=== PATIENT | female | born 1960 | race Caucasian/White ===

== ENCOUNTER 2017-06-17 18:29 | Emergency (ER) | payer MEDICARE, MEDICAID ==
[~2017-06-17 18:29] MED LIST: ISOVUE-370 76%-LOCM 1 ML ONE
[2017-06-17] MEDS ORDERED: Ondansetron HCl/PF 4 MG/2 ML Vial ONE (18:50)
[2017-06-17 19:02] LABS: Bilirubin Small (Negative); Blood, Urine Negative (Negative); Glucose, Urine (Dipstick) Negative (Negative); Ketone, Urine Trace mg/dL (Negative); Nitrite Negative (Negative); Protein, Urine (Dipstick) 30 mg/dL (Neg-Trace)
[2017-06-17 19:03] LABS: Bacteria/HPF Rare-Few HPF (None Seen)
[2017-06-17 19:28] LABS: RBC/HPF 0-3 HPF (0-3)
[2017-06-17 19:29] LABS: Hyaline Casts/LPF 4-6 HYALINE CAST LPF (0-3 Hyaline)
[2017-06-17 19:41] LABS: #Eosinphils 0.3 thou/uL (0.0-0.7); #Lymphocytes 2.3 thou/uL (1.20-3.40); #Monocytes 0.9 thou/uL (0.11-0.59); #Neutrophils 3.6 thou/uL (1.40-6.50); %Basophils 0.5 % (0.0-1.0); %Lymphocytes 32.8 % (21.0-51.0); Hematocrit 40.5 % (36.0-47.0); Mean Platelet Volume 10.7 fL (7.4-10.4); Red Blood Cell (RBC) Count 4.23 mill/uL (4.20-5.40); White Blood Cell (WBC) Count 7.2 thou/uL (4.8-10.8)
[2017-06-17 20:07] LABS: Lactic Acid - Sepsis 1.4 mmol/L (0.5-2.2)
[2017-06-17] MEDS ORDERED: HYDROcodone/Acetaminophen 5/325 mg Tablet ONE (20:08)
[2017-06-17 20:19] LABS: ALT (SGPT) 15 U/L (8-55); AST (SGOT) 14 U/L (5-34); Alkaline Phosphatase 73 U/L (40-150); Anion Gap 17 mmol/L (10-20); BUN (Urea Nitrogen) 14 mg/dL (9.8-20.1); Bilirubin, Total 0.4 mg/dL (0.2-1.2); Calc. Creatinine Clearance 0 mL/min (70-130); Calcium 9.1 mg/dL (7.8-10.44); Carbon Dioxide 19 mmol/L (22-29); Chloride 108 mmol/L (98-107); Estimated GFR-MDRD 70; Globulin 2.7 g/dL (2.4-3.5); Protein, Total 6.6 g/dL (6.0-8.3); Troponin I Less than 0.010 ng/mL (< 0.028)
--- NOTE | 2017-06-17 20:23 | CT ---
CT ABDOMEN AND PELVIS WITH IV CONTRAST 06/27/17 HISTORY: Lower abdominal pain, right flank pain. FINDINGS: Comparison is made with the exam of 01/12/17. Mild atelectatic changes in the lung bases. A small hiatal hernia is again seen. The liver, spleen, pancreas, and right adrenal gland are normal. The 12 mm right para-adrenal nodule and the 15 mm left adrenal nodule is stable. The patient is post cholecystectomy and hysterectomy. No free air, free fluid, or lymphadenopathy is seen in the abdomen or pelvis. There are vascular binu cifications without evidence of aneurysmal dilatation of the abdominal aorta. There are degenerative changes in the spine. A small cyst in the left kidney and scarring at the inferior pole of the right kidney are again seen . IMPRESSION: 1. Small hiatal hernia. 2. Stable left adrenal and right para-adrenal nodules. 3. No evidence of acute process. POS: [facility]
[2017-06-17] MEDS ORDERED: Methocarbamol 1 GM in Sodium Chloride 0.9% 100 ML IVPB SCH (21:45)
[2017-06-17] MEDS ORDERED: Dicyclomine HCl 20 mg/2 ml Ampule ONE (22:02)
== END 2017-06-17 23:03 | disposition home or self-care (01) ==
LOC: ERS 18:29
DX: M54.5 Low back pain (principal); E78.5 Hyperlipidemia, unspecified; E27.40 Unspecified adrenocortical insufficiency; F32.9 Major depressive disorder, single episode, unspecified; F41.9 Anxiety disorder, unspecified; G62.9 Polyneuropathy, unspecified; I25.2 Old myocardial infarction; I10 Essential (primary) hypertension; I25.10 Atherosclerotic heart disease of native coronary artery without angina pectoris; Z79.899 Other long term (current) drug therapy; Z86.73 Personal history of transient ischemic attack (TIA), and cerebral infarction without residual deficits; Z79.84 Long term (current) use of oral hypoglycemic drugs; Z87.891 Personal history of nicotine dependence
CPT/HCPCS: 36415; 74177; 80053; 81003; 81015; 82553; 83605; 84484; 85025; 87086; 96365; 96372; 96375; J2405; J2800; J7050

== ENCOUNTER 2017-06-24 14:24 | Emergency (ER) | payer MEDICARE, MEDICAID ==
[2017-06-24 14:54] LABS: #Basophils 0.1 thou/uL (0.0-0.2); #Eosinphils 0.3 thou/uL (0.0-0.7); #Lymphocytes 2.3 thou/uL (1.20-3.40); #Monocytes 0.9 thou/uL (0.11-0.59); #Neutrophils 3.2 thou/uL (1.40-6.50); %Lymphocytes 33.6 % (21.0-51.0); %Monocytes 13.4 % (0.0-10.0); Hematocrit 40.5 % (36.0-47.0); Mean Platelet Volume 9.5 fL (7.4-10.4); Red Blood Cell (RBC) Count 4.24 mill/uL (4.20-5.40); White Blood Cell (WBC) Count 6.8 thou/uL (4.8-10.8)
[2017-06-24 15:15] LABS: ALT (SGPT) 18 U/L (8-55); AST (SGOT) 19 U/L (5-34); Alkaline Phosphatase 76 U/L (40-150); Anion Gap 13 mmol/L (10-20); BUN (Urea Nitrogen) 13 mg/dL (9.8-20.1); Bilirubin, Total 0.3 mg/dL (0.2-1.2); Calc. Creatinine Clearance 0 mL/min (70-130); Calcium 9.3 mg/dL (7.8-10.44); Carbon Dioxide 23 mmol/L (22-29); Chloride 107 mmol/L (98-107); Estimated GFR-MDRD 76; Globulin 3.2 g/dL (2.4-3.5); Protein, Total 7.3 g/dL (6.0-8.3)
[2017-06-24 15:21] LABS: Bilirubin Small (Negative); Blood, Urine Negative (Negative); Glucose, Urine (Dipstick) Negative (Negative); Ketone, Urine Trace mg/dL (Negative); Nitrite Negative (Negative); Protein, Urine (Dipstick) Negative (Neg-Trace); Urobilinogen 0.2 mg/dL (0.2-1.0)
[2017-06-24] MEDS ORDERED: Morphine Sulfate 2 MG/ML SYRINGE ONE ×2 (15:38→17:20)
[2017-06-24] MEDS ORDERED: Ondansetron HCl/PF 4 MG/2 ML Vial ONE (15:38)
[2017-06-24] MEDS ORDERED: ISOVUE-370 76%-LOCM 1 ML ONE (16:10)
--- NOTE | 2017-06-24 16:49 | CT ---
CT ABDOMEN WITH CONTRAST CT PELVIS WITH CONTRAST: DATE: TIME: 1613 HOURS HISTORY: 57-year-old female with persistent epigastric pain and nausea, becoming recently worse. COMPARISON: 06/17/[address] angiogram of 07/19/16. TECHNIQUE: IV injection of iodinated contrast media: Administered. Oral contrast media: Not administered. FINDINGS: The small right paraadrenal nodule and the small left adrenal nodule are unchanged since 07/19/16. T he appendix is not visualized. Several diverticula in the descending colon and proximal sigmoid colo n without acute diverticulitis. No small bowel dilation. There is a new Combs catheter in the now em pty urinary bladder, which is the only interval change since 06/17/17. Atherosclerotic calcification without aneurysm of abdominal aorta. Bilateral kidneys, pancreas, liver, and spleen are normal. No ascites or pneumoperitoneum. Liver, pancreas, kidneys, and spleen are normal. Lung bases are clear. Cholecystectomy clips. Absent uterus. IMPRESSION: 1. Interval placement of Combs catheter. 2. No other interval change since 06/17/17. 3. No acute findings. 4. Status post cholecystectomy, hysterectomy, and probably appendectomy. 5. Small adrenal and paraadrenal nodules, stable since 07/19/16. JNTeddy POS: [facility]
== END 2017-06-24 18:17 | disposition home or self-care (01) ==
LOC: ERS 14:24
DX: R33.9 Retention of urine, unspecified (principal); D50.9 Iron deficiency anemia, unspecified; E27.40 Unspecified adrenocortical insufficiency; E78.5 Hyperlipidemia, unspecified; F41.9 Anxiety disorder, unspecified; F32.9 Major depressive disorder, single episode, unspecified; G62.9 Polyneuropathy, unspecified; I25.10 Atherosclerotic heart disease of native coronary artery without angina pectoris; I25.2 Old myocardial infarction; I10 Essential (primary) hypertension; Z86.73 Personal history of transient ischemic attack (TIA), and cerebral infarction without residual deficits; Z87.891 Personal history of nicotine dependence; Z79.84 Long term (current) use of oral hypoglycemic drugs; Z79.899 Other long term (current) drug therapy
CPT/HCPCS: 36415; 51702; 74177; 80053; 81003; 85025; 96361; 96374; 96375; 96376; J2270; J2405

== ENCOUNTER 2017-06-26 18:22 | Emergency (ER) | payer MEDICARE, MEDICAID ==
[~2017-06-26 18:22] MED LIST changes: +Iopamidol 370 76% 50 ML VIAL FS ONE
[2017-06-26 19:00] LABS: #Basophils 0.1 thou/uL (0.0-0.2); #Eosinphils 0.4 thou/uL (0.0-0.7); #Lymphocytes 2.4 thou/uL (1.20-3.40); #Monocytes 0.9 thou/uL (0.11-0.59); #Neutrophils 3.7 thou/uL (1.40-6.50); %Basophils 1.2 % (0.0-1.0); %Eosinophils 4.8 % (0.0-10.0); %Lymphocytes 32.3 % (21.0-51.0); %Monocytes 12.2 % (0.0-10.0); Hematocrit 38.2 % (36.0-47.0); Red Blood Cell (RBC) Count 3.98 mill/uL (4.20-5.40); White Blood Cell (WBC) Count 7.4 thou/uL (4.8-10.8)
[2017-06-26 19:08] LABS: Bilirubin Negative (Negative); Blood, Urine Negative (Negative); Glucose, Urine (Dipstick) Negative (Negative); Ketone, Urine Negative (Negative); Nitrite Negative (Negative); Protein, Urine (Dipstick) Negative (Neg-Trace)
[2017-06-26 19:18] LABS: Lactic Acid - Sepsis 0.9 mmol/L (0.5-2.2)
[2017-06-26 19:23] LABS: ALT (SGPT) 16 U/L (8-55); AST (SGOT) 16 U/L (5-34); Alkaline Phosphatase 88 U/L (40-150); Anion Gap 12 mmol/L (10-20); BUN (Urea Nitrogen) 13 mg/dL (9.8-20.1); Bilirubin, Total 0.3 mg/dL (0.2-1.2); CK (CPK) 37 U/L (29-168); Calc. Creatinine Clearance 0 mL/min (70-130); Carbon Dioxide 24 mmol/L (22-29); Chloride 110 mmol/L (98-107); Estimated GFR-MDRD 75; Globulin 3.1 g/dL (2.4-3.5)
[2017-06-26 19:25] LABS: Troponin I 0.026 ng/mL (< 0.028)
--- NOTE | 2017-06-26 20:18 | RAD ---
PORTABLE CHEST ONE VIEW: 06/26/17 at 6:53 p.m. HISTORY: Chest pain. FINDINGS: Comparison is made with the exam of 05/04/17. There are changes of median sternotomy. Left sided pacemaker device remains in place. The heart size is borderline. The lungs are well expanded without focal areas of consolidation, pneumothorax, jasmina k pulmonary edema, or pleural effusions. IMPRESSION: No acute process. POS: [facility]
[2017-06-26] MEDS ORDERED: Promethazine HCl 25 MG/ML VIAL ONE (20:19)
--- NOTE | 2017-06-26 23:31 | CT ---
CT ABDOMEN AND PELVIS WITH ORAL AND IV CONTRAST: History: Abdominal pain. Urinary retention. FINDINGS: Comparison is made with exam of 06-24-17. There has been removal of the Combs catheter since the las t exam. The urinary bladder is well distended. Mild dependent changes at the lung bases again seen. Small hiatal hernia is again noted. Changes of cholecystectomy are again seen. The liver, spleen, pancreas, and right adrenal gland are normal. The 12 mm right sided renal nodule and 15 mm left adrenal nodule are stable. No free air, free fluid or lymphadenopathy is seen in the abdomen or pelvis. Vascular calcifications are present without evidence of aneurysmal dilatation of the abdominal aorta. There are degenerativ e changes in the spine. A small cyst in the left kidney and scarring in the inferior pole of the right kidney is seen. The a ppendix is not visualized. Mild colonic diverticulosis is stable. IMPRESSION: 1. Small hiatal hernia. 2. Stable small left adrenal and right para-adrenal nodules. 3. No evidence of acute process. 4. Mild colonic diverticulosis. POS: [facility]
[2017-06-26] MEDS ORDERED: Ondansetron HCl/PF 4 MG/2 ML Vial ONE (23:43)
[2017-06-27] MEDS ORDERED: Lidocaine Viscous Sol 2% 15 ml UD Cup ONE (00:30)
[2017-06-27] MEDS ORDERED: Lidocaine 2% Jelly 5 ML TUBE ONE (00:34)
[2017-06-27] MEDS ORDERED: Witch Hazel-Glycerin 1 EACH JAR TOP SCH (01:00)
[2017-06-27] MEDS ORDERED: cefTRIAXone\\ROCEPHIN 1 GM VIAL ONE ×2 (01:34→01:41)
[2017-06-27] MEDS ORDERED: Sodium Chloride 0.9% 100 ML ONE ×2 (01:35→01:41)
[2017-06-27] MEDS ORDERED: Ketorolac Tromethamine 30 MG/ML VIAL ONE (01:56)
== END 2017-06-27 02:30 | disposition home or self-care (01) ==
LOC: ERS 18:22
DX: N76.0 Acute vaginitis (principal); G62.9 Polyneuropathy, unspecified; D50.9 Iron deficiency anemia, unspecified; I25.10 Atherosclerotic heart disease of native coronary artery without angina pectoris; I25.2 Old myocardial infarction; E78.5 Hyperlipidemia, unspecified; I10 Essential (primary) hypertension; F41.9 Anxiety disorder, unspecified; F32.9 Major depressive disorder, single episode, unspecified; Z87.891 Personal history of nicotine dependence; Z86.73 Personal history of transient ischemic attack (TIA), and cerebral infarction without residual deficits; Z79.84 Long term (current) use of oral hypoglycemic drugs; Z79.899 Other long term (current) drug therapy
CPT/HCPCS: 36415; 51702; 71010; 74177; 80053; 81003; 82553; 83605; 83690; 84484; 85025; 87040; 87070; 87077; 87086; 87491; 87591; 93005; 94760; 96361; 96365; 96375; 96376; J0696; J1885; J2270; J2405; J2550; J7050

== ENCOUNTER 2017-07-04 13:59 | Observation (INO) | payer MEDICARE, MEDICAID ==
[~2017-07-04 13:59] MED LIST changes: -Iopamidol 370 76% 50 ML VIAL FS ONE
--- NOTE | 2017-07-04 14:36 | RAD ---
PORTABLE CHEST ONE VIEW: Date: 07-04-17 Time: 1:47 p.m. History: Chest pain. FINDINGS: Comparison made with exam of 06-26-17. Changes of median sternotomy are again seen. Left sided pacemaker device seen in place. The heart si ze is normal. The lungs are expanded without focal areas of consolidation, pneumothorax, or pleural effusions. IMPRESSION: No acute process. POS: [facility]
[2017-07-04 14:43] LABS: #Basophils 0.1 thou/uL (0.0-0.2); #Eosinphils 0.3 thou/uL (0.0-0.7); #Lymphocytes 1.9 thou/uL (1.20-3.40); #Monocytes 0.8 thou/uL (0.11-0.59); #Neutrophils 2.9 thou/uL (1.40-6.50); %Basophils 1.2 % (0.0-1.0); %Eosinophils 4.8 % (0.0-10.0); %Lymphocytes 32.3 % (21.0-51.0); %Monocytes 13.6 % (0.0-10.0); Hematocrit 38.1 % (36.0-47.0); Mean Platelet Volume 9.4 fL (7.4-10.4); Red Blood Cell (RBC) Count 4.06 mill/uL (4.20-5.40)
[2017-07-04] MEDS ORDERED: Ondansetron HCl/PF 4 MG/2 ML Vial ONE (14:48)
[2017-07-04] MEDS ORDERED: Nitroglycerin 2% Ointment 1 INCH/1 GM Packet ONE (14:48)
[2017-07-04 15:11] LABS: ALT (SGPT) 16 U/L (8-55); AST (SGOT) 17 U/L (5-34); Alkaline Phosphatase 71 U/L (40-150); Anion Gap 11 mmol/L (10-20); BUN (Urea Nitrogen) 15 mg/dL (9.8-20.1); Bilirubin, Total 0.3 mg/dL (0.2-1.2); CK (CPK) 34 U/L (29-168); Calc. Creatinine Clearance 0 mL/min (70-130); Calcium 9.2 mg/dL (7.8-10.44); Carbon Dioxide 26 mmol/L (22-29); Chloride 106 mmol/L (98-107); Estimated GFR-MDRD 82; Globulin 2.9 g/dL (2.4-3.5); Protein, Total 6.8 g/dL (6.0-8.3)
[2017-07-04 15:14] LABS: Troponin I Less than 0.010 ng/mL (< 0.028)
[2017-07-04] MEDS ORDERED: Morphine 2 MG/ML SYRINGE ONE (15:39)
[2017-07-04] MEDS ORDERED: Ondansetron ODT 4 MG TAB SL PRN (17:00)
[2017-07-04] MEDS ORDERED: Ondansetron HCl/PF 4 MG/2 ML Vial IVP PRN (17:00)
[2017-07-04] MEDS ORDERED: Sodium Chloride 0.9% 1,000 ML IV SCH (17:00)
[2017-07-04 17:07] VITALS: BMI 42.5
[2017-07-04] MEDS ORDERED: hydrALAZINE 20 MG/ML VIAL SLOW IVP PRN (18:19)
[2017-07-04] MEDS ORDERED: Acetaminophen 325 MG TAB PO PRN (18:19)
[2017-07-04] MEDS ORDERED: Nitroglycerin 0.4 MG TAB (25 Tab Bottle) SL PRN (18:19)
[2017-07-04] MEDS ORDERED: Furosemide 40 MG TAB PO PRN (18:23)
[2017-07-04] MEDS ORDERED: Sodium Chloride 0.9% 500 ML IV SCH (18:30)
[2017-07-04 18:52] LABS: Troponin I Less than 0.010 ng/mL (< 0.028)
--- NOTE | 2017-07-04 20:29 | HP ---
DATE OF OBSERVATION PLACEMENT: 07/04/2017 PRIMARY CARE PHYSICIAN: Danny kaye. REASON FOR ADMISSION: Chest pain. HISTORY OF PRESENT ILLNESS: Ms. Bel Neves is a 57-year-old female with an extensive past medic al history which includes coronary artery disease necessitating CABG, chronic diastolic congestive h eart failure with an EF of 60-65%, hypertension, dyslipidemia, anxiety and sick sinus syndrome, stat us post pacemaker placement, who presents to the emergency room complaining of chest discomfort whic h began earlier today. The patient states that the pain is in the left side of her chest and it has radiated up to her neck as well as her arm. She states that she did not get short of breath or fel t palpitations; however, has felt diaphoresis and has some nausea and vomiting. She states that her pain is exacerbated by movement as well as exertion. She then arrived to the emergency room where she received nitroglycerin, morphine and aspirin. Her pain has been alleviated somewhat, however, s he still complains a 2/10 chest discomfort. Of note, the patient has had a cardiac catheterization in 01/2017, which revealed 2-vessel coronary artery disease involving the diagonal branch of LAD and circumflex. There was no obstructive CAD and LAD and at that point, medical therapy was recommende d. The patient states she has been compliant with her medications. Given her cardiac risk factors and her presenting symptoms, she is now being placed into observation onto the telemetry floor. Cur rently, she is resting comfortably. PAST MEDICAL HISTORY: 1. Coronary artery disease necessitating CABG. 2. Hypertension. 3. Hyperlipidemia. 4. Chronic diastolic congestive heart failure with an EF of 60-65%. 5. Hyperlipidemia. 6. Diabetes mellitus type 2. 7. Sick sinus syndrome, status post pacemaker placement. 8. Anxiety. PAST SURGICAL HISTORY: 1. Pacemaker placement. 2. Appendectomy. 3. Hysterectomy. 4. Three-vessel CABG. 5. Cholecystectomy. CODE STATUS: FULL CODE. SOCIAL HISTORY: The patient is a former smoker. Denies any illicit drug use. Denies any alcohol u se. MEDICATIONS: 1. Ranexa 1000 mg p.o. b.i.d. 2. Aggrenox 1 capsule p.o. b.i.d. 3. Glucophage 500 mg p.o. daily. 4. Klonopin 0.5 mg p.o. daily. 5. Zoloft 150 mg p.o. daily. 6. Seroquel 100 mg p.o. at bedtime. 7. Protonix 40 mg p.o. b.i.d. 8. Metoprolol tartrate 25 mg p.o. b.i.d. 9. Zestril 10 mg p.o. at bedtime. 10. Isosorbide mononitrate 30 mg p.o. daily. 11. Neurontin 300 mg p.o. at bedtime. 12. Lasix 40 mg p.o. daily. 13. Florinef 0.1 mg p.o. daily. 14. Lipitor 80 mg p.o. at bedtime. ALLERGIES: No known drug allergies. FAMILY HISTORY: Significant for multiple family members with coronary artery disease. REVIEW OF SYSTEMS: The following complete review of systems was negative, unless otherwise mentione d in the HPI or below: Constitutional: Weight loss or gain, sense of well-being, ability to conduct usual activities, exer cise tolerance. Skin/Breast: Rash, itching, changes in hair growth or loss, nail changes, breast l umps, tenderness, swelling, nipple discharge. Eyes: Vision, double vision, tearing, blind spots, p ain. ENT/Mouth: Headaches (location, time of onset, duration, precipitating factors), vertigo, lig htheadedness, injury. Vision, double vision, tearing, blind spots, pain, nose bleeding, colds, obstr uction, discharge, dental difficulties, gingival bleeding, dentures, neck stiffness, pain, tendernes s, masses in thyroid or other areas. Cardiovascular: Precordial pain, substernal distress, palpita tions, syncope, dyspnea on exertion, orthopnea, nocturnal paroxysmal dyspnea, edema, cyanosis, hyper tension, heart murmurs, varicosities, phlebitis, claudication. Respiratory: Pain, shortness of janeth ath, wheezing, stridor, cough, hemoptysis, fever or night sweats. Gastrointestinal: Poor appetite, dysphagia, indigestion, abdominal pain, heartburn, eructation, nausea, vomiting, hematemesis, jaund ice, constipation, or diarrhea, abnormal stools (vanesa-colored, tarry, bloody, greasy, foul smelling) , flatulence, hemorrhoids, recent changes in bowel habits. Genitourinary: Urgency, frequency, dysu josselin, nocturia, hematuria, polyuria, oliguria, unusual (or change in) color of urine, stones, hesitan cy, change in size of stream, dribbling, acute retention or incontinence, libido, potency. Musculos keletal: Pain, swelling, redness or heat of muscles or joints, limitation, of motion, muscular weak ness, atrophy, cramps. Neurologic/Psychiatric: Convulsions, paralyses, tremor, incoordination, par asthesias, difficulties with memory of speech, sensory or motor disturbances, or muscular coordinati on (ataxia, tremor), emotional problems, anxiety, depression, previous psychiatric care, unusual per ceptions, hallucinations. Allergy/Immunologic: Skin rash, anemia, bleeding tendency, polydipsia, p olyuria, intolerance to heat or cold. PHYSICAL EXAMINATION: CONSTITUTIONAL/VITAL SIGNS: Blood pressure is 149/77, pulse is 85, temperature is 98.1, respiration s are 20, O2 saturation 94% on room air. GENERAL: She is in no acute distress, nontoxic appearing. EYES: Pupils equal, round, and reactive to light and accommodation. ENT/MOUTH: Moist oral mucosa. RESPIRATORY: Equal chest wall expansion. No wheezes, rhonchi or rales. CARDIOVASCULAR: Positive murmur, pacemaker pocket is present. No gallops or rubs. GASTROINTESTINAL: Soft, nontender, nondistended. Bowel sounds are present in all 4 quadrants. MUSCULOSKELETAL: Good range of motion in all 4 extremities. No clubbing, no cyanosis. LYMPHATIC: No swollen or painful cervical or axillary lymph nodes. NEUROLOGIC: No ptosis, no facial asymmetry, no tongue deviation or jaw protrusion, no focal deficit s. PSYCHIATRIC: She is awake, alert to time, place, person, answers appropriately. SKIN: Normal skin turgor. LABORATORY AND X-RAY FINDINGS: Taken in emergency room and reviewed by me showed WBC of 6.0, hemogl obin 12.9, hematocrit 38.1, platelet count 180,000. D-dimer 0.32. Sodium 139, potassium 4.1, chlor manuelito 106, carbon dioxide 26, anion gap 11, BUN 15, creatinine 0.72, glucose is 110, AST and ALT is 17 and 16. Troponin less than 0.01. BNP is 76.9. Chest x-ray done in the emergency room revealed no acute processes. She does have a pacemaker place d. EKG reveals atrial paced rhythm. ASSESSMENT AND PLAN: Ms. Bel Neves is a 57-year-old female with past medical history of ham ry artery disease, sick sinus syndrome, status post pacemaker placement, chronic diastolic congestiv e heart failure, hypertension, hyperlipidemia, and diabetes mellitus type 2, [facility]. 1. Chest pain. We will place patient in observation onto the telemetry floor. Three sets of cardi ac enzymes and we will continue with aspirin therapy. Given her presenting symptoms, will check a C T of the chest to rule out any kind of underlying dissection. The patient does have chronic coronar y artery disease, and after her last cath, medical management was recommended. We will consult Card iology to see if any further intervention is warranted or just further medical management. 2. Hypertension. Continue patient's home medications. 3. Chronic diastolic congestive heart failure, no evidence of volume overload at this time. 4. Resume the patient's home medications except for metformin. She is to get a CT scan of the ches t. 5. P.r.n. order set. 6. Deep vein thrombosis prophylaxis. 7. FULL CODE. 8. Diabetic diet. I explained all this to the patient at bedside. She is agreeable to the plan of treatment. All que stions have been answered. The patient's further hospital course will be dictated by her clinical course while here.
[2017-07-04] MEDS ORDERED: Lisinopril 10 MG TAB PO SCH (21:00)
[2017-07-04] MEDS ORDERED: Gabapentin 300 MG CAP PO SCH (21:00)
[2017-07-04] MEDS ORDERED: clonazePAM 0.5 MG TAB PO SCH (21:00)
[2017-07-04] MEDS ORDERED: Atorvastatin Calcium 40 MG TAB PO SCH (21:00)
[2017-07-04] MEDS: Aggrenox 200-25mg CAP PO SCH (21:08)
[2017-07-04] MEDS: Metoprolol Tartrate 50 MG TAB PO SCH (21:10)
[2017-07-04 21:49] LABS: Troponin I Less than 0.010 ng/mL (< 0.028)
--- NOTE | 2017-07-04 22:10 | CT ---
CTA AORTA 07/04/17 HISTORY: Chest pain, rule out aortic dissection. Contrast enhanced CTA of the chest and abdomen is performed. Comparison made to previous CTA chest f rom 07/19/[address] of the abdomen from 06/26/17. 2D and 3D reconstructed images performed. FINDINGS/IMPRESSION: CTA abdomen has not significantly changed since the previous CT of the abdomen from eight days earli er. The abdominal aorta, SMA, celiac, and renal arteries are patent. Again adrenal nodule seen. CTA CHEST: CTA chest demonstrates no evidence of significant lung parenchymal lesions. Coronary artery calcific ation seen. Again, no evidence of aortic dissections or aneurysms seen. No significant evidence of filling defec ts seen in the pulmonary arteries to suggest pulmonary emboli. A small hiatal hernia is also present . POS: [facility]
[2017-07-04] MEDS ORDERED: Morphine 2 MG/ML SYRINGE SLOW IVP SCH (22:45)
[2017-07-04] MEDS ORDERED: HYDROcodone/Acetaminophen 5/325 mg Tablet PO PRN ×2 (22:53)
[2017-07-05] MEDS: HYDROcodone/Acetaminophen 10/325 mg Tablet PO PRN ×3 (04:17→13:51)
[2017-07-05 05:58] LABS: #Eosinphils 0.3 thou/uL (0.0-0.7); #Lymphocytes 2.1 thou/uL (1.20-3.40); #Monocytes 0.8 thou/uL (0.11-0.59); #Neutrophils 2.5 thou/uL (1.40-6.50); %Basophils 0.7 % (0.0-1.0); %Eosinophils 4.9 % (0.0-10.0); Hematocrit 34.4 % (36.0-47.0); Mean Platelet Volume 9.7 fL (7.4-10.4); Red Blood Cell (RBC) Count 3.56 mill/uL (4.20-5.40); White Blood Cell (WBC) Count 5.7 thou/uL (4.8-10.8)
[2017-07-05 06:05] LABS: Anion Gap 10 mmol/L (10-20); BUN (Urea Nitrogen) 17 mg/dL (9.8-20.1); Calc. Creatinine Clearance 113 mL/min (70-130); Calcium 8.9 mg/dL (7.8-10.44); Carbon Dioxide 26 mmol/L (22-29); Chloride 107 mmol/L (98-107); Estimated GFR-MDRD 66
[2017-07-05] MEDS ORDERED: Fludrocortisone Acetate 0.1 MG TAB PO SCH (09:00)
[2017-07-05] MEDS: Aggrenox 200-25mg CAP PO SCH (09:19)
[2017-07-05] MEDS: Metoprolol Tartrate 50 MG TAB PO SCH (12:29)
--- NOTE | 2017-07-05 14:56 | PRG ---
DATE OF SERVICE: 07/05/2017 SUBJECTIVE: Ms. Neves was admitted to the hospital with again recurrent chest pain. EKG did not sh ow any ischemia. Her cardiac enzymes were negative. She says that the pain is like a sharp pain go ing across her chest and becomes a pressure. OBJECTIVE: VITAL SIGNS: On examination, 5 feet 1 inch tall, 226 pounds, BMI 42.7. Blood pressure has been son iable 94/52, earlier 82/46, and 125/58 most recently. Pulse is 60. LUNGS: Clear. CARDIAC: Normal S1, normal S2. ABDOMEN: Soft, nontender. EXTREMITIES: There is no edema. ASSESSMENT: 1. Chest pain. The patient has undergone cardiac catheterization as recently as 01/10/2017. She i s adequately vascularized. No other intervention would appear helpful or appropriate. She does hav e distal disease. 2. Morbid obesity. 3. Hypercholesterolemia. PLAN: 1. No other intervention would appear advisable or feasible. 2. Encouraged weight loss. 3. Do not know when the patient has had her pacemaker checked most recently. We can try to have th at interrogated prior to discharge. 4. Most recent LDL cholesterol 74.
[2017-07-05 15:29] VITALS: BP 118/56; TEMP 97.6
--- NOTE | 2017-07-05 15:37 | PDOC.PN ---
- Subjective Encounter Start Date: 07/05/17 Encounter Start Time: 15:36 Patient seen at bedside. No overnight events. Complains of neck pain that is positional. - Objective Resuscitation Status: Resuscitation Status FULL:Full Resuscitation Vital Signs & Weight: Vital Signs (12 hours) Temp Pulse Resp BP Pulse Ox 07/05/17 15:12 97.6 F 61 20 118/56 L 95 07/05/17 11:05 98.4 F 60 20 125/58 L 95 07/05/17 09:17 59 L 106/51 L 07/05/17 07:20 98.4 F 60 16 82/46 L 95 07/05/17 04:00 97.7 F 65 20 94/52 L 92 L Weight Weight 226 lb 1.6 oz I&O: 07/04/17 07/05/17 07/06/17 06:59 06:59 06:59 Intake Total 1271 339 Output Total 700 Balance 571 339 Result Diagrams: 07/05/17 04:43 07/05/17 04:43 Phys Exam - Physical Examination Constitutional: NAD HEENT: moist MMs Neck: no JVD Respiratory: clear to auscultation bilateral Cardiovascular: no significant murmur Gastrointestinal: non-tender Musculoskeletal: pulses present Neurological: normal sensation Psychiatric: normal affect, A&O x 3 Dx/Plan (1) Chest pain Code(s): R07.9 - CHEST PAIN, UNSPECIFIED Status: Acute (2) DM type 2 (diabetes mellitus, type 2) Status: Chronic Qualifiers: (3) Hx of CABG Status: Chronic (4) Morbid obesity Code(s): E66.01 - MORBID (SEVERE) OBESITY DUE TO EXCESS CALORIES Status: Chronic - Plan cont current plan of care * Appreciate cardiology input. No further intervention warranted. Medical management. * Pacer interrogated. Well functioning, no arrythmias * Pain appears to be noncardiac in nature, possibly neuropathic * D/C home
[2017-07-05] MEDS ORDERED: Acetaminophen/Codeine 30-300mg Tablet PO PRN (15:44)
--- NOTE | 2017-07-05 16:40 | DIS ---
DATE OF ADMISSION: 07/04/2017 DATE OF DISCHARGE: 07/05/2017 DISCHARGE DISPOSITION: Home. DISCHARGE FOLLOWUP: Dr. Sheldon as an outpatient. DISCHARGE DIAGNOSES: 1. Chest pain, acute coronary syndrome, ruled out. 2. History of coronary artery disease, stable. 3. Obesity. 4. Hypertension. 5. Dyslipidemia. 6. Neuropathy. DISCHARGE MEDICATIONS: 1. Tylenol No. 3 one tablet q.6 hours p.r.n., only 20 tablets were given. 2. Aggrenox 1 capsule p.o. b.i.d. 3. Lipitor 80 mg p.o. at bedtime. 4. Florinef 0.1 mg p.o. daily. 5. Lasix 40 mg p.o. daily. 6. Neurontin 300 mg p.o. at bedtime. 7. Imdur 30 mg p.o. daily. 8. Zestril 10 mg p.o. at bedtime. 9. Metoprolol tartrate 25 mg p.o. b.i.d. 10. Protonix 40 mg p.o. b.i.d. 11. Quetiapine 100 mg p.o. at bedtime. 12. Ranexa 1000 mg p.o. b.i.d. 13. Zoloft 150 mg p.o. daily. 14. Klonopin 0.5 mg p.o. daily. 15. Metformin 500 mg p.o. daily. INPATIENT CONSULTATIONS: Dr. Beck, Cardiology. INPATIENT PROCEDURES: None. INPATIENT RADIOGRAPHIC EXAMINATIONS: 1. Chest x-ray, which revealed no acute process. 2. CT dissection protocol, which revealed no evidence of aortic dissection, aneurysm. There is no evidence of filling defects to suggest pulmonary emboli. BRIEF HOSPITAL COURSE: Ms. Bel Neves is a 57-year-old female with a past medical history of coron kushal artery disease, hypertension, and hyperlipidemia, who presents to the emergency room complaining of chest discomfort. The patient was then subsequently placed in [facility] Three sets of cardiac enzymes were ordered, all 3 sets were negative. Given her extensive histo ry, a Cardiology consult to see if any further intervention was needed. The patient did have a card iac catheterization in 01/2017, in which she was adequately vascularized. Cardiology did not recomm end any further intervention. They recommended medical management, which she is already on. Clinic ally, the patient appeared to have the neuropathic or musculoskeletal pain as most of her pain was r eproducible. Her troponins have been negative. Her EKG has not shown any acute changes. She did h ave her pacemaker interrogated, which was revealed to be functioning well without any arrhythmias. Currently, she is stable for discharge home. We will discharge home later today in stable condition . DISCHARGE DIET: Heart healthy. ACTIVITY: As tolerated. RESTRICTIONS: None. CODE STATUS: FULL CODE. I have explained all this to the patient at bedside. She is agreeable to the plan of discharge. Al vipin questions have been answered. Time required to prepare for discharge 33 minutes.
--- OUTSIDE RECORDS SUMMARY | 2017-07-06 08:46 | XMS | Clinical Summary ---
:1960 Author Organization [facility] Address [address] [place] [address] Phone Care Team Providers Name Role Phone , Primary Care Provider Unavailable Allergies Not on File Current Medications Not on file Active Problems Not on file Social History Tobacco Use Types Packs/Day Years Used Date Never Assessed Sex Assigned at Date Recorded Not on file Last Filed Vital Signs Not on file Plan of Treatment Not on file Results Not on filefrom Last 3 Months
--- OUTSIDE RECORDS SUMMARY | 2017-07-06 08:46 | XMS | Clinical Summary ---
:1960 Author Organization [facility] Address [address] [place] [address] Phone Care Team Providers Name Role Phone , Primary Care Provider Unavailable Allergies Active Allergy Reactions Severity Noted Date Comments Propranolol 03/05/2015 Tingling all over body; restlessness Current Medications Prescription Sig. Disp. Refills Start Date End Date Status ALPRAZolam (XANAX) 0.5 Take 1 mg by mouth Active MG tablet 2 (two) times daily . albuterol-ipratropium Inhale 2 puffs by Active (COMBIVENT) 18-103 mouth via inhaler mcg/actuation inhaler every 6 (six) hours as needed for Wheezing. simvastatin (ZOCOR) 40 Take 40 mg by Active MG tablet mouth nightly. nitroglycerin Place 0.4 mg under Active (NITROSTAT) 0.4 MG SL the tongue every 5 tablet (five) minutes as needed for Chest pain Put 1 pill under tongue every 5min as needed for chest pain.No more than 3 doses in 15min.Call 911 if pain is unrelieved 5min after 1st dose. clopidogrel (PLAVIX) Take 75 mg by Active 75 mg tablet mouth daily. potassium chloride Take 8 mEq by Active (KLOR-CON) 8 MEQ CR mouth daily. tablet gabapentin (NEURONTIN) 3 (three) times 12/30/2014 Active 300 MG capsule daily . RANEXA 500 mg 12 hr Take 1,000 mg by 12/30/2014 Active tablet mouth 2 (two) times daily . aspirin 81 MG chewable Take 81 mg by Active tablet mouth daily. escitalopram oxalate Take 20 mg by Active (LEXAPRO) 20 MG tablet mouth daily. sertraline (ZOLOFT) daily . 12/30/2014 Active 100 MG tablet furosemide (LASIX) 20 Take 2 tablets (40 20 tablet 0 05/24/2015 Active MG tablet mg total) by mouth daily. benztropine (COGENTIN) Take 1 mg by mouth Active 1 MG tablet 2 (two) times daily. citalopram (CELEXA) 40 Take 40 mg by Active MG tablet mouth daily. metoprolol (LOPRESSOR) Take 50 mg by Active 50 MG tablet mouth 2 (two) times daily. LORazepam (ATIVAN) 2 Take 2 mg by mouth Active MG tablet every 6 (six) hours as needed for Anxiety. febuxostat 40 mg Take 40 mg by Active tablet mouth daily. acetaminophen-codeine Take 1 tablet by Active (TYLENOL #3) 300-30 mg mouth every 4 per tablet (four) hours as needed for Pain. ibuprofen Take 800 mg by Active (ADVIL,MOTRIN) 800 MG mouth every 6 tablet (six) hours as needed for Pain. Active Problems Problem Noted Date Vomiting and diarrhea 08/08/2015 Left-sided weakness 02/05/2015 COPD (chronic obstructive pulmonary disease) ([facility]) 02/05/2015 SOB (shortness of breath) 02/05/2015 Acute CVA (cerebrovascular accident) ([facility]) 02/05/2015 Symptomatic bradycardia 12/16/2014 Chest pain 11/16/2014 Pacemaker Overview: 12/18/2014 Hypertension High cholesterol Coronary artery disease Overview: CABG x 3 2011 Resolved Problems Problem Noted Date Resolved Date COPD exacerbation ([facility]) 12/10/2014 02/05/2015 Immunizations Name Dates Previously Given Next Due Influenza Antibiotic Free PF IM 06/27/2015 Social History Tobacco Use Types Packs/Day Years Used Date Former Smoker Quit: 10/12/2014 Alcohol Use Drinks/Week oz/Week Comments No Sex Assigned at Date Recorded Not on file Last Filed Vital Signs Vital Sign Reading Time Taken Blood Pressure 133/76 08/10/2015 7:52 AM [employer] Pulse 66 08/10/2015 7:52 AM [employer] Temperature 36.3 C (97.4 F) 08/10/2015 7:52 AM [employer] Respiratory Rate 16 08/10/2015 7:52 AM [employer] Oxygen Saturation 92% 08/10/2015 7:52 AM [employer] Inhaled Oxygen Concentration - - Weight 104.3 kg (230 lb) 08/08/2015 10:51 AM [employer] Height 154.9 cm (5' 1") 08/08/2015 10:51 AM [employer] Body Mass Index 43.46 08/08/2015 10:51 AM [employer] Plan of Treatment Not on file Implants Implanted Type Area Checkering Machine Adjuster Device Expiration Model / Identifier Date Serial / Lot Advisa Dr Indira Dudley Pacemakers Left: [employer] 03/24/2016 [id number] / Implanted:Qty: 1 on 12/18/2014 by Rick Ledesma MD Chest [id number] / Results Not on filefrom Last 3 Months
== END 2017-07-05 16:56 | disposition home or self-care (01) ==
LOC: ERS 13:59 → 2SW 16:36
PROVIDERS: ADMIT Hospitalist; ATTEND Hospitalist
DX: R07.9 Chest pain, unspecified (principal); I25.10 Atherosclerotic heart disease of native coronary artery without angina pectoris; E11.40 Type 2 diabetes mellitus with diabetic neuropathy, unspecified; I11.0 Hypertensive heart disease with heart failure; I50.32 Chronic diastolic (congestive) heart failure; I49.5 Sick sinus syndrome; F41.9 Anxiety disorder, unspecified; E66.01 Morbid (severe) obesity due to excess calories; E78.00 Pure hypercholesterolemia, unspecified; Z68.41 Body mass index [BMI] 40.0-44.9, adult; Z79.84 Long term (current) use of oral hypoglycemic drugs; Z79.02 Long term (current) use of antithrombotics/antiplatelets; Z79.82 Long term (current) use of aspirin; Z79.52 Long term (current) use of systemic steroids; Z79.899 Other long term (current) drug therapy; Z95.1 Presence of aortocoronary bypass graft; Z95.0 Presence of cardiac pacemaker; Z90.89 Acquired absence of other organs; Z90.710 Acquired absence of both cervix and uterus; Z87.891 Personal history of nicotine dependence
CPT/HCPCS: 71010; 71275; 80048; 80053; 82550; 82553; 83880; 84484 ×2; 85025 ×2; 85379; 93005; 96361 ×2; 96374; 96375; 96376; 99285; G0378; 36415; J2270; J2405; Q0162

== ENCOUNTER 2017-07-20 14:08 | Observation (INO) | payer MEDICARE, MEDICAID ==
--- OUTSIDE RECORDS SUMMARY | 2017-07-20 15:01 | XMS | Clinical Summary ---
:1960 Author Organization [facility] Address [address] [place] [address] Phone Care Team Providers Name Role Phone [...] weakness 02/05/2015 COPD (chronic obstructive pulmonary disease) ([facility]) 02/05/2015 SOB (shortness of breath) 02/05/2015 Acute CVA (cerebrovascular accident) ([facility]) 02/05/2015 Symptomatic bradycardia 12/16/2014 Chest pain 11/16/2014 Pacemaker Overview: 12/18/2014 Hypertension High cholesterol Coronary artery disease Overview: CABG x 3 2011 Resolved Problems Problem Noted Date Resolved Date COPD exacerbation ([facility]) 12/10/2014 02/05/2015 Immunizations Name Dates Previously Given Next Due Influenza Antibiotic Free PF IM 06/27/2015 Social History Tobacco Use Types Packs/Day Years Used Date Former Smoker Quit: 10/12/2014 Alcohol Use Drinks/Week oz/Week Comments No Sex Assigned at Date Recorded Not on file Last Filed Vital Signs Vital Sign Reading Time Taken Blood Pressure 133/76 08/10/2015 7:52 AM BROOMMAKING SUPERVISOR Pulse 66 08/10/2015 7:52 AM BROOMMAKING SUPERVISOR Temperature 36.3 C (97.4 F) 08/10/2015 7:52 AM BROOMMAKING SUPERVISOR Respiratory Rate 16 08/10/2015 7:52 AM BROOMMAKING SUPERVISOR Oxygen Saturation 92% 08/10/2015 7:52 AM BROOMMAKING SUPERVISOR Inhaled Oxygen Concentration - - Weight 104.3 kg (230 lb) 08/08/2015 10:51 AM BROOMMAKING SUPERVISOR Height 154.9 cm (5' 1") 08/08/2015 10:51 AM BROOMMAKING SUPERVISOR Body Mass Index 43.46 08/08/2015 10:51 AM BROOMMAKING SUPERVISOR Plan of Treatment Not on file Implants Implanted Type Area Clinical Support Manager Device Expiration Model / Identifier Date Serial / Lot Advisa Dr Indira Dudley Pacemakers Left: [employer] 03/24/2016 [id number] / Implanted:Qty: 1 on 12/18/2014 by iRck Ledesma MD Chest [id number] / Results Not on filefrom Last 3 Months
[2017-07-20] MEDS ORDERED: Nitroglycerin 2% Ointment 1 INCH/1 GM Packet ONE (15:23)
--- NOTE | 2017-07-20 15:25 | RAD ---
SINGLE VIEW OF THE CHEST: COMPARISON: 07/04/17. HISTORY: Chest pain that started 2 hours ago. FINDINGS: A single view of the chest shows an enlarged cardiomediastinal silhouette. The pacemaker is unchang ed in position. The patient is status post sternotomy. There may be small bilateral pleural effusi ons. IMPRESSION: Cardiomegaly and small bilateral pleural effusions. POS: [facility]
[2017-07-20] MEDS ORDERED: Ondansetron HCl/PF 4 MG/2 ML Vial ONE (15:28)
[2017-07-20 15:44] LABS: #Basophils 0.1 thou/uL (0.0-0.2); #Eosinphils 0.2 thou/uL (0.0-0.7); #Lymphocytes 2.2 thou/uL (1.20-3.40); #Monocytes 0.8 thou/uL (0.11-0.59); %Basophils 1.4 % (0.0-1.0); %Eosinophils 3.4 % (0.0-10.0); %Lymphocytes 34.4 % (21.0-51.0); %Monocytes 12.3 % (0.0-10.0); Hematocrit 39.4 % (36.0-47.0); Red Blood Cell (RBC) Count 4.06 mill/uL (4.20-5.40); White Blood Cell (WBC) Count 6.2 thou/uL (4.8-10.8)
[2017-07-20 15:53] LABS: PTT 28.2 SEC (22.9-36.1)
[2017-07-20 16:06] LABS: Troponin I Less than 0.010 ng/mL (< 0.028)
[2017-07-20 16:07] LABS: ALT (SGPT) 16 U/L (8-55); AST (SGOT) 15 U/L (5-34); Alkaline Phosphatase 73 U/L (40-150); Anion Gap 14 mmol/L (10-20); BUN (Urea Nitrogen) 10 mg/dL (9.8-20.1); Bilirubin, Total 0.4 mg/dL (0.2-1.2); CK (CPK) 44 U/L (29-168); Calc. Creatinine Clearance 0 mL/min (70-130); Carbon Dioxide 19 mmol/L (22-29); Chloride 107 mmol/L (98-107); Estimated GFR-MDRD 86; Lipase 13 U/L (8-78)
--- NOTE | 2017-07-20 18:39 | HP ---
DATE OF ADMISSION: 07/20/2017 PRIMARY CARE PHYSICIAN: Dr. Sheldon. PRIMARY PREPRESS PROOFER: Dr. Beck. CHIEF COMPLAINT: Chest discomfort. CODE STATUS: FULL CODE. SURROGATE DECISION-MAKER: The patient makes her own decisions with the help of her family. HISTORY OF PRESENT ILLNESS: The patient is a 57-year-old female with coronary artery disease, statu s post CABG with recent cardiac catheterization; hypertension; hyperlipidemia; CVA with residual wea kness, currently on Aggrenox; presented to the emergency room with chest discomfort. She was discha rged from this facility 2 weeks ago. The chest discomfort started this afternoon when she was at home. It was pressure-like, radiating t o her left arm. She also felt nauseous and had some shortness of breath. She denies any aggravatin g or relieving factor. The pain was moderate in intensity. She denies any palpitations, syncope or heartburn. This morning around 5, the patient had a mechanical fall when she was transferring from the wheelchair. In the emergency room, initial vital signs showed temperature 97.7, respirations 18, pulse of 80, bl ood pressure 171/97 with O2 saturation 98% on room air. Her initial EKG showed normal sinus rhythm with incomplete right bundle branch block without significant ST-T wave changes. Her chest x-ray wa s negative for infiltrate. It showed small questionable bilateral pleural effusion. She received n itroglycerin patch with Zofran and aspirin in the emergency room. PAST MEDICAL HISTORY: 1. Coronary artery disease, status post cardiac catheterization in January of this year. She also has a history of coronary artery bypass grafting. 2. Echocardiogram in 07/2016 showed normal left ventricular ejection fraction with grade I diastoli c dysfunction. 3. History of cerebrovascular accident with residual left-sided weakness, on Aggrenox. 4. Former smoker. 5. History of drug abuse including cocaine and amphetamine in the past. 6. Anxiety and depression. 7. Hypertension. 8. Dyslipidemia. 9. Sick sinus syndrome, status post pacemaker. PAST SURGICAL HISTORY: 1. Coronary artery bypass grafting x3. 2. Cholecystectomy. 3. Cardiac catheterization. 4. Hysterectomy. 5. Appendectomy. 6. Pacemaker placement. ALLERGIES: The patient denies any drug allergies. CURRENT HOME MEDICATIONS: The patient does not remember the exact dosages of her medications. She states that her medications are the same as last admission. We will confirm with the pharmacy. FAMILY HISTORY: Positive for heart disease in several family members. SOCIAL HISTORY: She is currently disabled. Former smoker. Denies any current use of drugs. REVIEW OF SYSTEMS: The following complete review of systems was negative, unless otherwise mentione d in the HPI or below: Constitutional: Weight loss or gain, ability to conduct usual activities. Skin: Rash, itching. Eyes: Double vision, pain. ENT/Mouth: Nose bleeding, neck stiffness, pain, tenderness. Cardiovascular: Palpitations, dyspnea on exertion, orthopnea. Respiratory: Shortness of breath, wheezing, cough, hemoptysis, fever or night sweats. Gastrointestinal: Poor appetite, abdominal pain, heartburn, nausea, vomiting, constipation, or diar sudheer. Genitourinary: Urgency, frequency, dysuria, nocturia. Musculoskeletal: Pain, swelling. Neurologic/Psychiatric: Anxiety, depression. Allergy/Immunologic: Skin rash, bleeding tendency. PHYSICAL EXAMINATION: VITAL SIGNS: As discussed above. GENERAL: A 57-year-old female, in no significant distress. Chest discomfort has improved. HEENT: Head atraumatic, normocephalic. Sclerae are anicteric. Moist mucous membrane. No oral les ion. NECK: Supple, no JVD appreciated. No carotid bruit. LUNGS: Clear to auscultation bilaterally with scattered rhonchi. HEART: S1, S2 present. Regular rate and rhythm. Healed midline scar from previous CABG, 2/6 systo lic murmur over the mitral area. ABDOMEN: Soft, nontender, bowel sounds present. EXTREMITIES: No edema or calf tenderness. NEUROLOGIC: Grossly nonfocal, moves all four extremities. Power was 5/5 in all extremities. Finge r-to-nose and ejso-gi-[id number] test was normal PSYCHIATRY: Alert, awake, oriented x3. SKIN: Warm and dry. LYMPH NODES: No palpable lymph nodes in the neck. PERIPHERAL VASCULAR: Radial pulses palpable bilaterally. MUSCULOSKELETAL: No joint swelling or tenderness. LABORATORY FINDINGS: 1. Troponins were normal. 2. CBC showed WBC 6.2 with hemoglobin 13.1. 3. Creatinine was 0.7 with BUN 10. 4. EKG and chest x-ray by my review as discussed above. IMPRESSION AND PLAN: 1. Chest discomfort. The patient was recently evaluated by Cardiology. We will resume her home me dications based on recent discharge including Ranexa. Continue nitropatch for now. We will repeat serial troponins. Her pacemaker was also recently interrogated. 2. Hypertension. We will resume her home medications. We will check orthostatic vitals in a.m. 3. Dyslipidemia. We will continue home medication. 4. Former smoker. 5. Anxiety, depression. The patient denies any suicidal ideation. 6. Sick sinus syndrome, status post pacemaker with recent interrogation. 7. History of cerebrovascular accident with residual left-sided weakness on Aggrenox, which will be continued. 8. Disposition probably in a.m. if her cardiac enzymes are negative. Plan of care was discussed with the patient. She stated understanding.
[2017-07-20 19:15] LABS: Troponin I Less than 0.010 ng/mL (< 0.028)
[2017-07-20] MEDS ORDERED: Ondansetron HCl/PF 4 MG/2 ML Vial IVP PRN (19:40)
[2017-07-20] MEDS ORDERED: hydrALAZINE 20 MG/ML VIAL SLOW IVP PRN (19:40)
[2017-07-20] MEDS ORDERED: Furosemide 40 MG TAB PO PRN (19:40)
[2017-07-20] MEDS ORDERED: Diabetic Tussin 200 MG/10 ML UDCUP PO PRN (19:40)
[2017-07-20] MEDS ORDERED: Senokot 8.6 MG TAB PO PRN (19:40)
[2017-07-20] MEDS ORDERED: Ondansetron ODT 4 MG TAB PO PRN (19:40)
[2017-07-20] MEDS ORDERED: Acetaminophen 325 MG TAB PO PRN (19:40)
[2017-07-20] MEDS ORDERED: Acetaminophen/Codeine 30-300mg Tablet PO PRN (19:40)
[2017-07-20] MEDS ORDERED: Gabapentin 300 MG CAP PO SCH (21:00)
[2017-07-20] MEDS ORDERED: clonazePAM 0.5 MG TAB PO SCH (21:00)
[2017-07-20] MEDS ORDERED: Atorvastatin Calcium 40 MG TAB PO SCH (21:00)
[2017-07-20] MEDS ORDERED: Lisinopril 10 MG TAB PO SCH (21:00)
[2017-07-20] MEDS: Aggrenox 200-25mg CAP PO SCH (21:12)
[2017-07-20] MEDS: Famotidine 20 MG TAB PO SCH (21:13)
[2017-07-20] MEDS: Docusate 100 MG CAP PO SCH (21:13)
[2017-07-20] MEDS: Metoprolol Tartrate 25 MG TAB PO SCH (21:14)
[2017-07-20 21:47] VITALS: BMI 35.8
[2017-07-20 22:18] LABS: Troponin I Less than 0.010 ng/mL (< 0.028)
[2017-07-21] MEDS ORDERED: Sodium Chloride 0.9% 1,000 ML IV SCH (07:45)
[2017-07-21 08:06] VITALS: TEMP 97.6
[2017-07-21] MEDS: Aggrenox 200-25mg CAP PO SCH (08:14)
[2017-07-21] MEDS: Famotidine 20 MG TAB PO SCH (08:14)
[2017-07-21] MEDS: Docusate 100 MG CAP PO SCH (08:15)
[2017-07-21] MEDS: Metoprolol Tartrate 25 MG TAB PO SCH (08:15)
[2017-07-21] MEDS ORDERED: Fludrocortisone Acetate 0.1 MG TAB PO SCH (09:00)
[2017-07-21] MEDS: Nitroglycerin 0.4 MG TAB (25 Tab Bottle) PO PRN ×2 (13:18→13:40)
[2017-07-21 13:34] VITALS: BP 139/67
--- NOTE | 2017-07-21 15:38 | DIS ---
DATE OF ADMISSION: 07/20/2017 DATE OF DISCHARGE: 07/21/2017 to the observation unit. PRIMARY CARE PHYSICIAN: Dr. Pia Sheldon. PRIMARY MACHINE TOOL BUILDER: Dr. Beck. DISCHARGE DIAGNOSES: 1. Left shoulder, noncardiac chest pain. 2. Orthostatic hypotension. 3. Coronary artery disease, status post coronary artery bypass grafting. Last cardiac catheterizat ion was in 01/2017. 4. Mild chronic diastolic congestive heart failure. 5. History of cerebrovascular disease with stroke and residual left-sided weakness. 6. History of polysubstance abuse with known tobacco, cocaine and amphetamine use. 7. Anxiety and depression. 8. Hypertension, essential. 9. Hyperlipidemia. 10. Sick sinus syndrome, status post pacemaker with atrial demand pacing. CONSULTATIONS: None. PROCEDURES: None. HOSPITAL COURSE: Ms. Neves is a 57-year-old female with a history of coronary artery disease, statu s post CABG and recent cardiac catheterization, hypertension and hyperlipidemia who presented to the Emergency Department for chest discomfort. She was actually seen here in our facility about 2 week s ago, was admitted on 07/04 and discharged on 07/05 for the same. During that visit, she did get a CT of the chest. Dissection protocol was unremarkable. Cardiac biomarkers at that time were negat jamey. She was discharged with outpatient followup. This time, she presented to the Emergency Department with complaints of chest pain. She describes i t as sharp stabbing up to the left shoulder. She had passed out when first standing up and walking from the bathroom and hit her chest and shoulder on a table when she fell. She presented to the Emergency Department, workup initially was negative. We were called for admiss ion. HOSPITAL COURSE: The patient was seen and examined, she was placed in observation by Dr. Mars and serial cardiac biomarkers were ordered. She was continued on her home medications, she was initially placed on nitroglycerin paste and while we waited for serial cardiac biomarkers to return, her pacemaker interrogation was not requested; i t has been recently interrogated and was functioning normally. Overnight, she was stable. She had really no further chest pain, she had orthostatic vital signs, i t did show a 13-point drop in the diastolic pressure when standing up and her pressures were in the 80s-90s. She was given a liter of fluid. After quick discussion with Dr. Kiran, cardiac biomarker s were negative and by lunchtime her blood pressure normalized and she no longer was orthostatic. T he case was discussed with her and she was informed that she will be going home, and she initially s eemed okay with that. About 2 hours later, the patient began complaining of sharp left shoulder pain and heaviness to her chest. She had negative cardiac biomarkers and monitoring since admission. EKG showed atrial pacin g, but otherwise her normal EKG was unchanged. She was discharged home in stable condition with out patient followup. PHYSICAL EXAMINATION: The patient was seen and examined several times on the day of discharge. Dis charge plan and disposition were discussed with the patient [id number] at the bedside. DISCHARGE MEDICATIONS: 1. Continue on her home medications. She is on Tylenol #3 per her home dosing, 1 tab every 6 hours . No new prescription was given. She is on Aggrenox 200/25 one p.o. b.i.d. 2. Lipitor 80 mg p.o. at bedtime. 3. Neurontin 300 mg p.o. at bedtime. 4. Metoprolol tartrate 25 mg p.o. b.i.d. 5. Protonix 40 mg p.o. b.i.d. 6. Quetiapine 100 mg p.o. at bedtime. 7. Ranexa 1000 mg p.o. b.i.d. 8. Zoloft 150 mg p.o. daily. 9. Clonazepam 0.5 mg p.o. q.p.m. 10. Fludrocortisone 0.1 mg p.o. daily. 11. Lasix 40 mg p.o. daily. 12. Isosorbide mononitrate 30 mg p.o. daily. 13. Lisinopril 10 mg p.o. at bedtime per home dosing. 14. Nitroglycerin 0.4 mg sublingual every 5 minutes as needed for chest pain. 15. Metformin 500 mg p.o. every noon. FOLLOWUP APPOINTMENTS 1. Dr. Sheldon within a week. 2. Dr. Beck per his clinic schedule. DISCHARGE ACTIVITY: Per cardiopulmonary limits. DISCHARGE DIET: Diabetic/heart healthy diet. DISCHARGE CONDITION: Stable. DISCHARGE DISPOSITION: Being discharged home via private vehicle. DISCHARGE INSTRUCTIONS: To contact her primary care physician or Dr. Beck's office for her chest pain or return to the Emergency Department for further workup.
--- NOTE | 2017-07-30 14:54 | EKG ---
Test Reason : C/O CHEST PAIN Blood Pressure : / mmHG Vent. Rate : 061 BPM Atrial Rate : 061 BPM P-R Int : 122 ms QRS Dur : 084 ms QT Int : 448 ms P-R-T Axes : 024 037 066 degrees QTc Int : 450 ms Electronic atrial pacemaker Nonspecific T wave abnormality Abnormal ECG When compared with ECG of 20-JUL-2017 14:10, (Unconfirmed) Electronic atrial pacemaker has replaced Sinus rhythm Vent. rate has decreased BY 39 BPM Incomplete right bundle branch block is no longer Present Confirmed by MACY PIPER (2) on 07/30/2017 2:53:42 PM Referred By: LYNETTE Confirmed By:MACY PIPER
== END 2017-07-21 15:59 | disposition home or self-care (01) ==
LOC: ERS 14:08 → 2SW 16:40
PROVIDERS: ADMIT Internal Medicine; ATTEND Internal Medicine
DX: R07.89 Other chest pain (principal); I95.1 Orthostatic hypotension; I25.10 Atherosclerotic heart disease of native coronary artery without angina pectoris; I11.0 Hypertensive heart disease with heart failure; I50.32 Chronic diastolic (congestive) heart failure; I69.354 Hemiplegia and hemiparesis following cerebral infarction affecting left non-dominant side; F41.8 Other specified anxiety disorders; E78.5 Hyperlipidemia, unspecified; I49.5 Sick sinus syndrome; Z79.84 Long term (current) use of oral hypoglycemic drugs; Z79.02 Long term (current) use of antithrombotics/antiplatelets; Z79.51 Long term (current) use of inhaled steroids; Z79.899 Other long term (current) drug therapy; Z95.0 Presence of cardiac pacemaker; Z95.1 Presence of aortocoronary bypass graft; Z90.49 Acquired absence of other specified parts of digestive tract; Z90.710 Acquired absence of both cervix and uterus; Z98.890 Other specified postprocedural states; Z86.59 Personal history of other mental and behavioral disorders; Z87.891 Personal history of nicotine dependence
CPT/HCPCS: 71010; 80053; 82550; 82553; 82962; 83690; 84484 ×2; 85025; 85610; 85730; 93005 ×2; 96361; 96374; 97139; 99285; G0378; 36415; 36416; 93010; J2405

== ENCOUNTER 2017-07-25 04:56 | Emergency (ER) | payer MEDICARE, MEDICAID ==
--- OUTSIDE RECORDS SUMMARY | 2017-07-25 05:01 | XMS | Clinical Summary ---
:1960 Author Organization [facility] Address [address] [place] [address] Phone Care Team Providers Name Role Phone [...] weakness 02/05/2015 COPD (chronic obstructive pulmonary disease) ([facility]) 02/05/2015 SOB (shortness of breath) 02/05/2015 Acute CVA (cerebrovascular accident) ([facility]) 02/05/2015 Symptomatic bradycardia 12/16/2014 Chest pain 11/16/2014 Pacemaker Overview: 12/18/2014 Hypertension High cholesterol Coronary artery disease Overview: CABG x 3 2011 Resolved Problems Problem Noted Date Resolved Date COPD exacerbation ([facility]) 12/10/2014 02/05/2015 Immunizations Name Dates Previously Given Next Due Influenza Antibiotic Free PF IM 06/27/2015 Social History Tobacco Use Types Packs/Day Years Used Date Former Smoker Quit: 10/12/2014 Alcohol Use Drinks/Week oz/Week Comments No Sex Assigned at Date Recorded Not on file Last Filed Vital Signs Vital Sign Reading Time Taken Blood Pressure 133/76 08/10/2015 7:52 AM QUARTER DOPER Pulse 66 08/10/2015 7:52 AM QUARTER DOPER Temperature 36.3 C (97.4 F) 08/10/2015 7:52 AM QUARTER DOPER Respiratory Rate 16 08/10/2015 7:52 AM QUARTER DOPER Oxygen Saturation 92% 08/10/2015 7:52 AM QUARTER DOPER Inhaled Oxygen Concentration - - Weight 104.3 kg (230 lb) 08/08/2015 10:51 AM QUARTER DOPER Height 154.9 cm (5' 1") 08/08/2015 10:51 AM QUARTER DOPER Body Mass Index 43.46 08/08/2015 10:51 AM QUARTER DOPER Plan of Treatment Not on file Implants Implanted Type Area Receiving Room Clerk Device Expiration Model / Identifier Date Serial / Lot Advisa Dr Indira Dudley Pacemakers Left: [employer]TRONIC 03/24/2016 [id number] / Implanted:Qty: 1 on 12/18/2014 by Rick Ledesma MD Chest [id number] / Results Not on filefrom Last 3 Months
[2017-07-25 08:30] LABS: Bilirubin Negative (Negative); Blood, Urine Negative (Negative); Glucose, Urine (Dipstick) Negative (Negative); Ketone, Urine Negative (Negative); Nitrite Negative (Negative); Protein, Urine (Dipstick) Negative (Neg-Trace)
[2017-07-25] MEDS ORDERED: Acetaminophen 500 MG TAB ONE ×2 (09:00→09:01)
[2017-07-25 10:56] LABS: Hematocrit 38.4 % (36.0-47.0); Red Blood Cell (RBC) Count 3.96 mill/uL (4.20-5.40); White Blood Cell (WBC) Count 4.9 thou/uL (4.8-10.8)
[2017-07-25] MEDS ORDERED: traMADol HCl 50 MG TAB ONE (10:56)
[2017-07-25 11:03] LABS: Lactic Acid - Sepsis 0.9 mmol/L (0.5-2.2)
[2017-07-25 11:08] LABS: ALT (SGPT) 15 U/L (8-55); AST (SGOT) 18 U/L (5-34); Alkaline Phosphatase 75 U/L (40-150); Anion Gap 15 mmol/L (10-20); BUN (Urea Nitrogen) 12 mg/dL (9.8-20.1); Bilirubin, Total 0.3 mg/dL (0.2-1.2); Calc. Creatinine Clearance 0 mL/min (70-130); Carbon Dioxide 20 mmol/L (22-29); Chloride 107 mmol/L (98-107); Estimated GFR-MDRD 83; Globulin 3.2 g/dL (2.4-3.5); Protein, Total 7.2 g/dL (6.0-8.3)
[2017-07-25 11:11] LABS: Band 3 % (5-11); Neutrophil 49 % (42-75); Reactive Lymphocytes 5 % (0-10)
== END 2017-07-25 11:13 | disposition home or self-care (01) ==
LOC: ERS 04:56
DX: J20.9 Acute bronchitis, unspecified (principal); M79.1 Myalgia; D50.9 Iron deficiency anemia, unspecified; G62.9 Polyneuropathy, unspecified; I25.10 Atherosclerotic heart disease of native coronary artery without angina pectoris; I25.2 Old myocardial infarction; E78.5 Hyperlipidemia, unspecified; I10 Essential (primary) hypertension; F41.9 Anxiety disorder, unspecified; F32.9 Major depressive disorder, single episode, unspecified; Z87.891 Personal history of nicotine dependence; Z86.73 Personal history of transient ischemic attack (TIA), and cerebral infarction without residual deficits; Z79.84 Long term (current) use of oral hypoglycemic drugs; Z79.899 Other long term (current) drug therapy
CPT/HCPCS: 36415; 80053; 81003; 82010; 83605; 85025; 87040; 96360; 96361

== ENCOUNTER 2017-09-03 14:31 | Inpatient (IN) | payer MEDICARE, MEDICAID ==
--- NOTE | 2017-09-03 14:58 | CT ---
CT BRAIN Date: 09/03/17 HISTORY: Left-sided paralysis. TECHNIQUE: Noncontrast enhanced CT images of brain obtained. COMPARISON: 05/24/17. FINDINGS: Noncontrast enhanced CT images of the brain demonstrate a right-sided choroidal fissure cyst which is stable. Old areas of lacunar infarction seen in the left basal ganglion. No evidence of intracranial acute masses, hemorrhages, or strokes seen. IMPRESSION: No evidence of acute intracranial abnormality seen. Findings called to Dr. Croft at 1447 hours on 09/03/17. CODE CR. POS: [facility]
--- NOTE | 2017-09-03 15:30 | RAD ---
AP VIEW CHEST: Date: 09/03/17 HISTORY: Stroke. FINDINGS: Comparison made to previous exam from 07/20/17. AP view of chest demonstrates dual lead intracardiac pacing device. Cardiomegaly is seen. Sternotomy wires seen. Mild to moderate pulmonary vascular congestion is seen. No evidence of effusions seen. IMPRESSION: Cardiomegaly. POS: [facility]
[2017-09-03] MEDS ORDERED: Morphine 4 MG/ML VIAL ONE ×2 (16:00→18:25)
[2017-09-03 16:02] LABS: #Eosinphils 0.2 thou/uL (0.0-0.7); #Lymphocytes 1.8 thou/uL (1.20-3.40); #Monocytes 0.9 thou/uL (0.11-0.59); #Neutrophils 4.2 thou/uL (1.40-6.50); %Basophils 0.4 % (0.0-1.0); %Lymphocytes 24.5 % (21.0-51.0); %Monocytes 12.7 % (0.0-10.0); Hematocrit 35.2 % (36.0-47.0); Red Blood Cell (RBC) Count 3.71 mill/uL (4.20-5.40); White Blood Cell (WBC) Count 7.2 thou/uL (4.8-10.8)
[2017-09-03 16:10] LABS: PTT 22.9 SEC (22.9-36.1); Prothrombin Time 12.9 SEC (12.0-14.7)
[2017-09-03 16:22] LABS: ALT (SGPT) 17 U/L (8-55); AST (SGOT) 14 U/L (5-34); Alkaline Phosphatase 97 U/L (40-150); Anion Gap 13 mmol/L (10-20); BUN (Urea Nitrogen) 12 mg/dL (9.8-20.1); Bilirubin, Total 0.3 mg/dL (0.2-1.2); CK (CPK) 37 U/L (29-168); Calc. Creatinine Clearance 0 mL/min (70-130); Calcium 9.4 mg/dL (7.8-10.44); Carbon Dioxide 23 mmol/L (22-29); Chloride 109 mmol/L (98-107); Estimated GFR-MDRD 77; Globulin 2.9 g/dL (2.4-3.5); Magnesium 1.8 mg/dL (1.6-2.6); Protein, Total 6.8 g/dL (6.0-8.3)
[2017-09-03 16:27] LABS: Troponin I 0.015 ng/mL (< 0.028)
[2017-09-03 17:20] LABS: Bilirubin Negative (Negative); Blood, Urine Negative (Negative); Glucose, Urine (Dipstick) Negative (Negative); Ketone, Urine Negative (Negative); Nitrite Negative (Negative); Protein, Urine (Dipstick) Negative (Neg-Trace); Urobilinogen 0.2 mg/dL (0.2-1.0)
--- NOTE | 2017-09-03 18:30 | CT ---
HEAD CT ANGIOGRAM WITH 3D RENDERING NECK CT ANGIOGRAM WITH 3D RENDERING HEAD CT PERFUSION: FINDINGS: HEAD CT ANGIOGRAM: No evidence for major branch occlusion. No evidence of an aneurysm. No high grade stenosis. There are few scattered atherosclerotic calcific plaques in the intracranial internal carotid arteries. IMPRESSION: Evidence of intracranial arterial vascular disease without evidence for major branch occlusion or hig h grade stenosis or aneurysm. Given concern for the possibility of an acute stroke, follow up MRI might be of benefit in that regar d. NECK CT ANGIOGRAM WITH 3D RENDERING: Minimal scattered calcific plaques within the common and internal carotid arteries. There is tortuosi ty of both the common and internal carotid arteries. There is no evidence for a hemodynamically signi ficant stenosis. Bilateral unremarkable vertebral flow. IMPRESSION: Minimal calcific plaques of the common and internal carotid arteries with tortuosity, evidence for ca rotid vascular disease but no evidence for hemodynamically significant stenosis. HEAD CT PERFUSION EXAM: Ct perfusion examination demonstrates no evidence for infarct or significant ischemia. There was moderate motion artifact during the examination. IMPRESSION: Unremarkable head CT perfusion study. Findings were discussed with a nurse in the ER who indicated that she would give the information to Milena Croft at 4:40 p.m. He was tied up with a patient and could not directly come to the phone. POS: [facility]
[2017-09-03 18:52] LABS: Amphetamine Not Detected (NotDetected); Methadone Not Detected (NotDetected); Methamphetamine Not Detected (NotDetected)
[2017-09-03] MEDS ORDERED: Ondansetron HCl/PF 4 MG/2 ML Vial IVP PRN ×2 (21:51→22:13)
[2017-09-03] MEDS ORDERED: Ondansetron ODT 4 MG TAB SL PRN (21:51)
[2017-09-03] MEDS ORDERED: Sodium Chloride 0.45% 1,000 ML IV SCH (22:00)
[2017-09-03] MEDS ORDERED: hydrALAZINE 20 MG/ML VIAL SLOW IVP PRN (22:13)
[2017-09-03] MEDS ORDERED: HumaLOG 300 UNITS/3 ML VIAL SC PRN (22:13)
[2017-09-03] MEDS ORDERED: Dextrose 50% Abboject 50 ML SYRINGE SLOW IVP PRN (22:13)
[2017-09-03] MEDS ORDERED: Dextrose 5% in Water 1,000 ML IV PRN (22:13)
[2017-09-03] MEDS ORDERED: Gabapentin 300 MG CAP PO SCH (22:30)
[2017-09-03] MEDS ORDERED: Atorvastatin Calcium 40 MG TAB PO SCH (22:30)
[2017-09-03] MEDS ORDERED: Aggrenox 200-25mg CAP PO SCH (22:30)
[2017-09-03] MEDS ORDERED: traMADol HCl 50 MG TAB PO PRN (22:31)
[2017-09-03] MEDS: Sodium Chloride 0.9% 1,000 ML IV SCH (23:17)
[2017-09-04 00:13] VITALS: BMI 42.5
[2017-09-04 05:34] LABS: #Eosinphils 0.3 thou/uL (0.0-0.7); #Monocytes 0.8 thou/uL (0.11-0.59); %Basophils 0.6 % (0.0-1.0); %Eosinophils 4.3 % (0.0-10.0); %Lymphocytes 32.5 % (21.0-51.0); %Monocytes 13.4 % (0.0-10.0); Hematocrit 33.2 % (36.0-47.0); Mean Platelet Volume 10.8 fL (7.4-10.4); Red Blood Cell (RBC) Count 3.48 mill/uL (4.20-5.40)
[2017-09-04 05:59] LABS: Anion Gap 11 mmol/L (10-20); BUN (Urea Nitrogen) 13 mg/dL (9.8-20.1); Calc. Creatinine Clearance 122 mL/min (70-130); Calcium 8.7 mg/dL (7.8-10.44); Carbon Dioxide 24 mmol/L (22-29); Chloride 110 mmol/L (98-107); Cholesterol 120 mg/dl (< 200 Desired); Estimated GFR-MDRD 73; LDL Cholesterol, Calculated 63 mg/dL
--- NOTE | 2017-09-04 07:05 | HP ---
CHIEF COMPLAINT: Aphasia, worsening of the left-sided weakness of the arm and hand and the leg. HISTORY OF PRESENT ILLNESS: This is a 57-year-old pleasant lady with a history of CVA, which include d left-sided weakness in the past, comes in with worsening of the left-sided weakness of the arm and leg and a brief moment of aphasia, which lasted about 30 minutes to 1 hour. The patient is in the ro om by herself and unfortunately she is a very very poor historian. Family who brought her out here i s not there. According to the ER notes and the ER physician, patient was evaluated in the ER, where the ER physician took her to the CT scan and CT angio. She was still aphasic and little confused. R ight now, she is becoming more alert and aphasia is resolving. She is answering questions appropriat lorna. No nausea, no vomiting, complaints of some chest pain and headache. No diarrhea or dysuria. T here was also a history of that she had a gaze, which was lateralized, but I am not sure which side i t was. The patient right now denies any dysuria, diarrhea, fever, or chills. The patient's past med ica history significant for coronary artery disease, status post cardiac catheterization in 01/2017. Patient was recently discharged from our hospital after being evaluated for chest discomfort. Lynsey ent also has a history of CABG. Echocardiogram showed diastolic dysfunction, history of CVA with left -sided weakness on Aggrenox. CT scan showed old lacunar infarct. The patient is a former smoker, hi story of drug abuse including cocaine and amphetamine in the past, anxiety, depression, hypertension, dyslipidemia, sick sinus syndrome, status post pacemaker. PAST SURGICAL HISTORY: Significant for CABG, cholecystectomy, cardiac catheterization, hysterectomy, appendectomy, pacemaker. ALLERGIES: Denies any allergies. MEDICATIONS: Patient's medications include Seroquel 100 mg p.o. daily, Ranexa 1000 mg p.o. b.i.d., m etformin 500 mg p.o. daily, Protonix 40 p.o. daily, Lasix 40 p.o. daily, metoprolol 25 p.o. b.i.d., i sosorbide 30 p.o. daily, Lipitor 10 p.o. daily, sertraline 150 p.o. daily, Aggrenox 1 tablet p.o. b.i .d., lisinopril 10 mg p.o. daily, tramadol p.r.n. for pain, although history of Plavix use. FAMILY HISTORY: Positive for heart disease in several family members. SOCIAL HISTORY: Former smoker, currently disabled. Denies any current drugs or alcohol use. REVIEW OF SYSTEMS: Significant for weakness, aphasia, which is resolving, otherwise no fever, no chi lls, some chest pain, some headache, no eye pain, no hearing loss, no latencies. No cough, no diarrh ea, dysuria or polyuria. No memory or mood changes. No neck pain. PHYSICAL EXAMINATION: VITAL SIGNS: Patient's blood pressure is 174/81, pulse is 74, respirations 22, temperature 98.2. GENERAL: The patient is lying in bed right now, talking, in no apparent respiratory distress. HEENT: Atraumatic, normocephalic. Pupils equally round, reactive to light. Extraocular movements a re intact. Mucous membranes moist. NECK: No JVD. CHEST: Breath sounds heard. There are no rales or rhonchi. HEART: S1, S2 normal. Systolic ejection murmur heard. ABDOMEN: Soft, obese. EXTREMITIES: Right side arm and leg have 5/5 strength, left side has 0/5 strength in both arms and l egs. NEUROLOGIC: Alert, awake, oriented . No cranial deficits noted. Motor deficits noted on the l eft hand and left leg as described above. SKIN: Warm and dry. LABORATORY DATA: Chest x-ray shows cardiomegaly. CT of brain, negative. CTA is pending. CT brain shows no acute infarcts. It shows old lacunar infarcts in the left basal ganglia. WBC count is 7.2, hemoglobin is 12, potassium is 4, creatinine is 0.7. EKG shows paced rhythm. UA is negative. Trop onin is 0.015. ASSESSMENT AND PLAN: 1. Cerebrovascular accident with aphasia, improving. Dr. Stuart has been consulted from the emerge ncy room. He recommended continuation of home medications like Aggrenox. Patient already could sip some water. We will continue p.o. medications from home medications. We will work with Dr. Stuart who is already caring for the patient. 2. Chest pain. We will trend troponins. We will do physical therapy, speech therapy, or occupation al therapy and will consult case management for placement. 3. Dyslipidemia. We will continue statins on home medication. 4. Hypertension. Continue home medications including hydralazine. 5. History of anxiety. We will monitor throughout this hospital stay. Former smoker, sick sinus sy ndrome, status post pacemaker, stable. 6. Coronary artery disease, status post coronary artery bypass graft, stable. 7. Sequential compression devices for deep venous thrombosis prophylaxis. I will work with Dr. Mitra hung in further caring for the patient.
[2017-09-04] MEDS ORDERED: Aspirin 325 MG TAB PO SCH (09:00)
[2017-09-04] MEDS: Aggrenox 200-25mg CAP PO SCH ×2 (09:07→20:30)
[2017-09-04] MEDS: Fludrocortisone Acetate 0.1 MG TAB PO SCH (09:07)
[2017-09-04] MEDS: Nitroglycerin 0.4 MG TAB (25 Tab Bottle) SL PRN ×4 (11:10→11:34)
--- NOTE | 2017-09-04 13:30 | PDOC.PN ---
- Subjective Encounter Start Date: 09/04/17 Encounter Start Time: 13:29 Patient seen and examined. No new complaints. No overnight events - Objective MAR Reviewed: Yes Vital Signs & Weight: Vital Signs (12 hours) Temp Pulse Resp BP Pulse Ox 09/04/17 11:33 97.9 F 66 16 140/63 97 09/04/17 09:11 143/68 H 09/04/17 08:45 98.2 F 62 16 09/04/17 07:28 98.2 F 62 16 171/79 H 94 L 09/04/17 03:19 98 F 60 18 141/70 H 97 Weight Weight 224 lb 8 oz Result Diagrams: 09/04/17 04:19 09/04/17 04:19 Additional Labs: Accuchecks 09/04/17 09/04/17 10:38 04:19 POC Glucose 98 86 Phys Exam - Physical Examination Constitutional: NAD HEENT: PERRLA Neck: no JVD Respiratory: no wheezing Cardiovascular: no significant murmur Gastrointestinal: non-tender Musculoskeletal: pulses present lt side hand and leg strenght 0/5 Psychiatric: A&O x 3 Dx/Plan (1) CVA (cerebral vascular accident) Code(s): I63.9 - CEREBRAL INFARCTION, UNSPECIFIED Status: Acute Comment: ? left hemiparesis, ?functional (2) Chest pain Code(s): R07.9 - CHEST PAIN, UNSPECIFIED Status: Acute (3) Headache Code(s): R51 - HEADACHE Status: Acute (4) CAD (coronary artery disease) Code(s): I25.10 - ATHSCL HEART DISEASE OF [place] CORONARY ARTERY W/O ANG PCTRS Status: Chronic Qualifiers: (5) DM type 2 (diabetes mellitus, type 2) Status: Chronic Qualifiers: (6) Hypertension Code(s): I10 - ESSENTIAL (PRIMARY) HYPERTENSION Status: Chronic Qualifiers: (7) Morbid obesity Code(s): E66.01 - MORBID (SEVERE) OBESITY DUE TO EXCESS CALORIES Status: Chronic - Plan * neuro input awaited * cont current care * pt/ot * placement
[2017-09-04 14:23] LABS: Troponin I Less than 0.010 ng/mL (< 0.028)
[2017-09-04] MEDS: Sodium Chloride 0.9% 1,000 ML IV SCH (16:13)
[2017-09-04] MEDS: HYDROcodone/Acetaminophen 5/325 mg Tablet PO PRN ×2 (16:13→23:49)
[2017-09-04 20:06] LABS: Troponin I Less than 0.010 ng/mL (< 0.028)
[2017-09-04] MEDS: Metoprolol Tartrate 25 MG TAB PO SCH (20:31)
[2017-09-04] MEDS: Gabapentin 300 MG CAP PO SCH (20:31)
[2017-09-04] MEDS: Atorvastatin Calcium 40 MG TAB PO SCH (20:31)
[2017-09-04 23:11] LABS: Bacteria/HPF None Seen HPF (None Seen); Hyaline Casts/LPF 0-3 HYALINE CAST LPF (0-3 Hyaline); RBC/HPF None Seen HPF (0-3); Squamous Epithelial None Seen HPF (0-3); WBC/HPF None Seen HPF (0-3)
--- NOTE | 2017-09-05 07:53 | PDOC.PN ---
- Subjective Encounter Start Date: 09/05/17 Encounter Start Time: 09:00 Subjective: Patient with her chronic angina, not bad currently. Continued left -: side weakness. Dysarthria improved in ER. - Objective MAR Reviewed: Yes Vital Signs & Weight: Vital Signs (12 hours) Temp Pulse Resp BP BP Pulse Ox 09/05/17 04:05 97.9 F 69 18 156/71 H 96 09/04/17 23:49 98.3 F 61 18 156/73 H 99 09/04/17 20:30 98.5 F 63 18 148/67 H 96 Weight Weight 226 lb I&O: 09/04/17 09/05/17 09/06/17 06:59 06:59 06:59 Intake Total 1275 Balance 1275 Result Diagrams: 09/04/17 04:19 09/04/17 04:19 Additional Labs: Accuchecks 09/05/17 09/04/17 09/04/17 05:38 20:30 17:11 POC Glucose 115 H 118 H 100 09/04/17 10:38 POC Glucose 98 Phys Exam - Physical Examination Constitutional: NAD HEENT: moist MMs Respiratory: no wheezing, no rales, no rhonchi, clear to auscultation bilateral Cardiovascular: RRR 2/6 MARGARITA Gastrointestinal: soft, positive bowel sounds Musculoskeletal: no edema, pulses present Left side weakness Psychiatric: normal affect, A&O x 3 Dx/Plan (1) CVA (cerebral vascular accident) Code(s): I63.9 - CEREBRAL INFARCTION, UNSPECIFIED Status: Acute Comment: ? left hemiparesis, ?functional (2) Chest pain Code(s): R07.9 - CHEST PAIN, UNSPECIFIED Status: Chronic Comment: chronic angina, on Ranexa (3) CAD (coronary artery disease) Code(s): I25.10 - ATHSCL HEART DISEASE OF [place] CORONARY ARTERY W/O ANG PCTRS Status: Chronic Qualifiers: (4) Chronic pain Code(s): G89.29 - OTHER CHRONIC PAIN Status: Chronic Qualifiers: Chronic pain type: chronic pain syndrome Qualified Code(s): G89.4 - Chronic pain syndrome (5) DM type 2 (diabetes mellitus, type 2) Status: Chronic Qualifiers: (6) History of CVA with residual deficit Code(s): I69.30 - UNSPECIFIED SEQUELAE OF CEREBRAL INFARCTION Status: Chronic (7) Hx of CABG Status: Chronic (8) Morbid obesity Code(s): E66.01 - MORBID (SEVERE) OBESITY DUE TO EXCESS CALORIES Status: Chronic - Plan cont current plan of care, PT/OT Awaiting Neuro consultation and recommendations -: Rehab eval * . - Discharge Day Encounter end time: 09:30
[2017-09-05] MEDS: HYDROcodone/Acetaminophen 5/325 mg Tablet PO PRN ×3 (08:42→22:09)
[2017-09-05] MEDS: Lisinopril 10 MG TAB PO SCH (08:43)
[2017-09-05] MEDS: Aggrenox 200-25mg CAP PO SCH ×2 (08:43→20:25)
[2017-09-05] MEDS: Metoprolol Tartrate 25 MG TAB PO SCH ×2 (08:43→20:25)
[2017-09-05] MEDS: Fludrocortisone Acetate 0.1 MG TAB PO SCH (08:43)
--- NOTE | 2017-09-05 12:07 | CON ---
DATE OF CONSULTATION: 09/05/2017 CONSULTING PHYSICIAN: Hospitalist Service IMPRESSION: Left-sided weakness suggestive of a small vessel stroke. The patient has been on maximu m medical therapy. PLAN: 1. Transfer to rehab. 2. Continue Aggrenox and Plavix. Ms. Neves is a 57-year-old white female with a reported history of coronary artery disease, prior str ruddy with left-sided weakness, substance abuse, anxiety, depression, hypertension, hyperlipidemia, and pacemaker implantation. She reports that she was sitting in her chair when she suddenly thought max t she could not speak. She also reports developing left-sided weakness. Her speech came back, but s he reports at this point she cannot move her left side whatsoever. She reportedly has been transferr ing from the bed to the bedside toilet as needed. PAST MEDICAL HISTORY: As listed above. ALLERGIES: None reported. SOCIAL HISTORY: Positive for opiates and benzodiazepine use. FAMILY HISTORY: Noncontributory. PAST SURGICAL HISTORY: Pacemaker implantation. REVIEW OF SYSTEMS: No complaint of headache, nausea, vomiting, vertigo, shortness of breath, difficu lty swallowing. PHYSICAL EXAMINATION: VITAL SIGNS: Blood pressure 189/90, pulse 67, respirations 20, temperature 97.7. HEENT: Pupils equal and reactive. Conjunctivae clear. Oropharynx clear. NECK: Supple. EXTREMITIES: No cyanosis, clubbing or edema. NEUROLOGIC: She is alert and cooperative. Her speech is fluent and clear. Cranial nerves were inta ct other than subjective decreased sensation on the left side of the face. Sensory in the extremitie s was similar with subjective decrease on the left. Motor exam showed flaccid left arm and leg, but she was able to push herself up to a sitting position and maintain her balance. Reflexes were 1+ and symmetric. Plantar responses were downgoing bilaterally. LABORATORY STUDIES: Reviewed. CTA with perfusion imaging did not reveal any evidence of an ischemic injury. SUMMARY: This is a middle-aged woman who presents with left-sided weakness. She has previously been seen earlier this year with migraine-like symptoms. At this point her workup appears complete and I think that she is currently on maximum medical therapy. We can transfer to rehab if they are holger melvin to take care of her.
[2017-09-05] MEDS: Gabapentin 300 MG CAP PO SCH (20:25)
[2017-09-05] MEDS: Atorvastatin Calcium 40 MG TAB PO SCH (20:25)
--- NOTE | 2017-09-06 07:26 | PDOC.PN ---
- Subjective Encounter Start Date: 09/06/17 Encounter Start Time: 08:30 Subjective: Patient with no change in left side weakness. Persistent angina -: with neg enzymes. Not really improved since Ranexa 3 months ago -: after Dr. Kiran anglin. Still with daily symptoms. - Objective MAR Reviewed: Yes Vital Signs & Weight: Vital Signs (12 hours) Temp Pulse Resp BP Pulse Ox 09/06/17 03:43 98.2 F 67 18 140/67 94 L 09/05/17 23:46 97.8 F 63 20 155/71 H 95 09/05/17 19:49 97.9 F 69 24 H 96 09/05/17 19:45 97.9 F 69 24 H 164/74 H 96 Weight Weight 221 lb 6.4 oz I&O: 09/05/17 09/06/17 09/07/17 06:59 06:59 06:59 Intake Total 1275 1720 Balance 1275 1720 Result Diagrams: 09/04/17 04:19 09/04/17 04:19 Additional Labs: Accuchecks 09/06/17 09/05/17 09/05/17 05:43 20:25 17:26 POC Glucose 98 149 H 112 H 09/05/17 10:17 POC Glucose 125 H Phys Exam - Physical Examination Constitutional: NAD HEENT: moist MMs Respiratory: no wheezing, no rales, no rhonchi, clear to auscultation bilateral Cardiovascular: RRR 2/6 MARGARITA Gastrointestinal: soft, positive bowel sounds left upper and lower ext weakness Psychiatric: normal affect, A&O x 3 Dx/Plan (1) CVA (cerebral vascular accident) Code(s): I63.9 - CEREBRAL INFARCTION, UNSPECIFIED Status: Acute Comment: ? left hemiparesis, ?functional (2) Chest pain Code(s): R07.9 - CHEST PAIN, UNSPECIFIED Status: Chronic Comment: chronic angina, on Ranexa (3) CAD (coronary artery disease) Code(s): I25.10 - ATHSCL HEART DISEASE OF [place] CORONARY ARTERY W/O ANG PCTRS Status: Chronic Qualifiers: (4) Chronic pain Code(s): G89.29 - OTHER CHRONIC PAIN Status: Chronic Qualifiers: Chronic pain type: chronic pain syndrome Qualified Code(s): G89.4 - Chronic pain syndrome (5) DM type 2 (diabetes mellitus, type 2) Status: Chronic Qualifiers: (6) History of CVA with residual deficit Code(s): I69.30 - UNSPECIFIED SEQUELAE OF CEREBRAL INFARCTION Status: Chronic (7) Hx of CABG Status: Chronic (8) Morbid obesity Code(s): E66.01 - MORBID (SEVERE) OBESITY DUE TO EXCESS CALORIES Status: Chronic - Plan cont current plan of care, PT/OT Plan for rehab today. * . - Discharge Day Encounter end time: 08:45
[2017-09-06] MEDS: HYDROcodone/Acetaminophen 5/325 mg Tablet PO PRN ×2 (08:10→12:53)
[2017-09-06] MEDS: Lisinopril 10 MG TAB PO SCH (08:10)
[2017-09-06] MEDS: Aggrenox 200-25mg CAP PO SCH (08:10)
[2017-09-06] MEDS: Fludrocortisone Acetate 0.1 MG TAB PO SCH (08:10)
[2017-09-06] MEDS: Metoprolol Tartrate 25 MG TAB PO SCH (08:10)
[2017-09-06 11:55] VITALS: BP 131/70; TEMP 97.2
--- NOTE | 2017-09-06 18:54 | DIS ---
PRIMARY CARE PHYSICIAN: Pia Sheldon MD DIAGNOSES ON ADMISSION: 1. Cerebrovascular accident with aphasia. 2. Chest pain. 3. Dyslipidemia. 4. Hypertension. 5. Coronary artery disease. 6. Anxiety. DIAGNOSES AT DISCHARGE: 1. Cerebrovascular accident, improved. 2. Chronic angina. 3. Coronary artery disease. 4. Diabetes mellitus type 2. 5. Chronic pain. PROCEDURES: 1. CT of the brain showing no evidence for acute intracranial abnormality, just some old areas of ol d lacunar infarcts. 2. CT angio of the head with and without contrast showing no evidence for infarction or significant ischemia. 3. Echocardiogram showing ejection fraction of 50%-55% and no specific evidence of diastolic dysfunc tion. CONSULTATION: Neurology, Dr. Stuart. SUMMARY OF HOSPITAL COURSE: This is a 57-year-old white female with a history of previous CVA, which included left-sided weakness in the past who came in with worsening left-sided weakness of the arm a nd leg, and a brief moment of aphasia, lasted about 30 minutes to 1 hour. The aphasia improved in e emergency room. The patient continued to report chest pain. She reports that her anginal chest pa in has been fairly regular ever since her previous hospitalization when Dr. Beck saw her and cath'e d her without any blockages that could be stented and put her on Ranexa. She has not noticed any spe cific improvement with the Ranexa, but has not followed up with him. The patient was admitted to the hospital. CT and CTA were done as above. Dr. Stuart was consulted and confirmed this looked like a recurrent stroke. This patient has already maximized on her medical management. She was evaluated for rehabilitation, but was turned down for rehab. So, she will be going home with home health for physical therapy and assisted. The patient was doing well on the day of discharge and was spe aking and eating well, still with persistence of left-sided weakness, some of which she has had previ ously and still little bit worse than her baseline. DISCHARGE MANAGEMENT: Discharged home with home health. ACTIVITY: As tolerated. DIET: Diabetic, healthy heart, low-sodium diet. MEDICATIONS: The patient is to resume her home medications. 1. Nitroglycerin 0.4 mg sublingual q.5 minutes as needed for pain. 2. Lipitor 80 mg at night. 3. Aggrenox 1 cap twice a day. 4. Metoprolol tartrate 25 mg twice a day. 5. Lisinopril 10 mg daily. 6. Protonix 40 mg daily. 7. Seroquel 100 mg at night. 8. Sertraline 150 mg daily. 9. Florinef 0.1 mg daily. 10. Imdur ER 30 mg daily. 11. Neurontin 300 mg at night. 12. Ranexa 1000 mg twice a day. The patient is to follow up with Dr. Sheldon in [address] Beck in the next 2-3 weeks.
== END 2017-09-06 15:37 | disposition home health service (06) | DRG 65 ==
LOC: ERS 14:31 → 2SE 20:21
PROVIDERS: ADMIT Internal Medicine; ATTEND Internal Medicine
DX: I63.9 Cerebral infarction, unspecified (principal); G81.94 Hemiplegia, unspecified affecting left nondominant side; E66.01 Morbid (severe) obesity due to excess calories; Z68.41 Body mass index [BMI] 40.0-44.9, adult; I25.119 Atherosclerotic heart disease of native coronary artery with unspecified angina pectoris; R47.01 Aphasia; G89.29 Other chronic pain; F41.9 Anxiety disorder, unspecified; E78.5 Hyperlipidemia, unspecified; R51 Headache; Z95.1 Presence of aortocoronary bypass graft; Z95.0 Presence of cardiac pacemaker; Z87.891 Personal history of nicotine dependence; Z82.49 Family history of ischemic heart disease and other diseases of the circulatory system
CPT/HCPCS: 0042T; 36415; 36416; 70450; 70496; 70498; 71010; 80048; 80053; 80061; 80306; 81001; 81003; 82553; 83735; 84484; 85025; 85610; 85730; 93005; 93306; A4353; G8978-GP-CM; G8979-GP-CK; G8987-GO-CK; G8988-GO-CI; G9168-GN-CI; G9169-GN-CI; J2270; J2405

== ENCOUNTER 2017-09-18 16:12 | Observation (INO) | payer MEDICARE, MEDICAID ==
--- NOTE | 2017-09-18 16:41 | RAD ---
FRONTAL RADIOGRAPH CHEST: Date: 09-18-17 Comparison: 09-03-17 History: Chest pain for two hours. FINDINGS: Midline sternotomy wires and mediastinal clips are present. There is a dual-lead transvenous pacing d evice, stable. Mild increased linear interstitial density noted bilaterally, stable as well. No pneum othorax, pleural fluid, focal consolidation or alveolar edema. IMPRESSION: No acute findings. Stable appearance of the chest. POS: JEAN
[2017-09-18 16:50] LABS: #Basophils 0.1 thou/uL (0.0-0.2); #Eosinphils 0.3 thou/uL (0.0-0.7); #Monocytes 0.9 thou/uL (0.11-0.59); #Neutrophils 2.9 thou/uL (1.40-6.50); %Eosinophils 5.3 % (0.0-10.0); %Lymphocytes 32.7 % (21.0-51.0); Mean Corpuscular HGB CONC 33.4 g/dL (32.0-36.0); Mean Corpuscular Hemoglobin 31.8 pg (27.0-31.0); Mean Corpuscular Volume 95.1 fl (81.0-99.0); Mean Platelet Volume 10.5 fL (7.4-10.4); Platelet Count 168 thou/uL (130-400); RBC Distribution Width 11.5 % (11.5-14.5); White Blood Cell (WBC) Count 6.1 thou/uL (4.8-10.8)
[2017-09-18] MEDS ORDERED: Morphine 4 MG/ML VIAL ONE ×2 (16:57→22:14)
[2017-09-18] MEDS ORDERED: Ondansetron HCl/PF 4 MG/2 ML Vial ONE (16:57)
[2017-09-18 17:18] LABS: CKMB 0.9 ng/mL (0-6.6); Troponin I Less than 0.010 ng/mL (< 0.028)
[2017-09-18 17:23] LABS: AST (SGOT) 31 U/L (5-34); Anion Gap 17 mmol/L (10-20); Bilirubin, Total 0.2 mg/dL (0.2-1.2); Calcium 9.6 mg/dL (7.8-10.44); Carbon Dioxide 17 mmol/L (22-29); Chloride 108 mmol/L (98-107); Protein, Total 7.8 g/dL (6.0-8.3); Sodium 137 mmol/L (136-145)
[2017-09-18 17:28] LABS: Globulin 3.8 g/dL (2.4-3.5)
[2017-09-18 17:30] LABS: Glucose 112 mg/dL (70-105)
[2017-09-18 17:33] LABS: Alkaline Phosphatase 88 U/L (40-150)
[2017-09-18 17:34] LABS: Calc. Creatinine Clearance 0 mL/min (70-130); Estimated GFR-MDRD 51
[2017-09-18 17:35] LABS: BUN (Urea Nitrogen) 16 mg/dL (9.8-20.1)
[2017-09-18 17:36] LABS: ALT (SGPT) 18 U/L (8-55); CK (CPK) 46 U/L (29-168)
[2017-09-18] MEDS ORDERED: Nitroglycerin 0.4 MG TAB (25 Tab Bottle) ONE (17:50)
[2017-09-18] MEDS ORDERED: Ketorolac Tromethamine 30 MG/ML VIAL ONE (18:46)
[2017-09-18 20:00] LABS: Troponin I Less than 0.010 ng/mL (< 0.028)
[2017-09-18] MEDS ORDERED: Nitroglycerin 2% Ointment 1 INCH/1 GM Packet ONE (20:51)
[2017-09-18 23:14] LABS: Troponin I Less than 0.010 ng/mL (< 0.028)
[2017-09-19] MEDS ORDERED: HYDROcodone/Acetaminophen 5/325 mg Tablet ONE (01:16)
[2017-09-19] MEDS ORDERED: Aspirin 325 MG TAB PO SCH (02:30)
[2017-09-19 02:43] LABS: Troponin I Less than 0.010 ng/mL (< 0.028)
[2017-09-19] MEDS ORDERED: Enoxaparin Sodium 100 MG/ML SYRINGE SC SCH (02:45)
[2017-09-19] MEDS ORDERED: Enoxaparin Sodium 100 MG/ML SYRINGE ONE (03:50)
--- NOTE | 2017-09-19 06:39 | HP ---
CHIEF COMPLAINT: Chest pain. HISTORY OF PRESENT ILLNESS: She is a 56-year-old woman with history of hypertension, diabetes, unsta ble angina, CAD status post stent. She came in because of having some chest pain started today. Pat ient complaint chest pain on left side, sharp, shooting, radiating to left shoulder, neck, 10/10, inc rease on exertion and activity. Patient denies any PND or orthopnea. History of bypass in 2013 and she took 6 nitroglycerin at home with no relief and also took her aspirin and Plavix, so pain starte d 2 hours ago prior to visiting ER, but it is intermittent pain that comes and goes with nausea and e xertion. PAST MEDICAL HISTORY: History of bypass in the past, CABG in 2013 with a stent 1 year ago, hypertens ion, diabetes. MEDICATIONS: She taken medicine at home, Seroquel 100 mg daily, Ranexa 1000 daily, metformin 500 mg once a day, Protonix 40 mg daily, Lasix 40 mg, metoprolol 20 mg daily, Imdur 30 mg daily, Lipitor 10 mg daily, Zoloft 100 mg daily, Aggrenox capsule 25/200 daily, Plavix 75 daily, doxycycline 100 mg linette ly, lisinopril 10 mg daily. PERSONAL HISTORY: Does not smoke. Denies any drug use. No smoking, no alcohol. ALLERGIES: No known drug allergies. REVIEW OF SYSTEMS: Constitutional: Denies any fever. Denies any chills. Eyes: Denies any eye jane n or vision changes. ENT: Denies any rhinorrhea or voice changes. Cardiovascular: Denies chest pa in, no palpitation, no short of breath. Respiratory: Negative for cough and no short of breath. Ga strointestinal: No nausea, no vomiting, no diarrhea. Musculoskeletal: No back pain. Skin: No analisa h. Neurologic: No headache, no dizziness. PHYSICAL EXAMINATION: GENERAL: She is a young, middle-aged woman lying in the bed, not in distress. VITAL SIGNS: Her pulse is 60, blood pressure 120/80, respirations 20, temperature 98.4. She is aler t, oriented. HEENT: Atraumatic, normocephalic. Pupils are round and reactive. NECK: Supple, no JVD, no thyromegaly. CHEST: Normal vesicular breathing, no added sounds. No chest wall tenderness. CARDIOVASCULAR: S1 audible. ABDOMEN: Soft, bowel sounds audible, no organomegaly. EXTREMITIES: No pedal edema. NEUROLOGIC: She is alert and oriented x3. No focal deficit. LABORATORY DATA: D-dimer 0.03, WBC 6.1, hemoglobin 13.0, hematocrit 9.0, platelets 168. EKG shows a normal sinus rhyt hm, heart rate 61. Sodium 137, potassium 5.0, chloride 108, carbon dioxide 17, creatinine 1.1, BUN 16, glucose 112, calc ium 9.6, total bilirubin 0.2, AST 31, ALT 18, alkaline phosphatase 88, creatine kinase 46. Troponin less than 0.01. BNP 106.2, albumin 4.0, gradient 1.1. ASSESSMENT AND PLAN: 1. Unstable angina with history of coronary artery disease and bypass. Put Lovenox 1 mg/kg, aspirin , nitroglycerin, Plavix, and beta toya and statin, and tax consultant. 2. Type 2 diabetes. Continue sliding scale. Deep venous thrombosis prophylaxis, Lovenox.
[2017-09-19 07:00] LABS: Cardiac Risk 3.3 (Less than 4.5)
[2017-09-19] MEDS ORDERED: Aspirin 325 MG TAB ONE (10:38)
[2017-09-19] MEDS ORDERED: Clopidogrel Bisulfate 75 MG TAB ONE (10:38)
[2017-09-19] MEDS ORDERED: Metoprolol Tartrate 25 MG TAB ONE (10:38)
[2017-09-19] MEDS ORDERED: Nitroglycerin 0.4 MG TAB (25 Tab Bottle) SL PRN (10:42)
--- NOTE | 2017-09-19 11:00 | CON ---
DATE OF CONSULTATION: 09/19/2017 REASON FOR CONSULTATION: Chest pain. PRIMARY PROVIDER: Dr. Christina Simms HISTORY OF PRESENT ILLNESS: Ms. Neves is an unfortunate 57-year-old woman with history of coronary a rtery disease, status post stent placement who has had recurrent hospitalizations for chest pain. Lorenza nevarez underwent coronary angiography in 2016 and was found to have patent grafts. She also had small ves jannette disease. She has had multiple stress studies in the past as well that have not consistent with i schemia. She states her pain has been ongoing over the last 24 hours. No ameliorating, exacerbating, or preci pitating factors present. Her troponins have all been negative. PAST MEDICAL HISTORY: CAD status post bypass surgery, hypertension, diabetes mellitus. CURRENT MEDICATIONS: Ranexa, metoprolol, Seroquel, Lasix, Protonix, metformin, Imdur, Lipitor, Zolof t, Aggrenox, Plavix, lisinopril. ALLERGIES: None. SOCIAL HISTORY: No current tobacco or alcohol use. REVIEW OF SYSTEMS: Ten point review of systems is reviewed as above, otherwise negative. PHYSICAL EXAMINATION: VITAL SIGNS: Blood pressure 140/70, pulse 80, respirations 20. GENERAL: Patient is a pleasant female who is in no acute distress. The patient appears her stated ag e. NEUROLOGIC: The patient is alert and oriented times 3 with no focal neurologic deficits. HEENT: Sclerae without icterus. Mouth has moist mucous membranes with normal pallor. NECK: No JVD. Carotid upstroke brisk. No bruits bilaterally. LUNGS: Clear to auscultation with unlabored respirations. BACK: No scoliosis or kyphosis. CARDIAC: Regular rate and rhythm with normal S1 and S2. No S3 or S4 noted. No significant rubs, mur murs, thrills, or gallops noted throughout the precordium. PMI is not displaced. There is no parast ernal heave. ABDOMEN: Soft, nontender, nondistended. No peritoneal signs present. No hepatosplenomegaly. No abn ormal striae. EXTREMITIES: 2+ femoral and 2+ dorsalis pedis pulses. No cyanosis, clubbing, or edema. SKIN: No gross abnormalities. PERTINENT LABS: Creatinine 1.1, troponin negative. EKG: Normal sinus rhythm with ST-T wave changes suggesting ischemia. Previous EKG not available for review. IMPRESSION: 1. Chest pain. 2. Coronary artery disease. 3. Status post bypass surgery. RECOMMENDATIONS: Ms. Neves has had ongoing chest pain. Her CK and troponins are negative. I would consider noninvasive stress study versus coronary angiography. Will continue rule out by CK and trop onins. We will give 1 dose of Lovenox. Otherwise, I have no further recommendations.
[2017-09-19] MEDS ORDERED: Morphine 4 MG/ML VIAL ONE (11:15)
[2017-09-19] MEDS: Clopidogrel Bisulfate 75 MG TAB PO SCH (11:17)
[2017-09-19] MEDS: Morphine 4 MG/ML VIAL SLOW IVP PRN ×4 (11:17→23:57)
[2017-09-19] MEDS: Aspirin 325 MG TAB PO SCH (11:17)
[2017-09-19 11:36] LABS: Troponin I Less than 0.010 ng/mL (< 0.028)
[2017-09-19] MEDS: Metoprolol Tartrate 25 MG TAB PO SCH ×2 (12:22→19:55)
--- NOTE | 2017-09-19 13:46 | PDOC.EVN ---
Event Note - Event Note Event Note: S: Alex is admitted with chest pain. Alert and oriented. No other Concerns. pt is Waiting on cardiology plan. O. Vitals reviewed and Labs reviwed, Chay[place]. A: ACS P: Plan per cardiology to continue to Monitor Cardiac Enzymes, Planned for non Invasive Stress test/Cardiac cath. pt is high risk with h/o CABG/ Multiple stents in the past. Cotninue pain management with morphine.
[2017-09-19 14:33] VITALS: BMI 41.9
[2017-09-19] MEDS: Enoxaparin Sodium 100 MG/ML SYRINGE SC SCH (19:56)
[2017-09-20] MEDS ORDERED: Gabapentin 300 MG CAP PO SCH ×2 (02:30→21:00)
[2017-09-20 03:10] LABS: Hemoglobin 11.3 g/dL (12.0-16.0); Platelet Count 140 thou/uL (130-400)
[2017-09-20] MEDS: Morphine 4 MG/ML VIAL SLOW IVP PRN ×3 (04:10→11:47)
[2017-09-20] MEDS: Enoxaparin Sodium 100 MG/ML SYRINGE SC SCH (08:32)
[2017-09-20] MEDS: Aspirin 325 MG TAB PO SCH (10:59)
[2017-09-20] MEDS: Metoprolol Tartrate 25 MG TAB PO SCH (10:59)
[2017-09-20] MEDS: Clopidogrel Bisulfate 75 MG TAB PO SCH (10:59)
[2017-09-20 11:54] VITALS: BP 127/59; TEMP 97.9
--- NOTE | 2017-09-20 12:52 | DIS ---
DATE OF ADMISSION: 09/18/2017 DATE OF DISCHARGE: 09/20/2017 ADMITTING DIAGNOSIS: Acute chest pain. DISCHARGE DIAGNOSES: 1. Acute chest pain, noncardiac. 2. Hypertension. 3. Hyperlipidemia. 4. Gastroesophageal reflux disease. INVESTIGATIONS DONE DURING THIS ADMISSION: Nuclear stress test which was unremarkable. HISTORY OF PRESENT ILLNESS/HOSPITAL COURSE: In brief, this is a 57-year-old female with a history of hypertension, diabetes, and unstable angina presented with chest pain with a history of coronary art jennifer disease with stent in the past. She had a pretty sharp shooting pain radiating to the left shoul stewart of 10/10 intensity and the patient took 6 of nitroglycerin at home with no relief and she came to the ER. The patient was noted to have an abnormal EKG which was reviewed by me and also had a nucle ar stress test. The troponins remained normal. The patient had a negative stress test and was disch arged and was advised to be discharged home at this time. The patient was stable on the day of disch arge, she had no other concerns. PHYSICAL EXAMINATION: On day of discharge: VITAL SIGNS: Blood pressures are 125/58, heart rate is 65, respiration rate 16, saturation 97%. GENERAL: The patient is moderately built and moderately nourished, does not appear in acute distress . CARDIOVASCULAR: S1, S2 normal. No murmurs, rubs or gallops. LUNGS: Bilateral air entry was equal. No wheezing, no crackles. ABDOMEN: Soft, nontender, no guarding, no rebound tenderness. Bowel sounds normal. MUSCULOSKELETAL: No calf tenderness. No pedal edema. No joint tenderness, no joint swelling. DISCHARGE MEDICATIONS: 1. Aspirin. 2. Dipyridamole 1 capsule p.o. b.i.d. 3. Atorvastatin 80 mg p.o. at bedtime. 4. Fludrocortisone 0.1 mg daily. 5. Gabapentin 300 mg p.o. at bedtime. 6. Isosorbide mononitrate 30 mg p.o. daily. 7. Lisinopril 10 mg p.o. daily. 8. Metoprolol 25 mg p.o. b.i.d. 9. Nitroglycerin as needed. 10. Pantoprazole 40 mg p.o. daily. 11. Quetiapine 100 mg p.o. at bedtime. 12. Ranexa 1000 mg p.o. b.i.d. 13. Sertraline 150 mg p.o. daily. DISCHARGE INSTRUCTIONS: Continue activity, I strongly advised her to follow with primary care physic chris in 1-2 weeks. Advised to continue with a heart healthy diet. Advised to return to the ER if the patient develops any persistent chest pains. I spent 30 minutes with this patient.
--- NOTE | 2017-09-20 13:42 | NM ---
NUCLEAR MEDICINECARDIAC STRESS WITH EF AND WALL MOTION: HISTORY: A 57-year-old female with chest pain, history of coronary artery disease status post coronary artery bypass graft and stent. FINDINGS: The patient was injected with 32.7 mCi Technetium 99m sestamibi intravenously for stress images only. Multiple SPECT images in the short axis, vertical long axis, and horizontal long axis demonstrate no scan evidence for infarct or ischemia. LHR=0.31, EDV 113 mL, ejection fraction 66%. MYOCARDIAL PERFUSION WALL MOTION: Wall motion is normal. IMPRESSION: Normal stress-only cardiac SPECT with ejection fraction and wall motion. POS: AISHA
[2017-09-20] MEDS ORDERED: Regadenoson 0.4 MG/5 ML SYRINGE ONE (15:53)
--- NOTE | 2017-09-20 21:17 | PRG ---
DATE OF SERVICE: 09/20/2017 SUBJECTIVE: Ms. Neves is doing well. No current complaints. No chest pain or pressure noted. She recently underwent noninvasive stress test negative for ischemia. OBJECTIVE: VITAL SIGNS: Blood pressure 120/70, pulse 80, respirations 20. LUNGS: Clear to auscultation. HEART: Regular rate and rhythm. ABDOMEN: Soft, nontender, nondistended. EXTREMITIES: No edema. IMPRESSION: 1. Chest pain. 2. Coronary artery disease. 3. Status post bypass surgery. RECOMMENDATIONS: Unfortunately Ms. Neves has had multiple hospitalizations for similar symptoms. Wo marnie like to refrain from proceeding with angiography on every admission. I would like to see objecti ve findings. She underwent coronary angiography 1 year ago that was negative for flow-limiting disea se. She did have small distal vessel disease. Her grafts were patent. It would be okay from my sta ndpoint to discharge home with close outpatient followup.
--- NOTE | 2017-10-12 20:44 | STRESS ---
Acquisition Time: 2017-09-20 09:40:16 Total Exercise Time: 00:01:00 Test Indications: CHEST PAIN Medications: Protocol: LEXISCAN Max HR: 082 BPM 50% of Pred: 162 BPM Max BP: 114/080 mmHG Max Work Load: 1.0 METS RESTING ECG: NORMAL SINUS RHYTHM AT 70 BPM WITH EARLY R-WAVE TRANSITION SYMPTOMS: DYSPNEA NORMAL BP RESPONSE ECTOPY: NONE ECG STRESS: NO SIGNIFICANT CHANGES INTERPRETATION: NEGATIVE ECG/AWAIT NUCLEAR IMAGES FOR DEFINITIVE DIAGNOSIS Confirmed by CHRISTAL BURNETT M.D. ([id number]) on 10/12/2017 8:43:12 PM Referred By: MD Matthias ALONSO Confirmed By:CHRISTAL BURNETT M.D.
--- NOTE | 2017-10-21 21:25 | EKG ---
Test Reason : Blood Pressure : / mmHG Vent. Rate : 061 BPM Atrial Rate : 061 BPM P-R Int : 110 ms QRS Dur : 086 ms QT Int : 444 ms P-R-T Axes : 013 026 056 degrees QTc Int : 446 ms Electronic atrial pacemaker Confirmed by JENY BRAGG M.D. ([id number]), editorial clerk JOSE ALBERTO NEVAREZ ([id number] on 10/21/2017 9:25:35 PM Referred By: Confirmed By:JENY BRAGG M.D.
== END 2017-09-20 13:08 | disposition home or self-care (01) ==
LOC: ERS 16:12 → ERHOLD 21:07 → 2SW 09-19 13:45
PROVIDERS: ADMIT Internal Medicine; ATTEND Internal Medicine
DX: R07.89 Other chest pain (principal); I10 Essential (primary) hypertension; E78.5 Hyperlipidemia, unspecified; K21.9 Gastro-esophageal reflux disease without esophagitis; E11.9 Type 2 diabetes mellitus without complications; I25.110 Atherosclerotic heart disease of native coronary artery with unstable angina pectoris; F32.9 Major depressive disorder, single episode, unspecified; F41.9 Anxiety disorder, unspecified; I49.5 Sick sinus syndrome; I69.354 Hemiplegia and hemiparesis following cerebral infarction affecting left non-dominant side; F14.11 Cocaine abuse, in remission; F15.11 Other stimulant abuse, in remission; Z79.02 Long term (current) use of antithrombotics/antiplatelets; Z79.51 Long term (current) use of inhaled steroids; Z79.84 Long term (current) use of oral hypoglycemic drugs; Z79.2 Long term (current) use of antibiotics; Z79.899 Other long term (current) drug therapy; Z95.1 Presence of aortocoronary bypass graft; Z95.0 Presence of cardiac pacemaker; Z90.49 Acquired absence of other specified parts of digestive tract; Z90.710 Acquired absence of both cervix and uterus; Z98.890 Other specified postprocedural states; Z87.891 Personal history of nicotine dependence
CPT/HCPCS: 71045; 78452; 80053; 80061; 82550; 82553; 82565; 82962 ×3; 83880; 84484 ×4; 85014; 85018; 85025; 85049; 85379; 93005; 93017; 94760 ×3; 96372 ×3; 96374; 96375; 96376 ×3; 99285; A9500; G0378 ×2; 36415; 36416; J1650; J1885; J2270; J2405; J2785

== ENCOUNTER 2017-10-03 13:20 | Inpatient (IN) | payer MEDICARE, MEDICAID ==
--- NOTE | 2017-10-03 13:39 | CT ---
HEAD CT WITHOUT CONTRAST: Date: 10-03-17 Comparison: 09-03-17 History: Stroke protocol. CVA two months ago, left sided weakness and right sided weakness. Technique: Serial axial CT imaging at 5 mm intervals from vertex through the skull base without contr ast. FINDINGS: Imaged paranasal sinuses and mastoid air cells are well aerated. There is no displaced calvarial frac ture. There is no intracranial hemorrhage, midline shift, or mass effect. 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 A few punctate areas of hypodensity are noted within the subcortical white matter medial to the left insula, stable. IMPRESSION: Stable head CT. No intracranial hemorrhage. Results called to Dr. Murry 1:31 p.m. on 10-08-17. Code CR POS: AISHA
[2017-10-03] MEDS ORDERED: ISOVUE-370 76%-LOCM 1 ML ONE (14:02)
[2017-10-03 14:03] LABS: #Eosinphils 0.3 thou/uL (0.0-0.7); #Lymphocytes 1.7 thou/uL (1.20-3.40); #Monocytes 0.9 thou/uL (0.11-0.59); #Neutrophils 4.6 thou/uL (1.40-6.50); %Basophils 0.1 % (0.0-1.0); %Eosinophils 3.6 % (0.0-10.0); %Lymphocytes 22.8 % (21.0-51.0); %Monocytes 12.1 % (0.0-10.0); %Neutrophils 61.3 % (42.0-75.0); Mean Corpuscular Hemoglobin 31.7 pg (27.0-31.0); Mean Platelet Volume 9.6 fL (7.4-10.4); Platelet Count 202 thou/uL (130-400); RBC Distribution Width 11.9 % (11.5-14.5); Red Blood Cell (RBC) Count 4.09 mill/uL (4.20-5.40); White Blood Cell (WBC) Count 7.5 thou/uL (4.8-10.8)
[2017-10-03 14:09] LABS: INR-International Normal Ratio 0.9; PTT 27.1 SEC (22.9-36.1); Prothrombin Time 12.2 SEC (12.0-14.7)
[2017-10-03 14:24] LABS: ALT (SGPT) 17 U/L (8-55); AST (SGOT) 14 U/L (5-34); Albumin 4.1 g/dL (3.5-5.0); Alkaline Phosphatase 97 U/L (40-150); Anion Gap 12 mmol/L (10-20); BUN (Urea Nitrogen) 12 mg/dL (9.8-20.1); Bilirubin, Total 0.3 mg/dL (0.2-1.2); CK (CPK) 44 U/L (29-168); Calc. Creatinine Clearance 0 mL/min (70-130); Calcium 9.4 mg/dL (7.8-10.44); Carbon Dioxide 21 mmol/L (22-29); Chloride 111 mmol/L (98-107); Estimated GFR-MDRD 81; Glucose 90 mg/dL (70-105); Potassium 3.7 mmol/L (3.5-5.1); Protein, Total 7.1 g/dL (6.0-8.3); Sodium 140 mmol/L (136-145)
[2017-10-03 14:29] LABS: CKMB 0.7 ng/mL (0-6.6); Troponin I Less than 0.010 ng/mL (< 0.028)
[2017-10-03] MEDS ORDERED: Acetaminophen 650 MG Suppository PR PRN (15:31)
[2017-10-03] MEDS ORDERED: Morphine 4 MG/ML Carpuject SLOW IVP PRN (16:01)
[2017-10-03] MEDS ORDERED: HumaLOG 300 UNITS/3 ML VIAL SC PRN (16:27)
[2017-10-03] MEDS ORDERED: Dextrose 5% in Water 1,000 ML IV PRN (16:27)
[2017-10-03] MEDS ORDERED: Dextrose 50% Abboject 50 ML SYRINGE SLOW IVP PRN (16:27)
--- NOTE | 2017-10-03 16:54 | HP ---
PRIMARY CARE PHYSICIAN: Ezra Rodrigues M.D. CHIEF COMPLAINT: Unresponsiveness. HISTORY OF PRESENT ILLNESS: Ms. Neves is a pleasant 57-year-old lady who was seen at [facility] on 10/03/2017. She was hospitalized at this facility from 09/18/2017 to 8 for chest pain. She had a normal stress test and was discharged home. She also reportedly was adm itted at [facility] towards the end of August 2017 for stroke and received TPA. She was last known to be doing well around 8:00 a.m. today. At around noon, she was found unresponsi ve. She was therefore brought to the emergency room. She also had left-sided weakness as well as ap hagia. She is currently able to speak. She denies any nausea or vomiting. She reports left-sided weakness. She also reports chest tightness in the retrosternal region. She is unable to describe the symptom s further. She denies any headache. She denies any abdominal pain. She denies any diarrhea. REVIEW OF SYSTEMS: The following complete review of systems was negative, unless otherwise mentioned in the HPI or below: Constitutional: Weight loss or gain, ability to conduct usual activities. Skin: Rash, itching. Eyes: Double vision, pain. ENT/Mouth: Nose bleeding, neck stiffness, pain, tenderness. Cardiovascular: Palpitations, dyspnea on exertion, orthopnea. Respiratory: Shortness of breath, wheezing, cough, hemoptysis, fever or night sweats. Gastrointestinal: Poor appetite, abdominal pain, heartburn, nausea, vomiting, constipation, or diarrhea. Genitourinary: Urgency, frequency, dysuria, nocturia. Musculoskeletal: Pain, swelling. Neurologic/Psychiatric: Anxiety, depression. Allergy/Immunologic: Skin rash, bleeding tendency. PAST MEDICAL HISTORY: Significant for cerebrovascular accident with residual left-sided weakness, hy pertension, dyslipidemia, sick sinus syndrome status post pacemaker, anxiety, depression, restless le g syndrome, iron deficiency anemia, coronary artery disease status post PCI with stents, status post coronary artery bypass graft, myocardial infarction, and hypertension. PAST SURGICAL HISTORY: Significant for appendectomy, coronary artery bypass graft x3 vessels, cholec ystectomy, hysterectomy, and pacemaker placement. PSYCHIATRIC: Anxiety, depression, and insomnia. SOCIAL HISTORY: The patient is an ex-smoker. She denies alcohol use or recreational drug use. FAMILY HISTORY: Heart disease in several family members. ALLERGIES: No known drug allergies. CURRENT MEDICATIONS: Ranexa 1000 mg 2 times a day, metformin 500 mg daily, Protonix 40 mg daily, met oprolol 25 mg 2 times a day, isosorbide mononitrate 30 mg daily, sertraline 150 mg daily, Aggrenox 1 capsule daily, lisinopril 10 mg daily, doxycycline 100 mg 2 times a day, Plavix 75 mg daily, Lasix 20 mg daily, potassium chloride 8 mEq daily, Coreg 3.125 mg 2 times a day, amlodipine 1.25 mg daily, as pirin 81 mg daily, atorvastatin 80 mg daily, clonazepam 0.5 mg daily at bedtime, gabapentin 300 mg da agata, Lipitor 2.5 mg daily, and Seroquel 100 mg daily. PHYSICAL EXAMINATION: GENERAL: Ms. Neves is awake, alert, not in acute distress. VITAL SIGNS: Blood pressure is 167/85, pulse is 68. She is breathing at rate of 16, and saturating 99% on room air. EYES: No scleral icterus. No conjunctival pallor. ENT: Moist mucosal membranes. No oropharyngeal erythema or exudates. NECK: Supple, nontender, normal range of movement, trachea is midline. RESPIRATORY: Accessory muscles of breathing are not active. Chest wall movements are symmetric bila terally. LUNGS: Clear to auscultation without wheeze, rhonchi, or crepitations. CARDIOVASCULAR: S1 and S2 are heard, regular. LUNGS: Peripheral pulses palpable. No carotid bruit, no pericardial rub. ABDOMEN: Soft, nontender, bowel sounds heard, no hepatomegaly, no splenomegaly. NEUROLOGIC: Cranial nerves II-XII intact. Power is 4/5 in the left upper and lower extremities, 5/5 in both right extremities. The patient could not perform finger to nose test. I could not assess g ait. No focal sensory deficits. Deep tendon reflexes 2+. Plantar is downgoing bilaterally. LYMPHATIC: No cervical lymphadenopathy. MUSCULOSKELETAL: Power is 5/5 in all 4 extremities. Normal range of movement at all major extremity joints. SKIN: She has a large bruise over her left breast. Small fluctuant areas noted in that area. PSYCHIATRIC: Normal mood and normal affect. The patient is oriented to person, place, and time. LABORATORY DATA: Mr. Neves' labs and investigations were reviewed. I reviewed her electrocardiogram , which shows normal sinus rhythm, no ST changes to suggest an acute coronary syndrome. I also revie wed a noncontrast CT scan of the brain, which does not show any acute intracranial abnormalities. La boratory investigation showed normal white count, normal hemoglobin, normal platelet count, INR 0.9, unremarkable comprehensive metabolic profile except for a decreased carbon dioxide of 21 and normal t roponin I. ASSESSMENT AND PLAN: Ms. Neves is a pleasant 57-year-old lady who was seen at [facility] on 10/03/2017. Her problem list includes: 1. Ischemic cerebrovascular accident. Suspected, based on clinical presentation. She will be admit antonio to the hospital for further management including Neurology consult. She had a noncontrast CT sca n of the brain, which was unremarkable. She cannot have an MRI because of her pacemaker. She had a 2D echocardiogram on 09/04/2017, which showed left ventricular ejection fraction of 50% to 55%, moder ately increased LV size, moderately dilated left atrium, moderate mitral regurgitation, and moderate aortic regurgitation. She also had a head and neck CT angiogram on 09/03/2017, which was unremarkabl e. I will not repeat these investigations at this time. We will await Neurology Service input. 2. Chest pain: She had a recent stress test, which was normal. We will monitor her on telemetry an d repeat cardiac enzymes. The EMS personnel had discrepancy between blood pressures in both arms. W e will obtain CT aortogram to rule out aortic dissection. There is no radiofemoral delay. 3. Dyslipidemia: Continue statin. 4. Diabetes mellitus. Start Accu-Cheks, insulin sliding scale. Many thanks for allowing me to participate in your patient's care. Please feel free to contact me if any questions or concerns. LEVEL OF RISK: High. LEVEL OF COMPLEXITY: High.
[2017-10-03 16:59] VITALS: BMI 44.4
--- NOTE | 2017-10-03 17:00 | CT ---
CT ANGIOGRAM OF THE THORACIC AORTA CT ANGIOGRAM OF THE ABDOMINAL AORTA 10/03/17 HISTORY: Evaluate for aortic dissection. Mental status change. Neighbor found patient on ground. Two previous strokes. COMPARISON: 07/04/17. TECHNIQUE: CT angiogram of the thoracic and abdominal aorta performed in the axial plane. Sagittal and coronal t hree dimensional reformatted images submitted for interpretation. FINDINGS: CHEST CT: Coronary calcification identified. Heart size is normal. No significant pericardial fluid. The trache a and central bronchi are patent. Lungs are clear of any masses or consolidation. Minimal dependent a nd atelectatic changes. Calcified granuloma in the left lower lobe. ABDOMEN CT: There is appropriate arterial phase enhancement of the liver, spleen, and pancreas. There are nodules involving both adrenal glands, unchanged from the prior examination. Neither nodule can be completel y assessed at this time. No mesenteric mass, lymphadenopathy, free air or free fluid. No gastrohepatic, retrocrural or peripor janay lymphadenopathy. Limited evaluation of the alimentary canal lack of oral contrast. No evidence of bowel obstruction. Symmetric enhancement of the kidneys. No obstructive uropathy. CT ANGIOGRAM: The ascending thoracic aorta, aortic arch, descending thoracic aorta, abdominal aorta and aortic bifu rcation have an overall normal caliber. No aneurysm or dissection. The celiac artery origin, superior mesenteric artery origin, bilateral renal artery ostia and inferior mesenteric artery origin are unr emarkable. No significant stenosis. No lytic or blastic lesions in the osseous structures. IMPRESSION: 1. No evidence of aneurysm or dissection. 2. Indeterminate bilateral adrenal gland nodules. Given the size of the lesions, noncontrast abd omen CT can be performed on a nonemergent basis for better characterization. POS: [facility]
[2017-10-03] MEDS: Morphine 5 MG/ML SYRINGE SLOW IVP PRN ×2 (17:37→21:45)
[2017-10-04] MEDS: Morphine 5 MG/ML SYRINGE SLOW IVP PRN ×3 (01:49→21:32)
[2017-10-04 05:53] LABS: #Eosinphils 0.3 thou/uL (0.0-0.7); #Lymphocytes 1.8 thou/uL (1.20-3.40); #Monocytes 0.9 thou/uL (0.11-0.59); #Neutrophils 3.9 thou/uL (1.40-6.50); %Basophils 0.5 % (0.0-1.0); %Eosinophils 4.6 % (0.0-10.0); %Lymphocytes 25.5 % (21.0-51.0); %Neutrophils 56.4 % (42.0-75.0); Hemoglobin 12.5 g/dL (12.0-16.0); Mean Corpuscular HGB CONC 33.8 g/dL (32.0-36.0); Mean Corpuscular Hemoglobin 32.1 pg (27.0-31.0); Mean Corpuscular Volume 94.7 fl (81.0-99.0); Mean Platelet Volume 9.7 fL (7.4-10.4); Platelet Count 173 thou/uL (130-400); RBC Distribution Width 11.8 % (11.5-14.5); Red Blood Cell (RBC) Count 3.91 mill/uL (4.20-5.40); White Blood Cell (WBC) Count 6.9 thou/uL (4.8-10.8)
[2017-10-04 06:08] LABS: Anion Gap 11 mmol/L (10-20); BUN (Urea Nitrogen) 12 mg/dL (9.8-20.1); Calc. Creatinine Clearance 139 mL/min (70-130); Calcium 8.7 mg/dL (7.8-10.44); Carbon Dioxide 23 mmol/L (22-29); Cardiac Risk 3.2 (Less than 4.5); Chloride 109 mmol/L (98-107); Cholesterol 134 mg/dl (< 200 Desired); Estimated GFR-MDRD 81; Glucose 115 mg/dL (70-105); HDL Cholesterol 42 mg/dL (>60 Neg Risk); LDL Cholesterol, Calculated 70 mg/dL; Potassium 3.4 mmol/L (3.5-5.1); Sodium 140 mmol/L (136-145); Triglycerides 109 mg/dL (Less than 150)
[2017-10-04] MEDS: Enoxaparin Sodium 40 MG/0.4 ML SYRINGE SC SCH (09:07)
--- NOTE | 2017-10-04 09:21 | ULT ---
EXAM: LEFT BREAST ULTRASOUND: HISTORY: Pain. Swelling. Symptoms x 2 days. COMPARISON: None. TECHNIQUE: Targeted sonographic imaging of the left breast performed at the 12 o'clock position. Static images are reviewed. FINDINGS: There are 2 separate hypo to anechoic foci in the left breast. There is some reactive change in the peripheral soft tissues. Overall, this region measures 2.5 x 1.5 x 1.9 cm. Differential considerati ons include an infected fluid collection versus a resolving hematoma. Correlate clinically. IMPRESSION: Infected fluid collection versus hematoma. Correlate clinically. Continued surveillance to ensure r esolution. Followup ultrasound in 4-6 weeks. POS: [facility]
[2017-10-04] MEDS: traMADol HCl 50 MG TAB PO PRN (11:36)
--- NOTE | 2017-10-04 11:47 | PDOC.PN ---
- Subjective Encounter Start Date: 10/04/17 Encounter Start Time: 07:20 Pt seen for followup re: CVA. Chest pain still present. Has LUE and LLE weakness. - Objective MAR Reviewed: Yes Vital Signs & Weight: Vital Signs (12 hours) Temp Pulse Resp BP BP Pulse Ox 10/04/17 08:00 98.6 F 62 18 10/04/17 07:00 97.9 F 62 16 127/81 96 10/04/17 04:18 98.6 F 62 18 163/102 H 94 L 10/04/17 00:05 98.3 F 65 20 138/84 96 Weight Weight 235 lb I&O: 10/03/17 10/04/17 10/05/17 06:59 06:59 06:59 Intake Total 475 Output Total 0 Balance 475 Result Diagrams: 10/04/17 05:20 10/04/17 05:20 Additional Labs: Accuchecks 10/04/17 10/03/17 05:43 21:35 POC Glucose 104 102 EKG Reviewed by me: Yes (Tele: NSR, A-paced V-sensed) Phys Exam - Physical Examination Morbid obesity HEENT: PERRLA, moist MMs, sclera anicteric, oral pharynx no lesions Neck: no nodes, no JVD, supple, full ROM Respiratory: no wheezing, no rales, no rhonchi, clear to auscultation bilateral Cardiovascular: RRR, no rub Gastrointestinal: soft, non-tender, positive bowel sounds Neurological: moves all 4 limbs Power 4/5 LLE and LUE, 5/5 on right Psychiatric: normal affect Skin: no rash Dx/Plan (1) CVA (cerebral vascular accident) Code(s): I63.9 - CEREBRAL INFARCTION, UNSPECIFIED Status: Acute Comment: ? left hemiparesis, ?functional (2) Breast hematoma Code(s): N64.89 - OTHER SPECIFIED DISORDERS OF BREAST Status: Acute (3) Chest pain Code(s): R07.9 - CHEST PAIN, UNSPECIFIED Status: Acute (4) CAD (coronary artery disease) Code(s): I25.10 - ATHSCL HEART DISEASE OF [place] CORONARY ARTERY W/O ANG PCTRS Status: Chronic Qualifiers: (5) DM type 2 (diabetes mellitus, type 2) Status: Chronic Qualifiers: (6) Depression Code(s): F32.9 - MAJOR DEPRESSIVE DISORDER, SINGLE EPISODE, UNSPECIFIED Status : Chronic (7) History of CVA with residual deficit Code(s): I69.30 - UNSPECIFIED SEQUELAE OF CEREBRAL INFARCTION Status: Chronic (8) Hx of CABG Status: Chronic (9) Hypertension Code(s): I10 - ESSENTIAL (PRIMARY) HYPERTENSION Status: Chronic Qualifiers: (10) Morbid obesity Code(s): E66.01 - MORBID (SEVERE) OBESITY DUE TO EXCESS CALORIES Status: Chronic (11) Osteoarthritis Code(s): M19.90 - UNSPECIFIED OSTEOARTHRITIS, UNSPECIFIED SITE Status: Chronic - Plan DVT proph w/lovenox * . Repeat troponins. Resume home medications. May need cardiology consult if pt has ongoing chest pain (had a recent normal stress test). Await neurology consult. Gen Surg consult re: breast abscess vs hematoma (more likely hematoms, pt reports bruise has been present since she received tPA. Review of Systems - Review of Systems Constitutional: weakness. negative: fever, chills, sweats, malaise Cardiovascular: chest pain. negative: palpitations, orthopnea, paroxysmal nocturnal dyspnea, edema, light headedness Gastrointestinal: negative: Nausea, Vomiting, Abdominal Pain, Diarrhea, Constipation, Melena, Hematochezia Genitourinary: negative: Dysuria, Frequency, Incontinence, Hematuria, Retention Musculoskeletal: Other (Pain all over body) Skin: negative: Rash, Lesions, Philippe, Bruising Neurological: Weakness - Medications/Allergies Allergies/Adverse Reactions: Allergies Allergy/AdvReac Type Severity Reaction Status Date / Time propranolol Allergy Verified 10/03/17 17:10 Medications: Current Medications Acetaminophen (Tylenol) 650 mg PO Q4H PRN PRN Reason: Headache/Fever or Pain Acetaminophen (Tylenol) 650 mg OK Q4H PRN PRN Reason: Headache/Fever or Pain Dextrose/Water (Dextrose 50%) 25 gm SLOW IVP PRN PRN PRN Reason: Hypoglycemia Enoxaparin Sodium (Lovenox) 40 mg SC 0900 RAMÓN Last Admin: 10/04/17 09:07 Dose: 40 mg Glucagon (Glucagon) 1 mg IM PRN PRN PRN Reason: Hypoglycemia Dextrose/Water (D5w) 1,000 mls @ 0 mls/hr IV .Q0M PRN; As Directed PRN Reason: Hypoglycemia Insulin Human Lispro (Humalog) 0 units SC .MILD SLIDING SCALE PRN PRN Reason: Mild Correctional Scale Morphine Sulfate (Morphine) 2 mg SLOW IVP Q4H PRN PRN Reason: Pain Last Admin: 10/04/17 06:04 Dose: 2 mg Sodium Chloride (Flush - Normal Saline) 10 ml IVF Q12HR RAMÓN Sodium Chloride (Flush - Normal Saline) 10 ml IVF PRN PRN PRN Reason: Saline Flush Tramadol HCl (Ultram) 50 mg PO Q8H PRN PRN Reason: pain Last Admin: 10/04/17 11:36 Dose: 50 mg
[2017-10-04] MEDS ORDERED: Nitroglycerin 0.4 MG TAB (25 Tab Bottle) SL PRN (11:52)
--- NOTE | 2017-10-04 12:43 | PDOC.EVN ---
Event Note - Event Note Event Note: Discussed with General Surgery service. Dr. Jimenez does not recommend aspiration. If she develops fevers or other signs of infection he can see her in his office. Lesion more consistent with hematoma than an abscess (no fevers or white count).
[2017-10-04] MEDS: metFORMIN 500 MG TAB PO SCH (12:46)
[2017-10-04 13:34] LABS: CKMB 0.7 ng/mL (0-6.6); Troponin I Less than 0.010 ng/mL (< 0.028)
[2017-10-04] MEDS: Acetaminophen 325 MG TAB PO PRN (14:36)
[2017-10-04] MEDS: Ondansetron HCl/PF 4 MG/2 ML Vial SLOW IVP PRN (17:05)
[2017-10-04 17:12] LABS: CKMB 0.8 ng/mL (0-6.6); Troponin I Less than 0.010 ng/mL (< 0.028)
[2017-10-04] MEDS ORDERED: Aspirin 81 mg Enteric Coated Tablet PO SCH (19:00)
[2017-10-04 21:00] LABS: CKMB 0.7 ng/mL (0-6.6); Troponin I Less than 0.010 ng/mL (< 0.028)
[2017-10-04] MEDS: Atorvastatin Calcium 40 MG TAB PO SCH (21:29)
[2017-10-04] MEDS: clonazePAM 0.5 MG TAB PO SCH (21:30)
[2017-10-04] MEDS: Carvedilol 3.125 MG TAB PO SCH (21:30)
[2017-10-04] MEDS: Gabapentin 300 MG CAP PO SCH (21:30)
[2017-10-05] MEDS: Morphine 5 MG/ML SYRINGE SLOW IVP PRN (03:15)
[2017-10-05 05:57] LABS: #Eosinphils 0.3 thou/uL (0.0-0.7); #Lymphocytes 1.5 thou/uL (1.20-3.40); #Monocytes 0.6 thou/uL (0.11-0.59); #Neutrophils 2.4 thou/uL (1.40-6.50); %Basophils 0.3 % (0.0-1.0); %Eosinophils 5.5 % (0.0-10.0); %Lymphocytes 31.1 % (21.0-51.0); %Neutrophils 51.1 % (42.0-75.0); Hemoglobin 11.6 g/dL (12.0-16.0); Mean Corpuscular HGB CONC 33.3 g/dL (32.0-36.0); Mean Corpuscular Hemoglobin 31.6 pg (27.0-31.0); Mean Corpuscular Volume 94.8 fl (81.0-99.0); Mean Platelet Volume 9.9 fL (7.4-10.4); Platelet Count 192 thou/uL (130-400); RBC Distribution Width 11.8 % (11.5-14.5); Red Blood Cell (RBC) Count 3.67 mill/uL (4.20-5.40); White Blood Cell (WBC) Count 4.7 thou/uL (4.8-10.8)
[2017-10-05 06:02] LABS: Anion Gap 14 mmol/L (10-20); BUN (Urea Nitrogen) 12 mg/dL (9.8-20.1); Calc. Creatinine Clearance 129 mL/min (70-130); Calcium 8.8 mg/dL (7.8-10.44); Carbon Dioxide 22 mmol/L (22-29); Chloride 108 mmol/L (98-107); Estimated GFR-MDRD 74; Glucose 109 mg/dL (70-105); Potassium 3.3 mmol/L (3.5-5.1); Sodium 141 mmol/L (136-145)
--- NOTE | 2017-10-05 06:16 | CON ---
DATE OF CONSULTATION: 10/04/2017 REFERRING PHYSICIAN: Rodo Medina M.D. REASON FOR CONSULTATION: Left-sided weakness. HISTORY OF PRESENT ILLNESS: Mr. Neves is a pleasant 57-year-old female who has been consul antonio for evaluation of left-sided weakness. History is obtained from the patient and the patient's da ughter who was present at the bedside. The patient reports that she was at home and suddenly started noticing the numbness on her left side of her leg that went on to involve the left upper extremity. She then became confused and passed out. She does not know how long she was unresponsive. Her daug hter reports that she was on the phone with her and during the conversation with her, she suddenly be came nonconversant and confused. She went to go check on her and when she found her, she was on the floor unresponsive. She called the EMS and brought her to the [place] emergency room. She states that she has been having these episodes over the past 2 months and has been admitted to the hospital 3 times for the same reason. She states that her blood pressure was noted to be 247/110 when the EM S had arrived. She reports that her blood pressure has been running extremely high over the past few months as all of these episodes have been associated with very high blood pressures. She states max t after this episode happened, she tends to require inpatient rehabilitation which does tend to impro ve and then, it gets worse again. She currently denies any chest pain, palpitation, vision changes, difficulty with swallowing. PAST MEDICAL HISTORY: Significant for hypertension, coronary artery disease, history of stroke, dysl ipidemia, sick sinus syndrome, status post pacemaker placement, anxiety, depression, restless leg syn drome, iron-deficiency anemia, history of IL. PAST SURGICAL HISTORY: Significant for appendectomy, CABG, cholecystectomy, hysterectomy, pacemaker placement, and coronary stent placement. FAMILY HISTORY: Significant for heart disease in several family members. SOCIAL HISTORY: She is an ex-smoker. She denies alcohol use or illicit drug use. She lives with he r daughter. CURRENT MEDICATIONS: Please review MAR. ALLERGIES: No known drug allergies. REVIEW OF SYSTEMS: As mentioned in the HPI, otherwise negative. PHYSICAL EXAMINATION: VITAL SIGNS: Blood pressure of 121/64, pulse of 62, temperature of 98.6, respirations of 16, O2 sats of 95% on room air. GENERAL: Morbidly obese female resting in bed, in no apparent distress. RESPIRATORY: Clear to auscultation bilaterally. CARDIOVASCULAR: Regular rate and rhythm. NEUROLOGIC: Mental status: The patient is awake, alert, oriented x3. Speech and language: Fluent speech. Cranial nerves: Pupils are 3 mm and reactive. Visual luque are intact. Extraocular muscl es are intact. No nystagmus is noted. Face is symmetric. Motor exam showed normal tone and bulk wi th a 5/5 strength in the right upper and right lower extremity. She may have some functional weaknes s in the left upper extremity as she does not drop her hand on her face when raising it up and holdin g it in front of her face. There is also positive Mercado's sign for the left lower extremity. LABORATORY DATA: Reviewed, which included CBC, CMP, lipid profile, which is significant for potassiu m of 3.4, total cholesterol of 134, LDL of 70, HDL of 42, and triglycerides of 109, otherwise unremar kable. IMAGING STUDIES: CT head without contrast was reviewed, which showed no acute intracranial abnormali ty. I did not appreciate any hypodensity or hypolucency that would suggest prior stroke, especially involving the right cerebral hemisphere which would have caused the patient's persistent left-sided w eakness. IMPRESSION: 1. Left-sided weakness, likely hypertensive urgency. There may be a component of conversion disorde r. 2. Malignant hypertension. 3. Coronary artery disease. Ms. Neves is a pleasant 57-year-old female who presented with the episode of confusion and left-sided weakness. On exam, she has some giveaway weakness with positive Mercado's sign and d ropping on the face when being raised on top of the face. This would suggest functional giveaway wea kness. I have reviewed her CT head without contrast, which was essentially unremarkable and it did n ot show any hypodensity or lucency suggestive of prior ischemic event involving the right cerebral he misphere which would argue her previous events that result in left-sided weakness. Unfortunately, we are not able to obtain MRI brain without contrast due to her pacemaker. In any event, her symptoms may have been pursued by significantly elevated blood pressure. I would recommend obtaining EEG to r ule out seizure as the cause for her symptoms. I would recommend continuing PT, OT. She would benef it from having a workup to find out the cause for her persistently elevated blood pressure. Thank you for your consultation.
[2017-10-05] MEDS ORDERED: Vortioxetine Hydrobromide [Trintellix] 10 MG PO SCH (09:00)
[2017-10-05] MEDS: Clopidogrel Bisulfate 75 MG TAB PO SCH (09:01)
[2017-10-05] MEDS: Potassium Chloride 8 MEQ TAB PO SCH (09:01)
[2017-10-05] MEDS: Aspirin 81 mg Enteric Coated Tablet PO SCH (09:01)
[2017-10-05] MEDS: Furosemide 20 MG TAB PO SCH (09:01)
[2017-10-05] MEDS: Enoxaparin Sodium 40 MG/0.4 ML SYRINGE SC SCH (09:02)
--- NOTE | 2017-10-05 09:38 | PDOC.PN ---
- Subjective Encounter Start Date: 10/05/17 Encounter Start Time: 12:30 Subjective: Called to [facility] [place]. Patient unresponsive. Eyes opened, very soft -: mumbling. Not following any commands. Stroke alert called. BS 110. -: Vitals all stable. - Objective MAR Reviewed: Yes Vital Signs & Weight: Vital Signs (12 hours) Temp Pulse Resp BP BP Pulse Ox 10/05/17 07:50 98.8 F 63 16 10/05/17 04:01 98.8 F 63 16 94 L 10/05/17 02:50 67 109/71 10/05/17 02:41 93 L 10/05/17 00:26 72 96/64 10/04/17 23:49 98.3 F 77 16 88/56 L 93 L Weight Weight 235 lb I&O: 10/04/17 10/05/17 10/06/17 06:59 06:59 06:59 Intake Total 475 240 Output Total 0 Balance 475 240 Result Diagrams: 10/05/17 04:37 10/05/17 04:37 Additional Labs: Accuchecks 10/05/17 10/04/17 10/04/17 05:44 20:50 17:28 POC Glucose 114 H 96 93 Phys Exam - Physical Examination Constitutional: NAD HEENT: PERRLA, moist MMs Respiratory: no wheezing, no rales, no rhonchi, clear to auscultation bilateral Cardiovascular: RRR, no significant murmur Gastrointestinal: soft, positive bowel sounds all limbs flacid, normal reflexes throughout, downgoing toes bilaterally, does resist me turning head to the left, and turns it back when I stop Deviation from normal: eyes open and very softs mumbling, otherwise unresponsive Dx/Plan (1) Left hemiparesis Code(s): G81.94 - HEMIPLEGIA, UNSPECIFIED AFFECTING LEFT NONDOMINANT SIDE Status: Acute Comment: CVA vs. functional, EEG ordered by neurology (2) Hypertension Code(s): I10 - ESSENTIAL (PRIMARY) HYPERTENSION Status: Acute Qualifiers: Comment: Hypertensive urgency resolved, now normal (3) Chest pain Code(s): R07.9 - CHEST PAIN, UNSPECIFIED Status: Acute (4) CAD (coronary artery disease) Code(s): I25.10 - ATHSCL HEART DISEASE OF [place] CORONARY ARTERY W/O ANG PCTRS Status: Chronic Qualifiers: (5) DM type 2 (diabetes mellitus, type 2) Status: Chronic Qualifiers: (6) Hypokalemia Code(s): E87.6 - HYPOKALEMIA Status: Acute Comment: replace orally - Plan cont current plan of care Uncertain eitiology of current spell, suspect psychosomatic with previous -: history, but seizure is anther possibility. EEG scheduled for this -: afternoon. Neuro already following. * . - Discharge Day Encounter end time: 12:39
[2017-10-05] MEDS ORDERED: Potassium Chloride 20 MEQ TAB PO SCH (09:45)
[2017-10-05] MEDS: Carvedilol 3.125 MG TAB PO SCH ×2 (10:26→20:12)
[2017-10-05] MEDS: metFORMIN 500 MG TAB PO SCH (10:26)
[2017-10-05] MEDS: Amlodipine 5 MG TAB PO SCH (10:27)
[2017-10-05] MEDS: Lisinopril 2.5 MG TAB PO SCH (10:27)
[2017-10-05 13:15] LABS: Actual Bicarbonate (HCO3a) 25.5 mEq/L (22-26); CO2 Tension 42.9 mmHg (35.0-45.0); O2 Tension (PaO2) 77.2 mmHg (80.0-100.0); pH, Arterial 7.39 (7.35-7.45)
[2017-10-05 13:16] LABS: Base Excess (BEa) 0.4 mEq/L (0 (+/-) 2.5); Calcium, Ionized 1.2 mmol/L (1.12-1.30); Hematocrit-ABG 36.2 % (36.0-47.0); Hemoglobin (Hb) 12.4 g/dL (12.0-16.0)
[2017-10-05 13:17] LABS: ALV-art Gradient 18.905 (0-20); Analyzer IN Cardio OR; Puncture Site RRA
--- NOTE | 2017-10-05 13:27 | CT ---
EXAM: NONCONTRAST HEAD CT: COMPARISON: 10/03/14. HISTORY: Left-sided weakness initially. The patient now has bilateral side weakness. The patient is unrespon sive. COMPARISON: 10/02/17. TECHNIQUE: A noncontrast head CT is performed from the skull base to the skull vertex. FINDINGS: No parenchymal hemorrhage. No extraaxial hematoma. No midline shift. Basilar cisterns are patent. Brain volume is age appropriate. Cortical vnaessa-white matter differentiation is preserved. Ventricl es and sulci are patent and symmetric. Stable hypodensities in the left subinsular cortex. 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 Calvarium is intact. Adequate aeration of the sinuses and mastoid air cells. IMPRESSION: No acute intracranial process. Results of the study discussed with Dr. Bardales 10/05/17 at 12:48 a.m. CODE CR POS: [facility]
[2017-10-05] MEDS: Gabapentin 300 MG CAP PO SCH (20:12)
[2017-10-05] MEDS: Atorvastatin Calcium 40 MG TAB PO SCH (20:12)
[2017-10-05] MEDS: clonazePAM 0.5 MG TAB PO SCH (20:12)
[2017-10-05] MEDS: Acetaminophen 325 MG TAB PO PRN (21:41)
[2017-10-05] MEDS: traMADol HCl 50 MG TAB PO PRN (21:41)
[2017-10-06] MEDS: Morphine 5 MG/ML SYRINGE SLOW IVP PRN ×3 (03:27→17:11)
[2017-10-06] MEDS: Ondansetron HCl/PF 4 MG/2 ML Vial SLOW IVP PRN ×2 (04:13→10:18)
[2017-10-06 05:11] LABS: Anion Gap 10 mmol/L (10-20); BUN (Urea Nitrogen) 13 mg/dL (9.8-20.1); Calc. Creatinine Clearance 134 mL/min (70-130); Carbon Dioxide 26 mmol/L (22-29); Chloride 109 mmol/L (98-107); Estimated GFR-MDRD 77; Glucose 80 mg/dL (70-105); Potassium 3.7 mmol/L (3.5-5.1); Sodium 141 mmol/L (136-145)
[2017-10-06 05:18] LABS: Eosinophils 6 % (0-10); Hemoglobin 11.7 g/dL (12.0-16.0); Lymphocytes 44 % (21-51); MDiff Complete? YES; Mean Corpuscular HGB CONC 33.6 g/dL (32.0-36.0); Mean Corpuscular Hemoglobin 31.9 pg (27.0-31.0); Mean Corpuscular Volume 94.8 fl (81.0-99.0); Mean Platelet Volume 9.7 fL (7.4-10.4); Monocytes 12 % (0-10); Neutrophil 37 % (42-75); PLT Morphology Comment Appears Adequate; Platelet Count 176 thou/uL (130-400); RBC Distribution Width 11.7 % (11.5-14.5); Red Blood Cell (RBC) Count 3.66 mill/uL (4.20-5.40); White Blood Cell (WBC) Count 4.7 thou/uL (4.8-10.8)
[2017-10-06] MEDS: Potassium Chloride 8 MEQ TAB PO SCH (10:16)
[2017-10-06] MEDS: Carvedilol 3.125 MG TAB PO SCH ×2 (10:16→20:52)
[2017-10-06] MEDS: Aspirin 81 mg Enteric Coated Tablet PO SCH (10:16)
[2017-10-06] MEDS: Clopidogrel Bisulfate 75 MG TAB PO SCH (10:16)
[2017-10-06] MEDS: Furosemide 20 MG TAB PO SCH (10:16)
[2017-10-06] MEDS: Amlodipine 5 MG TAB PO SCH (10:17)
[2017-10-06] MEDS: Enoxaparin Sodium 40 MG/0.4 ML SYRINGE SC SCH (10:17)
[2017-10-06] MEDS: Lisinopril 2.5 MG TAB PO SCH (10:17)
[2017-10-06] MEDS: metFORMIN 500 MG TAB PO SCH (12:29)
--- NOTE | 2017-10-06 14:26 | CON ---
DATE OF CONSULTATION: 10/06/2017 REASON FOR CONSULTATION: Chest pain. HISTORY OF PRESENT ILLNESS: Ms. Bel Neves is an unfortunate 57-year-old woman with a history of co ronary artery disease and longstanding chest pain. She has been admitted to the hospital on multiple occasions with the chest pain. The patient was admitted unfortunately on this occasion with left-si ded stroke with weakness of the left arm and left leg. While she is here, she has complained of some chest pain. The patient was admitted to the hospital on 10/03/2017. At that time she was admitted for unresponsi veness. She also had left-sided weakness and aches and apparently transient aphasia. Patient has be en evaluated for the stroke by Neurologic Service. She also has had some intermittent chest pain whi le she is here. The patient was seen in consultation with Dr. Kirby. It was noted that she did have some high blood p ressure earlier. Her diagnosis was left-sided weakness, likely hypertensive urgency, ?conversion dis order. CT of the head did not show hypodensity or hyperlucency. MEDICATIONS: Here, atorvastatin, isosorbide, pantoprazole, aspirin, lisinopril, carvedilol, furosemi de, amlodipine, clopidogrel. ALLERGIES: PROPRANOLOL. REVIEW OF SYSTEMS: Constitutional: No significant weight gain or loss. Vision: No changes. Heari ng: No changes. Pulmonary: No cough or wheezing. Gastrointestinal: No nausea, vomiting, diarrhea . Skin: No rashes. Neurologic: No unilateral weakness or numbness. Psychiatric: No unusual depr ession or anxiety. PAST MEDICAL HISTORY: 1. History of hypertension. 2. History of hypercholesterolemia. 3. Previous bypass surgery. She did have a catheterization within the last year showing patent sarkis ts with small distal vessels. PHYSICAL EXAMINATION: GENERAL: This is a pleasant patient in no distress. VITAL SIGNS: Blood pressure 110/66, pulse 60. HEENT: Eyes: Sclerae nonicteric. Mouth: Mucous membranes moist. NECK: Supple, no lymphadenopathy. LUNGS: Clear. No wheezing, rales, or rhonchi. CARDIAC: Normal S1, normal S2. There is no murmur, rub, or gallop. ABDOMEN: Soft, nontender. EXTREMITIES: No clubbing or cyanosis. There is no edema. PERTINENT LABORATORY: Troponin level all normal. LDL cholesterol 70. EKG did not show any ischemic changes. ASSESSMENT: 1. Recurrent episodes of chest pain. 2. Recent negative stress test. 3. Catheterization within the last year showing adequate vascularization. 4. Morbid obesity. 5. ?stroke versus conversion disorder as outlined by Dr. Kirby. PLAN: 1. Continue to treat blood pressure. If needed, the carvedilol dose could be increased. 2. Continue statin. 3. On dual antiplatelet drugs. 4. No other recommendations from a cardiac standpoint.
--- NOTE | 2017-10-06 17:02 | PDOC.PN ---
- Subjective Encounter Start Date: 10/06/17 Encounter Start Time: 14:00 Pt seen for followup re; CVA. Reports on and off chest discomfort. - Objective MAR Reviewed: Yes Vital Signs & Weight: Vital Signs (12 hours) Temp Pulse Pulse Resp BP BP Pulse Ox 10/06/17 13:30 68 147/85 H 10/06/17 11:15 98.3 F 60 16 109/66 99 10/06/17 10:17 68 10/06/17 08:00 98.0 F 68 18 Pulse Ox 10/06/17 13:30 95 10/06/17 11:15 10/06/17 10:17 10/06/17 08:00 Result Diagrams: 10/06/17 04:14 10/06/17 04:14 Additional Labs: Accuchecks 10/06/17 10/05/17 10/05/17 11:18 21:04 17:10 POC Glucose 122 H 105 94 EKG Reviewed by me: Yes (Tele: NSR) Phys Exam - Physical Examination Constitutional: NAD HEENT: moist MMs Neck: supple Respiratory: clear to auscultation bilateral Cardiovascular: RRR Gastrointestinal: soft LUE and LLE weakness Psychiatric: normal affect Skin: no rash Dx/Plan (1) CVA (cerebral vascular accident) Code(s): I63.9 - CEREBRAL INFARCTION, UNSPECIFIED Status: Acute (2) Breast hematoma Code(s): N64.89 - OTHER SPECIFIED DISORDERS OF BREAST Status: Acute (3) Chest pain Code(s): R07.9 - CHEST PAIN, UNSPECIFIED Status: Acute (4) CAD (coronary artery disease) Code(s): I25.10 - ATHSCL HEART DISEASE OF [place] CORONARY ARTERY W/O ANG PCTRS Status: Chronic Qualifiers: (5) DM type 2 (diabetes mellitus, type 2) Status: Chronic Qualifiers: (6) Depression Code(s): F32.9 - MAJOR DEPRESSIVE DISORDER, SINGLE EPISODE, UNSPECIFIED Status : Chronic (7) History of CVA with residual deficit Code(s): I69.30 - UNSPECIFIED SEQUELAE OF CEREBRAL INFARCTION Status: Chronic (8) Hx of CABG Status: Chronic (9) Hypertension Code(s): I10 - ESSENTIAL (PRIMARY) HYPERTENSION Status: Chronic Qualifiers: (10) Morbid obesity Code(s): E66. - MORBID (SEVERE) OBESITY DUE TO EXCESS CALORIES Status: Chronic (11) Osteoarthritis Code(s): M19.90 - UNSPECIFIED OSTEOARTHRITIS, UNSPECIFIED SITE Status: Chronic - Plan plan discussed w/ family, PT/OT, out of bed/ambulate * . Consult cardiology re: chest pain. Neurology input appreciated. Review of Systems - Review of Systems Constitutional: weakness Cardiovascular: chest pain. negative: palpitations, orthopnea, paroxysmal nocturnal dyspnea, edema, light headedness Neurological: Weakness - Medications/Allergies Allergies/Adverse Reactions: Allergies Allergy/AdvReac Type Severity Reaction Status Date / Time propranolol Allergy Verified 10/03/17 17:10 Medications: Current Medications Acetaminophen (Tylenol) 650 mg PO Q4H PRN PRN Reason: Headache/Fever or Pain Last Admin: 10/05/17 21:41 Dose: 650 mg Acetaminophen (Tylenol) 650 mg [place] Q4H PRN PRN Reason: Headache/Fever or Pain Amlodipine Besylate (Norvasc) 2.5 mg PO DAILY [facility] Last Admin: 10/06/17 10:17 Dose: Not Given Aspirin (Ecotrin) 81 mg PO DAILY [facility] Last Admin: 10/06/17 10:16 Dose: 81 mg Atorvastatin Calcium (Lipitor) 80 mg PO HS [facility] Last Admin: 10/05/17 20:12 Dose: 80 mg Carvedilol (Coreg) 3.125 mg PO BID [facility] Last Admin: 10/06/17 10:16 Dose: 3.125 mg Clonazepam (Klonopin) 0.5 mg PO HS [facility] Last Admin: 10/05/17 20:12 Dose: 0.5 mg Clopidogrel Bisulfate (Plavix) 75 mg PO DAILY [facility] Last Admin: 10/06/17 10:16 Dose: 75 mg Dextrose/Water (Dextrose 50%) 25 gm SLOW IVP PRN PRN PRN Reason: Hypoglycemia Enoxaparin Sodium (Lovenox) 40 mg SC 0900 [facility] Last Admin: 10/06/17 10:17 Dose: 40 mg Furosemide (Lasix) 20 mg PO DAILY [facility] Last Admin: 10/06/17 10:16 Dose: 20 mg Gabapentin (Neurontin) 300 mg PO HS [facility] Last Admin: 10/05/17 20:12 Dose: 300 mg Glucagon (Glucagon) 1 mg IM PRN PRN PRN Reason: Hypoglycemia Dextrose/Water (D5w) 1,000 mls @ 0 mls/hr IV .Q0M PRN; As Directed PRN Reason: Hypoglycemia Insulin Human Lispro (Humalog) 0 units SC .MILD SLIDING SCALE PRN PRN Reason: Mild Correctional Scale Isosorbide Mononitrate (Imdur Er) 30 mg PO 1200 [facility] Last Admin: 10/06/17 12:29 Dose: 30 mg Lisinopril (Zestril) 2.5 mg PO DAILY [facility] Last Admin: 10/06/17 10:17 Dose: Not Given Metformin HCl (Glucophage) 500 mg PO 1200 [facility] Last Admin: 10/06/17 12:29 Dose: 500 mg Morphine Sulfate (Morphine) 2 mg SLOW IVP Q4H PRN PRN Reason: Pain Last Admin: 10/06/17 17:11 Dose: 2 mg Nitroglycerin (Nitrostat) 0.4 mg SL Q5MIN PRN PRN Reason: Chest Pain Ondansetron HCl (Zofran) 4 mg SLOW IVP Q6H PRN PRN Reason: Nausea/Vomiting Last Admin: 10/06/17 10:18 Dose: 4 mg Pantoprazole Sodium (Protonix) 40 mg PO DAILY [facility] Last Admin: 10/06/17 10:16 Dose: 40 mg Vortioxetine Hydrobromide [ Trintellix] 10 Mg 0 each PO DAILY [facility] Potassium Chloride (Slow-K 8 Meq) 8 meq PO DAILY [facility] Last Admin: 10/06/17 10:16 Dose: 8 meq Quetiapine Fumarate (Seroquel) 100 mg PO HS [facility] Last Admin: 10/05/17 20:12 Dose: 100 mg Ranolazine (Ranexa) 1,000 mg PO BID [facility] Last Admin: 10/06/17 10:16 Dose: 1,000 mg Sodium Chloride (Flush - Normal Saline) 10 ml IVF Q12HR [facility] Last Admin: 10/06/17 10:17 Dose: 10 ml Sodium Chloride (Flush - Normal Saline) 10 ml IVF PRN PRN PRN Reason: Saline Flush Last Admin: 10/06/17 04:13 Dose: 10 ml Tramadol HCl (Ultram) 50 mg PO Q8H PRN PRN Reason: pain Last Admin: 10/05/17 21:41 Dose: 50 mg
[2017-10-06] MEDS: Gabapentin 300 MG CAP PO SCH (20:52)
[2017-10-06] MEDS: clonazePAM 0.5 MG TAB PO SCH (20:52)
[2017-10-06] MEDS: Atorvastatin Calcium 40 MG TAB PO SCH (20:53)
[2017-10-06] MEDS: traMADol HCl 50 MG TAB PO PRN (20:53)
[2017-10-07] MEDS: Acetaminophen 325 MG TAB PO PRN ×3 (01:59→21:36)
[2017-10-07] MEDS: traMADol HCl 50 MG TAB PO PRN ×3 (05:14→22:44)
[2017-10-07] MEDS: Enoxaparin Sodium 40 MG/0.4 ML SYRINGE SC SCH (08:47)
[2017-10-07] MEDS: Aspirin 81 mg Enteric Coated Tablet PO SCH (08:47)
[2017-10-07] MEDS: Potassium Chloride 8 MEQ TAB PO SCH (08:47)
[2017-10-07] MEDS: Carvedilol 3.125 MG TAB PO SCH ×2 (08:47→21:35)
[2017-10-07] MEDS: Clopidogrel Bisulfate 75 MG TAB PO SCH (08:48)
[2017-10-07] MEDS: Amlodipine 5 MG TAB PO SCH (08:48)
[2017-10-07] MEDS: Furosemide 20 MG TAB PO SCH (08:48)
[2017-10-07] MEDS: Lisinopril 2.5 MG TAB PO SCH (08:48)
--- NOTE | 2017-10-07 12:18 | PDOC.PN ---
- Subjective Encounter Start Date: 10/07/17 Encounter Start Time: 07:20 Pt seen for followup re: chest pain. She reports that it has eased off. No nausea or vomiting. - Objective MAR Reviewed: Yes Vital Signs & Weight: Vital Signs (12 hours) Temp Pulse Resp BP Pulse Ox 10/07/17 11:53 98.5 F 63 18 109/73 96 10/07/17 08:48 66 10/07/17 08:00 97.8 F 66 18 10/07/17 07:36 97.8 F 66 18 133/83 98 10/07/17 04:00 97.8 F 72 20 105/92 H 90 L I&O: 10/06/17 10/07/17 10/08/17 06:59 06:59 06:59 Intake Total 1295 Output Total 480 Balance 815 Result Diagrams: 10/06/17 04:14 10/06/17 04:14 Additional Labs: Accuchecks 10/07/17 10/07/17 10/06/17 09:51 05:43 20:32 POC Glucose 143 H 105 102 10/06/17 10/06/17 17:16 13:31 POC Glucose 134 H 111 H EKG Reviewed by me: Yes (Tele: NSR) Phys Exam - Physical Examination Morbid obesity HEENT: moist MMs Neck: supple Respiratory: clear to auscultation bilateral Cardiovascular: RRR Gastrointestinal: soft Neurological: moves all 4 limbs LUE and LLE power 4/5, 5/5 on R side Psychiatric: normal affect Dx/Plan (1) Chest pain Code(s): R07.9 - CHEST PAIN, UNSPECIFIED Status: Acute (2) CVA (cerebral vascular accident) Code(s): I63.9 - CEREBRAL INFARCTION, UNSPECIFIED Status: Acute (3) Breast hematoma Code(s): N64.89 - OTHER SPECIFIED DISORDERS OF BREAST Status: Acute (4) CAD (coronary artery disease) Code(s): I25.10 - ATHSCL HEART DISEASE OF [place] CORONARY ARTERY W/O ANG PCTRS Status: Chronic Qualifiers: (5) DM type 2 (diabetes mellitus, type 2) Status: Chronic Qualifiers: (6) Depression Code(s): F32.9 - MAJOR DEPRESSIVE DISORDER, SINGLE EPISODE, UNSPECIFIED Status : Chronic (7) History of CVA with residual deficit Code(s): I69.30 - UNSPECIFIED SEQUELAE OF CEREBRAL INFARCTION Status: Chronic (8) Hx of CABG Status: Chronic (9) Hypertension Code(s): I10 - ESSENTIAL (PRIMARY) HYPERTENSION Status: Chronic Qualifiers: (10) Morbid obesity Code(s): E66.01 - MORBID (SEVERE) OBESITY DUE TO EXCESS CALORIES Status: Chronic (11) Osteoarthritis Code(s): M19.90 - UNSPECIFIED OSTEOARTHRITIS, UNSPECIFIED SITE Status: Chronic - Plan PT/OT, out of bed/ambulate * . Appreciate cardiology input. Pt gradually improving. Ambulate patient. Review of Systems - Review of Systems Respiratory: negative: Cough, Dry, Shortness of Breath, Hemoptysis, SOB with Excertion, Pleuritic Pain, Sputum, Wheezing Cardiovascular: negative: chest pain, palpitations, orthopnea, paroxysmal nocturnal dyspnea, edema, light headedness Gastrointestinal: negative: Nausea, Vomiting, Abdominal Pain, Diarrhea, Constipation, Melena, Hematochezia - Medications/Allergies Allergies/Adverse Reactions: Allergies Allergy/AdvReac Type Severity Reaction Status Date / Time propranolol Allergy Verified 10/03/17 17:10 Medications: Current Medications Acetaminophen (Tylenol) 650 mg PO Q4H PRN PRN Reason: Headache/Fever or Pain Last Admin: 10/07/17 08:51 Dose: 650 mg Acetaminophen (Tylenol) 650 mg [place] Q4H PRN PRN Reason: Headache/Fever or Pain Amlodipine Besylate (Norvasc) 2.5 mg PO DAILY [facility] Last Admin: 10/07/17 08:48 Dose: Not Given Aspirin (Ecotrin) 81 mg PO DAILY [facility] Last Admin: 10/07/17 08:47 Dose: 81 mg Atorvastatin Calcium (Lipitor) 80 mg [address] [facility] Last Admin: 10/06/17 20:53 Dose: 80 mg Carvedilol (Coreg) 3.125 mg PO BID [facility] Last Admin: 10/07/17 08:47 Dose: 3.125 mg Clonazepam (Klonopin) 0.5 mg PO [facility] Last Admin: 10/06/17 20:52 Dose: 0.5 mg Clopidogrel Bisulfate (Plavix) 75 mg PO DAILY [facility] Last Admin: 10/07/17 08:48 Dose: 75 mg Dextrose/Water (Dextrose 50%) 25 gm SLOW IVP PRN PRN PRN Reason: Hypoglycemia Enoxaparin Sodium (Lovenox) 40 mg SC 0900 [facility] Last Admin: 10/07/17 08:47 Dose: 40 mg Furosemide (Lasix) 20 mg PO DAILY [facility] Last Admin: 10/07/17 08:48 Dose: 20 mg Gabapentin (Neurontin) 300 mg PO HS [facility] Last Admin: 10/06/17 20:52 Dose: 300 mg Glucagon (Glucagon) 1 mg IM PRN PRN PRN Reason: Hypoglycemia Dextrose/Water (D5w) 1,000 mls @ 0 mls/hr IV .Q0M PRN; As Directed PRN Reason: Hypoglycemia Insulin Human Lispro (Humalog) 0 units SC .MILD SLIDING SCALE PRN PRN Reason: Mild Correctional Scale Isosorbide Mononitrate (Imdur Er) 30 mg PO 1200 [facility] Last Admin: 10/06/17 12:29 Dose: 30 mg Lisinopril (Zestril) 2.5 mg PO DAILY [facility] Last Admin: 10/07/17 08:48 Dose: Not Given Metformin HCl (Glucophage) 500 mg PO 1200 [facility] Last Admin: 10/06/17 12:29 Dose: 500 mg Morphine Sulfate (Morphine) 2 mg SLOW IVP Q4H PRN PRN Reason: Pain Last Admin: 10/06/17 17:11 Dose: 2 mg Nitroglycerin (Nitrostat) 0.4 mg SL Q5MIN PRN PRN Reason: Chest Pain Ondansetron HCl (Zofran) 4 mg SLOW IVP Q6H PRN PRN Reason: Nausea/Vomiting Last Admin: 10/06/17 10:18 Dose: 4 mg Pantoprazole Sodium (Protonix) 40 mg PO DAILY [facility] Last Admin: 10/07/17 08:47 Dose: 40 mg Vortioxetine Hydrobromide [ Trintellix] 10 Mg 0 each PO DAILY [facility] Potassium Chloride (Slow-K 8 Meq) 8 meq PO DAILY [facility] Last Admin: 10/07/17 08:47 Dose: 8 meq Quetiapine Fumarate (Seroquel) 100 mg PO HS [facility] Last Admin: 10/06/17 20:53 Dose: 100 mg Ranolazine (Ranexa) 1,000 mg PO BID [facility] Last Admin: 10/07/17 08:47 Dose: 1,000 mg Sodium Chloride (Flush - Normal Saline) 10 ml IVF Q12HR [facility] Last Admin: 10/07/17 08:48 Dose: 10 ml Sodium Chloride (Flush - Normal Saline) 10 ml IVF PRN PRN PRN Reason: Saline Flush Last Admin: 10/06/17 04:13 Dose: 10 ml Tramadol HCl (Ultram) 50 mg PO Q8H PRN PRN Reason: pain Last Admin: 10/07/17 05:14 Dose: 50 mg
[2017-10-07] MEDS: metFORMIN 500 MG TAB PO SCH (12:40)
[2017-10-07] MEDS: Atorvastatin Calcium 40 MG TAB PO SCH (21:35)
[2017-10-07] MEDS: Gabapentin 300 MG CAP PO SCH (21:36)
[2017-10-07] MEDS: clonazePAM 0.5 MG TAB PO SCH (21:36)
[2017-10-08] MEDS: Acetaminophen 325 MG TAB PO PRN (04:15)
[2017-10-08] MEDS: traMADol HCl 50 MG TAB PO PRN (06:13)
[2017-10-08] MEDS: Potassium Chloride 8 MEQ TAB PO SCH (09:05)
[2017-10-08] MEDS: Furosemide 20 MG TAB PO SCH (09:06)
[2017-10-08] MEDS: Carvedilol 3.125 MG TAB PO SCH ×2 (09:06→20:41)
[2017-10-08] MEDS: Amlodipine 5 MG TAB PO SCH (09:06)
[2017-10-08] MEDS: Aspirin 81 mg Enteric Coated Tablet PO SCH (09:06)
[2017-10-08] MEDS: Clopidogrel Bisulfate 75 MG TAB PO SCH (09:06)
[2017-10-08] MEDS: Lisinopril 2.5 MG TAB PO SCH (09:07)
[2017-10-08] MEDS: Enoxaparin Sodium 40 MG/0.4 ML SYRINGE SC SCH (09:07)
[2017-10-08] MEDS: metFORMIN 500 MG TAB PO SCH (11:57)
--- NOTE | 2017-10-08 12:21 | PDOC.PN ---
- Subjective Encounter Start Date: 10/08/17 Encounter Start Time: 07:00 Pt seen for followup re:cva. No chest pain at this time. No nausea or vomiting. - Objective MAR Reviewed: Yes Vital Signs & Weight: Vital Signs (12 hours) Temp Pulse Resp BP BP Pulse Ox 10/08/17 09:07 63 114/77 10/08/17 09:06 63 114/77 10/08/17 08:00 97.8 F 63 18 114/77 95 10/08/17 07:50 97.8 F 63 18 95 10/08/17 04:00 97.6 F 67 18 117/79 94 L 10/08/17 03:57 94 L I&O: 10/07/17 10/08/17 10/09/17 06:59 06:59 06:59 Intake Total 1295 540 Output Total 480 Balance 815 540 Result Diagrams: 10/06/17 04:14 10/06/17 04:14 Additional Labs: Accuchecks 10/08/17 10/08/17 10/07/17 10:55 04:41 21:34 POC Glucose 118 H 107 101 10/07/17 16:58 POC Glucose 94 EKG Reviewed by me: Yes (Tele: AV paced) Phys Exam - Physical Examination Constitutional: NAD HEENT: moist MMs Neck: supple Respiratory: clear to auscultation bilateral Cardiovascular: RRR Gastrointestinal: soft Neurological: moves all 4 limbs Lymphatic: no nodes Psychiatric: normal affect Dx/Plan (1) CVA (cerebral vascular accident) Code(s): I63.9 - CEREBRAL INFARCTION, UNSPECIFIED Status: Acute (2) Breast hematoma Code(s): N64.89 - OTHER SPECIFIED DISORDERS OF BREAST Status: Acute (3) Chest pain Code(s): R07.9 - CHEST PAIN, UNSPECIFIED Status: Acute (4) CAD (coronary artery disease) Code(s): I25.10 - ATHSCL HEART DISEASE OF [place] CORONARY ARTERY W/O ANG PCTRS Status: Chronic Qualifiers: (5) DM type 2 (diabetes mellitus, type 2) Status: Chronic Qualifiers: (6) Depression Code(s): F32.9 - MAJOR DEPRESSIVE DISORDER, SINGLE EPISODE, UNSPECIFIED Status : Chronic (7) History of CVA with residual deficit Code(s): I69.30 - UNSPECIFIED SEQUELAE OF CEREBRAL INFARCTION Status: Chronic (8) Hx of CABG Status: Chronic (9) Hypertension Code(s): I10 - ESSENTIAL (PRIMARY) HYPERTENSION Status: Chronic Qualifiers: (10) Morbid obesity Code(s): E66.01 - MORBID (SEVERE) OBESITY DUE TO EXCESS CALORIES Status: Chronic (11) Osteoarthritis Code(s): M19.90 - UNSPECIFIED OSTEOARTHRITIS, UNSPECIFIED SITE Status: Chronic - Plan * . continue aspirin, Plavix, statin. Check AM labs. Likely home 24-48 hrs. Review of Systems - Review of Systems Respiratory: negative: Cough, Dry, Shortness of Breath, Hemoptysis, SOB with Excertion, Pleuritic Pain, Sputum, Wheezing Cardiovascular: negative: chest pain, palpitations, orthopnea, paroxysmal nocturnal dyspnea, edema, light headedness - Medications/Allergies Allergies/Adverse Reactions: Allergies Allergy/AdvReac Type Severity Reaction Status Date / Time propranolol Allergy Verified 10/03/17 17:10 Medications: Current Medications Acetaminophen (Tylenol) 650 mg PO Q4H PRN PRN Reason: Headache/Fever or Pain Last Admin: 10/08/17 04:15 Dose: 650 mg Acetaminophen (Tylenol) 650 mg [place] Q4H PRN PRN Reason: Headache/Fever or Pain Amlodipine Besylate (Norvasc) 2.5 mg PO DAILY [facility] Last Admin: 10/08/17 09:06 Dose: 2.5 mg Aspirin (Ecotrin) 81 mg PO DAILY [facility] Last Admin: 10/08/17 09:06 Dose: 81 mg Atorvastatin Calcium (Lipitor) 80 mg PO [facility] Last Admin: 10/07/17 21:35 Dose: 80 mg Carvedilol (Coreg) 3.125 mg PO BID [facility] Last Admin: 10/08/17 09:06 Dose: 3.125 mg Clonazepam (Klonopin) 0.5 mg PO [facility] Last Admin: 10/07/17 21:36 Dose: 0.5 mg Clopidogrel Bisulfate (Plavix) 75 mg PO DAILY [facility] Last Admin: 10/08/17 09:06 Dose: 75 mg Dextrose/Water (Dextrose 50%) 25 gm SLOW IVP PRN PRN PRN Reason: Hypoglycemia Enoxaparin Sodium (Lovenox) 40 mg SC 0900 [facility] Last Admin: 10/08/17 09:07 Dose: 40 mg Furosemide (Lasix) 20 mg PO DAILY [facility] Last Admin: 10/08/17 09:06 Dose: 20 mg Gabapentin (Neurontin) 300 mg PO HS [facility] Last Admin: 10/07/17 21:36 Dose: 300 mg Glucagon (Glucagon) 1 mg IM PRN PRN PRN Reason: Hypoglycemia Dextrose/Water (D5w) 1,000 mls @ 0 mls/hr IV .Q0M PRN; As Directed PRN Reason: Hypoglycemia Insulin Human Lispro (Humalog) 0 units SC .MILD SLIDING SCALE PRN PRN Reason: Mild Correctional Scale Isosorbide Mononitrate (Imdur Er) 30 mg PO 1200 [facility] Last Admin: 10/08/17 11:55 Dose: 30 mg Lisinopril (Zestril) 2.5 mg PO DAILY [facility] Last Admin: 10/08/17 09:07 Dose: 2.5 mg Metformin HCl (Glucophage) 500 mg PO 1200 [facility] Last Admin: 10/08/17 11:57 Dose: 500 mg Morphine Sulfate (Morphine) 2 mg SLOW IVP Q4H PRN PRN Reason: Pain Last Admin: 10/06/17 17:11 Dose: 2 mg Nitroglycerin (Nitrostat) 0.4 mg SL Q5MIN PRN PRN Reason: Chest Pain Ondansetron HCl (Zofran) 4 mg SLOW IVP Q6H PRN PRN Reason: Nausea/Vomiting Last Admin: 10/06/17 10:18 Dose: 4 mg Pantoprazole Sodium (Protonix) 40 mg PO DAILY [facility] Last Admin: 10/08/17 09:06 Dose: 40 mg Vortioxetine Hydrobromide [ Trintellix] 10 Mg 0 each PO DAILY [facility] Potassium Chloride (Slow-K 8 Meq) 8 meq PO DAILY [facility] Last Admin: 10/08/17 09:05 Dose: 8 meq Quetiapine Fumarate (Seroquel) 100 mg PO HS [facility] Last Admin: 10/07/17 21:36 Dose: 100 mg Ranolazine (Ranexa) 1,000 mg PO BID [facility] Last Admin: 10/08/17 09:05 Dose: 1,000 mg Sodium Chloride (Flush - Normal Saline) 10 ml IVF Q12HR [facility] Last Admin: 10/08/17 09:07 Dose: 10 ml Sodium Chloride (Flush - Normal Saline) 10 ml IVF PRN PRN PRN Reason: Saline Flush Last Admin: 10/06/17 04:13 Dose: 10 ml Tramadol HCl (Ultram) 50 mg PO Q8H PRN PRN Reason: pain Last Admin: 10/08/17 06:13 Dose: 50 mg
[2017-10-08] MEDS: Atorvastatin Calcium 40 MG TAB PO SCH (20:40)
[2017-10-08] MEDS: clonazePAM 0.5 MG TAB PO SCH (20:41)
[2017-10-08] MEDS: Gabapentin 300 MG CAP PO SCH (20:41)
[2017-10-09 06:09] LABS: Anion Gap 10 mmol/L (10-20); BUN (Urea Nitrogen) 19 mg/dL (9.8-20.1); Calc. Creatinine Clearance 112 mL/min (70-130); Calcium 9.3 mg/dL (7.8-10.44); Carbon Dioxide 28 mmol/L (22-29); Chloride 105 mmol/L (98-107); Estimated GFR-MDRD 63; Glucose 115 mg/dL (70-105); Potassium 3.6 mmol/L (3.5-5.1); Sodium 139 mmol/L (136-145)
[2017-10-09 06:27] LABS: Band 3 % (5-11); Eosinophils 4 % (0-10); Hemoglobin 11.9 g/dL (12.0-16.0); Lymphocytes 32 % (21-51); MDiff Complete? YES; Mean Corpuscular HGB CONC 33.8 g/dL (32.0-36.0); Mean Corpuscular Hemoglobin 31.9 pg (27.0-31.0); Mean Corpuscular Volume 94.2 fl (81.0-99.0); Mean Platelet Volume 9.9 fL (7.4-10.4); Monocytes 12 % (0-10); Neutrophil 49 % (42-75); PLT Morphology Comment Appears Adequate; Platelet Count 158 thou/uL (130-400); RBC Distribution Width 11.5 % (11.5-14.5); RBC Morphology Normal; Red Blood Cell (RBC) Count 3.74 mill/uL (4.20-5.40); White Blood Cell (WBC) Count 4.7 thou/uL (4.8-10.8)
[2017-10-09] MEDS: Lisinopril 2.5 MG TAB PO SCH (09:21)
[2017-10-09] MEDS: Furosemide 20 MG TAB PO SCH (09:21)
[2017-10-09] MEDS: Clopidogrel Bisulfate 75 MG TAB PO SCH (09:22)
[2017-10-09] MEDS: Potassium Chloride 8 MEQ TAB PO SCH (09:22)
[2017-10-09] MEDS: Amlodipine 5 MG TAB PO SCH (09:22)
[2017-10-09] MEDS: Aspirin 81 mg Enteric Coated Tablet PO SCH (09:22)
[2017-10-09] MEDS: Enoxaparin Sodium 40 MG/0.4 ML SYRINGE SC SCH (09:23)
[2017-10-09] MEDS: Carvedilol 3.125 MG TAB PO SCH ×2 (09:23→21:21)
[2017-10-09] MEDS: metFORMIN 500 MG TAB PO SCH (11:38)
--- NOTE | 2017-10-09 17:00 | PDOC.PN ---
- Subjective Encounter Start Date: 10/09/17 Encounter Start Time: 14:00 Pt seen for followup re: CVA. No new complaints. - Objective MAR Reviewed: Yes Vital Signs & Weight: Vital Signs (12 hours) Temp Pulse Resp BP BP Pulse Ox 10/09/17 15:25 97.6 F 66 20 133/92 H 96 10/09/17 11:39 98.1 F 63 16 115/78 96 10/09/17 09:22 66 112/71 10/09/17 09:21 66 112/71 10/09/17 08:10 97.6 F 66 16 96 10/09/17 07:28 97.6 F 66 16 112/71 96 I&O: 10/08/17 10/09/17 10/10/17 06:59 06:59 06:59 Intake Total 540 2060 Balance 540 2060 Result Diagrams: 10/09/17 05:18 10/09/17 05:18 Additional Labs: Accuchecks 10/09/17 10/09/17 10/09/17 16:28 10:42 05:27 POC Glucose 97 143 H 200 H 10/08/17 10/08/17 20:31 16:53 POC Glucose 118 H 95 Phys Exam - Physical Examination Obese HEENT: moist MMs Neck: supple Respiratory: clear to auscultation bilateral Cardiovascular: RRR Gastrointestinal: soft Neurological: moves all 4 limbs Psychiatric: normal affect Dx/Plan (1) CVA (cerebral vascular accident) Code(s): I63.9 - CEREBRAL INFARCTION, UNSPECIFIED Status: Acute (2) Breast hematoma Code(s): N64.89 - OTHER SPECIFIED DISORDERS OF BREAST Status: Acute (3) Chest pain Code(s): R07.9 - CHEST PAIN, UNSPECIFIED Status: Acute (4) CAD (coronary artery disease) Code(s): I25.10 - ATHSCL HEART DISEASE OF [place] CORONARY ARTERY W/O ANG PCTRS Status: Chronic Qualifiers: (5) DM type 2 (diabetes mellitus, type 2) Status: Chronic Qualifiers: (6) Depression Code(s): F32.9 - MAJOR DEPRESSIVE DISORDER, SINGLE EPISODE, UNSPECIFIED Status : Chronic (7) History of CVA with residual deficit Code(s): I69.30 - UNSPECIFIED SEQUELAE OF CEREBRAL INFARCTION Status: Chronic (8) Hx of CABG Status: Chronic (9) Hypertension Code(s): I10 - ESSENTIAL (PRIMARY) HYPERTENSION Status: Chronic Qualifiers: (10) Morbid obesity Code(s): E66.01 - MORBID (SEVERE) OBESITY DUE TO EXCESS CALORIES Status: Chronic (11) Osteoarthritis Code(s): M19.90 - UNSPECIFIED OSTEOARTHRITIS, UNSPECIFIED SITE Status: Chronic - Plan * . continue aspirin, Plavix and statin. EEG report is pending. Had a lengthy discussion with patient. She is insistent she does not want to go to Rehab or SNU or have home health. Risks vs benefits discussed. She reports that her daughter is arranging for supports at home. Likely home 24-48 hrs. Review of Systems - Review of Systems Genitourinary: negative: Dysuria, Frequency, Incontinence, Hematuria, Retention Neurological: Weakness - Medications/Allergies Allergies/Adverse Reactions: Allergies Allergy/AdvReac Type Severity Reaction Status Date / Time propranolol Allergy Verified 10/03/17 17:10 Medications: Current Medications Acetaminophen (Tylenol) 650 mg PO Q4H PRN PRN Reason: Headache/Fever or Pain Last Admin: 10/08/17 04:15 Dose: 650 mg Acetaminophen (Tylenol) 650 mg IN Q4H PRN PRN Reason: Headache/Fever or Pain Amlodipine Besylate (Norvasc) 2.5 mg PO DAILY [facility] Last Admin: 10/09/17 09:22 Dose: 2.5 mg Aspirin (Ecotrin) 81 mg PO DAILY [facility] Last Admin: 10/09/17 09:22 Dose: 81 mg Atorvastatin Calcium (Lipitor) 80 mg PO HS [facility] Last Admin: 10/08/17 20:40 Dose: 80 mg Carvedilol (Coreg) 3.125 mg PO BID [facility] Last Admin: 10/09/17 09:23 Dose: 3.125 mg Clonazepam (Klonopin) 0.5 mg PO HS [facility] Last Admin: 10/08/17 20:41 Dose: 0.5 mg Clopidogrel Bisulfate (Plavix) 75 mg PO DAILY [facility] Last Admin: 10/09/17 09:22 Dose: 75 mg Dextrose/Water (Dextrose 50%) 25 gm SLOW IVP PRN PRN PRN Reason: Hypoglycemia Enoxaparin Sodium (Lovenox) 40 mg SC 0900 [facility] Last Admin: 10/09/17 09:23 Dose: 40 mg Furosemide (Lasix) 20 mg PO DAILY [facility] Last Admin: 10/09/17 09:21 Dose: 20 mg Gabapentin (Neurontin) 300 mg PO HS [facility] Last Admin: 10/08/17 20:41 Dose: 300 mg Glucagon (Glucagon) 1 mg IM PRN PRN PRN Reason: Hypoglycemia Dextrose/Water (D5w) 1,000 mls @ 0 mls/hr IV .Q0M PRN; As Directed PRN Reason: Hypoglycemia Insulin Human Lispro (Humalog) 0 units SC .MILD SLIDING SCALE PRN PRN Reason: Mild Correctional Scale Isosorbide Mononitrate (Imdur Er) 30 mg PO 1200 [facility] Last Admin: 10/09/17 11:38 Dose: 30 mg Lisinopril (Zestril) 2.5 mg PO DAILY [facility] Last Admin: 10/09/17 09:21 Dose: 2.5 mg Metformin HCl (Glucophage) 500 mg PO 1200 [facility] Last Admin: 10/09/17 11:38 Dose: 500 mg Morphine Sulfate (Morphine) 2 mg SLOW IVP Q4H PRN PRN Reason: Pain Last Admin: 10/06/17 17:11 Dose: 2 mg Nitroglycerin (Nitrostat) 0.4 mg SL Q5MIN PRN PRN Reason: Chest Pain Ondansetron HCl (Zofran) 4 mg SLOW IVP Q6H PRN PRN Reason: Nausea/Vomiting Last Admin: 10/06/17 10:18 Dose: 4 mg Pantoprazole Sodium (Protonix) 40 mg PO DAILY [facility] Last Admin: 10/09/17 09:22 Dose: 40 mg Vortioxetine Hydrobromide [ Trintellix] 10 Mg 0 each PO DAILY [facility] Potassium Chloride (Slow-K 8 Meq) 8 meq PO DAILY [facility] Last Admin: 10/09/17 09:22 Dose: 8 meq Quetiapine Fumarate (Seroquel) 100 mg PO HS [facility] Last Admin: 10/08/17 20:41 Dose: 100 mg Ranolazine (Ranexa) 1,000 mg PO BID [facility] Last Admin: 10/09/17 09:22 Dose: 1,000 mg Sodium Chloride (Flush - Normal Saline) 10 ml IVF Q12HR [facility] Last Admin: 10/09/17 09:23 Dose: 10 ml Sodium Chloride (Flush - Normal Saline) 10 ml IVF PRN PRN PRN Reason: Saline Flush Last Admin: 10/06/17 04:13 Dose: 10 ml Tramadol HCl (Ultram) 50 mg PO Q8H PRN PRN Reason: pain Last Admin: 10/08/17 06:13 Dose: 50 mg
[2017-10-09] MEDS: Acetaminophen 325 MG TAB PO PRN (17:01)
[2017-10-09] MEDS: traMADol HCl 50 MG TAB PO PRN (21:20)
[2017-10-09] MEDS: clonazePAM 0.5 MG TAB PO SCH (21:21)
[2017-10-09] MEDS: Gabapentin 300 MG CAP PO SCH (21:21)
[2017-10-09] MEDS: Atorvastatin Calcium 40 MG TAB PO SCH (21:22)
[2017-10-10 05:50] LABS: #Basophils 0.1 thou/uL (0.0-0.2); #Eosinphils 0.2 thou/uL (0.0-0.7); #Lymphocytes 1.7 thou/uL (1.20-3.40); #Monocytes 0.7 thou/uL (0.11-0.59); #Neutrophils 2.3 thou/uL (1.40-6.50); %Basophils 1.1 % (0.0-1.0); %Eosinophils 3.5 % (0.0-10.0); %Lymphocytes 34.3 % (21.0-51.0); %Monocytes 13.7 % (0.0-10.0); %Neutrophils 47.5 % (42.0-75.0); Mean Corpuscular HGB CONC 33.3 g/dL (32.0-36.0); Mean Corpuscular Hemoglobin 31.4 pg (27.0-31.0); Mean Corpuscular Volume 94.4 fl (81.0-99.0); Mean Platelet Volume 10.3 fL (7.4-10.4); Platelet Count 157 thou/uL (130-400); RBC Distribution Width 11.6 % (11.5-14.5); White Blood Cell (WBC) Count 4.9 thou/uL (4.8-10.8)
[2017-10-10 06:00] LABS: Anion Gap 12 mmol/L (10-20); BUN (Urea Nitrogen) 19 mg/dL (9.8-20.1); Calc. Creatinine Clearance 109 mL/min (70-130); Calcium 9.1 mg/dL (7.8-10.44); Carbon Dioxide 25 mmol/L (22-29); Chloride 105 mmol/L (98-107); Estimated GFR-MDRD 60; Glucose 109 mg/dL (70-105); Potassium 3.7 mmol/L (3.5-5.1); Sodium 138 mmol/L (136-145)
[2017-10-10] MEDS: Clopidogrel Bisulfate 75 MG TAB PO SCH (08:41)
[2017-10-10] MEDS: Lisinopril 2.5 MG TAB PO SCH (08:41)
[2017-10-10] MEDS: Potassium Chloride 8 MEQ TAB PO SCH (08:47)
[2017-10-10] MEDS: Aspirin 81 mg Enteric Coated Tablet PO SCH (08:48)
[2017-10-10] MEDS: Amlodipine 5 MG TAB PO SCH (08:49)
[2017-10-10] MEDS: Carvedilol 3.125 MG TAB PO SCH (08:51)
[2017-10-10] MEDS: Furosemide 20 MG TAB PO SCH (08:51)
[2017-10-10] MEDS: Enoxaparin Sodium 40 MG/0.4 ML SYRINGE SC SCH (08:51)
[2017-10-10 11:13] VITALS: BP 123/86; TEMP 97.6
--- NOTE | 2017-10-10 12:18 | DIS ---
DATE OF ADMISISON: 10/03/2017 DATE OF DISCHARGE: 10/10/2017 PRIMARY CARE PHYSICIAN: Dr. Pia Sheldon. DISCHARGE DIAGNOSES: 1. Cerebrovascular accident. 2. Chest pain. 3. Hypertension. 4. Left breast hematoma. CONDITION OF PATIENT AT THE TIME OF DISCHARGE: Stable. I assess Ms. Neves on the day of discharge. She denies any chest pain or shortness of breath. Vital signs are stable. S1 and S2 are heard, reg ular. Lungs are clear to auscultation bilaterally. She is able to move all 4 extremities. Neuro ex am is nonfocal. CONSULTATIONS DURING THIS HOSPITALIZATION: Neurology, Dr. Luzmaria Kirby and Cardiology, Dr. Daniel welhc. HOSPITAL COURSE: Ms. Neves is a pleasant 57-year-old lady who was admitted to [facility] on 10/03/2017 for suspected cerebrovascular accident. She had left-sided weakness. She also had chest pain. She was seen by Neurology and Cardiology services. CT scan of the brain done at the time of admissio n did not show any acute intracranial abnormality. CT dissection protocol did not show any evidence of aneurysm or dissection. She had indeterminate bilateral adrenal gland nodules. Radiologist recom mends a noncontrast CT scan of the abdomen on a nonemergent basis for better characterization. She h as been advised to follow up for this test through her primary care physician. During the hospitalization, she had episodes of left upper extremity weakness necessitating code gree n actions. She recovered from these episodes. She was also found to have a left breast hematoma. There was no evidence of infection. Cardiology Service also saw her and advised controlling her blood pressure. Her blood pressure was s table on the day of discharge. She was recommended inpatient rehab or intermediate unit. She refused both. She is being dischar [facility] with home health. DISCHARGE MEDICATIONS: Norvasc 2.5 mg daily, aspirin 81 mg daily, Lipitor 80 mg at bedtime, carvedil ol 3.125 mg 2 times a day, clonazepam 0.5 mg at bedtime, Plavix 75 mg daily, Lasix 20 mg daily, gabap entin 300 mg at bedtime, isosorbide mononitrate 30 mg daily, lisinopril 2.5 mg daily, metformin 500 m g daily, nitroglycerin p.r.n., Protonix 40 mg daily, potassium chloride 8 mEq daily, quetiapine 100 m g at bedtime, Ranexa 1000 mg 2 times a day and vortioxetine 10 mg daily. On the day of discharge, she has a white count of 4900, hemoglobin 12, platelet count 157,000, normal electrolytes and normal creatinine. DISCHARGE DESTINATION: Home. TOTAL AMOUNT OF TIME SPENT COORDINATING THIS DISCHARGE: 38 minutes. Many thanks for allowing me to participate in your patient's care. Please feel free to contact me wi th any questions or concerns.
--- NOTE | 2017-10-15 16:18 | EKG ---
Test Reason : CODE GREEN Blood Pressure : / mmHG Vent. Rate : 062 BPM Atrial Rate : 062 BPM P-R Int : 164 ms QRS Dur : 100 ms QT Int : 442 ms P-R-T Axes : 052 051 068 degrees QTc Int : 448 ms Normal sinus rhythm Normal ECG When compared with ECG of 03-OCT-2017 13:40, (Unconfirmed) Incomplete right bundle branch block is no longer Present T wave inversion no longer evident in Anterior leads Confirmed by Edilia MA ([id number]) on 10/15/2017 4:17:57 PM Referred By: KRISHAN Confirmed By:Edilia MA
--- NOTE | 2017-10-15 16:25 | EKG ---
Test Reason : CODE GREEN Blood Pressure : / mmHG Vent. Rate : 064 BPM Atrial Rate : 064 BPM P-R Int : 178 ms QRS Dur : 100 ms QT Int : 440 ms P-R-T Axes : 053 052 067 degrees QTc Int : 453 ms Electronic atrial pacemaker When compared with ECG of 05-OCT-2017 13:01, (Unconfirmed) Electronic atrial pacemaker has replaced Sinus rhythm Confirmed by Edilia MA ([id number]) on 10/15/2017 4:24:59 PM Referred By: KRISHAN Confirmed By:Edilia MA
== END 2017-10-10 12:20 | disposition home health service (06) | DRG 65 ==
LOC: ERS 13:20 → 2SE 14:59 → OBSVTOIN 10-05 12:39
PROVIDERS: ADMIT Internal Medicine; ATTEND Internal Medicine
DX: I63.9 Cerebral infarction, unspecified (principal); I69.954 Hemiplegia and hemiparesis following unspecified cerebrovascular disease affecting left non-dominant side; E66.01 Morbid (severe) obesity due to excess calories; G81.94 Hemiplegia, unspecified affecting left nondominant side; F44.5 Conversion disorder with seizures or convulsions; D50.9 Iron deficiency anemia, unspecified; E11.9 Type 2 diabetes mellitus without complications; Z68.41 Body mass index [BMI] 40.0-44.9, adult; E78.5 Hyperlipidemia, unspecified; F32.9 Major depressive disorder, single episode, unspecified; I10 Essential (primary) hypertension; Z95.0 Presence of cardiac pacemaker; F41.9 Anxiety disorder, unspecified; G25.81 Restless legs syndrome; I25.10 Atherosclerotic heart disease of native coronary artery without angina pectoris; Z95.5 Presence of coronary angioplasty implant and graft; I25.2 Old myocardial infarction; Z95.1 Presence of aortocoronary bypass graft; G47.00 Insomnia, unspecified; Z79.01 Long term (current) use of anticoagulants; Z79.84 Long term (current) use of oral hypoglycemic drugs; Z79.82 Long term (current) use of aspirin; I08.0 Rheumatic disorders of both mitral and aortic valves; R07.9 Chest pain, unspecified; N64.89 Other specified disorders of breast; I16.0 Hypertensive urgency; Z88.4 Allergy status to anesthetic agent; M19.90 Unspecified osteoarthritis, unspecified site; E87.6 Hypokalemia; Z87.891 Personal history of nicotine dependence; R47.01 Aphasia; R29.810 Facial weakness; I45.10 Unspecified right bundle-branch block
CPT/HCPCS: 36415; 36416; 70450; 71275; 80048; 80053; 80061; 82553; 82805; 84484; 85025; 85610; 85730; 93005; 93010; 95816; 95819; J2270; A4216; G8978-GP-CL; G8979-GP-CJ; G8987-GO-CL; G8988-GO-CJ; G8996-GN-CH; G8997-GN-CH; J1650; J2405

== ENCOUNTER 2017-10-16 18:28 | Emergency (ER) | payer MEDICARE, MEDICAID ==
[2017-10-16] MEDS ORDERED: predniSONE 20 MG TAB ONE (19:15)
[2017-10-16] MEDS ORDERED: Albuterol Sulfate 2.5 mg/0.5 ml Neb ONE (19:18)
--- NOTE | 2017-10-16 20:23 | RAD ---
TWO VIEW CHEST: History: Cough. Comparison: 09-18-17 FINDINGS: Lungs appear clear with no infiltrate identified. Heart size is upper normal with post op sternotomy changes and pacemaker leads again noted. Vascular markings are upper normal and stable. IMPRESSION: No acute chest finding. POS: [facility]
== END 2017-10-16 19:51 | disposition home or self-care (01) ==
LOC: SCSER 18:28
DX: J20.9 Acute bronchitis, unspecified (principal); D50.9 Iron deficiency anemia, unspecified; E27.40 Unspecified adrenocortical insufficiency; E78.5 Hyperlipidemia, unspecified; F32.9 Major depressive disorder, single episode, unspecified; F41.9 Anxiety disorder, unspecified; G47.30 Sleep apnea, unspecified; G25.81 Restless legs syndrome; G62.9 Polyneuropathy, unspecified; G47.00 Insomnia, unspecified; I25.10 Atherosclerotic heart disease of native coronary artery without angina pectoris; I25.2 Old myocardial infarction; I10 Essential (primary) hypertension; Z87.891 Personal history of nicotine dependence; Z86.73 Personal history of transient ischemic attack (TIA), and cerebral infarction without residual deficits
CPT/HCPCS: 71046; 93005; J7506; J7611

== ENCOUNTER 2017-10-17 16:34 | Emergency (ER) | payer MEDICARE, MEDICAID ==
[2017-10-17 17:18] LABS: #Basophils 0.1 thou/uL (0.0-0.2); #Eosinphils 0.1 thou/uL (0.0-0.7); #Lymphocytes 1.1 thou/uL (1.20-3.40); #Monocytes 0.6 thou/uL (0.11-0.59); %Basophils 1.2 % (0.0-1.0); %Eosinophils 0.8 % (0.0-10.0); %Lymphocytes 9.6 % (21.0-51.0); %Monocytes 5.8 % (0.0-10.0); %Neutrophils 82.6 % (42.0-75.0); Mean Corpuscular HGB CONC 33.9 g/dL (32.0-36.0); Mean Corpuscular Hemoglobin 31.8 pg (27.0-31.0); Mean Corpuscular Volume 93.8 fl (81.0-99.0); Mean Platelet Volume 10.3 fL (7.4-10.4); Platelet Count 178 thou/uL (130-400); RBC Distribution Width 11.7 % (11.5-14.5); Red Blood Cell (RBC) Count 3.77 mill/uL (4.20-5.40); White Blood Cell (WBC) Count 10.9 thou/uL (4.8-10.8)
[2017-10-17 17:39] LABS: ALT (SGPT) 28 U/L (8-55); AST (SGOT) 22 U/L (5-34); Alkaline Phosphatase 100 U/L (40-150); Anion Gap 12 mmol/L (10-20); BUN (Urea Nitrogen) 17 mg/dL (9.8-20.1); Bilirubin, Total 0.3 mg/dL (0.2-1.2); CK (CPK) 68 U/L (29-168); Calc. Creatinine Clearance 0 mL/min (70-130); Calcium 9.2 mg/dL (7.8-10.44); Carbon Dioxide 23 mmol/L (22-29); Chloride 110 mmol/L (98-107); Estimated GFR-MDRD 63; Globulin 3.2 g/dL (2.4-3.5); Glucose 116 mg/dL (70-105); Potassium 3.8 mmol/L (3.5-5.1); Protein, Total 7.2 g/dL (6.0-8.3); Sodium 141 mmol/L (136-145)
[2017-10-17 17:43] LABS: CKMB 1.2 ng/mL (0-6.6); Troponin I Less than 0.010 ng/mL (< 0.028)
[2017-10-17] MEDS ORDERED: Ondansetron ODT 4 MG TAB ONE (18:11)
--- NOTE | 2017-10-17 18:22 | RAD ---
PORTABLE CHEST: 10/17/17 HISTORY: Chest pain. COMPARISON: 09/18/17. FINDINGS/IMPRESSION: Lungs show no evidence of acute infiltrate. Heart size is upper normal with postop sternotomy change and pacemaker lead which appear unchanged. No acute lung process or interval change noted. POS: [facility]
[2017-10-17] MEDS ORDERED: HYDROcodone/Acetaminophen 5/325 mg Tablet ONE (21:42)
[2017-10-17 21:49] LABS: Troponin I 0.028 ng/mL (< 0.028)
--- NOTE | 2017-11-18 15:56 | EKG ---
Test Reason : CP Blood Pressure : / mmHG Vent. Rate : 078 BPM Atrial Rate : 078 BPM P-R Int : 156 ms QRS Dur : 094 ms QT Int : 400 ms P-R-T Axes : 035 035 041 degrees QTc Int : 456 ms Normal sinus rhythm Normal ECG Confirmed by HANK DAVIS, FATOU ([id number]), multimedia editor JOSE ALBERTO NEVAREZ ([id number]) on 11/18/2017 3:55:43 PM Referred By: Confirmed By:FATOU MCKINNEY MD
== END 2017-10-17 22:13 | disposition home or self-care (01) ==
LOC: ERS 16:34
DX: R07.89 Other chest pain (principal); R56.9 Unspecified convulsions; I25.10 Atherosclerotic heart disease of native coronary artery without angina pectoris; I10 Essential (primary) hypertension; E78.5 Hyperlipidemia, unspecified; I25.2 Old myocardial infarction; D50.9 Iron deficiency anemia, unspecified; F41.9 Anxiety disorder, unspecified; F32.9 Major depressive disorder, single episode, unspecified; G47.00 Insomnia, unspecified; Z87.891 Personal history of nicotine dependence; Z86.73 Personal history of transient ischemic attack (TIA), and cerebral infarction without residual deficits
CPT/HCPCS: 36415; 71045; 80053; 82553; 84484; 85025; 93005; 94760; 96374; J2270; Q0162

== ENCOUNTER 2017-11-14 16:22 | Inpatient (IN) | payer MEDICARE, MEDICAID ==
[2017-11-14 16:54] LABS: #Eosinphils 0.1 thou/uL (0.0-0.7); #Lymphocytes 0.9 thou/uL (1.20-3.40); #Monocytes 1.2 thou/uL (0.11-0.59); #Neutrophils 10.6 thou/uL (1.40-6.50); %Eosinophils 0.6 % (0.0-10.0); %Lymphocytes 6.7 % (21.0-51.0); %Monocytes 9.6 % (0.0-10.0); %Neutrophils 83.1 % (42.0-75.0); Hemoglobin 11.3 g/dL (12.0-16.0); Mean Corpuscular HGB CONC 32.8 g/dL (32.0-36.0); Mean Corpuscular Hemoglobin 30.6 pg (27.0-31.0); Mean Corpuscular Volume 93.5 fl (81.0-99.0); Mean Platelet Volume 8.6 fL (7.4-10.4); Platelet Count 284 thou/uL (130-400); RBC Distribution Width 13.2 % (11.5-14.5); Red Blood Cell (RBC) Count 3.71 mill/uL (4.20-5.40); White Blood Cell (WBC) Count 12.8 thou/uL (4.8-10.8)
[2017-11-14] MEDS ORDERED: Nitroglycerin 2% Ointment 1 INCH/1 GM Packet ONE (17:04)
[2017-11-14] MEDS ORDERED: Ondansetron HCl/PF 4 MG/2 ML Vial ONE (17:04)
--- NOTE | 2017-11-14 17:13 | RAD ---
AP VIEW OF THE CHEST: 11/14/17 INDICATION: Chest pain. COMPARISON: Prior exam dated 10/17/17. FINDINGS: There is mild left basilar atelectasis. Post CABG change and dual lead pacemaker is stable to the jaquan or exam. No air space consolidation, pleural effusion, or pneumothorax is evident. Osseous structures are unchanged. IMPRESSION: Mild left basilar atelectasis. No additional acute abnormality. POS: [facility]
[2017-11-14 17:17] LABS: CKMB 1.3 ng/mL (0-6.6); Troponin I Less than 0.010 ng/mL (< 0.028)
[2017-11-14 17:17] LABS: ALT (SGPT) 12 U/L (8-55); AST (SGOT) 14 U/L (5-34); Albumin 3.7 g/dL (3.5-5.0); Alkaline Phosphatase 109 U/L (40-150); Anion Gap 12 mmol/L (10-20); BUN (Urea Nitrogen) 20 mg/dL (9.8-20.1); Bilirubin, Total 0.3 mg/dL (0.2-1.2); Calc. Creatinine Clearance 0 mL/min (70-130); Calcium 8.5 mg/dL (7.8-10.44); Carbon Dioxide 21 mmol/L (22-29); Chloride 108 mmol/L (98-107); Estimated GFR-MDRD 72; Globulin 2.8 g/dL (2.4-3.5); Glucose 115 mg/dL (70-105); Potassium 4.2 mmol/L (3.5-5.1); Protein, Total 6.5 g/dL (6.0-8.3); Sodium 137 mmol/L (136-145)
[2017-11-14] MEDS ORDERED: Morphine 2 MG/ML SYRINGE ONE ×2 (18:26→20:24)
[2017-11-14 20:51] LABS: Troponin I Less than 0.010 ng/mL (< 0.028)
[2017-11-14] MEDS ORDERED: Ondansetron ODT 4 MG TAB SL PRN (21:18)
[2017-11-14] MEDS ORDERED: Ondansetron HCl/PF 4 MG/2 ML Vial IVP PRN (21:18)
[2017-11-14] MEDS: Nitroglycerin 0.4 MG TAB (25 Tab Bottle) SL PRN ×3 (23:11→23:22)
[2017-11-14 23:22] LABS: Troponin I Less than 0.010 ng/mL (< 0.028)
[2017-11-14] MEDS ORDERED: Nitroglycerin 0.4 MG TAB (25 Tab Bottle) SL PRN (23:22)
[2017-11-14 23:48] VITALS: BMI 24.5
--- NOTE | 2017-11-15 00:19 | HP ---
CHIEF COMPLAINT: Chest pain. HISTORY OF PRESENT ILLNESS: A 57-year-old female with a known history of coronary artery disease, is chemic CVA, and general cardiovascular disease who presented with a chief complaint of chest pain. I t appears that the patient has a known history of recurrent chest pain and states that she has had a similar sensation prior to her history of other cardiac disease. At the time of my evaluation, the p sabine states that she still has substernal retrosternal chest pressure and discomfort that started e arlier today when she was working with physical therapy and has been persistent since then without im provement. At the time of my evaluation, the patient has received multiple doses of nitroglycerin with some inte rval benefit that quickly wears off in terms of her chest discomfort as described above. REVIEW OF SYSTEMS: As per HPI. Constitutional: No recent weight changes within the last 6 months. No fevers or chills over the last 2 weeks. HEENT: No new headaches or dizziness. The patient does endorse some nausea when she is having the chest discomfort. Cardiovascular: Chest pain as described above. No left-sided arm numbness or tingling associated wi th this discomfort. She describes it more of a sensation that sometimes radiates up the back of her shoulder blades. Respiratory: Endorses some shortness of breath when she has episodes of pain. Oth erwise, denies any shortness of breath. No new cough. No nasal congestion, no new postnasal drip. Gastrointestinal: Nausea with her pain only, otherwise has a retained appetite. Denies any abdomina l pain. Denies any issues with constipation or diarrhea. Genitourinary: Denies any dysuria or oconnor ges in urinary frequency, quality or quantity. Musculoskeletal: Denies any recent myalgias or arthr algias. PAST MEDICAL HISTORY: As per HPI, includes the followin. Morbid obesity. 2. History of coronary artery disease status post CABG x3 vessels. 3. History of cerebrovascular accident with left-sided weakness and symptoms as residual deficits. 4. Sick sinus syndrome, status post pacemaker. 5. Hypertension. 6. Hyperlipidemia. 7. Anxiety. 8. Depression. 9. Restless leg syndrome. 10. Status post cholecystectomy. PAST SURGICAL HISTORY: 1. Status post hysterectomy. 2. Status post PPM as described above. HOME MEDICATIONS: Please see the EMR for full details. The patient denies any recent changes to her home regimen. Denies any new over the counter herbal regimens or supplements added to her home medi cations. Endorses that she took her last dose earlier this morning. ALLERGIES: PROPRANOLOL. FAMILY HISTORY: Includes cardiovascular disease in several family members. SOCIAL HISTORY: Denies any alcohol, tobacco or illicit drug use. PHYSICAL EXAMINATION: VITAL SIGNS: Triage vital signs included blood pressure 160/88, pulse of 78, respirations 22, sattin g 97% on room air, temperature of 97.9. Pain level 9/10. GENERAL: The patient is awake, alert, appropriate, lying in the hospital bed, appears uncomfortable, but no overt distress. HEENT: Moist mucous membranes. Equal ocular motions are intact. Normocephalic, atraumatic. CARDIOVASCULAR: S1, S2. Soft heart tones likely secondary to habitus. Pulses 2+ bilateral upper ex tremities, no pitting pedal edema. Chest discomfort is not reproducible with parasternal pressure. RESPIRATORY: Limited anterior examination. No wheezes, rales or rhonchi. Clear to auscultation lashawn aterally. ABDOMEN: Positive bowel sounds, obese, soft, nontender to palpation. MUSCULOSKELETAL: Moving all 4 extremities. LABORATORY DATA AND IMAGING: EKG reviewed by myself, no ST-T wave changes consistent with ACS. She has a paced rhythm. WBC 12.8, hemoglobin 11.3, hematocrit 34.6, platelets 284. Sodium 137, potassium 4.7, chloride 108, bicarbonate 21, BUN 20, creatinine 0.82, glucose 115, calcium 8.5, total bilirubin 0.3, AST 14, ALT 1 2, alkaline phosphatase 109, troponin less than 0.01 x2. Albumin 3.7. ASSESSMENT AND PLAN: A 57-year-old female who presents with chest pain. 1. Chest pain with a known history of cardiovascular disease including coronary artery disease, stat us post percutaneous coronary intervention and CABG x3. Serial troponins for the lady including danielle toring on telemetry. We would recommend repeat echocardiogram in the morning. Resume the patient on her home regimen which does include Plavix, isosorbide mononitrate. 2. History of coronary artery disease. Continue the patient on home aspirin, atorvastatin, carvedil ol and Lasix. 3. Type 2 diabetes. Continue the patient on her metformin. 4. Hypertension. Continue the patient on her home regimen as noted above and closely monitor vital signs. The patient was recently evaluated for dissection with a CTA of the chest which was essential ly negative approximately 2 months ago on a prior hospitalization. The patient's presentation vincent perry is not consistent clinically with a dissection at this point in time, but we will continue to mor sely monitor and reimage if needed. 5. Psychiatric history including anxiety, depression and insomnia. Continue the patient on her home regimen. We will close monitoring of her mental status as well. 6. History of cerebrovascular accident. She does not appear to have any new neurological deficits a t this point in time, we will continue to monitor. 7. Diet: Cardiac, diabetic. 8. Activity: As tolerated. 9. Deep venous thrombosis prophylaxis. Enoxaparin. 10. Admit the patient to observation status to medical/surgical with telemetry. 11. Patient is a FULL CODE. Discussed with the patient at bedside. Thank you for asking me to care for the patient. Questions or concerns, please contact me at [facility].
[2017-11-15 05:46] LABS: Anion Gap 13 mmol/L (10-20); BUN (Urea Nitrogen) 22 mg/dL (9.8-20.1); Calc. Creatinine Clearance 87 mL/min (70-130); Calcium 8.3 mg/dL (7.8-10.44); Carbon Dioxide 21 mmol/L (22-29); Cardiac Risk 2.4 (Less than 4.5); Chloride 108 mmol/L (98-107); Cholesterol 138 mg/dl (< 200 Desired); Estimated GFR-MDRD 71; Glucose 116 mg/dL (70-105); HDL Cholesterol 57 mg/dL (>60 Neg Risk); LDL Cholesterol, Calculated 67 mg/dL; Potassium 3.6 mmol/L (3.5-5.1); Sodium 138 mmol/L (136-145); Triglycerides 68 mg/dL (Less than 150)
[2017-11-15 05:49] LABS: Eosinophils 3 % (0-10); Hemoglobin 10.4 g/dL (12.0-16.0); Lymphocytes 24 % (21-51); MDiff Complete? YES; Mean Corpuscular HGB CONC 31.5 g/dL (32.0-36.0); Mean Corpuscular Hemoglobin 30.1 pg (27.0-31.0); Mean Corpuscular Volume 95.7 fl (81.0-99.0); Mean Platelet Volume 8.9 fL (7.4-10.4); Monocytes 17 % (0-10); Neutrophil 56 % (42-75); Platelet Count 237 thou/uL (130-400); RBC Distribution Width 13.3 % (11.5-14.5); Red Blood Cell (RBC) Count 3.47 mill/uL (4.20-5.40); White Blood Cell (WBC) Count 7.5 thou/uL (4.8-10.8)
[2017-11-15 07:33] VITALS: TEMP 97.1
[2017-11-15] MEDS ORDERED: Lisinopril 2.5 MG TAB PO SCH (09:00)
[2017-11-15] MEDS ORDERED: Furosemide 20 MG TAB PO SCH (09:00)
[2017-11-15] MEDS ORDERED: Vortioxetine Hydrobromide [Trintellix] 10 MG PO SCH (09:00)
[2017-11-15] MEDS ORDERED: Enoxaparin Sodium 30 MG/0.3 ML SYRINGE SC SCH (09:00)
[2017-11-15] MEDS ORDERED: Amlodipine 5 MG TAB PO SCH (09:00)
[2017-11-15] MEDS ORDERED: Clopidogrel Bisulfate 75 MG TAB PO SCH (09:00)
[2017-11-15] MEDS ORDERED: Carvedilol 3.125 MG TAB PO SCH (09:00)
[2017-11-15] MEDS ORDERED: Aspirin 81 mg Enteric Coated Tablet PO SCH (09:00)
[2017-11-15] MEDS ORDERED: Lidocaine 5% Patch TD SCH (09:00)
[2017-11-15] MEDS ORDERED: Potassium Chloride 8 MEQ TAB PO SCH (09:00)
--- NOTE | 2017-11-15 10:25 | PDOC.PN ---
- Subjective Encounter Start Date: 11/15/17 Encounter Start Time: 08:00 -: old records requested/rev Patient seen and examined. No new complaints. No overnight events - Objective Resuscitation Status: Resuscitation Status FULL:Full Resuscitation MAR Reviewed: Yes Vital Signs & Weight: Vital Signs (12 hours) Temp Pulse Resp BP BP Pulse Ox 11/15/17 08:33 64 122/59 L 11/15/17 07:33 97.1 F L 64 20 97 11/15/17 07:32 97.1 F L 64 20 122/59 L 97 11/15/17 04:00 97.9 F 64 18 114/58 L 96 11/14/17 23:10 97.9 F 67 24 H 98 Weight Weight 165 lb I&O: 11/14/17 11/15/17 11/16/17 06:59 06:59 06:59 Intake Total 480 Balance 480 Result Diagrams: 11/15/17 05:04 11/15/17 05:04 EKG Reviewed by me: Yes Phys Exam - Physical Examination Constitutional: NAD HEENT: PERRLA, moist MMs, sclera anicteric Neck: no JVD, supple Respiratory: no wheezing, no rales, no rhonchi Cardiovascular: RRR, no significant murmur, no rub Gastrointestinal: soft, non-tender, no distention, positive bowel sounds Musculoskeletal: no edema, pulses present Neurological: non-focal, normal sensation, moves all 4 limbs Lymphatic: no nodes Psychiatric: normal affect, A&O x 3 Skin: no rash, normal turgor Dx/Plan (1) Chest pain at rest Code(s): R07.9 - CHEST PAIN, UNSPECIFIED Status: Acute (2) Adrenal insufficiency Code(s): E27.40 - UNSPECIFIED ADRENOCORTICAL INSUFFICIENCY Status: Chronic (3) Anxiety Code(s): F41.9 - ANXIETY DISORDER, UNSPECIFIED Status: Chronic (4) CAD (coronary artery disease) Code(s): I25.10 - ATHSCL HEART DISEASE OF [place] CORONARY ARTERY W/O ANG PCTRS Status: Chronic Qualifiers: (5) Chronic anemia Code(s): D64.9 - ANEMIA, UNSPECIFIED Status: Chronic (6) Chronic pain Code(s): G89.29 - OTHER CHRONIC PAIN Status: Chronic Qualifiers: (7) DM type 2 (diabetes mellitus, type 2) Status: Chronic Qualifiers: (8) Depression Code(s): F32.9 - MAJOR DEPRESSIVE DISORDER, SINGLE EPISODE, UNSPECIFIED Status : Chronic (9) History of CVA with residual deficit Code(s): I69.30 - UNSPECIFIED SEQUELAE OF CEREBRAL INFARCTION Status: Chronic (10) Hx of CABG Status: Chronic (11) Hypertension Code(s): I10 - ESSENTIAL (PRIMARY) HYPERTENSION Status: Chronic Qualifiers: (12) Osteoarthritis Code(s): M19.90 - UNSPECIFIED OSTEOARTHRITIS, UNSPECIFIED SITE Status: Chronic - Plan cont current plan of care * chest pain is not cardiac, more towards muskuloskeletal * pt is not interested in work up and she already had full work up in recent past * Dc echo * medication reviewed as below * symptomatic treatment * see discharge doris. Review of Systems - Review of Systems ENT: negative: Ear Pain, Ear Discharge, Nose Pain, Nose Discharge, Nose Congestion, Mouth Pain, Mouth Swelling, Throat Pain, Throat Swelling, Other Respiratory: negative: Cough, Dry, Shortness of Breath, Hemoptysis, SOB with Excertion, Pleuritic Pain, Sputum, Wheezing Cardiovascular: negative: chest pain, palpitations, orthopnea, paroxysmal nocturnal dyspnea, edema, light headedness, other Gastrointestinal: negative: Nausea, Vomiting, Abdominal Pain, Diarrhea, Constipation, Melena, Hematochezia, Other Genitourinary: negative: Dysuria, Frequency, Incontinence, Hematuria, Retention , Other Musculoskeletal: negative: Neck Pain, Shoulder Pain, Arm Pain, Back Pain, Hand Pain, Leg Pain, Foot Pain, Other Skin: negative: Rash, Lesions, Philippe, Bruising, Other - Medications/Allergies Allergies/Adverse Reactions: Allergies Allergy/AdvReac Type Severity Reaction Status Date / Time propranolol Allergy Verified 11/15/17 01:55 Medications: Current Medications Amlodipine Besylate (Norvasc) 2.5 mg PO DAILY [facility] Last Admin: 11/15/17 08:33 Dose: 2.5 mg Aspirin (Ecotrin) 81 mg PO DAILY [facility] Last Admin: 11/15/17 08:33 Dose: 81 mg Atorvastatin Calcium (Lipitor) 80 mg PO [facility] Carvedilol (Coreg) 3.125 mg PO BID [facility] Last Admin: 11/15/17 08:32 Dose: 3.125 mg Clonazepam (Klonopin) 0.5 mg PO [facility] Clopidogrel Bisulfate (Plavix) 75 mg PO DAILY [facility] Last Admin: 11/15/17 08:32 Dose: 75 mg Enoxaparin Sodium (Lovenox) 30 mg SC 0900 [facility] Last Admin: 11/15/17 08:34 Dose: 30 mg Furosemide (Lasix) 20 mg PO DAILY [facility] Last Admin: 11/15/17 08:32 Dose: 20 mg Gabapentin (Neurontin) 300 mg PO HS [facility] Isosorbide Mononitrate (Imdur Er) 30 mg PO 1200 [facility] Lidocaine (Lidoderm 5% Patch) 1 patch TD DAILY [facility] Last Admin: 11/15/17 08:30 Dose: 1 patch Lisinopril (Zestril) 2.5 mg PO DAILY [facility] Last Admin: 11/15/17 08:33 Dose: 2.5 mg Metformin HCl (Glucophage) 500 mg PO 1200 [facility] Miscellaneous Medication (Lidocaine Patch Removal) 1 each TOP 2100 [facility] Nitroglycerin (Nitrostat) 0.4 mg SL Q5MIN PRN PRN Reason: Chest Pain Pantoprazole Sodium (Protonix) 40 mg PO DAILY [facility] Last Admin: 11/15/17 08:32 Dose: 40 mg Vortioxetine Hydrobromide [ Trintellix] 10 Mg 0 each PO DAILY [facility] Potassium Chloride (Slow-K 8 Meq) 8 meq PO DAILY [facility] Last Admin: 11/15/17 08:32 Dose: 8 meq Quetiapine Fumarate (Seroquel) 100 mg PO HS [facility] Ranolazine (Ranexa) 1,000 mg PO BID [facility] Last Admin: 11/15/17 08:31 Dose: 1,000 mg
[2017-11-15 11:39] VITALS: BP 110/57
--- NOTE | 2017-11-15 11:46 | DIS ---
PRIMARY CARE PHYSICIAN: Dr. Sheldon DATE OF ADMISSION 11/14/2017 DATE OF DISCHARGE: 11/15/2017 DISCHARGE DISPOSITION: Home. PRIMARY DISCHARGE DIAGNOSES: Chest pain, ruled out acute coronary syndrome and musculoskeletal pain. SECONDARY DISCHARGE DIAGNOSES: Osteoarthritis, hypertension, coronary artery disease with a history of CABG, history of CVA, morbid obesity, diabetes type 2, depression, anxiety, chronic pain disorder, coronary artery disease, chronic anemia. PRIMARY PROCEDURE/OPERATION: None. RADIOLOGICAL INVESTIGATION: Chest x-ray normal. SIGNIFICANT LABS: WBC 7.5, hemoglobin 10.4, platelet 237. D-dimer 0.41. Sodium 138, potassium 3.6, BUN 22, creatinine 0.83, calcium 8.3. Cardiac enzymes negative x3. LFT normal, LDL 67. Lipase 79. DISCHARGE MEDICATIONS: The patient will continue all her previous medications. Aspirin 81 mg p.o. d aily, Lipitor 80 mg p.o. at bedtime, Symbicort 2 puff inhalation b.i.d., Coreg 3.125 mg p.o. b.i.d., clonazepam 0.25 mg p.o. at bedtime, Plavix 75 mg p.o. daily, Lasix 20 mg p.o. daily, Ventolin nebuliz ation q.4h., amlodipine 2.5 mg p.o. daily, gabapentin 300 mg p.o. t.i.d., Imdur 30 mg p.o. daily, lis inopril 5 mg p.o. daily, metformin 500 mg p.o. daily, Nitroglycerin p.r.n., Protonix 40 mg p.o. daily , prednisone 20 mg p.o. b.i.d., Seroquel 100 mg p.o. at bedtime, Ranexa 1000 mg p.o. b.i.d., Brilinta 90 mg p.o. b.i.d., Vortioxetine 10 mg daily. CONTRAINDICATIONS: None. CODE STATUS: Full code. INPATIENT CONSULTANTS: None. ALLERGIES: PROPRANOLOL. DISCHARGE PLAN: Post hospital, the patient will follow up with primary care physician as instructed. HOSPITAL COURSE: A 57-year-old female with the above-mentioned medical problem who was admitted by Milena Guerrero. Please see her H&P for further details. She was admitted for chest pain and this patient h as several admissions in our hospital for chest pain. This time her description was musculoskeletal and we ruled out cardiac etiology with negative 3 enzymes. This patient already had a stress test do ne in September 2017 as well as Cardiology evaluation on 10/06/2017. This patient is not interested in going for any further investigation and she also does not need any more investigation as well. Her echocardiography was also done last year in August. This patient does not need any more testing an d that is why we are considering discharging her home. She will continue all her previous medication s. The patient is seen and examined at bedside today. Please see my progress note from today for furthe r details.
[2017-11-15] MEDS ORDERED: metFORMIN 500 MG TAB PO SCH (12:00)
[2017-11-15] MEDS ORDERED: Atorvastatin Calcium 40 MG TAB PO SCH (21:00)
[2017-11-15] MEDS ORDERED: clonazePAM 0.5 MG TAB PO SCH (21:00)
[2017-11-15] MEDS ORDERED: Gabapentin 300 MG CAP PO SCH (21:00)
[2017-11-15] MEDS ORDERED: Lidocaine Patch Removal 1 EACH TOP SCH (21:00)
--- NOTE | 2017-11-16 17:38 | EKG ---
Test Reason : Blood Pressure : / mmHG Vent. Rate : 072 BPM Atrial Rate : 072 BPM P-R Int : 158 ms QRS Dur : 088 ms QT Int : 378 ms P-R-T Axes : 037 022 054 degrees QTc Int : 413 ms Normal sinus rhythm Normal ECG When compared with ECG of 17-OCT-2017 16:47, (Unconfirmed) No significant change was found Confirmed by DR. Sharda LORA ([id number]) on 11/16/2017 5:38:30 PM Referred By: ISADORA Confirmed By:DR. Sharda LORA
== END 2017-11-15 13:40 | disposition home or self-care (01) | DRG 313 ==
LOC: ERS 16:22 → 2NO 19:25
PROVIDERS: ADMIT Internal Medicine Infectious Disease; ATTEND Internal Medicine Infectious Disease
DX: R07.89 Other chest pain (principal); I25.10 Atherosclerotic heart disease of native coronary artery without angina pectoris; I69.854 Hemiplegia and hemiparesis following other cerebrovascular disease affecting left non-dominant side; E78.5 Hyperlipidemia, unspecified; F32.9 Major depressive disorder, single episode, unspecified; E11.9 Type 2 diabetes mellitus without complications; D53.9 Nutritional anemia, unspecified; I25.2 Old myocardial infarction; Z95.1 Presence of aortocoronary bypass graft; Z95.0 Presence of cardiac pacemaker; I10 Essential (primary) hypertension; F41.9 Anxiety disorder, unspecified; G25.81 Restless legs syndrome; Z79.84 Long term (current) use of oral hypoglycemic drugs; Z79.82 Long term (current) use of aspirin
CPT/HCPCS: 36415; 71045; 80048; 80053; 80061; 82553; 83690; 84484; 85025; 85379; 93005; 93010; 94760; 96374; 96375; 96376; J1650; J2270; J2405

== ENCOUNTER 2017-11-16 14:30 | Emergency (ER) | payer MEDICARE, MEDICAID ==
--- NOTE | 2017-11-16 16:21 | RAD ---
RIGHT HIP 2 VIEWS: Date: 11/16/17 HISTORY: Fall. Right hip injury. FINDINGS: Joint space is preserved. Mild osteophytosis. Femoral head contour maintained. No acute fracture or d islocation. IMPRESSION: Mild osteoarthritic changes right hip. POS: [facility]
[2017-11-16 16:58] LABS: INR-International Normal Ratio 0.9
[2017-11-16] MEDS ORDERED: Morphine 2 MG/ML SYRINGE ONE (17:13)
[2017-11-16 17:15] LABS: ALT (SGPT) 12 U/L (8-55); AST (SGOT) 11 U/L (5-34); Albumin 3.7 g/dL (3.5-5.0); Alkaline Phosphatase 94 U/L (40-150); Anion Gap 13 mmol/L (10-20); BUN (Urea Nitrogen) 20 mg/dL (9.8-20.1); Bilirubin, Total 0.3 mg/dL (0.2-1.2); Calc. Creatinine Clearance 0 mL/min (70-130); Carbon Dioxide 25 mmol/L (22-29); Chloride 106 mmol/L (98-107); Estimated GFR-MDRD 64; Globulin 2.8 g/dL (2.4-3.5); Glucose 128 mg/dL (70-105); Potassium 4.2 mmol/L (3.5-5.1); Protein, Total 6.5 g/dL (6.0-8.3); Sodium 140 mmol/L (136-145)
[2017-11-16 17:15] LABS: #Lymphocytes 1.5 thou/uL (1.20-3.40); #Monocytes 1.1 thou/uL (0.11-0.59); #Neutrophils 10.4 thou/uL (1.40-6.50); %Basophils 0.1 % (0.0-1.0); %Eosinophils 0.3 % (0.0-10.0); %Lymphocytes 11.3 % (21.0-51.0); %Monocytes 8.3 % (0.0-10.0); Hemoglobin 11.1 g/dL (12.0-16.0); Mean Corpuscular HGB CONC 32.4 g/dL (32.0-36.0); Mean Corpuscular Hemoglobin 30.1 pg (27.0-31.0); Mean Platelet Volume 8.7 fL (7.4-10.4); Platelet Count 245 thou/uL (130-400)
[2017-11-16 17:21] LABS: CKMB 0.8 ng/mL (0-6.6); Troponin I Less than 0.010 ng/mL (< 0.028)
--- NOTE | 2017-11-16 17:52 | RAD ---
CHEST ONE VIEW: 11/16/17 HISTORY: Chest pain. COMPARISON: Chest one view 11/14/17. FINDINGS: Lungs are clear. cardiac silhouette and mediastinal contours are within normal limits. No acute osseo us abnormality. Dual lead pacer is similar. IMPRESSION: No acute intrathoracic abnormality. POS: [facility]
--- NOTE | 2017-11-16 18:15 | CT ---
CT ABDOMEN WITH CONTRAST CT PELVIS WITH CONTRAST CT LIMITED LUMBOSACRAL SPINE WITH CONTRAST 11/16/16 HISTORY: Fall. Pain. COMPARISON: Hip radiographs same day. Also CT abdomen and pelvis 06/26/17. FINDINGS: Lumbar spine is without acute fracture. Mild facet arthropathy. The spinous processes are intact. Tra nsverse processes are also intact. The sacrum is intact. The osseous pelvis is intact. No hip fracture. Lung bases are clear. No displaced caudal rib fracture. Prior cholecystectomy. No solid organ injury in the abdomen or pelvis. There is, a facial degloving i njury over the anterior right thigh with a fluid collection which is new from the comparison CT exami nation measuring 8.2 x 3 x 13 cm (trans x AP x CC). There is also soft tissue contusion versus inject ion over the right lower hemiabdomen. Mild diverticular disease sigmoid colon without active inflammation. Aortic contour is nonaneurysmal. Moderate vascular calcifications. Iliopsoas musculature is normal. Adrenal gland nodules are similar. Pancreas is unremarkable. Mild prominence of the extrahepatic biliary system likely reservoir effect, similar. IMPRESSION: 1. New fascial degloving injury over the right anterior thigh measuring 8.2 x 3 x 13 cm (trans x AP x CC). 2. Right anterior lower hemiabdomen soft tissue contusion versus recent injection. 3. Similar appearance to the small adrenal nodules. 4. No acute fracture of the pelvis. 5. No solid organ injury within the abdomen or pelvis. POS: [facility]
--- NOTE | 2017-11-18 19:03 | EKG ---
Test Reason : Blood Pressure : / mmHG Vent. Rate : 073 BPM Atrial Rate : 073 BPM P-R Int : 148 ms QRS Dur : 098 ms QT Int : 408 ms P-R-T Axes : 039 022 054 degrees QTc Int : 449 ms Normal sinus rhythm Possible Left atrial enlargement Incomplete right bundle branch block Borderline ECG Confirmed by BISHOP DAVIS, EVGENY ([id number]), features editor JOSE ALBERTO NEVAREZ ([id number]) on 11/18/2017 7:02:33 PM Referred By: Confirmed By:EVGENY ALAS MD
== END 2017-11-16 19:41 | disposition home or self-care (01) ==
LOC: ERS 14:30
DX: S70.01XA Contusion of right hip, initial encounter (principal); E27.40 Unspecified adrenocortical insufficiency; I69.354 Hemiplegia and hemiparesis following cerebral infarction affecting left non-dominant side; G47.30 Sleep apnea, unspecified; I25.2 Old myocardial infarction; I25.10 Atherosclerotic heart disease of native coronary artery without angina pectoris; E78.5 Hyperlipidemia, unspecified; I10 Essential (primary) hypertension; G62.9 Polyneuropathy, unspecified; F41.9 Anxiety disorder, unspecified; F32.9 Major depressive disorder, single episode, unspecified; G47.00 Insomnia, unspecified; Z87.891 Personal history of nicotine dependence; W07.XXXA Fall from chair, initial encounter
CPT/HCPCS: 36415; 71045; 74177; 80053; 82553; 83735; 84484; 85025; 85610; 93005; 96361; 96374; J2270

== ENCOUNTER 2017-11-18 13:52 | Observation (INO) | payer MEDICARE, MEDICAID ==
[2017-11-18 14:26] LABS: #Eosinphils 0.1 thou/uL (0.0-0.7); #Monocytes 0.5 thou/uL (0.11-0.59); #Neutrophils 9.6 thou/uL (1.40-6.50); %Basophils 0.1 % (0.0-1.0); %Eosinophils 0.5 % (0.0-10.0); %Lymphocytes 9.2 % (21.0-51.0); %Monocytes 4.4 % (0.0-10.0); %Neutrophils 85.9 % (42.0-75.0); Hemoglobin 11.6 g/dL (12.0-16.0); Mean Corpuscular HGB CONC 31.8 g/dL (32.0-36.0); Mean Corpuscular Hemoglobin 29.5 pg (27.0-31.0); Mean Corpuscular Volume 92.7 fl (81.0-99.0); Mean Platelet Volume 8.6 fL (7.4-10.4); Platelet Count 265 thou/uL (130-400); RBC Distribution Width 13.1 % (11.5-14.5); Red Blood Cell (RBC) Count 3.93 mill/uL (4.20-5.40); White Blood Cell (WBC) Count 11.1 thou/uL (4.8-10.8)
[2017-11-18 14:53] LABS: CKMB 0.9 ng/mL (0-6.6); Troponin I Less than 0.010 ng/mL (< 0.028)
[2017-11-18 14:54] LABS: ALT (SGPT) 12 U/L (8-55); AST (SGOT) 11 U/L (5-34); Alkaline Phosphatase 80 U/L (40-150); Anion Gap 15 mmol/L (10-20); BUN (Urea Nitrogen) 20 mg/dL (9.8-20.1); Bilirubin, Total 0.3 mg/dL (0.2-1.2); CK (CPK) 20 U/L (29-168); Calc. Creatinine Clearance 0 mL/min (70-130); Calcium 9.3 mg/dL (7.8-10.44); Carbon Dioxide 22 mmol/L (22-29); Chloride 103 mmol/L (98-107); Estimated GFR-MDRD 68; Globulin 2.9 g/dL (2.4-3.5); Glucose 127 mg/dL (70-105); Potassium 4.3 mmol/L (3.5-5.1); Protein, Total 6.9 g/dL (6.0-8.3); Sodium 136 mmol/L (136-145)
--- NOTE | 2017-11-18 15:39 | RAD ---
PORTABLE CHEST: Date: 11/18/17 PROVIDED CLINICAL HISTORY: Chest pain. FINDINGS: Comparison with 11/16/17. Cardiac silhouette appears enlarged. Left subclavian cardiac pacing device is noted with lead tips in similar positions. Median sternotomy changes are seen. Evaluation of the lung bases is limited by pa tient body habitus. No focal consolidation, pleural fluid, or pneumothorax apparent. IMPRESSION: Cardiomegaly without evidence for an acute cardiopulmonary process. POS: [facility]
[2017-11-18] MEDS ORDERED: Fentanyl 100 MCG/2 ML VIAL ONE (15:40)
--- NOTE | 2017-11-18 16:43 | HP ---
PRIMARY CARE PHYSICIAN: Dr. Sheldon. REASON FOR ADMISSION: Chest pain. HISTORY OF PRESENT ILLNESS: A 57-year-old female who has underlying history of coronary artery disease with a history of CABG, morbid obesity, diabetes type 2 , chronic pain disorder, who was most recently admitted in our hospital on 11/14 and she was discharged on 11/15/2017. She presented at that time, chest pain, which was deemed to be musculoskeletal. She had 3 negative cardiac enzyme and we ruled out acute coronary syndrome. This patient had a stress test in 09/2017, which was normal. She has echocardiography done in 08/2017, which is also unremarkable. This patient also has Cardiology consultation in and Cardiology does not think that this patient's pain warrants any further investigation including cardiac catheterization. At this time, patient came to the ER with this complaint of chest pain. She claims that her chest pain this time is different than whatever she had pain in the past. She describes left-sided pain, which is inside of pain, sharp and dull pain. There is no specific aggravating or relieving factor. She was given nitroglycerin sublingual that did not improve her pain. She was also given aspirin by paramedics that did not also improve her pain. She does have associated shortness of breath and she feels nausea, but no vomiting. She also reports that her pain goes to left arm and jaw. She denies any palpitations, dizziness, or syncope. She denies any orthopnea, PND or leg swelling. She denies any pleuritic chest pain. She denies any cough or hemoptysis. She denies any lower extremity edema or calf tenderness. Today in the emergency room, this patient's electrocardiogram was unchanged from previous. Her routine blood tests including CBC, BMP as well as cardiac enzyme and BNP were normal. ER physician decided to keep this patient in the hospital for observation to rule out acute coronary syndrome. PAST MEDICAL HISTORY: Coronary artery disease with a history of cardiac catheterization in 01/2017, which did not show any new problem and patent graft ; diastolic heart failure with diastolic dysfunction; history of CVA with residual left-sided weakness; former history of smoking as well as a drug abuse including cocaine and amphetamine in past; chronic pain disorder; history of sick sinus syndrome, required pacemaker; hypertension; dyslipidemia; morbid obesity; diabetes, type 2. PAST PSYCHIATRIC HISTORY: Anxiety and depression. PAST SURGICAL HISTORY: CABG x3, cholecystectomy, cardiac catheterization, hysterectomy, appendicectomy, pacemaker placement. REVIEW OF SYSTEMS: The following complete review of systems was negative, unless otherwise mentioned in the HPI or below: Constitutional: Weight loss or gain, ability to conduct usual activities. Skin: Rash, itching. Eyes: Double vision, pain. ENT/Mouth: Nose bleeding, neck stiffness, pain, tenderness. Cardiovascular: Palpitations, dyspnea on exertion, orthopnea. Respiratory: Shortness of breath, wheezing, cough, hemoptysis, fever or night sweats. Gastrointestinal: Poor appetite, abdominal pain, heartburn, nausea, vomiting, constipation, or diarrhea. Genitourinary: Urgency, frequency, dysuria, nocturia. Musculoskeletal: Pain, swelling. Neurologic/Psychiatric: Anxiety, depression. Allergy/Immunologic: Skin rash, bleeding tendency. Please see my HPI for pertinent positive and negative. All other review of systems reviewed and negative except as mentioned in the HPI. ALLERGIES: Propranolol FAMILY HISTORY: Positive for coronary artery disease among several family members. SOCIAL HISTORY: The patient is on disability. She is a former smoker. No history of current smoking, alcohol or other illicit drug abuse. She has a remote history of drug abuse in the past. CURRENT HOME MEDICATIONS: The patient did not bring any medication with her at this point, but based on our [employer], the patient is on following medications: Ventolin inhaler q.4 hourly p.r.n., amlodipine 2.5 mg p.o. daily, aspirin 81 mg p.o. daily, Lipitor 80 mg p.o. at bedtime, Symbicort 2 puff inhalation b.i.d. , Coreg 3.125 mg p.o. b.i.d., clonazepam 0.5 mg p.o. at bedtime, Plavix 75 mg p.o. daily, Lasix 20 mg p.o. daily, gabapentin 300 mg p.o. t.i.d., Imdur 30 mg p.o. daily, lisinopril 5 mg p.o. daily, metformin 500 mg p.o. daily, nitroglycerin p.r.n. basis, Protonix 40 mg p.o. daily, potassium chloride 8 mEq p.o. daily, Seroquel 100 mg p.o. at bedtime, Brilinta 90 mg p.o. b.i.d., vortioxetine 10 mg p.o. daily. EMERGENCY ROOM COURSE: The patient is given aspirin 162 mg, fentanyl 50 mcg. PHYSICAL EXAMINATION: VITAL SIGNS: Currently in the emergency room, blood pressure 116/72, pulse 82, respiratory rate 17, temperature 98.7, saturation 100% on room air. GENERAL: The patient is currently alert, awake, mild distress due to pain. HEAD: Normocephalic, atraumatic. EYES: Pupils are round, reactive to light. Extraocular muscle intact. ENT: Oropharynx within normal limits. Moist mucous membranes, no oral lesion, no pharyngeal erythema, no exudate. NECK: Supple, no JVD, no thyromegaly, no carotid bruit, no jugular venous distention. LUNGS: Clear to auscultation without any rhonchi or rales. CARDIAC: S1, S2 regular. Soft systolic murmur noted. No gallop, no rub. ABDOMEN: Morbid obesity limiting examination. Bowel sounds present, nontender , nondistended. No organomegaly, no mass, no suprapubic tenderness. CHEST WALL: No reproducible pain. BACK: Unremarkable, no CVA tenderness. EXTREMITIES: Upper extremity: Passive movement of all joints are normal. Lower extremities: No edema. Good peripheral pulsation. SKIN: No skin rash. HEMATOLOGICAL: No lymphadenopathy. NEUROLOGIC: Nonfocal examination. The patient moves all 4 limbs. Plantar bilateral flexor. PSYCHIATRIC: Normal affect. SIGNIFICANT LABORATORY DATA: EKG showing unchanged from previous right bundle branch block pattern. Chest x-ray based on my review, no acute cardiopulmonary process. CBC: WBC 11.1, hemoglobin 11.6, platelet 265. BMP: Sodium 136, potassium 4.3, chloride 103, carbon dioxide 22, anion gap 15, BUN 20, creatinine 0.86, glucose 127, calcium 9.3. LFTs: AST 11, ALT 12, alkaline phosphatase 80, albumin 4.0. CK 20, CK-MB 0.9, troponin I less than 0.010. BNP 36.4. ASSESSMENT AND PLAN: IMPRESSION: 1. Acute and recurrent chest pain. Current description of chest pain also appears to be noncardiac. Cardiac enzymes are negative. She does not have any reproducible pain. She does have underlying coronary artery disease, but she had echocardiography in 08/2017. Stress in 09/2017 and all are unremarkable other than echocardiography showed diastolic dysfunction and moderate mitral regurgitation. We will do 3 sets of cardiac enzyme again this time and rule out acute coronary syndrome. She will need pain control with Toradol 15 mg IV q.6 hourly and fentanyl 50 mcg q.4 hourly p.r.n. We will also use [place] on a p.r.n. basis. If cardiac enzymes are remain negative, then we will consider discharging her home tomorrow morning. 2. Coronary artery disease with history of coronary artery bypass graft and cardiac catheterization. Continue aspirin 81 mg p.o. daily, Lipitor 80 mg p.o. at bedtime. Coreg only if blood pressure permits. Currently, blood pressure runs low and that is why we will hold Coreg therapy. We will continue lisinopril 5 mg p.o. daily only if blood pressure permits. Nitroglycerin on p.r.n. basis. Ranexa 1000 mg p.o. b.i.d. 3. Dyslipidemia. No need of checking lipid profile again this time because it was checked last time. Continue Lipitor 80 mg p.o. at bedtime. 4. History of hypertension. If blood pressure permits, then we will resume amlodipine 2.5 mg p.o. daily, lisinopril 5 mg daily, Imdur 30 mg p.o. daily, and Coreg 3.125 mg p.o. b.i.d., but at this point, the patient's blood pressure runs low and that is why we will hold on all this medication including nitropatch as well. 5. Diabetes type 2. Continue metformin 500 mg p.o. daily and insulin as per sliding scale per protocol. Diabetic diet will be given. 6. Anxiety and depression. Continue clonazepam 0.5 mg p.o. at bedtime. Vortioxetine 10 mg p.o. daily, Seroquel 100 mg p.o. at bedtime. 7. Gastroesophageal reflux disease. Continue Protonix 40 mg p.o. daily. 8. Chronic pain disorder. Continue gabapentin 300 mg p.o. t.i.d. 9. Asthma/chronic obstructive pulmonary disease. Continue albuterol. Continue DuoNeb therapy q.6 hourly p.r.n. basis along with Dulera 2 puffs inhalation b.i.d. 10. Morbid obesity. Dietary education given. Healthy lifestyle measures discussed with the patient. Weight loss education given. 11. History of sick sinus syndrome with pacemaker. 12. Osteoarthritis. Pain medication as above. 13. History of cerebrovascular accident with residual left-sided weakness. 14. Deep venous thrombosis prophylaxis not needed because we are expecting discharge in 24 hours. 15. Gastrointestinal prophylaxis. Protonix 40 mg p.o. daily. 16. Code status: The patient is FULL CODE. The patient does not have any surrogate decision maker. Disposition plan based on clinical course, likely within 24 hours. If patient has any kind of positive workup, then we will consider Cardiology evaluation during this admission. Otherwise, we will discharge her again and I advised this patient to follow up with Cardiology as an outpatient basis. Plan of care discussed with the patient in detail. BRI
[2017-11-18] MEDS ORDERED: Ondansetron HCl/PF 4 MG/2 ML Vial IVP PRN (17:58)
[2017-11-18] MEDS ORDERED: Fentanyl 100 MCG/2 ML VIAL SLOW IVP PRN (17:58)
[2017-11-18] MEDS ORDERED: Sodium Chloride 0.65% Nasal 44 ML BOT EA NARE PRN (17:58)
[2017-11-18] MEDS ORDERED: Mag-Al 1200 mg/1200 mg/30 ML UDCUP PO PRN (17:58)
[2017-11-18] MEDS ORDERED: Dextrose 50% Abboject 50 ML SYRINGE SLOW IVP PRN (17:58)
[2017-11-18] MEDS ORDERED: Eucerin (Mineral Oil/Petrolatum,White) 30 gm Jar TOP PRN (17:58)
[2017-11-18] MEDS ORDERED: HYDROcodone/Acetaminophen 10/325 mg Tablet PO PRN (17:58)
[2017-11-18] MEDS ORDERED: HumaLOG 300 UNITS/3 ML VIAL SC PRN ×2 (17:58)
[2017-11-18] MEDS ORDERED: Chloraseptic Spray 180 ml Bottle PO PRN (17:58)
[2017-11-18] MEDS ORDERED: Dextrose 5% in Water 1,000 ML IV PRN (17:58)
[2017-11-18] MEDS ORDERED: Lorazepam 1 MG TAB PO PRN (17:58)
[2017-11-18] MEDS ORDERED: hydrALAZINE 20 MG/ML VIAL SLOW IVP PRN (17:58)
[2017-11-18] MEDS ORDERED: Zolpidem Tartrate 5 MG TAB PO PRN (17:58)
[2017-11-18] MEDS ORDERED: Loratadine 10 MG TAB PO PRN (17:58)
[2017-11-18] MEDS ORDERED: Acetaminophen 325 MG TAB PO PRN (17:58)
[2017-11-18] MEDS ORDERED: Diabetic Tussin 200 MG/10 ML UDCUP PO PRN (17:58)
[2017-11-18] MEDS ORDERED: Milk Of Magnesia 30 ML UDCUP PO PRN (17:58)
[2017-11-18] MEDS ORDERED: Artificial Tears 18 DROP/0.9 ML EA EYE PRN (17:58)
[2017-11-18] MEDS ORDERED: Nitroglycerin 0.4 MG TAB (25 Tab Bottle) SL PRN (17:58)
[2017-11-18] MEDS ORDERED: Loperamide HCl 2 MG CAP PO PRN (17:58)
[2017-11-18] MEDS ORDERED: Senokot 8.6 MG TAB PO PRN (17:58)
[2017-11-18] MEDS ORDERED: HYDROcodone/Acetaminophen 5/325 mg Tablet PO PRN (17:58)
[2017-11-18 17:59] VITALS: BMI 45.0
[2017-11-18 18:03] LABS: Troponin I Less than 0.010 ng/mL (< 0.028)
[2017-11-18] MEDS: Ketorolac Tromethamine 30 MG/ML VIAL IVP PRN (18:42)
[2017-11-18] MEDS: Gabapentin 300 MG CAP PO SCH (19:52)
[2017-11-18] MEDS: Mometasone/Formoterol 120 PUFF INHALER INH SCH (20:02)
[2017-11-18 20:41] LABS: Troponin I Less than 0.010 ng/mL (< 0.028)
[2017-11-18] MEDS ORDERED: clonazePAM 0.5 MG TAB PO SCH (21:00)
[2017-11-18] MEDS ORDERED: Atorvastatin Calcium 40 MG TAB PO SCH (21:00)
[2017-11-19] MEDS: Mometasone/Formoterol 120 PUFF INHALER INH SCH (07:27)
[2017-11-19] MEDS: Ketorolac Tromethamine 30 MG/ML VIAL IVP PRN (07:42)
[2017-11-19] MEDS ORDERED: VORTIOXETINE HYDROBROMIDE 10 MG PO SCH (09:00)
[2017-11-19] MEDS ORDERED: Aspirin 81 mg Enteric Coated Tablet PO SCH (09:00)
[2017-11-19] MEDS ORDERED: Clopidogrel Bisulfate 75 MG TAB PO SCH (09:00)
[2017-11-19] MEDS ORDERED: TICAGRELOR 90 MG TABLET PO SCH (09:00)
[2017-11-19] MEDS: Gabapentin 300 MG CAP PO SCH (09:17)
--- NOTE | 2017-11-19 09:18 | DIS ---
DATE OF ADMISSION: 11/18/2017 DATE OF DISCHARGE: 11/19/2017 PRIMARY CARE PHYSICIAN: Dr. Sheldon. DISCHARGE DISPOSITION: Home. PRIMARY DISCHARGE DIAGNOSIS: Recurrent chest pain, noncardiac, nonanginal, ruled out acute coronary syndrome. SECONDARY DISCHARGE DIAGNOSES: Anxiety; depression; chronic pain disorder; coronary artery disease; chronic normocytic anemia; diabetes, type 2; history of cerebrovascular accident with left-sided resi dual deficit; history of coronary artery bypass grafting; hypertension; osteoarthritis; morbid obesit y with BMI 45. PRIMARY PROCEDURES/OPERATIONS: None. RADIOLOGICAL INVESTIGATION: Chest x-ray normal. SIGNIFICANT LABORATORY DATA: CBC: WBC 11.1, hemoglobin 11.6, platelets 265. BMP: Cardiac enzymes negative x3. BNP 36.4. Sodium 136, potassium 4.3, BUN 20, creatinine 0.86. Liver enzymes normal. CK 20 and albumin 4.0. DISCHARGE MEDICATIONS: Patient will continue for all her previous medications without any significan t change. Only new medication prescription given is Tylenol #3 one or two tablets q.6 hourly p.r.n. for pain. Aspirin 81 mg p.o. daily, Lipitor 80 mg p.o. at bedtime, Symbicort 2 puff inhalation b.i.d ., Coreg 3.125 mg p.o. b.i.d., clonazepam 0.5 mg p.o. at bedtime, Lasix 20 mg p.o. daily, Neurontin 3 00 mg p.o. t.i.d., DuoNeb q.6 hourly p.r.n., Imdur 30 mg p.o. daily, lisinopril 5 mg p.o. daily, Maal ox 20 mL p.o. daily, Glucophage 500 mg p.o. daily, nitroglycerin 0.4 mg sublingual p.r.n., Protonix 4 0 mg p.o. daily, potassium chloride 8 mEq p.o. daily, prednisone 20 mg p.o. b.i.d., Seroquel 100 mg p .o. at bedtime, Ranexa 1000 mg p.o. b.i.d., Brilinta 90 mg p.o. b.i.d., vortioxetine 10 mg p.o. daily . CONTRAINDICATIONS: None. CODE STATUS: FULL CODE. INPATIENT CONSULTANTS: None. ALLERGIES: PROPRANOLOL. DISCHARGE PLAN: Post hospital, the patient is advised to follow up with primary care physician and c ardiologist as an outpatient basis. HOSPITAL COURSE: The patient is a 57-year-old female, who was admitted by me yesterday. Please see my HPI for further detail. This patient has multiple admissions in our hospital for chest pain. Thi s time, she also came with chest pain and reported that her chest pain this time is different than wh atever she was used to come for chest pain. This time, she is also reporting left-sided, constant, s tabbing pain without any improvement with nitroglycerin or aspirin. Her cardiogram was unchanged and she had subsequently 3 negative cardiac enzymes. She remained hemodynamically stable [facility] Her telemetry remained unremarkable, even though she was continued to complain of chest pain. We noted that whenever patient was by herself in the room, she was not complaining anything but whene antonio anybody was entering in her home she was complaining of chest pain. She already had a negative s tress test in 09/2017. Echocardiography was done in 08/2017 and Cardiology consultation was done on 10/06/2017. At this point, the patient does not need anymore investigation or further evaluation. S he will continue above-mentioned medications. PHYSICAL EXAMINATION: The patient is seen and examined at bedside today. VITAL SIGNS: Currently, temperature 97.5, pulse 65, respiratory rate 18, saturation 97% on room air, blood pressure 136/71, weight 238 pounds. GENERAL: The patient is currently alert, awake, no acute distress. HEAD: Normocephalic, atraumatic. EYES: Pupils round, reactive to light. Extraocular muscle intact. ENT: Oropharynx within normal limits. Moist mucous membranes. No oral lesion, no pharyngeal erythe ma, no exudate. NECK: Supple, no JVD, no thyromegaly, no carotid bruit. LUNGS: Clear to auscultation without any rhonchi or rales. CARDIAC: S1, S2 regular without any murmur. ABDOMEN: Soft and benign without any tenderness. EXTREMITIES: No edema. NEUROLOGIC: The patient does have residual left-sided weakness from previous stroke, but other than that no new focal neurological deficit noted. The patient is medically stable for discharge. I prescribed 30 pills of her Tylenol #3 for her pain.
[2017-11-19 11:37] VITALS: BP 129/68; TEMP 98.2
[2017-11-19] MEDS ORDERED: metFORMIN 500 MG TAB PO SCH (12:00)
--- NOTE | 2017-11-25 13:12 | EKG ---
Test Reason : CHEST PAIN Blood Pressure : / mmHG Vent. Rate : 082 BPM Atrial Rate : 082 BPM P-R Int : 134 ms QRS Dur : 094 ms QT Int : 390 ms P-R-T Axes : 041 034 065 degrees QTc Int : 455 ms Normal sinus rhythm Incomplete right bundle branch block Borderline ECG Confirmed by ZOHREH MULLER ([id number]), magazine editor JOSE ALBERTO NEVAREZ ([id number]) on 11/25/2017 1:11:53 PM Referred By: RENZO Confirmed By:ZOHREH MULLER
== END 2017-11-19 13:01 ==
LOC: ERS 13:52 → 2SW 15:30
PROVIDERS: ADMIT Internal Medicine; ATTEND Internal Medicine
DX: R07.89 Other chest pain (principal); F41.9 Anxiety disorder, unspecified; F32.9 Major depressive disorder, single episode, unspecified; G89.4 Chronic pain syndrome; I25.10 Atherosclerotic heart disease of native coronary artery without angina pectoris; D64.9 Anemia, unspecified; E11.9 Type 2 diabetes mellitus without complications; I69.354 Hemiplegia and hemiparesis following cerebral infarction affecting left non-dominant side; I11.0 Hypertensive heart disease with heart failure; F14.11 Cocaine abuse, in remission; F15.11 Other stimulant abuse, in remission; I49.5 Sick sinus syndrome; I50.30 Unspecified diastolic (congestive) heart failure; J45.909 Unspecified asthma, uncomplicated; J44.9 Chronic obstructive pulmonary disease, unspecified; M19.90 Unspecified osteoarthritis, unspecified site; E66.01 Morbid (severe) obesity due to excess calories; Z68.42 Body mass index [BMI] 45.0-49.9, adult; Z79.84 Long term (current) use of oral hypoglycemic drugs; Z79.52 Long term (current) use of systemic steroids; Z79.899 Other long term (current) drug therapy; Z88.8 Allergy status to other drugs, medicaments and biological substances; Z95.1 Presence of aortocoronary bypass graft; Z95.0 Presence of cardiac pacemaker; Z90.49 Acquired absence of other specified parts of digestive tract; Z90.710 Acquired absence of both cervix and uterus; Z98.890 Other specified postprocedural states; Z87.891 Personal history of nicotine dependence
CPT/HCPCS: 71045; 80053; 82550; 82553; 82962 ×2; 83880; 84484 ×2; 85025; 93005; 94640 ×2; 94760; 96374; 96375 ×2; 96376 ×2; 99285; G0378; 36415; 36416; J1885; J2405; J3010

== ENCOUNTER 2018-05-31 16:08 | Observation (INO) | payer MEDICARE, MEDICAID ==
[2018-05-31 17:06] LABS: #Basophils 0.1 thou/uL (0.0-0.2); #Eosinphils 0.2 thou/uL (0.0-0.7); #Lymphocytes 2.2 thou/uL (1.20-3.40); #Monocytes 0.9 thou/uL (0.11-0.59); #Neutrophils 3.2 thou/uL (1.40-6.50); %Basophils 0.8 % (0.0-1.0); %Eosinophils 3.5 % (0.0-10.0); %Lymphocytes 33.4 % (21.0-51.0); %Monocytes 13.1 % (0.0-10.0); %Neutrophils 49.2 % (42.0-75.0); Hemoglobin 12.9 g/dL (12.0-16.0); Mean Corpuscular HGB CONC 32.3 g/dL (32.0-36.0); Mean Corpuscular Hemoglobin 28.2 pg (27.0-31.0); Mean Corpuscular Volume 87.4 fL (78.0-98.0); Mean Platelet Volume 10.6 fL (7.4-10.4); Platelet Count 211 thou/uL (130-400); RBC Distribution Width 14.2 % (11.5-14.5); Red Blood Cell (RBC) Count 4.58 mill/uL (4.20-5.40); White Blood Cell (WBC) Count 6.5 thou/uL (4.8-10.8)
[2018-05-31 17:16] LABS: ALT (SGPT) 16 U/L (8-55); AST (SGOT) 16 U/L (5-34); Alkaline Phosphatase 98 U/L (40-150); Anion Gap 14 mmol/L (10-20); BUN (Urea Nitrogen) 11 mg/dL (9.8-20.1); Bilirubin, Total 0.4 mg/dL (0.2-1.2); CK (CPK) 38 U/L (29-168); Calc. Creatinine Clearance 0 mL/min (70-130); Carbon Dioxide 20 mmol/L (22-29); Chloride 108 mmol/L (98-107); Estimated GFR-MDRD 78; Globulin 3.1 g/dL (2.4-3.5); Glucose 96 mg/dL (70-105); Lipase 23 U/L (8-78); Potassium 4.4 mmol/L (3.5-5.1); Protein, Total 7.1 g/dL (6.0-8.3); Sodium 138 mmol/L (136-145)
[2018-05-31 17:20] LABS: CKMB 0.8 ng/mL (0-6.6); Troponin I Less than 0.010 ng/mL (< 0.028)
[2018-05-31] MEDS ORDERED: Ondansetron HCl/PF 4 MG/2 ML Vial ONE (17:27)
[2018-05-31] MEDS ORDERED: Morphine 4 MG/ML VIAL ONE ×2 (17:27→20:00)
--- NOTE | 2018-05-31 18:27 | RAD ---
AP VIEW CHEST 05/31/18 HISTORY: Chest pain. AP view chest obtained on 05/31/18. Comparison made to previous exam from 01/02/18. AP view chest demonstrates sternotomy wires seen. There is a dual lead intracardiac pacing device. Th e lungs are well aerated. No evidence of acute intrathoracic abnormality seen. No evidence of effusio ns, pneumonia or pneumothorax seen. IMPRESSION: Unremarkable AP view chest. POS: [facility]
[2018-05-31] MEDS ORDERED: Nitroglycerin 2% Ointment 1 INCH/1 GM Packet ONE (20:02)
--- NOTE | 2018-05-31 20:46 | CT ---
CONTRAST ENHANCED CTA CHEST: 05/31/18 HISTORY: Chest pain. Contrast enhanced CTA of the chest is performed. 2D and 3D reconstructed images performed on an [employer] 3D workstation. CTA chest demonstrates no evidence of obvious lung parenchymal masses or lesions. There is no evidenc e of pleural or pericardial effusions. Extensive coronary artery calcifications seen. No evidence of filling defect seen in the pulmonary arteries to suggest pulmonary emboli. IMPRESSION: Unremarkable CTA chest. POS: [facility]
[2018-05-31 21:14] LABS: Troponin I 0.014 ng/mL (< 0.028)
[2018-05-31] MEDS ORDERED: Ondansetron HCl/PF 4 MG/2 ML Vial IVP PRN (22:24)
[2018-05-31] MEDS ORDERED: Ondansetron ODT 4 MG TAB SL PRN (22:24)
[2018-05-31 22:29] VITALS: BMI 40.3
[2018-06-01] LABS: Troponin I 0.019 ng/mL (< 0.028)
[2018-06-01] MEDS: Sodium Chloride 0.9% 1,000 ML IV SCH ×2 (01:19→11:20)
[2018-06-01] MEDS ORDERED: Nitroglycerin 0.4 MG TAB (25 Tab Bottle) ONE (01:22)
[2018-06-01] MEDS ORDERED: Dextrose 5% in Water 1,000 ML IV PRN (01:40)
[2018-06-01] MEDS ORDERED: HumaLOG 300 UNITS/3 ML VIAL SC PRN (01:40)
[2018-06-01] MEDS ORDERED: Dextrose 50% Abboject 50 ML SYRINGE SLOW IVP PRN (01:40)
[2018-06-01] MEDS ORDERED: Nitroglycerin 0.4 MG TAB (25 Tab Bottle) SL PRN (01:41)
[2018-06-01] MEDS: Mometasone/Formoterol 120 PUFF INHALER INH SCH ×2 (07:48→19:06)
[2018-06-01] MEDS ORDERED: Non-Formulary Item 1 EACH (Budesonide-Formoterol [Symbicort 160-4.5] 2 PUFF) INH SCH (09:00)
[2018-06-01] MEDS: busPIRone HCl 5 MG TAB PO SCH ×2 (09:30→20:06)
[2018-06-01] MEDS: Metoprolol Tartrate 25 MG TAB PO SCH ×2 (09:31→20:07)
[2018-06-01] MEDS: Bupropion 100 MG SR TAB PO SCH (09:32)
[2018-06-01] MEDS: hydrOXYzine Pamoate 25 mg Capsule PO SCH ×4 (09:32→20:07)
[2018-06-01] MEDS: NIFEdipine XL 30 MG TAB PO SCH (09:32)
[2018-06-01] MEDS: TICAGRELOR 90 MG TABLET PO SCH ×2 (09:33→20:08)
[2018-06-01] MEDS: Furosemide 20 MG TAB PO SCH ×2 (09:33→20:07)
[2018-06-01] MEDS: Gabapentin 300 MG CAP PO SCH ×2 (09:34→20:07)
[2018-06-01] MEDS: Aspirin 81 mg Enteric Coated Tablet PO SCH (09:34)
[2018-06-01] MEDS: Enoxaparin Sodium 40 MG/0.4 ML SYRINGE SC SCH (09:34)
--- NOTE | 2018-06-01 19:05 | PRG ---
DATE OF SERVICE: 06/01/2018 SUBJECTIVE: The patient continues to have on and off chest discomfort. She denies any diaphoresis. No syncope reported. PHYSICAL EXAMINATION: VITAL SIGNS: Temperature 98, pulse rate of 62, respiration 16, blood pressure 96/54 with O2 saturati on 94% on room air. GENERAL: A 58-year-old female in no apparent distress. LUNGS: Clear to auscultation bilaterally. HEART: S1, S2 present. Regular rate and rhythm. No rubs or gallops appreciated. No reproducible c hest wall tenderness. EXTREMITIES: No edema or calf tenderness. NEUROLOGIC: Grossly nonfocal. IMAGING DATA AND LABORATORY DATA: CT angiogram of the chest was unremarkable. Troponins negative. BUN 11, creatinine 0.76, potassium 4.4, hemoglobin 12.9, hematocrit 40. Telemetry monitoring by my review showed sinus rhythm. IMPRESSION: 1. Chest pain. The patient has a history of coronary artery disease, status post coronary artery by pass graft. 2. Anxiety and depression. 3. Hypertension. 4. Sick sinus syndrome, status post pacemaker. 5. Dyslipidemia. 6. Diabetes mellitus type 2. 7. History of cerebrovascular accident. 8. Chronic kidney disease stage 2. PLAN: The patient will be monitored on the telemetry unit. We will continue aspirin, Brilinta, Imdu r, metoprolol, and statins. Cardiology has been consulted. We will continue other home medications. Further recommendations per Cardiology. DISPOSITION: Home once cleared by Cardiology.
--- NOTE | 2018-06-01 19:52 | HP ---
CHIEF COMPLAINT: Chest pain. HISTORY OF PRESENT ILLNESS: This is a 58-year-old female with past medical history of coronary arter y disease, hypertension, obesity, CABG, presented to with a chief complaint of chest pain for a c ouple of hours. The patient stated that the pain is substernal, occurs with exertion and also at res t, radiates to the back around the shoulder blades. The patient states that she took some nitro subl ingual and aspirin, which helped and also patient stated that morphine that was given to her in the E D has helped. At this point, the patient is complaining that her pain is around 7-8/10. The patient states that her pain is pressure-like and it is felt like something on the chest. The patient stated that she had similar feeling when she had an KS in the past. The patient also had CABG in past. The patient denies any recent travel, any recent illnesses, fever, cough, congestion, nausea , vomiting, diarrhea. The patient was recently at [facility] and was admitted for chest pain an d discharged to home and no workup was done for the patient at that time. REVIEW OF SYSTEMS: Positive for chest pain radiating to the back. Otherwise, as documented in HPI. All other systems reviewed and are negative. PAST MEDICAL HISTORY: Adrenal cortical hypofunction, cervical disk herniation, cerebrovascular accid ent in 1996 and 2014 with some left-sided residual weakness, transient ischemic attack x3 in 2016, sl eep apnea, restless legs syndrome, neuropathy, iron deficiency anemia, CABG, status post stent x3, KS in 2011, status post pacemaker placement, hyperlipidemia, hypertension. PAST SURGICAL HISTORY: Appendectomy, CABG in 2011, cholecystectomy, hysterectomy, pacemaker placemen t in 2009. PSYCHIATRIC HISTORY: Insomnia, depression, anxiety. SOCIAL HISTORY: The patient is a former tobacco smoker. The patient smoked and quit in 2011. The p atjasen lives at home with daughter. The patient denies alcohol use or illicit drug use. ALLERGIES: . FAMILY HISTORY: Reviewed and noncontributory. CURRENT MEDICATIONS: The patient takes metformin, atorvastatin, gabapentin, isosorbide mononitrate, nitroglycerin, aspirin, Ranexa, lisinopril, Fosamax, Vistaril, nifedipine, potassium chloride, buspir one, amitriptyline, metoprolol tartrate. PHYSICAL EXAMINATION: VITAL SIGNS: Blood pressure 117/88, pulse 63, respiratory rate of 19, temperature 97.6, oxygen satur ation of 98% on room air. GENERAL: The patient appears her stated age, not in acute distress, able to speak in full sentences. HEENT: Normocephalic, atraumatic. Pupils are equally round and reactive to light. Extraocular move ments are intact. No scleral icterus. NECK: Trachea is midline. No JVD. CARDIOVASCULAR: Positive S1, S2, regular rate and rhythm. LUNGS: Clear to auscultation bilaterally. No wheezing, no rales, no rhonchi. EXTREMITIES: Upper extremity, the patient has 5/5 upper extremity strength, good pulses. A 5/5 lowe r extremity strength, good pulses. NEUROLOGIC: Cranial nerves II-XII grossly intact. No focal neurologic deficit noted except for some weakness that was noted on the left. SKIN: Warm, dry, and intact. PSYCHIATRIC: Normal affect, alert and oriented x3. IMAGING: EKG showed normal sinus rhythm. ED COURSE: In the ED, the patient was given morphine 4, nitro transdermal, Zofran and another 4 mg o f morphine. LABORATORY DATA: White count 6.5, hemoglobin 12, platelet count 211. Sodium 138, potassium 4.4, chl oride 108, carbon dioxide is 20, BUN of 11, creatinine of 0.76. Troponin 0.010 x2. Lipase is 23. ASSESSMENT AND PLAN: This is a 58-year-old female with multiple comorbidities, extensive cardiac his tory, has been admitted for chest pain radiating to the back, likely due to unstable angina. At this point, we will continue the patient on all her home medications. We will keep the patient in the spital. We will get Cardiology. The patient has an extensive history of hyperlipidemia, hypertension, cerebrovascular accident, coron kushal artery bypass grafting, coronary artery disease, status post stent. We will continue the patient on home medications. Deep venous thrombosis and gastrointestinal prophylaxis. This case was dictated by Dr. Rubén Lisa on patient Bel Neves.
[2018-06-01] MEDS: Amitriptyline HCl 10 MG TAB PO SCH (20:06)
[2018-06-01] MEDS: Atorvastatin Calcium 40 MG TAB PO SCH (20:06)
--- NOTE | 2018-06-01 20:42 | CON ---
DATE OF CONSULTATION: 06/01/2018 REASON FOR CONSULTATION: Recurrent chest pain. HISTORY OF PRESENT ILLNESS: Ms. Bel Neves is an unfortunate 58-year-old woman with history of peripheral vascular disease, coronary disease, previous stroke, admitted with recurrent chest pain. Ms. Neves initially presented with angina and was taken care of by the [facility] physicians Dr. Christian Krause and Dr. Hyman. She underwent cardiac catheterization. She was found to have small vessels, but underwent bypass surgery, this is thought that due to the small diameter of the vessel. Percutaneous therapy would not be appropriate or effective. She has had a lot of chest pain over the years. She has been catheterized at least two different occasions. Dr. Edward did a heart catheterization. She also had cardiac catheterization in 2011 showing she is well vascularized in [address] Edward and in 2016 by myself. In the meantime, she has also suffered a stroke. Dr. Edward did the cardiac catheterization in 03/2016, I did one in 01/2017. She is readmitted with recurrent chest pain. MEDICATIONS: 1. Fosamax. 2. Lasix. 3. Nifedipine. 4. Nitroglycerin. 5. Potassium. 6. Metformin. 7. Aspirin. 8. Buspar. 9. Brilinta. 10. Ranexa. 11. Gabapentin. 12. Isosorbide. 13. Atorvastatin. 14. Metoprolol. 15. Pantoprazole. ALLERGIES: PROPRANOLOL. SOCIAL HISTORY: No alcohol. PHYSICAL EXAMINATION: VITAL SIGNS: Blood pressure 96/54, pulse 62. NECK: Neck veins are normal. Carotid normal upstrokes. LUNGS: Clear. CARDIAC: Normal S1, normal S2. ABDOMEN: Soft, nontender. EXTREMITIES: There is no edema. Skin, warm, dry, not diaphoretic. She is very overweight with a BMI of 40.3, 5 feet 1 inches tall, 213 pounds, very obese. ASSESSMENT: 1. Previous bypass surgery. 2. Recurrent chest pain. 3. Previous stroke. 4. Hypercholesterolemia, on therapy. PLAN: 1. Repeat EKG to be done. 2. Nitrates. 3. Unfortunately, medications seem relatively maximized, Nothing further feasible at this point, the most recent catheterization showed the following: Left main nonobstructive plaque. LAD, nonobstructive plaque. 4. Diagonal 80% to 90% lesion, patent graft. Circumflex mild diffuse atherosclerosis proximally, the first marginal branch small diffusely diseased vessel. There is a lesion distal to that, patent graft to the distal circumflex , right coronary 30%. 5. EKG during chest pain showed no changes. Current medical therapy will be continued. Past history extensively reviewed. Pt had EKG done during chest pain with no acute EKG changes, no ST deviations. One dose of nitroglycerin resulted in reduced blood pressure but mild improvement in chest pain. Situation rediscussed with pt, She understands medical therapy only option at this point.Difficult situation. MTDD
[2018-06-02] MEDS: Mometasone/Formoterol 120 PUFF INHALER INH SCH ×2 (07:47→19:44)
[2018-06-02] MEDS: hydrOXYzine Pamoate 25 mg Capsule PO SCH ×4 (08:44→20:21)
[2018-06-02] MEDS: Aspirin 81 mg Enteric Coated Tablet PO SCH (08:44)
[2018-06-02] MEDS: busPIRone HCl 5 MG TAB PO SCH ×2 (08:44→20:18)
[2018-06-02] MEDS: Furosemide 20 MG TAB PO SCH ×2 (08:45→20:22)
[2018-06-02] MEDS: Bupropion 100 MG SR TAB PO SCH (08:45)
[2018-06-02] MEDS: NIFEdipine XL 30 MG TAB PO SCH (08:45)
[2018-06-02] MEDS: TICAGRELOR 90 MG TABLET PO SCH ×2 (08:45→20:18)
[2018-06-02] MEDS: Gabapentin 300 MG CAP PO SCH ×2 (08:45→20:20)
[2018-06-02] MEDS: Metoprolol Tartrate 25 MG TAB PO SCH ×2 (08:45→20:19)
[2018-06-02] MEDS: Enoxaparin Sodium 40 MG/0.4 ML SYRINGE SC SCH (08:46)
--- NOTE | 2018-06-02 11:20 | EKG ---
Test Reason : Blood Pressure : / mmHG Vent. Rate : 060 BPM Atrial Rate : 060 BPM P-R Int : 156 ms QRS Dur : 080 ms QT Int : 430 ms P-R-T Axes : 060 024 060 degrees QTc Int : 430 ms Normal sinus rhythm ST abnormality, possible digitalis effect Abnormal ECG Confirmed by MAHSA Maxwell, JENY ([id number]), technical writer and editor SANDHYA LOZANO ([id number]) on 06/02/2018 11:20:19 AM Referred By: Confirmed By:JENY BRAGG M.D.
--- NOTE | 2018-06-02 11:20 | EKG ---
Test Reason : Blood Pressure : / mmHG Vent. Rate : 067 BPM Atrial Rate : 067 BPM P-R Int : 106 ms QRS Dur : 088 ms QT Int : 420 ms P-R-T Axes : 006 033 055 degrees QTc Int : 443 ms Sinus rhythm with short [place] Otherwise normal ECG Confirmed by JENY BRAGG M.D. ([id number]), newspaper copy editor SANDHYA LOZANO ([id number]) on 06/02/2018 11:20:15 AM Referred By: Confirmed By:JENY BRGAG M.D.
--- NOTE | 2018-06-02 11:41 | PDOC.CTH ---
<Lucy Dyer - Last Filed: 06/02/18 11:43> Cardiology Progress Note - Subjective Patient with c/o CP with exertion. Better than yesterday. Ok at rest. Gets CP walking to bathroom. - Objective Vital Signs Temp Pulse Resp BP BP Pulse Ox 06/02/18 11:00 82 20 123/87 93 L 06/02/18 08:45 60 06/02/18 07:47 60 12 06/02/18 07:46 97.9 F 60 16 116/60 96 06/02/18 04:04 98.3 F 64 20 109/60 94 L Weight 213 lb 8 oz 06/01/18 06/02/18 06/03/18 06:59 06:59 06:59 Intake Total 765 790 1 Balance 765 790 1 - Physical Examination General/Neuro: alert & oriented x3 Neck: no JVD present Lungs: CTA Heart: RRR, other: (3/6 murmur at LUSB. ) Abdomen: NT/ND Extremities: other: (no edema) - Telemetry Telemetry Rhythm: SR - Labs Result Diagrams: 05/31/18 16:22 05/31/18 16:22 Troponin/CKMB CK-MB (CK-2) 0.8 ng/mL (0-6.6) 05/31/18 16:22 Troponin I 0.019 ng/mL (< 0.028) 05/31/18 23:30 - Assessment/Plan 1. CP 2. CAD s/p CABG 3. History of PCI 4. HTN 5. Moderate AI 6. Aortic sclerosis without stenosis (ECHO 08/2017) Will try to increase Imdur to 60mg daily. Stop Procardia. ? home tomorrow. <Brian Edward - Last Filed: 06/02/18 14:21> Cardiology Progress Note - Objective Vital Signs Temp Pulse Resp BP BP Pulse Ox 06/02/18 11:00 82 20 123/87 93 L 06/02/18 08:45 60 06/02/18 07:47 60 12 06/02/18 07:46 97.9 F 60 16 116/60 96 06/02/18 04:04 98.3 F 64 20 109/60 94 L Weight 213 lb 8 oz 06/01/18 06/02/18 06/03/18 06:59 06:59 06:59 Intake Total 765 790 1 Balance 765 790 1 - Labs Result Diagrams: 05/31/18 16:22 05/31/18 16:22 Troponin/CKMB CK-MB (CK-2) 0.8 ng/mL (0-6.6) 05/31/18 16:22 Troponin I 0.019 ng/mL (< 0.028) 05/31/18 23:30 - Assessment/Plan Pt seen and examined. Agree with above. Difficult situation. Pt with CAD not amenable to intervention. Increase imdur to 6mg QAM. Continue increase or changing to nitro patch
--- NOTE | 2018-06-02 12:27 | PDOC.PN ---
- Subjective Encounter Start Date: 06/02/18 Encounter Start Time: 12:24 Ms. Neves was seen today in follow-up of chest pain. She says she continues to have some chest pain or and on. She says she feels a little dizzy when she stands up. She also also says she forgot to let the Cardiology team know, that she sometimes feels like she is going to pass out when the pain hits her in the chest. - Objective Resuscitation Status: Resuscitation Status FULL:Full Resuscitation MAR Reviewed: Yes Vital Signs & Weight: Vital Signs (12 hours) Temp Pulse Resp BP BP Pulse Ox 06/02/18 11:00 82 20 123/87 93 L 06/02/18 08:45 60 06/02/18 07:47 60 12 06/02/18 07:46 97.9 F 60 16 116/60 96 06/02/18 04:04 98.3 F 64 20 109/60 94 L Weight Weight 213 lb 8 oz I&O: 06/01/18 06/02/18 06/03/18 06:59 06:59 06:59 Intake Total 765 790 1 Balance 765 790 1 Result Diagrams: 05/31/18 16:22 05/31/18 16:22 Phys Exam - Physical Examination HEENT: PERRLA Respiratory: no wheezing, no rales, no rhonchi, clear to auscultation bilateral Cardiovascular: RRR, no rub 2/6 systolic murmur, no gallop Gastrointestinal: soft, non-tender, no distention, positive bowel sounds Musculoskeletal: no edema Dx/Plan (1) Chest pain Code(s): R07.9 - CHEST PAIN, UNSPECIFIED Status: Acute (2) Morbid obesity with BMI of 40.0-44.9, adult Code(s): E66.01 - MORBID (SEVERE) OBESITY DUE TO EXCESS CALORIES; Z68.41 - BODY MASS INDEX (BMI) 40.0-44.9, ADULT Status: Acute (3) CAD (coronary artery disease) Code(s): I25.10 - ATHSCL HEART DISEASE OF [place] CORONARY ARTERY W/O ANG PCTRS Status: Chronic Qualifiers: (4) DM type 2 (diabetes mellitus, type 2) Status: Chronic Qualifiers: (5) Hypertension Code(s): I10 - ESSENTIAL (PRIMARY) HYPERTENSION Status: Chronic Qualifiers: - Plan * Chest pain- likely due to Angina- Cardiology input noted-Imdur will be increased. She is already on a high dose of Ranexa ( aswell as Metoprolol, aspirin Brillinta, and Lipitor) * HTN- blood pressure is stable * DM- blood glucose is stable ( Metformin is on hold) continue SSI * Disposition as per Cardiology.
[2018-06-02] MEDS: Amitriptyline HCl 10 MG TAB PO SCH (20:19)
[2018-06-02] MEDS: Atorvastatin Calcium 40 MG TAB PO SCH (20:20)
[2018-06-03 08:12] VITALS: TEMP 98.6
[2018-06-03] MEDS: Gabapentin 300 MG CAP PO SCH (09:17)
[2018-06-03] MEDS: Enoxaparin Sodium 40 MG/0.4 ML SYRINGE SC SCH (09:17)
[2018-06-03] MEDS: busPIRone HCl 5 MG TAB PO SCH (09:18)
[2018-06-03] MEDS: hydrOXYzine Pamoate 25 mg Capsule PO SCH ×2 (09:18→14:17)
[2018-06-03] MEDS: Aspirin 81 mg Enteric Coated Tablet PO SCH (09:18)
[2018-06-03] MEDS: Furosemide 20 MG TAB PO SCH ×2 (09:18→14:17)
[2018-06-03] MEDS: TICAGRELOR 90 MG TABLET PO SCH (09:18)
[2018-06-03] MEDS: Bupropion 100 MG SR TAB PO SCH (09:18)
[2018-06-03] MEDS: Metoprolol Tartrate 25 MG TAB PO SCH (09:19)
[2018-06-03] MEDS ORDERED: Morphine 4 MG/ML VIAL SLOW IVP PRN (11:07)
[2018-06-03] MEDS: Mometasone/Formoterol 120 PUFF INHALER INH SCH (11:11)
--- NOTE | 2018-06-03 11:13 | PDOC.CTH ---
<Lucy Dyer - Last Filed: 06/03/18 11:11> Cardiology Progress Note - Subjective Patient with c/o crushing and stabbing CP. Sitting up in bed and uncomfortable. Says 8-10. - Objective Vital Signs Temp Pulse Resp BP Pulse Ox 06/03/18 07:40 98.6 F 60 20 113/59 L 92 L 06/03/18 03:51 97.9 F 68 18 126/74 92 L 06/02/18 23:22 98.4 F 67 22 H 118/56 L 91 L Weight 216 lb 06/02/18 06/03/18 06/04/18 06:59 06:59 06:59 Intake Total 790 1115 Output Total 500 Balance 790 615 - Physical Examination General/Neuro: alert & oriented x3 Neck: no JVD present Lungs: CTA Heart: RRR Abdomen: NT/ND - Telemetry Telemetry Rhythm: AP-VS - Labs Result Diagrams: 05/31/18 16:22 05/31/18 16:22 Troponin/CKMB CK-MB (CK-2) 0.8 ng/mL (0-6.6) 05/31/18 16:22 Troponin I 0.019 ng/mL (< 0.028) 05/31/18 23:30 - Assessment/Plan 1. CP 2. CAD s/p CABG 3. History of PCI 4. HTN 5. Moderate AI 6. Aortic sclerosis without stenosis (ECHO 08/2017) Stat EKG. Nurse just gave Morphine. Will add nitropaste. <Brian Edward - Last Filed: 06/03/18 14:00> Cardiology Progress Note - Objective Vital Signs Temp Pulse Resp BP Pulse Ox 06/03/18 11:11 60 12 06/03/18 11:05 67 22 H 110/65 93 L 06/03/18 07:40 98.6 F 60 20 113/59 L 92 L 06/03/18 03:51 97.9 F 68 18 126/74 92 L Weight 216 lb 06/02/18 06/03/18 06/04/18 06:59 06:59 06:59 Intake Total 790 1115 1 Output Total 500 Balance 790 615 1 - Labs Result Diagrams: 05/31/18 16:22 05/31/18 16:22 Troponin/CKMB CK-MB (CK-2) 0.8 ng/mL (0-6.6) 05/31/18 16:22 Troponin I 0.019 ng/mL (< 0.028) 05/31/18 23:30 - Assessment/Plan Pt seen and examined. Unsure if symptos ae truly cardiac. Pt with rest pain and no EKG changes and () enzymes. Treat medically.
[2018-06-03 12:04] VITALS: BP 110/65
[2018-06-03] MEDS ORDERED: Nitroglycerin 2% Ointment 1 INCH/1 GM Packet TOP SCH (14:00)
--- NOTE | 2018-06-03 14:20 | PDOC.PN ---
- Subjective Encounter Start Date: 06/03/18 Encounter Start Time: 14:18 Ms. Neves was seen today in follow-up. She says she continues to have chest pain. It is at rest. 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 - Objective Resuscitation Status: Resuscitation Status FULL:Full Resuscitation MAR Reviewed: Yes Vital Signs & Weight: Vital Signs (12 hours) Temp Pulse Resp BP Pulse Ox 06/03/18 11:11 60 12 06/03/18 11:05 67 22 H 110/65 93 L 06/03/18 07:40 98.6 F 60 20 113/59 L 92 L 06/03/18 03:51 97.9 F 68 18 126/74 92 L Weight Weight 216 lb I&O: 06/02/18 06/03/18 06/04/18 06:59 06:59 06:59 Intake Total 790 1115 1 Output Total 500 Balance 790 615 1 Result Diagrams: 05/31/18 16:22 05/31/18 16:22 Additional Labs: Accuchecks 06/03/18 06/03/18 11:18 03:59 POC Glucose 119 H 101 Phys Exam - Physical Examination HEENT: PERRLA Respiratory: no wheezing, no rales, no rhonchi, clear to auscultation bilateral Cardiovascular: RRR, no significant murmur, no rub Gastrointestinal: soft, non-tender, no distention, positive bowel sounds Musculoskeletal: no edema Dx/Plan (1) Chest pain Code(s): R07.9 - CHEST PAIN, UNSPECIFIED Status: Acute (2) Morbid obesity with BMI of 40.0-44.9, adult Code(s): E66.01 - MORBID (SEVERE) OBESITY DUE TO EXCESS CALORIES; Z68.41 - BODY MASS INDEX (BMI) 40.0-44.9, ADULT Status: Acute (3) CAD (coronary artery disease) Code(s): I25.10 - ATHSCL HEART DISEASE OF [place] CORONARY ARTERY W/O ANG PCTRS Status: Chronic Qualifiers: (4) DM type 2 (diabetes mellitus, type 2) Status: Chronic Qualifiers: (5) Hypertension Code(s): I10 - ESSENTIAL (PRIMARY) HYPERTENSION Status: Chronic Qualifiers: - Plan * Chest pain- persistent- unclear etiology * CAD- stable, all cardiac enzymes are negative * HTN- blood pressure is normal * DM- blood glucose is stable.
--- NOTE | 2018-06-03 17:53 | EKG ---
Test Reason : Blood Pressure : / mmHG Vent. Rate : 062 BPM Atrial Rate : 062 BPM P-R Int : 162 ms QRS Dur : 100 ms QT Int : 426 ms P-R-T Axes : 058 039 060 degrees QTc Int : 432 ms Electronic atrial pacemaker When compared with ECG of 31-MAY-2018 17:27, (Unconfirmed) Electronic atrial pacemaker has replaced Sinus rhythm Confirmed by MACY PIPER (2) on 06/03/2018 5:53:16 PM Referred By: GUIDO Confirmed By:MACY PIPER
--- NOTE | 2018-06-03 18:57 | DIS ---
PRIMARY CARE PHYSICIAN: Pia Sheldon MD. DATE OF ADMISSION: 06/01/2018 DATE OF DISCHARGE: 06/03/2018 DISCHARGE DISPOSITION: Home. PRIMARY DISCHARGE DIAGNOSES: 1. Chest pain. 2. Coronary artery disease. 3. Diabetes mellitus, type 2. 4. Hypertension. 5. Osteoporosis with treatment with Fosamax. DISCHARGE MEDICATIONS: Please note that the dose of Imdur was increased from 30 to 60 mg daily. She is to continue Ranexa 1000 mg twice daily, Nitrostat 0.4 sublingual p.r.n., Lipitor 80 mg at bedtime , Brilinta 90 mg twice a day, Slow-K 8 mEq at bedtime, Protonix 40 mg daily, nifedipine 30 mg daily, metoprolol 12.5 mg twice a day, metformin 500 mg daily, Vistaril 25 mg q.i.d. as needed, Neurontin 30 0 mg twice a day, Lasix 10 mg twice a day, BuSpar 7.5 mg twice daily, Wellbutrin 800 mg daily, Symbic ort 160/4.5 two puffs twice a day, aspirin 81 mg daily, Elavil 10 mg at bedtime, and Fosamax 70 mg ev jennifer 7 days. PROCEDURES DONE DURING ADMISSION: The patient had a CT angiogram of the chest, which was negative fo r PE. No evidence of any infiltrates. CODE STATUS: FULL CODE. ALLERGIES: To PROPRANOLOL. HOSPITAL COURSE: Ms. Neves is a pleasant 58-year-old female that presented to the emergency room wit h complaints of severe chest pain, the full details of which are outlined in the history and physical . She was admitted and ruled out. She was seen by Cardiology and it was recommended that she increa se her dose of Imdur. This was done, and it did not seem to improve her symptoms. She continues to have symptoms at rest, sometimes as bad as 8/10. It is noted that she has had a stress test this yea r in September as well as a CT dissection protocol test, which was negative, and she normally sees Dr. Cholo Baires. She also had a cardiac catheterization about a year ago, in which she did have 2-vessel coronary artery disease involving the diagonal branch of the LAD and the circumflex. She had some p atent grafts to the OM and circumflex as well as the diagonal. There was no obstructive coronary art jennifer disease in the LAD, and it was recommended that she be treated medically. Also, in review of her records and preparation for discharge, I see that she is on Fosamax, which can cause some severe ref lux symptoms and possibly this could be a possible etiology of her pain. This is something that she can discuss with her primary care physician and have also recommended that she see her inlayer silver a s soon as possible as she may have some additional recommendations, but at this time, she is hemodyna mically stable with 3 sets of troponin, which have been negative and no significant EKG changes.
--- NOTE | 2018-06-04 20:49 | EKG ---
Test Reason : Blood Pressure : / mmHG Vent. Rate : 063 BPM Atrial Rate : 063 BPM P-R Int : 172 ms QRS Dur : 106 ms QT Int : 436 ms P-R-T Axes : 045 033 053 degrees QTc Int : 446 ms Electronic atrial pacemaker Incomplete right bundle branch block Borderline ECG When compared with ECG of 01-JUN-2018 14:50, No significant change was found Confirmed by MACY PIPER ([id number]) on 06/04/2018 8:49:37 PM Referred By: KULWANT Confirmed By:MACY PIPER
== END 2018-06-03 15:01 | disposition home or self-care (01) ==
LOC: ERS 16:08 → 2SW 22:22
PROVIDERS: ADMIT Internal Medicine; ATTEND Internal Medicine
DX: R07.89 Other chest pain (principal); I69.354 Hemiplegia and hemiparesis following cerebral infarction affecting left non-dominant side; E27.40 Unspecified adrenocortical insufficiency; G25.81 Restless legs syndrome; G47.30 Sleep apnea, unspecified; I25.2 Old myocardial infarction; E78.5 Hyperlipidemia, unspecified; I25.10 Atherosclerotic heart disease of native coronary artery without angina pectoris; F41.8 Other specified anxiety disorders; I49.5 Sick sinus syndrome; E11.40 Type 2 diabetes mellitus with diabetic neuropathy, unspecified; I12.9 Hypertensive chronic kidney disease with stage 1 through stage 4 chronic kidney disease, or unspecified chronic kidney disease; E11.22 Type 2 diabetes mellitus with diabetic chronic kidney disease; N18.2 Chronic kidney disease, stage 2 (mild); D63.1 Anemia in chronic kidney disease; M81.0 Age-related osteoporosis without current pathological fracture; E66.01 Morbid (severe) obesity due to excess calories; Z68.41 Body mass index [BMI] 40.0-44.9, adult; Z87.891 Personal history of nicotine dependence; Z79.02 Long term (current) use of antithrombotics/antiplatelets; Z79.82 Long term (current) use of aspirin; Z79.84 Long term (current) use of oral hypoglycemic drugs; Z79.899 Other long term (current) drug therapy; Z88.8 Allergy status to other drugs, medicaments and biological substances; Z95.0 Presence of cardiac pacemaker; Z95.1 Presence of aortocoronary bypass graft; Z95.5 Presence of coronary angioplasty implant and graft
CPT/HCPCS: 71045; 71275; 80053; 82550; 82553; 82962; 83690; 84484 ×2; 85025; 93005 ×3; 94640 ×3; 94760; 96372 ×3; 96374; 96375; 96376 ×4; 99285; G0378 ×3; 36415; 36416; 93010; A4216; J1650; J2270; J2405; Q0177

== ENCOUNTER 2018-06-14 20:17 | Observation (INO) | payer MEDICARE, MEDICAID ==
[2018-06-14 20:58] LABS: #Basophils 0.1 thou/uL (0.0-0.2); #Eosinphils 0.3 thou/uL (0.0-0.7); #Monocytes 0.9 thou/uL (0.11-0.59); #Neutrophils 3.3 thou/uL (1.40-6.50); %Basophils 1.2 % (0.0-1.0); %Eosinophils 4.4 % (0.0-10.0); %Lymphocytes 39.1 % (21.0-51.0); %Monocytes 11.6 % (0.0-10.0); %Neutrophils 43.7 % (42.0-75.0); Hemoglobin 12.8 g/dL (12.0-16.0); Mean Corpuscular HGB CONC 32.9 g/dL (32.0-36.0); Mean Corpuscular Hemoglobin 28.7 pg (27.0-31.0); Mean Corpuscular Volume 87.2 fL (78.0-98.0); Mean Platelet Volume 9.8 fL (7.4-10.4); Platelet Count 250 thou/uL (130-400); RBC Distribution Width 14.6 % (11.5-14.5); Red Blood Cell (RBC) Count 4.45 mill/uL (4.20-5.40); White Blood Cell (WBC) Count 7.7 thou/uL (4.8-10.8)
[2018-06-14] MEDS ORDERED: Morphine 4 MG/ML VIAL ONE ×2 (21:15→23:04)
--- NOTE | 2018-06-14 21:19 | RAD ---
FRONTAL VIEW CHEST: 06/14/18 INDICATION: Chest pain. COMPARISON: 05/31/18. FINDINGS: There is prominence of the cardiac silhouette with evidence of prior sternotomy. Left side cardiac pa cing device remains. Mild prominence of the pulmonary vasculature. No significant effusion or discret e pneumothorax. IMPRESSION: Evidence of CHF. POS: [facility]
[2018-06-14 21:27] LABS: ALT (SGPT) 16 U/L (8-55); AST (SGOT) 14 U/L (5-34); Alkaline Phosphatase 99 U/L (40-150); Anion Gap 12 mmol/L (10-20); BUN (Urea Nitrogen) 14 mg/dL (9.8-20.1); Bilirubin, Total 0.3 mg/dL (0.2-1.2); Calc. Creatinine Clearance 0 mL/min (70-130); Calcium 9.2 mg/dL (7.8-10.44); Carbon Dioxide 21 mmol/L (22-29); Chloride 106 mmol/L (98-107); Estimated GFR-MDRD 67; Globulin 3.1 g/dL (2.4-3.5); Glucose 101 mg/dL (70-105); Lipase 62 U/L (8-78); Potassium 4.3 mmol/L (3.5-5.1); Protein, Total 7.1 g/dL (6.0-8.3); Sodium 135 mmol/L (136-145)
[2018-06-14 21:28] LABS: Troponin I Less than 0.010 ng/mL (< 0.028)
--- NOTE | 2018-06-14 22:56 | CT ---
CTA CHEST WITH CONTRAST WITH 3D VOLUME RENDERING CTA ABDOMEN AND PELVIS WITH CONTRAST WITH 3D VOLUME RENDERING CTA AORTOGRAM, DISSECTION PROTOCOL 06/14/18 CLINICAL HISTORY: Chest pain radiating to the back, new onset. COMPARISON: Prior CT 10/03/17, CT 11/16/17, and CT 05/31/18. FINDINGS: There is diffuse atherosclerotic vascular disease including calcified and noncalcified plaque. There is no aneurysmal dilatation of the thoracoabdominal aorta or evidence of aortic dissection. Incidental note of focal benign appearing fat density along the pleural margins of the left superior hemithorax. There is a small soft tissue nodule adjacent the right adrenal gland abutting the proxima l aspect of the lateral limb. This could relate to a small lymph node or alternatively an exophytic n odule of the right adrenal gland, measuring approximately 9 mm. Mild nodularity in the left adrenal g land is stable. There is a small, stable hypodensity involving the lateral aspect of the superior david e left kidney, to small to definitively characterize. Scattered osseous degenerative change. There is evidence of prior sternotomy. IMPRESSION: No acute aortic dissection. POS: [facility]
[2018-06-14] MEDS ORDERED: Nitroglycerin 2% Ointment 1 INCH/1 GM Packet ONE (23:33)
[2018-06-15 00:28] LABS: Troponin I Less than 0.010 ng/mL (< 0.028)
[2018-06-15] MEDS ORDERED: HYDROcodone/Acetaminophen 5/325 mg Tablet PO PRN ×2 (00:47)
[2018-06-15] MEDS ORDERED: Acetaminophen 325 MG TAB PO PRN (00:47)
[2018-06-15 01:46] VITALS: BMI 41.3
[2018-06-15 03:46] LABS: Cardiac Risk 2.9 (Less than 4.5)
[2018-06-15 03:51] LABS: Troponin I Less than 0.010 ng/mL (< 0.028)
[2018-06-15] MEDS ORDERED: Nitroglycerin 2% Ointment 1 INCH/1 GM Packet TOP PRN (04:52)
[2018-06-15] MEDS ORDERED: Aspirin 325 MG TAB PO SCH (09:00)
[2018-06-15] MEDS: Nitroglycerin 0.4 MG TAB (25 Tab Bottle) SL PRN ×4 (09:33→18:47)
[2018-06-15] MEDS ORDERED: Bisacodyl 5 MG TAB PO PRN (10:27)
[2018-06-15] MEDS: Acetaminophen 325 MG TAB PO PRN (16:18)
[2018-06-15] MEDS ORDERED: traZODone HCl 50 MG TAB PO PRN (16:35)
[2018-06-15] MEDS ORDERED: Alendronate Sodium 70 mg Tablet PO SCH (16:45)
--- NOTE | 2018-06-15 17:17 | HP ---
PRIMARY CARE PROVIDER: Dr. Bryan Brand at [facility]. CHIEF COMPLAINT: Chest pain. HISTORY OF PRESENT ILLNESS: Ms. Neves is a pleasant 58-year-old lady who was seen at [facility] on 06/15/2018. She had a cardiac catheterization in 01/2017, which showed 2-vessel coronary artery disease involving the diagonal branch of LAD and circumflex, patent SVG to OM/circumflex distribution, patent SVG to d iagonal, no obstructive CAD and LAD. Mirror Installer at that time recommended medical therapy, includin g aggressive lipid lowering therapy and dietary changes. There was no hemodynamically significant st enosis in the RCA. She also had nuclear stress test in 09/2017, which was normal, stress only cardia c SPECT with ejection fraction and wall motion. She was hospitalized at this facility from 06/01/2018-06/03/2018 for chest pain. She was seen by Car diology Service at that time. Her dose of Imdur was increased from 30 to 60 mg daily. She was advis ed to continue Ranexa 1000 mg twice daily. She reports that over the last 2 days she has had chest pain. She describes it as retrosternal, anya p, 10/10 at its worst, radiating down the left arm, worse with movement, accompanied by nausea, light headedness, and diaphoresis. She also reports associated shortness of breath. The chest pain improv ed with nitrates. It is on and off, but she cannot recall any aggravating or relieving factors. REVIEW OF SYSTEMS: All other systems reviewed and found to be negative. PAST MEDICAL HISTORY: Adrenocortical hypofunction, cervical disk herniation, cerebrovascular acciden t in 1996 and 2014 with some left-sided residual weakness, transient ischemic attack x3 in 2016, sle ep apnea, restless leg syndrome, neuropathy, iron deficiency anemia, coronary artery bypass graft, st atus post stent x3, myocardial infarction in 2011, status post pacemaker placement, dyslipidemia, hyp ertension. PAST SURGICAL HISTORY: Appendectomy, coronary artery bypass graft in 2011, cholecystectomy, hysterec maliha, pacemaker placement in 2009. PSYCHIATRIC HISTORY: Insomnia, depression and anxiety. SOCIAL HISTORY: The patient denies tobacco use, alcohol use or recreational drug use. ALLERGIES: PROPRANOLOL. HOME MEDICATIONS: As dictated by Dr. Martinez on discharge summary dated 06/03/2018. FAMILY HISTORY: She denies any family history of premature coronary artery disease. PHYSICAL EXAMINATION: GENERAL: On examination, Ms. Neves is awake and alert, in mild distress. VITAL SIGNS: Blood pressure is 107/58, pulse 68, respiratory rate 16 and oxygen saturation 94% on ro om air. She is afebrile. She is morbidly obese with BMI of 41.3. EYES: No scleral icterus. No conjunctival pallor. ENT: Moist mucosal membranes, no oropharyngeal erythema or exudates. NECK: Supple, nontender, trachea is midline. RESPIRATORY: Accessory muscles of breathing are not active. Chest wall movements are symmetric bila terally. LUNGS: Clear to auscultation without wheeze, rhonchi or crepitations. CARDIOVASCULAR: S1 and S2 are heard, regular. Peripheral pulses are palpable. No carotid bruit, no pericardial rub. ABDOMEN: Soft, distended, nontender, bowel sounds are heard. NEUROLOGIC: Cranial nerves II-XII intact. Deep tendon reflexes are 2+. LYMPHATIC: No cervical lymphadenopathy. MUSCULOSKELETAL: Mild weakness in left upper and lower extremities. SKIN: No rashes or subcutaneous nodules. PSYCHIATRIC: Patient appears mildly anxious, oriented to person, place, and time. IMAGING DATA AND LABORATORY DATA: Ms. Neves labs and investigations were reviewed. I reviewed her e lectrocardiogram, which shows normal sinus rhythm, no ST changes to suggest an acute coronary syndrom e. I also reviewed her chest x-ray, which does not show any pulmonary infiltrates. She does have so me evidence of CHF. CT dissection protocol did not show any acute aortic dissection. There was inci dental note of focal benign appearing fat density along the pleural margins of the left superior christin thorax. She also has a small soft tissue nodule adjacent to the right adrenal gland abutting the pro ximal aspect of the lateral limb, which could relate to a small lymph node or alternatively an exophy tic nodule of right adrenal gland, measuring approximately 9 mm. Mild nodularity in the left adrenal gland is stable when compared to prior exams. She also has a small stable hypodensity involving the lateral aspect of the superior pole of left kidney, too small to definitively characterize. She has normal white count, normal hemoglobin, normal platelet count, D-dimer less than 0.27, decreased sodi um of 135, normal potassium, slightly decreased carbon dioxide level of 21, otherwise normal comprehe nsive metabolic profile, troponin I that is negative x2 and normal BNP of 85.5. Fasting lipid profil e shows triglycerides 120, cholesterol 134, LDL cholesterol 63, and HDL cholesterol 47. Lipase is no rmal at 62. ASSESSMENT AND PLAN: Ms. Neves is a pleasant 58-year-old lady who was seen at [facility] on 06/15/2018. Her problem list includes: 1. Chest pain: Etiology is unclear. She will be admitted to the hospital for telemetry monitoring. Pulmonary embolism has been ruled out with negative D-dimer. We will consult Cardiology Service fo r opinion and help with management. 2. Coronary artery disease. Continue home medications including aspirin and Brilinta. 3. Dyslipidemia: Continue statin. 4. Hypertension: Resume home medications, monitor vital signs and titrate antihypertensives as need ed. 5. History of cerebrovascular accident. 6. Continue aspirin. Many thanks for allowing me to participate in your patient's care. Please feel free to contact me wi th any questions or concerns. LEVEL OF RISK: High. LEVEL OF COMPLEXITY: High.
[2018-06-15] MEDS: hydrOXYzine Pamoate 25 mg Capsule PO SCH ×2 (17:54→22:18)
[2018-06-15] MEDS: Mometasone/Formoterol 120 PUFF INHALER INH SCH (19:45)
[2018-06-15] MEDS ORDERED: Atorvastatin Calcium 40 MG TAB PO SCH (21:00)
[2018-06-15] MEDS ORDERED: Amitriptyline HCl 10 MG TAB PO SCH (21:00)
[2018-06-15] MEDS ORDERED: Potassium Chloride 8 MEQ TAB PO SCH (21:00)
[2018-06-15] MEDS: busPIRone HCl 5 MG TAB PO SCH (22:15)
[2018-06-15] MEDS: Furosemide 20 MG TAB PO SCH (22:17)
[2018-06-15] MEDS: Gabapentin 300 MG CAP PO SCH (22:18)
[2018-06-15] MEDS: Metoprolol Tartrate 25 MG TAB PO SCH (22:19)
[2018-06-15] MEDS: TICAGRELOR 90 MG TABLET PO SCH (22:19)
[2018-06-16] MEDS: Acetaminophen 325 MG TAB PO PRN (05:21)
[2018-06-16 05:40] LABS: #Eosinphils 0.3 thou/uL (0.0-0.7); #Lymphocytes 1.6 thou/uL (1.20-3.40); #Monocytes 0.8 thou/uL (0.11-0.59); #Neutrophils 3.1 thou/uL (1.40-6.50); %Basophils 0.4 % (0.0-1.0); %Eosinophils 4.4 % (0.0-10.0); %Lymphocytes 27.2 % (21.0-51.0); %Monocytes 14.2 % (0.0-10.0); %Neutrophils 53.8 % (42.0-75.0); Hemoglobin 11.2 g/dL (12.0-16.0); Mean Corpuscular HGB CONC 32.2 g/dL (32.0-36.0); Mean Corpuscular Volume 87.1 fL (78.0-98.0); Mean Platelet Volume 10.2 fL (7.4-10.4); Platelet Count 204 thou/uL (130-400); RBC Distribution Width 14.6 % (11.5-14.5); White Blood Cell (WBC) Count 5.8 thou/uL (4.8-10.8)
[2018-06-16 05:41] LABS: Anion Gap 12 mmol/L (10-20); BUN (Urea Nitrogen) 16 mg/dL (9.8-20.1); Calc. Creatinine Clearance 130 mL/min (70-130); Calcium 9.1 mg/dL (7.8-10.44); Carbon Dioxide 23 mmol/L (22-29); Chloride 108 mmol/L (98-107); Estimated GFR-MDRD 82; Glucose 109 mg/dL (70-105); Potassium 4.1 mmol/L (3.5-5.1); Sodium 139 mmol/L (136-145)
[2018-06-16] MEDS: busPIRone HCl 5 MG TAB PO SCH (08:36)
[2018-06-16] MEDS: Furosemide 20 MG TAB PO SCH (08:37)
[2018-06-16] MEDS: Gabapentin 300 MG CAP PO SCH (08:37)
[2018-06-16] MEDS: TICAGRELOR 90 MG TABLET PO SCH (08:39)
[2018-06-16] MEDS ORDERED: metFORMIN 500 MG TAB PO SCH (09:00)
[2018-06-16] MEDS ORDERED: Aspirin 81 mg Enteric Coated Tablet PO SCH (09:00)
[2018-06-16] MEDS ORDERED: NIFEdipine XL 30 MG TAB PO SCH (09:00)
[2018-06-16] MEDS ORDERED: Nitroglycerin 0.1mg/Hour PATCH TD SCH (09:00)
[2018-06-16] MEDS ORDERED: Bupropion 100 MG SR TAB PO SCH (09:00)
[2018-06-16] MEDS ORDERED: Enoxaparin Sodium 40 MG/0.4 ML SYRINGE SC SCH (09:00)
[2018-06-16] MEDS: Metoprolol Tartrate 25 MG TAB PO SCH (10:23)
[2018-06-16] MEDS: hydrOXYzine Pamoate 25 mg Capsule PO SCH ×3 (10:23→16:10)
[2018-06-16 12:24] VITALS: TEMP 98.1
[2018-06-16] MEDS: Mometasone/Formoterol 120 PUFF INHALER INH SCH (12:37)
[2018-06-16] MEDS: Nitroglycerin 0.4 MG TAB (25 Tab Bottle) SL PRN ×3 (13:12→13:23)
--- NOTE | 2018-06-16 14:43 | PDOC.PN ---
- Subjective Encounter Start Date: 06/16/18 Encounter Start Time: 08:40 Pt seen for followup re: chest pain. Reports on and off chest pain. No nausea or vomiting. - Objective MAR Reviewed: Yes Vital Signs & Weight: Vital Signs (12 hours) Temp Pulse Resp BP BP BP Pulse Ox 06/16/18 13:23 68 20 113/66 99 06/16/18 13:19 69 22 H 134/71 99 06/16/18 12:22 98.1 F 62 20 102/61 95 06/16/18 10:21 64 104/60 06/16/18 07:27 98 F 62 18 102/57 L 93 L 06/16/18 03:04 98.2 F 63 13 113/62 96 Weight Admit Weight 218 lb 9 oz Weight 221 lb 3.2 oz I&O: 06/15/18 06/16/18 06/17/18 06:59 06:59 06:59 Intake Total 120 890 Output Total 500 400 Balance -380 490 Result Diagrams: 06/16/18 05:01 06/16/18 05:01 EKG Reviewed by me: Yes (Tele: NSR) Phys Exam - Physical Examination Morbid obesity HEENT: moist MMs, sclera anicteric, oral pharynx no lesions, 2+ tonsils Neck: no nodes, no JVD, supple, full ROM Respiratory: no wheezing, no rales, no rhonchi, clear to auscultation bilateral Cardiovascular: RRR, no rub S1, S2 Gastrointestinal: soft, non-tender, positive bowel sounds distention Neurological: moves all 4 limbs Psychiatric: normal affect, A&O x 3 Dx/Plan (1) Chest pain Code(s): R07.9 - CHEST PAIN, UNSPECIFIED Status: Acute Comment: etiology unclear. Nil acute on CT dissection protocol. cardiology consult pending. (2) DM type 2 (diabetes mellitus, type 2) Status: Chronic Qualifiers: Comment: continue accuchecks, insulin sliding scale (3) Hypertension Code(s): I10 - ESSENTIAL (PRIMARY) HYPERTENSION Status: Chronic Qualifiers: Comment: controlled (4) Osteoarthritis Code(s): M19.90 - UNSPECIFIED OSTEOARTHRITIS, UNSPECIFIED SITE Status: Chronic Comment: stable - Plan * . Review of Systems - Review of Systems Constitutional: negative: fever, chills, sweats, weakness, malaise Respiratory: SOB with Excertion. negative: Cough, Shortness of Breath, Pleuritic Pain, Wheezing Cardiovascular: chest pain. negative: palpitations, orthopnea, paroxysmal nocturnal dyspnea, edema, light headedness Gastrointestinal: negative: Nausea, Vomiting, Abdominal Pain, Diarrhea, Constipation, Melena, Hematochezia Genitourinary: negative: Dysuria, Frequency, Incontinence, Hematuria, Retention Skin: negative: Rash, Lesions, Philippe, Bruising - Medications/Allergies Allergies/Adverse Reactions: Allergies Allergy/AdvReac Type Severity Reaction Status Date / Time propranolol Allergy Hives Verified 01/02/18 18:42 Medications: Current Medications Acetaminophen (Tylenol) 650 mg PO Q4H PRN PRN Reason: Headache/Fever/Mild Pain (1-3) Last Admin: 06/16/18 05:21 Dose: 650 mg Amitriptyline HCl (Elavil) 10 mg PO HS PENDING SALE TO [facility] Last Admin: 06/15/18 22:14 Dose: 10 mg Aspirin (Ecotrin) 81 mg PO DAILY PENDING SALE TO [facility] Last Admin: 06/16/18 08:35 Dose: 81 mg Atorvastatin Calcium (Lipitor) 80 mg PO HS PENDING SALE TO [facility] Last Admin: 06/15/18 22:15 Dose: 80 mg Bisacodyl (Dulcolax) 10 mg PO DAILYPRN PRN PRN Reason: Constipation Bupropion HCl (Wellbutrin Sr) 300 mg PO DAILY PENDING SALE TO [facility] Last Admin: 06/16/18 08:35 Dose: 300 mg Buspirone HCl (Buspar) 7.5 mg PO BID PENDING SALE TO [facility] Last Admin: 06/16/18 08:36 Dose: 7.5 mg Enoxaparin Sodium (Lovenox) 40 mg SC 0900 PENDING SALE TO [facility] Last Admin: 06/16/18 08:37 Dose: 40 mg Furosemide (Lasix) 20 mg PO BID PENDING SALE TO [facility] Last Admin: 06/16/18 08:37 Dose: 20 mg Gabapentin (Neurontin) 300 mg PO BID PENDING SALE TO [facility] Last Admin: 06/16/18 08:37 Dose: 300 mg Hydroxyzine Pamoate (Vistaril) 25 mg PO QID PENDING SALE TO [facility] Last Admin: 06/16/18 12:25 Dose: 25 mg Isosorbide Mononitrate (Imdur) 30 mg PO DAILY PENDING SALE TO [facility] Last Admin: 06/16/18 08:37 Dose: 30 mg Metformin HCl (Glucophage) 500 mg PO DAILY PENDING SALE TO [facility] Last Admin: 06/16/18 08:38 Dose: 500 mg Metoprolol Tartrate (Lopressor) 25 mg PO BID PENDING SALE TO [facility] Last Admin: 06/16/18 10:23 Dose: 25 mg Mometasone Furoate/Formoterol Fumar (Dulera 200 Mcg/5 Mcg Inhaler) 2 puff INH BID-RT PENDING SALE TO [facility] Last Admin: 06/16/18 12:37 Dose: Not Given Nifedipine (Procardia Xl) 30 mg PO DAILY PENDING SALE TO [facility] Last Admin: 06/16/18 10:23 Dose: 30 mg Nitroglycerin (Nitro-Bid 2% Ointment) 0.5 inch TOP Q8H PRN PRN Reason: Chest Pain Last Admin: 06/15/18 05:07 Dose: 0.5 inch Nitroglycerin (Nitrostat) 0.4 mg SL Q5MIN PRN PRN Reason: Chest Pain Last Admin: 06/16/18 13:23 Dose: 0.4 mg Nitroglycerin (Nitro-Dur 0.1mg/Hr Patch) 1 patch TD DAILY PENDING SALE TO [facility] Last Admin: 06/16/18 08:39 Dose: 1 patch Pantoprazole Sodium (Protonix) 40 mg PO DAILY PENDING SALE TO [facility] Last Admin: 06/16/18 08:39 Dose: 40 mg Potassium Chloride (Slow-K 8 Meq) 8 meq PO HS PENDING SALE TO [facility] Last Admin: 06/15/18 22:19 Dose: 8 meq Ranolazine (Ranexa) 1,000 mg PO BID PENDING SALE TO [facility] Last Admin: 06/16/18 08:39 Dose: 1,000 mg Ticagrelor (Brilinta) 90 mg PO BID PENDING SALE TO [facility] Last Admin: 06/16/18 08:39 Dose: 90 mg Trazodone HCl (Desyrel) 50 mg PO HS PRN PRN Reason: Insomnia
--- NOTE | 2018-06-16 15:48 | CON ---
DATE OF CONSULT: 06/15/18 HISTORY OF PRESENT ILLNESS: The patient is a 58-year-old woman who presents with recurrent chest discomfort. The patient has a long history of coronary artery disease. She has previously undergone coronary bypass graft surgery. The patient has been admitted on multiple occasions with chest discomfort. She underwent catheterization in 2011 and 2016, which revealed no lesions amenable to coronary intervention. The patient does state she had a stent placed by Dr. Baires several months ago. The patient reports that she has had recurrent chest pain. This occurs with and without exertion. She states the chest pain has been more frequent in the last few months. She states the discomfort has been continuous for the past throughout the day. PAST MEDICAL HISTORY: 1. Coronary artery disease. 2. Hypertension. 3. Diabetes mellitus. 4. History of transient ischemic attack. 5. Anxiety disorder. MEDICATIONS: See nursing list. PAST SURGICAL HISTORY: Coronary bypass graft surgery, cholecystectomy, and hysterectomy. SOCIAL HISTORY: Former smoker. ALLERGY: Propranolol. REVIEW OF SYSTEMS: PHYSICAL EXAMINATION: GENERAL: This is an obese woman in acute distress with a blood pressure of 107/ 58. NECK: No jugular venous distention. LUNGS: Clear to auscultation. HEART: Regular rate and rhythm. Normal S1, S2. ABDOMEN: Distended. EXTREMITIES: Showed no edema. VASCULAR: Radial pulses are 2+. SKIN: Warm and dry. LABORATORY: Sodium 135, potassium 4.3, chloride 106, bicarbonate 21, BUN 14, creatinine is 0.87, troponin less than 0.01. BNP is 85. White blood cell count is 7.7, hemoglobin 12.8, hematocrit 38.8, platelets are 250. D-dimer is 0.27. Her EKG revealed normal sinus rhythm with an electronic atrial pacemaker. IMPRESSION: 1. Recurrent chest pain. 2. History of coronary bypass surgery. 3. Diabetes mellitus. 4. History of percutaneous transluminal coronary angioplasty and stent placed. 5. History of transient ischemic attack. 6. Dyslipidemia. 7. Obesity. 8. Anxiety. This patient presents with recurrent chest pain. She has had 10/10 severe chest pain with no EKG changes. Her cardiac enzymes reveal no evidence of myocardial infarction. It is unclear whether this is due to small vessel disease. From a cardiac standpoint. we will follow this patient with you through her hospitalization. BRI
[2018-06-16 16:10] VITALS: BP 100/58
--- NOTE | 2018-06-16 18:09 | EKG ---
Test Reason : CP Blood Pressure : / mmHG Vent. Rate : 065 BPM Atrial Rate : 065 BPM P-R Int : 000 ms QRS Dur : 078 ms QT Int : 398 ms P-R-T Axes : 000 017 054 degrees QTc Int : 413 ms Electronic atrial pacemaker Nonspecific ST abnormality Abnormal ECG Confirmed by NORMAN BLANCO D.O. ([id number]), website/blog editor JOSE ALBERTO NEVAREZ ([id number] on 06/16/2018 6:09:15 PM Referred By: Confirmed By:NORMAN BLANCO D.O.
--- NOTE | 2018-06-16 23:24 | DIS ---
DATE OF ADMISSION: 06/15/2018 DATE OF DISCHARGE: 06/16/2018 DISCHARGE DIAGNOSES: 1. Chest pain. 2. Likely musculoskeletal chest pain. CONDITION OF PATIENT ON THE DAY OF DISCHARGE: Stable. I assessed Ms. Neves as on the day of dischar . I assessed her earlier today as well as prior to discharge. Please refer to my daily progress n evans for further details regarding the earlier encounter. Currently, she denies any chest pain. She reports feeling well. Vital signs are stable. S1 and S2 are heard, regular. Lungs are clear to aus cultation bilaterally. CONSULTATION DURING THIS HOSPITALIZATION: Cardiology, Dr. Han. DISCHARGE MEDICATIONS: No change was made to her preadmission home medications as dictated by Dr. Higinio allen on discharge summary dated 06/03/2018. HOSPITAL COURSE: Ms. Neves is a pleasant 58-year-old lady who was admitted to [facility] on 06/15/2018 for chest pain. Please refer to my history and physical note dated for further details. She was seen by Cardiology Service. She had negative troponins as well as a negative D-dimer. She had on and off chest pain, most likely musculoskeletal. It is unclear whether her symptoms were due to small vessel disease or other etiologies such as muscu loskeletal pain. At the time of discharge, she is chest pain free. She will be discharged home once cleared by Cardiology Service. Many thanks for allowing me to participate in your patient's care. Please feel free to contact me wi th any questions or concerns. DISCHARGE DESTINATION: Home.
== END 2018-06-16 17:27 | disposition home or self-care (01) ==
LOC: ERS 20:17 → 2NO 06-15 00:17
PROVIDERS: ADMIT Internal Medicine; ATTEND Internal Medicine
DX: R07.9 Chest pain, unspecified (principal); I25.10 Atherosclerotic heart disease of native coronary artery without angina pectoris; E78.5 Hyperlipidemia, unspecified; I10 Essential (primary) hypertension; E11.9 Type 2 diabetes mellitus without complications; E66.9 Obesity, unspecified; Z86.73 Personal history of transient ischemic attack (TIA), and cerebral infarction without residual deficits; Z88.8 Allergy status to other drugs, medicaments and biological substances; Z95.5 Presence of coronary angioplasty implant and graft; Z95.1 Presence of aortocoronary bypass graft; M19.90 Unspecified osteoarthritis, unspecified site; Z79.82 Long term (current) use of aspirin; Z79.899 Other long term (current) drug therapy; Z79.84 Long term (current) use of oral hypoglycemic drugs
CPT/HCPCS: 71045; 71275; 80048; 80053; 80061; 82553; 83690; 83880; 84484 ×3; 85025 ×2; 85379; 93005; 94640; 94760; 96372; 96374; 96376; 99285; G0378 ×2; 36415; J1650; J2270; J3370; Q0177

== ENCOUNTER 2018-09-23 18:05 | Inpatient (IN) | payer MEDICARE, MEDICAID ==
[2018-09-23 18:40] LABS: #Basophils 0.1 thou/uL (0.0-0.2); #Eosinphils 0.2 thou/uL (0.0-0.7); #Lymphocytes 2.8 thou/uL (1.20-3.40); #Monocytes 0.9 thou/uL (0.11-0.59); #Neutrophils 3.7 thou/uL (1.40-6.50); %Basophils 0.7 % (0.0-1.0); %Eosinophils 3.1 % (0.0-10.0); %Lymphocytes 36.3 % (21.0-51.0); %Monocytes 11.9 % (0.0-10.0); Hemoglobin 13.4 g/dL (12.0-16.0); Mean Corpuscular HGB CONC 33.7 g/dL (32.0-36.0); Mean Corpuscular Hemoglobin 30.6 pg (27.0-31.0); Mean Corpuscular Volume 90.7 fL (78.0-98.0); Mean Platelet Volume 10.6 fL (7.4-10.4); Platelet Count 207 thou/uL (130-400); RBC Distribution Width 13.3 % (11.5-14.5); Red Blood Cell (RBC) Count 4.37 mill/uL (4.20-5.40); White Blood Cell (WBC) Count 7.6 thou/uL (4.8-10.8)
[2018-09-23 18:46] LABS: PTT 27.1 SEC (22.9-36.1); Prothrombin Time 12.3 SEC (12.0-14.7)
[2018-09-23 18:47] LABS: INR-International Normal Ratio 0.9
[2018-09-23 18:54] LABS: Acetaminophen Less than 6.0 mcg/mL (10.0-30.0); Alcohol Less than 10 mg/dL (Less than 10); Salicylate Less than 8.0 mg/dL (15.0-30.0)
[2018-09-23 18:55] LABS: ALT (SGPT) 17 U/L (8-55); AST (SGOT) 16 U/L (5-34); Albumin 4.5 g/dL (3.5-5.0); Alkaline Phosphatase 124 U/L (40-150); Anion Gap 18 mmol/L (10-20); BUN (Urea Nitrogen) 9 mg/dL (9.8-20.1); Bilirubin, Total 0.3 mg/dL (0.2-1.2); CK (CPK) 47 U/L (29-168); Calc. Creatinine Clearance 0 mL/min (70-130); Calcium 9.5 mg/dL (7.8-10.44); Carbon Dioxide 18 mmol/L (22-29); Chloride 109 mmol/L (98-107); Estimated GFR-MDRD 73; Globulin 3.2 g/dL (2.4-3.5); Glucose 88 mg/dL (70-105); Lipase 140 U/L (8-78); Magnesium 2.3 mg/dL (1.6-2.6); Potassium 4.4 mmol/L (3.5-5.1); Protein, Total 7.7 g/dL (6.0-8.3); Sodium 141 mmol/L (136-145)
[2018-09-23] MEDS ORDERED: Morphine 4 MG/ML VIAL ONE (19:40)
--- NOTE | 2018-09-23 19:40 | CT ---
BRAIN CT WITHOUT IV CONTRAST: History: Stroke alert. Left sided upper and lower extremity weakness. Loss of sensation in left face. Comparison: 10-05-17 FINDINGS: No focal mass or midline shift. No intra or extraaxial hemorrhage. Right sided stable choroidal fissu re cyst. IMPRESSION: No mass or bleed or other acute process. Stable from 10-05-17. FINDINGS were discussed with Dr. Croft at 6:29 p.m. code CR. POS: AISHA
--- NOTE | 2018-09-23 20:09 | CT ---
CT ANGIOGRAM OF THE HEAD CT ANGIOGRAM OF THE NECK Date: 09-23-18 Comparison: None. History: Left sided upper and lower extremity weakness with loss of sensation to the face. Technique: Serial axial CT imaging obtained at 5 mm intervals from the vertex to the lung apices with IV contrast using a CT angiogram protocol. Coronal and sagittal 3D reformatted imaging obtained. FINDINGS: Incompletely imaged transvenous pacing device noted. Midline sternotomy wires are present. Focal area of extrapleural fat noted in left lung apex. Imaged lung apices demonstrate no acute findi ngs. The retroantral and parapharyngeal fat is clear bilaterally. The parotid and submandibular glands appear within normal limits. The tonsillar pillars, epiglottis, preepiglottic fat, hyoid bone, thyroid cartilage, cricoid cartilag e, and thyroid gland appear unremarkable. The origin of the innominate artery, left common carotid artery, and left subclavian artery are gross ly unremarkable. There is mild plaque at the origin of the great vessels. Left common carotid artery is tortuous proximally. There is prominent tortuosity of the right common carotid artery proximally limiting assessment. This tortuosity limits detailed assessment for hemodynamically significant stenosis of the right common c arotid artery proximally. The right common carotid artery demonstrates a retropharyngeal course. Motion artifact limits assessm ent of the distal right CCA and proximal right ICA. There is atherosclerotic calcification at the izabella gin of the right internal carotid artery with a mild degree of stenosis at the origin of the right in ternal carotid artery suspected, limited in assessment secondary to motion. The right internal caroti d artery demonstrates a retropharyngeal course. The right internal carotid artery is markedly tortuou s. The left common carotid and left internal carotid artery are markedly tortuous as well. No hemodynami dale significant stenosis on the basis of NASCET criteria is evident within the left internal or com mon carotid artery. Bilateral vertebral arteries are patent. The basilar artery is patent. Branches of the basilar artery appear unremarkable. No high grade steno sis, vascular occlusion or sacular aneurysm is evident involving the posterior circulation. The internal carotid arteries terminate normally with patency of the A1 and M1 segment noted bilatera lly. Region of the anterior communicating artery and distal THEA branches appear intact. The MCA bifurcation appears grossly unremarkable bilaterally. Distal MCA branches appear grossly unremarkable. Incidental note is made of a benign choroidal fissure cyst on the right. A review of the osseous structures demonstrates multilevel degenerative change within the cervical sp ine which includes multilevel bilateral facet and uncal vertebral osteophyte formation. No worrisome lytic or blastic bone lesion. IMPRESSION: 1. Intracranial arteries structures demonstrate no evidence for occlusion or severe stenosis. 2. On the basis of NASCET criteria, there is no hemodynamically significant stenosis involving the co mmon or internal carotid artery on either side. Results call to Dr. Croft at 6:53 p.m. 09-23-18. Code CR. POS: SHONDA
--- NOTE | 2018-09-23 20:16 | RAD ---
PORTABLE UPRIGHT FRONTAL CHEST RADIOGRAPH: Date: 09-23-18 Comparison: 06-14-18 History: Stroke patient. Upper extremity weakness. FINDINGS: Stable transvenous pacing device, midline sternotomy wires, and mediastinal clips. Stable mild inters titial prominence with no pneumothorax, pleural fluid, focal consolidation or alveolar edema. IMPRESSION: No acute findings - stable appearance to the chest. POS: SHONDA
[2018-09-23 22:34] LABS: Troponin I Less than 0.010 ng/mL (< 0.028)
[2018-09-24] MEDS ORDERED: Ketorolac Tromethamine 30 MG/ML VIAL ONE (00:28)
[2018-09-24] MEDS: Ketorolac Tromethamine 30 MG/ML VIAL IVP PRN ×4 (00:30→21:04)
[2018-09-24 02:01] VITALS: BMI 41.1
[2018-09-24 03:04] LABS: Troponin I Less than 0.010 ng/mL (< 0.028)
[2018-09-24] MEDS ORDERED: Acetaminophen 325 MG TAB PO PRN (04:41)
[2018-09-24] MEDS ORDERED: Senokot S 8.6-50 MG TAB PO PRN (04:41)
[2018-09-24] MEDS ORDERED: Calcium Carbonate 500 MG ChewTAB PO PRN (04:41)
[2018-09-24] MEDS ORDERED: Bisacodyl 5 MG TAB PO PRN (04:41)
[2018-09-24] MEDS ORDERED: Bisacodyl 10 MG SUPP PR PRN (04:41)
[2018-09-24] MEDS: Sodium Chloride 0.9% 1,000 ML IV SCH ×2 (05:36→17:50)
[2018-09-24] MEDS: Mometasone/Formoterol 120 PUFF INHALER INH SCH ×2 (07:19→19:01)
[2018-09-24] MEDS ORDERED: busPIRone HCl 5 MG TAB PO SCH (09:00)
[2018-09-24] MEDS: Enoxaparin Sodium 40 MG/0.4 ML SYRINGE SC SCH (09:20)
[2018-09-24] MEDS: Famotidine/PF 20 mg/2ml Vial SLOW IVP SCH ×2 (09:20→21:08)
[2018-09-24] MEDS: TICAGRELOR 90 MG TABLET PO SCH ×2 (09:21→21:05)
[2018-09-24] MEDS: NIFEdipine XL 30 MG TAB PO SCH (09:21)
[2018-09-24] MEDS: Famotidine 20 MG TAB PO SCH ×2 (09:22→21:07)
[2018-09-24] MEDS: Furosemide 20 MG TAB PO SCH ×2 (09:22→21:05)
[2018-09-24] MEDS: Bupropion 100 MG SR TAB PO SCH (09:22)
[2018-09-24] MEDS: hydrOXYzine Pamoate 25 mg Capsule PO SCH ×3 (09:23→14:38)
[2018-09-24] MEDS: Gabapentin 300 MG CAP PO SCH ×2 (09:24→21:05)
[2018-09-24] MEDS: Metoprolol Tartrate 25 MG TAB PO SCH ×2 (09:24→21:06)
[2018-09-24] MEDS ORDERED: hydrOXYzine Pamoate 25 mg Capsule PO PRN (13:08)
--- NOTE | 2018-09-24 13:11 | PDOC.PN ---
- Subjective Encounter Start Date: 09/24/18 Encounter Start Time: 09:15 Subjective: still has weakness and cant lift her left UE, she moves minimally left LE -: no chest pain or sob or palp -: moves right extr freely, no trouble swallowing - Objective Resuscitation Status - Order Detail: 09/24/18 04:41 Resuscitation Status Routine Resuscitation Status: FULL: Full Resuscitation MAR Reviewed: Yes Vital Signs & Weight: Vital Signs (12 hours) Temp Pulse Resp BP Pulse Ox 09/24/18 11:55 97.6 F 56 L 18 106/59 L 94 L 09/24/18 09:21 61 09/24/18 08:00 95 09/24/18 07:27 97.8 F 61 20 128/57 L 95 09/24/18 07:19 60 14 98 09/24/18 02:03 97.7 F 60 18 125/59 L 96 Weight Weight 217 lb 11.2 oz I&O: 09/23/18 09/24/18 09/25/18 06:59 06:59 06:59 Intake Total 480 Balance 480 Result Diagrams: 09/23/18 18:30 09/23/18 18:30 Additional Labs: Accuchecks 09/24/18 09/24/18 10:37 04:39 POC Glucose 100 79 Phys Exam - Physical Examination HEENT: PERRLA, moist MMs Neck: no JVD, supple Respiratory: no wheezing, no rales Cardiovascular: RRR, no significant murmur Gastrointestinal: soft, non-tender, positive bowel sounds Musculoskeletal: no edema, pulses present left hemiparesis with strength of 2/5 in upper and 3/5 in lower Psychiatric: normal affect, A&O x 3 Dx/Plan (1) Acute CVA (cerebrovascular accident) Code(s): I63.9 - CEREBRAL INFARCTION, UNSPECIFIED Status: Acute Comment: left hemiparesis (2) Dyslipidemia Code(s): E78.5 - HYPERLIPIDEMIA, UNSPECIFIED Status: Chronic (3) Morbid obesity with BMI of 40.0-44.9, adult Code(s): E66.01 - MORBID (SEVERE) OBESITY DUE TO EXCESS CALORIES; Z68.41 - BODY MASS INDEX (BMI) 40.0-44.9, ADULT Status: Chronic (4) Anxiety Code(s): F41.9 - ANXIETY DISORDER, UNSPECIFIED Status: Chronic (5) CAD (coronary artery disease) Code(s): I25.10 - ATHSCL HEART DISEASE OF [place] CORONARY ARTERY W/O ANG PCTRS Status: Chronic Qualifiers: Coronary Disease-Associated Artery/Lesion type: bypass graft [place] vs. transplanted heart: [place] heart Associated angina: with stable angina Qualified Code(s): I25.708 - Atherosclerosis of coronary artery bypass graft(s) , unspecified, with other forms of angina pectoris Comment: cabg in 2011, has total of 4 stents, last one in 12/2017 (6) Chronic pain Code(s): G89.29 - OTHER CHRONIC PAIN Status: Chronic Qualifiers: Chronic pain type: chronic pain syndrome (7) DM type 2 (diabetes mellitus, type 2) Status: Chronic Qualifiers: Diabetes mellitus penitentiary insulin use: without termite control technician use Diabetes mellitus complication status: with neurologic complications Diabetes mellitus complication detail: with polyneuropathy Qualified Code(s): E11.42 - Type 2 diabetes mellitus with diabetic polyneuropathy (8) Depression Code(s): F32.9 - MAJOR DEPRESSIVE DISORDER, SINGLE EPISODE, UNSPECIFIED Status : Chronic Qualifiers: Depression Type: major depressive disorder Major depression episode severity: moderate (9) Hypertension Code(s): I10 - ESSENTIAL (PRIMARY) HYPERTENSION Status: Chronic Qualifiers: Comment: controlled (10) Osteoarthritis Code(s): M19.90 - UNSPECIFIED OSTEOARTHRITIS, UNSPECIFIED SITE Status: Chronic Qualifiers: Osteoarthritis location: unspecified site Osteoarthritis type: primary Qualified Code(s): M19.91 - Primary osteoarthritis, unspecified site Comment: stable - Plan is on asp, brillinta, lipitor high dose -: for MRI, echo and neurology consultation -: continue lopressor, procardia xl, lasix low dose, ranexa -: does not take buspirone, is on bupropion, amitryptiline and gabapentin -: will confirm her meds from [facility] on [facility]. * . Review of Systems - Medications/Allergies Allergies/Adverse Reactions: Allergies Allergy/AdvReac Type Severity Reaction Status Date / Time propranolol Allergy Hives Verified 09/24/18 02:13 Medications: Current Medications Acetaminophen (Tylenol) 650 mg PO Q4H PRN PRN Reason: Headache/Fever/Mild Pain (1-3) Amitriptyline HCl (Elavil) 10 mg PO HS RAMÓN Aspirin (Aspirin Chewable) 81 mg PO DAILY [facility] Last Admin: 09/24/18 09:22 Dose: 81 mg Atorvastatin Calcium (Lipitor) 80 mg PO HS [facility] Bisacodyl (Dulcolax) 10 mg PO DAILYPRN PRN PRN Reason: Constipation Bisacodyl (Dulcolax) 10 mg [place] DAILYPRN PRN PRN Reason: Constipation Bupropion HCl (Wellbutrin Sr) 300 mg PO DAILY [facility] Last Admin: 09/24/18 09:22 Dose: 300 mg Calcium Carbonate (Tums) 1,000 mg PO Q4H PRN PRN Reason: Heartburn or Indigestion Enoxaparin Sodium (Lovenox) 40 mg SC 0900 [facility] Last Admin: 09/24/18 09:20 Dose: 40 mg Famotidine (Pepcid) 20 mg SLOW IVP Q12HR [facility] Last Admin: 09/24/18 09:20 Dose: 20 mg Famotidine (Pepcid) 20 mg PO BID [facility] Last Admin: 09/24/18 09:22 Dose: 20 mg Furosemide (Lasix) 10 mg PO BID [facility] Last Admin: 09/24/18 09:22 Dose: 10 mg Gabapentin (Neurontin) 300 mg PO BID [facility] Last Admin: 09/24/18 09:24 Dose: 300 mg Hydroxyzine Pamoate (Vistaril) 25 mg PO QID PRN PRN Reason: itching Sodium Chloride (Normal Saline 0.9%) 1,000 mls @ 80 mls/hr IV .[id number] [facility] Last Admin: 09/24/18 05:36 Dose: 1,000 mls Isosorbide Mononitrate (Imdur Er) 30 mg PO DAILY [facility] Last Admin: 09/24/18 09:21 Dose: 30 mg Ketorolac Tromethamine (Toradol) 15 mg IVP Q6H PRN PRN Reason: Headache Stop: 09/25/18 00:09 Last Admin: 09/24/18 09:20 Dose: 15 mg Metoprolol Tartrate (Lopressor) 25 mg PO BID [facility] Last Admin: 09/24/18 09:24 Dose: 25 mg Mometasone Furoate/Formoterol Fumar (Dulera 200 Mcg/5 Mcg Inhaler) 2 puff INH BID-RT [facility] Last Admin: 09/24/18 07:19 Dose: 2 puff Nifedipine (Procardia Xl) 30 mg PO DAILY [facility] Last Admin: 09/24/18 09:21 Dose: 30 mg Nitroglycerin (Nitrostat) 0.4 mg SL Q5MIN PRN PRN Reason: Chest Pain Potassium Chloride (Slow-K 8 Meq) 8 meq PO HS RAMÓN Ranolazine (Ranexa) 1,000 mg PO BID [facility] Last Admin: 09/24/18 09:21 Dose: 1,000 mg Senna/Docusate Sodium (Senokot S) 2 tab PO BID PRN PRN Reason: Constipation Sodium Chloride (Flush - Normal Saline) 10 ml IVF Q12HR PRN PRN Reason: Saline Flush Sodium Chloride (Flush - Normal Saline) 10 ml IVF PRN PRN PRN Reason: Saline Flush Ticagrelor (Brilinta) 90 mg PO BID [facility] Last Admin: 09/24/18 09:21 Dose: 90 mg Trazodone HCl (Desyrel) 50 mg PO HS PRN PRN Reason: Insomnia
[2018-09-24] MEDS ORDERED: Amitriptyline HCl 10 MG TAB PO SCH (21:00)
[2018-09-24] MEDS: Atorvastatin Calcium 40 MG TAB PO SCH (21:06)
[2018-09-24] MEDS: Potassium Chloride 8 MEQ TAB PO SCH (21:07)
[2018-09-24] MEDS: traZODone HCl 50 MG TAB PO PRN (23:19)
--- NOTE | 2018-09-25 00:02 | CON ---
DATE OF CONSULTATION: 09/24/2018 TYPE OF CONSULTATION: Neurologic Followup. CONSULTING PHYSICIAN: Hospitalist Service. IMPRESSION: 1. Questionable new ischemic event with some inconsistent findings on exam to know whether there is malingering. 2. Hypertension. 3. Maximum medical therapy is already ongoing. PLAN: 1. The patient will be discharged for outpatient therapy. 2. Continue current medications. HISTORY OF PRESENT ILLNESS: Ms. Neves was readmitted with complaints of left upper more so than lower extremity weakness. Her CT and CT angiogram were both negative. She reports being compliant with the medication. Her laboratory studies were also negative. Her symptoms have not improved. She was able to walk with a christin walker with physical therapy's assistance. She has otherwise not had any problems swallowing or speaking. On exam, there does not appear to be significant facial droop or slurred speech. Her tone in the left upper extremity is completely flaccid, but there is some trace movements that occur in the fingers. She could take the left leg up against gravity. She had some inconsistent effort to resistance. No abnormal movements were seen. She had a paced rhythm. Her current medical therapy appears to be adequate. If she has suffered a small infarct that is not otherwise visible on PET scan, I think that she can go for outpatient therapy at this point. Job ID: [id number]
[2018-09-25] MEDS: Ketorolac Tromethamine 30 MG/ML VIAL IVP PRN ×2 (05:46→11:35)
[2018-09-25 06:08] LABS: #Basophils 0.1 thou/uL (0.0-0.2); #Eosinphils 0.3 thou/uL (0.0-0.7); #Lymphocytes 2.1 thou/uL (1.20-3.40); #Monocytes 0.7 thou/uL (0.11-0.59); #Neutrophils 2.9 thou/uL (1.40-6.50); %Basophils 1.1 % (0.0-1.0); %Eosinophils 4.5 % (0.0-10.0); %Lymphocytes 34.4 % (21.0-51.0); %Monocytes 11.4 % (0.0-10.0); %Neutrophils 48.6 % (42.0-75.0); Hemoglobin 11.1 g/dL (12.0-16.0); Mean Corpuscular HGB CONC 33.5 g/dL (32.0-36.0); Mean Corpuscular Hemoglobin 29.7 pg (27.0-31.0); Mean Corpuscular Volume 88.7 fL (78.0-98.0); Mean Platelet Volume 10.6 fL (7.4-10.4); Platelet Count 169 thou/uL (130-400); RBC Distribution Width 13.1 % (11.5-14.5); Red Blood Cell (RBC) Count 3.74 mill/uL (4.20-5.40)
[2018-09-25 06:31] LABS: Anion Gap 14 mmol/L (10-20); BUN (Urea Nitrogen) 13 mg/dL (9.8-20.1); Calc. Creatinine Clearance 112 mL/min (70-130); Calcium 8.7 mg/dL (7.8-10.44); Carbon Dioxide 20 mmol/L (22-29); Cardiac Risk 3.1 (Less than 4.5); Chloride 111 mmol/L (98-107); Cholesterol 115 mg/dl (< 200 Desired); Estimated GFR-MDRD 69; Glucose 97 mg/dL (70-105); HDL Cholesterol 37 mg/dL (>60 Neg Risk); LDL Cholesterol, Calculated 58 mg/dL; Potassium 3.8 mmol/L (3.5-5.1); Sodium 141 mmol/L (136-145); Triglycerides 101 mg/dL (Less than 150)
[2018-09-25] MEDS: Mometasone/Formoterol 120 PUFF INHALER INH SCH ×2 (07:50→20:18)
[2018-09-25] MEDS: TICAGRELOR 90 MG TABLET PO SCH ×2 (10:02→20:53)
[2018-09-25] MEDS: Gabapentin 300 MG CAP PO SCH ×2 (10:02→20:52)
[2018-09-25] MEDS: Furosemide 20 MG TAB PO SCH (10:02)
[2018-09-25] MEDS: NIFEdipine XL 30 MG TAB PO SCH (10:03)
[2018-09-25] MEDS: Famotidine 20 MG TAB PO SCH (10:03)
[2018-09-25] MEDS: Bupropion 100 MG SR TAB PO SCH (10:04)
[2018-09-25] MEDS: Enoxaparin Sodium 40 MG/0.4 ML SYRINGE SC SCH (10:04)
[2018-09-25] MEDS: Famotidine/PF 20 mg/2ml Vial SLOW IVP SCH (10:05)
[2018-09-25] MEDS: Metoprolol Tartrate 25 MG TAB PO SCH ×2 (10:05→20:52)
[2018-09-25] MEDS ORDERED: Sodium Chloride 0.9% 1,000 ML IV SCH (10:30)
--- NOTE | 2018-09-25 10:49 | PDOC.PN ---
- Subjective Encounter Start Date: 09/25/18 Encounter Start Time: 09:15 Subjective: c/o headache -: still has difficulty moving her left upper extre -: no sob or chest pain - Objective Resuscitation Status - Order Detail: 09/24/18 04:41 Resuscitation Status Routine Resuscitation Status: FULL: Full Resuscitation MAR Reviewed: Yes Vital Signs & Weight: Vital Signs (12 hours) Temp Pulse Resp BP BP Pulse Ox 09/25/18 10:03 60 104/53 L 09/25/18 07:54 97.4 F L 60 16 102/50 L 95 09/25/18 07:50 60 14 96 09/25/18 04:10 101/50 L 09/25/18 04:03 98.3 F 62 15 90/53 L 93 L 09/25/18 00:00 97.4 F L 60 20 114/56 L 94 L Weight Weight 217 lb 11.2 oz I&O: 09/24/18 09/25/18 09/26/18 06:59 06:59 06:59 Intake Total 2646 Output Total 525 Balance 2121 Result Diagrams: 09/25/18 05:19 09/25/18 05:19 Additional Labs: Accuchecks 09/25/18 09/24/18 09/24/18 05:46 20:52 16:48 POC Glucose 102 115 H 94 09/24/18 10:37 POC Glucose 100 Phys Exam - Physical Examination HEENT: PERRLA, moist MMs Neck: no JVD, supple Respiratory: no wheezing, no rales Cardiovascular: RRR, no significant murmur Gastrointestinal: soft, non-tender, positive bowel sounds Musculoskeletal: no edema, pulses present Neurological: moves all 4 limbs left hemiparesis, upper more than lower Psychiatric: A&O x 3 Dx/Plan (1) Acute CVA (cerebrovascular accident) Code(s): I63.9 - CEREBRAL INFARCTION, UNSPECIFIED Status: Acute Comment: left hemiparesis (2) Dyslipidemia Code(s): E78.5 - HYPERLIPIDEMIA, UNSPECIFIED Status: Chronic (3) Morbid obesity with BMI of 40.0-44.9, adult Code(s): E66.01 - MORBID (SEVERE) OBESITY DUE TO EXCESS CALORIES; Z68.41 - BODY MASS INDEX (BMI) 40.0-44.9, ADULT Status: Chronic (4) Anxiety Code(s): F41.9 - ANXIETY DISORDER, UNSPECIFIED Status: Chronic (5) CAD (coronary artery disease) Code(s): I25.10 - ATHSCL HEART DISEASE OF [place] CORONARY ARTERY W/O ANG PCTRS Status: Chronic Qualifiers: Coronary Disease-Associated Artery/Lesion type: bypass graft [place] vs. transplanted heart: [place] heart Associated angina: with stable angina Qualified Code(s): I25.708 - Atherosclerosis of coronary artery bypass graft(s) , unspecified, with other forms of angina pectoris Comment: cabg in 2011, has total of 4 stents, last one in 12/2017 (6) Chronic pain Code(s): G89.29 - OTHER CHRONIC PAIN Status: Chronic Qualifiers: Chronic pain type: chronic pain syndrome (7) DM type 2 (diabetes mellitus, type 2) Status: Chronic Qualifiers: Diabetes mellitus termination clerk insulin use: without mcc use Diabetes mellitus complication status: with neurologic complications Diabetes mellitus complication detail: with polyneuropathy Qualified Code(s): E11.42 - Type 2 diabetes mellitus with diabetic polyneuropathy (8) Depression Code(s): F32.9 - MAJOR DEPRESSIVE DISORDER, SINGLE EPISODE, UNSPECIFIED Status : Chronic Qualifiers: Depression Type: major depressive disorder Major depression episode severity: moderate (9) Hypertension Code(s): I10 - ESSENTIAL (PRIMARY) HYPERTENSION Status: Chronic Qualifiers: Comment: controlled (10) Osteoarthritis Code(s): M19.90 - UNSPECIFIED OSTEOARTHRITIS, UNSPECIFIED SITE Status: Chronic Qualifiers: Osteoarthritis location: unspecified site Osteoarthritis type: primary Qualified Code(s): M19.91 - Primary osteoarthritis, unspecified site Comment: stable - Plan is on toradol for pain, will add motrin as she is requesting more meds -: PT/OT to amb in hallway as tolerated, is eating without trouble -: continue asp, lipitor, brilinta, toprol and ranexa -: she lives at [facility] and has caregivers 4 hrs/day -: she prefers to go back in am with additional HH and PT * . Review of Systems - Medications/Allergies Allergies/Adverse Reactions: Allergies Allergy/AdvReac Type Severity Reaction Status Date / Time propranolol Allergy Hives Verified 09/24/18 02:13 Medications: Current Medications Acetaminophen (Tylenol) 650 mg PO Q4H PRN PRN Reason: Headache/Fever/Mild Pain (1-3) Amitriptyline HCl (Elavil) 10 mg PO HS [facility] Last Admin: 09/24/18 21:05 Dose: 10 mg Aspirin (Aspirin Chewable) 81 mg PO DAILY [facility] Last Admin: 09/25/18 10:04 Dose: 81 mg Atorvastatin Calcium (Lipitor) 80 mg PO HS [facility] Last Admin: 09/24/18 21:06 Dose: 80 mg Bisacodyl (Dulcolax) 10 mg PO DAILYPRN PRN PRN Reason: Constipation Bisacodyl (Dulcolax) 10 mg [place] DAILYPRN PRN PRN Reason: Constipation Bupropion HCl (Wellbutrin Sr) 300 mg PO DAILY [facility] Last Admin: 09/25/18 10:04 Dose: 300 mg Calcium Carbonate (Tums) 1,000 mg PO Q4H PRN PRN Reason: Heartburn or Indigestion Enoxaparin Sodium (Lovenox) 40 mg SC 0900 [facility] Last Admin: 09/25/18 10:04 Dose: 40 mg Famotidine (Pepcid) 20 mg SLOW IVP Q12HR [facility] Last Admin: 09/25/18 10:05 Dose: Not Given Famotidine (Pepcid) 20 mg PO BID [facility] Last Admin: 09/25/18 10:03 Dose: 20 mg Furosemide (Lasix) 10 mg PO BID [facility] Last Admin: 09/25/18 10:02 Dose: 10 mg Gabapentin (Neurontin) 300 mg PO BID [facility] Last Admin: 09/25/18 10:02 Dose: 300 mg Hydroxyzine Pamoate (Vistaril) 25 mg PO QID PRN PRN Reason: itching Last Admin: 09/24/18 13:58 Dose: 25 mg Sodium Chloride (Normal Saline 0.9%) 1,000 mls @ 100 mls/hr IV .Q10H [facility] Stop: 09/25/18 20:29 Ibuprofen (Motrin) 400 mg PO TID [facility] Isosorbide Mononitrate (Imdur Er) 30 mg PO DAILY [facility] Last Admin: 09/25/18 10:04 Dose: 30 mg Ketorolac Tromethamine (Toradol) 15 mg IVP Q6H PRN PRN Reason: Headache Stop: 09/29/18 17:43 Last Admin: 09/25/18 05:46 Dose: 15 mg Metoprolol Tartrate (Lopressor) 25 mg PO BID [facility] Last Admin: 09/25/18 10:05 Dose: 25 mg Mometasone Furoate/Formoterol Fumar (Dulera 200 Mcg/5 Mcg Inhaler) 2 puff INH BID-RT [facility] Last Admin: 09/25/18 07:50 Dose: 2 puff Nifedipine (Procardia Xl) 30 mg PO DAILY [facility] Last Admin: 09/25/18 10:03 Dose: 30 mg Nitroglycerin (Nitrostat) 0.4 mg SL Q5MIN PRN PRN Reason: Chest Pain Potassium Chloride (Slow-K 8 Meq) 8 meq PO HS [facility] Last Admin: 09/24/18 21:07 Dose: 8 meq Ranolazine (Ranexa) 1,000 mg PO BID [facility] Last Admin: 09/25/18 10:05 Dose: 1,000 mg Senna/Docusate Sodium (Senokot S) 2 tab PO BID PRN PRN Reason: Constipation Sodium Chloride (Flush - Normal Saline) 10 ml IVF Q12HR PRN PRN Reason: Saline Flush Last Admin: 09/24/18 21:04 Dose: 10 ml Sodium Chloride (Flush - Normal Saline) 10 ml IVF PRN PRN PRN Reason: Saline Flush Last Admin: 09/25/18 05:47 Dose: 10 ml Ticagrelor (Brilinta) 90 mg PO BID [facility] Last Admin: 09/25/18 10:02 Dose: 90 mg Trazodone HCl (Desyrel) 50 mg PO HS PRN PRN Reason: Insomnia Last Admin: 09/24/18 23:19 Dose: 50 mg
[2018-09-25] MEDS: Ibuprofen 200 MG TAB PO SCH ×2 (14:33→20:52)
[2018-09-25] MEDS: Nitroglycerin 0.4 MG TAB (25 Tab Bottle) SL PRN ×3 (14:40→15:44)
[2018-09-25] MEDS: Potassium Chloride 8 MEQ TAB PO SCH (20:52)
[2018-09-25] MEDS: Atorvastatin Calcium 40 MG TAB PO SCH (20:52)
[2018-09-25] MEDS: traZODone HCl 50 MG TAB PO PRN (20:56)
[2018-09-25] MEDS ORDERED: traMADol HCl 50 MG TAB PO SCH (22:45)
[2018-09-26] MEDS: Mometasone/Formoterol 120 PUFF INHALER INH SCH (06:28)
[2018-09-26] MEDS: Enoxaparin Sodium 40 MG/0.4 ML SYRINGE SC SCH (08:53)
[2018-09-26] MEDS: Gabapentin 300 MG CAP PO SCH (08:53)
[2018-09-26] MEDS: Ibuprofen 200 MG TAB PO SCH (08:53)
[2018-09-26] MEDS: Metoprolol Tartrate 25 MG TAB PO SCH (08:54)
[2018-09-26] MEDS: Famotidine 20 MG TAB PO SCH (08:54)
[2018-09-26] MEDS: Bupropion 100 MG SR TAB PO SCH (08:59)
[2018-09-26] MEDS: TICAGRELOR 90 MG TABLET PO SCH (08:59)
--- NOTE | 2018-09-26 11:37 | PDOC.PN ---
- Subjective Encounter Start Date: 09/26/18 Encounter Start Time: 08:00 Subjective: feels better, no headache -: no new complaints, wants to go home - Objective Resuscitation Status - Order Detail: 09/24/18 04:41 Resuscitation Status Routine Resuscitation Status: FULL: Full Resuscitation MAR Reviewed: Yes Vital Signs & Weight: Vital Signs (12 hours) Temp Pulse Resp BP Pulse Ox 09/26/18 08:00 93 L 09/26/18 07:40 97.7 F 60 16 100/49 L 93 L 09/26/18 06:28 59 L 16 93 L 09/26/18 04:02 98.2 F 59 L 20 115/48 L 95 09/26/18 00:05 98.2 F 59 L 18 89/51 L 92 L Weight Weight 217 lb 14.4 oz I&O: 09/25/18 09/26/18 09/27/18 06:59 06:59 06:59 Intake Total 2646 1231 Output Total 525 1050 Balance 2121 181 Result Diagrams: 09/25/18 05:19 09/25/18 05:19 Additional Labs: Accuchecks 09/26/18 09/25/18 09/25/18 05:46 20:33 16:48 POC Glucose 101 114 H 113 H Phys Exam - Physical Examination HEENT: PERRLA, moist MMs Neck: no JVD, supple Respiratory: no wheezing, no rales Cardiovascular: RRR, no significant murmur Gastrointestinal: soft, non-tender, positive bowel sounds Musculoskeletal: no edema, pulses present doesn't move her left extr much Psychiatric: normal affect, A&O x 3 Dx/Plan (1) Acute CVA (cerebrovascular accident) Code(s): I63.9 - CEREBRAL INFARCTION, UNSPECIFIED Status: Acute Comment: left hemiparesis (2) Dyslipidemia Code(s): E78.5 - HYPERLIPIDEMIA, UNSPECIFIED Status: Chronic (3) Morbid obesity with BMI of 40.0-44.9, adult Code(s): E66.01 - MORBID (SEVERE) OBESITY DUE TO EXCESS CALORIES; Z68.41 - BODY MASS INDEX (BMI) 40.0-44.9, ADULT Status: Chronic (4) Anxiety Code(s): F41.9 - ANXIETY DISORDER, UNSPECIFIED Status: Chronic (5) CAD (coronary artery disease) Code(s): I25.10 - ATHSCL HEART DISEASE OF [place] CORONARY ARTERY W/O ANG PCTRS Status: Chronic Qualifiers: Coronary Disease-Associated Artery/Lesion type: bypass graft [place] vs. transplanted heart: [place] heart Associated angina: with stable angina Qualified Code(s): I25.708 - Atherosclerosis of coronary artery bypass graft(s) , unspecified, with other forms of angina pectoris Comment: cabg in 2011, has total of 4 stents, last one in 12/2017 (6) Chronic pain Code(s): G89.29 - OTHER CHRONIC PAIN Status: Chronic Qualifiers: Chronic pain type: chronic pain syndrome (7) DM type 2 (diabetes mellitus, type 2) Status: Chronic Qualifiers: Diabetes mellitus jail insulin use: without jail use Diabetes mellitus complication status: with neurologic complications Diabetes mellitus complication detail: with polyneuropathy Qualified Code(s): E11.42 - Type 2 diabetes mellitus with diabetic polyneuropathy (8) Depression Code(s): F32.9 - MAJOR DEPRESSIVE DISORDER, SINGLE EPISODE, UNSPECIFIED Status : Chronic Qualifiers: Depression Type: major depressive disorder Major depression episode severity: moderate (9) Hypertension Code(s): I10 - ESSENTIAL (PRIMARY) HYPERTENSION Status: Chronic Qualifiers: Comment: controlled (10) Osteoarthritis Code(s): M19.90 - UNSPECIFIED OSTEOARTHRITIS, UNSPECIFIED SITE Status: Chronic Qualifiers: Osteoarthritis location: unspecified site Osteoarthritis type: primary Qualified Code(s): M19.91 - Primary osteoarthritis, unspecified site Comment: stable - Plan hemo/neurostable -: dc pt to [facility] living with HH * . Review of Systems - Medications/Allergies Allergies/Adverse Reactions: Allergies Allergy/AdvReac Type Severity Reaction Status Date / Time propranolol Allergy Hives Verified 09/24/18 02:13 Medications: Current Medications Acetaminophen (Tylenol) 650 mg PO Q4H PRN PRN Reason: Headache/Fever/Mild Pain (1-3) Last Admin: 09/25/18 20:56 Dose: 650 mg Aspirin (Aspirin Chewable) 81 mg PO DAILY [facility] Last Admin: 09/26/18 08:53 Dose: 81 mg Atorvastatin Calcium (Lipitor) 80 mg PO HS [facility] Last Admin: 09/25/18 20:52 Dose: 80 mg Bisacodyl (Dulcolax) 10 mg PO DAILYPRN PRN PRN Reason: Constipation Bisacodyl (Dulcolax) [address] DAILYPRN PRN PRN Reason: Constipation Bupropion HCl (Wellbutrin Sr) 300 mg PO DAILY [facility] Last Admin: 09/26/18 08:59 Dose: 300 mg Calcium Carbonate (Tums) 1,000 mg PO Q4H PRN PRN Reason: Heartburn or Indigestion Enoxaparin Sodium (Lovenox) 40 mg SC 0900 [facility] Last Admin: 09/26/18 08:53 Dose: 40 mg Famotidine (Pepcid) 20 mg PO BID [facility] Last Admin: 09/26/18 08:54 Dose: 20 mg Gabapentin (Neurontin) 300 mg PO BID [facility] Last Admin: 09/26/18 08:53 Dose: 300 mg Ibuprofen (Motrin) 400 mg PO TID [facility] Last Admin: 09/26/18 08:53 Dose: 400 mg Isosorbide Mononitrate (Imdur Er) 30 mg PO DAILY [facility] Last Admin: 09/26/18 08:53 Dose: 30 mg Metoprolol Tartrate (Lopressor) 25 mg PO BID [facility] Last Admin: 09/26/18 08:54 Dose: 25 mg Mometasone Furoate/Formoterol Fumar (Dulera 200 Mcg/5 Mcg Inhaler) 2 puff INH BID-RT [facility] Last Admin: 09/26/18 06:28 Dose: 2 puff Nitroglycerin (Nitrostat) 0.4 mg SL Q5MIN PRN PRN Reason: Chest Pain Last Admin: 09/25/18 15:44 Dose: 0.4 mg Potassium Chloride (Slow-K 8 Meq) 8 meq PO HS [facility] Last Admin: 09/25/18 20:52 Dose: 8 meq Ranolazine (Ranexa) 1,000 mg PO BID [facility] Last Admin: 09/26/18 08:54 Dose: 1,000 mg Senna/Docusate Sodium (Senokot S) 2 tab PO BID PRN PRN Reason: Constipation Sodium Chloride (Flush - Normal Saline) 10 ml IVF Q12HR PRN PRN Reason: Saline Flush Last Admin: 09/24/18 21:04 Dose: 10 ml Sodium Chloride (Flush - Normal Saline) 10 ml IVF PRN PRN PRN Reason: Saline Flush Last Admin: 09/25/18 05:47 Dose: 10 ml Ticagrelor (Brilinta) 90 mg PO BID RAMÓN Last Admin: 09/26/18 08:59 Dose: 90 mg Trazodone HCl (Desyrel) 50 mg PO HS PRN PRN Reason: Insomnia Last Admin: 09/25/18 20:56 Dose: 50 mg
[2018-09-26 12:07] VITALS: BP 126/60; TEMP 97.1
--- NOTE | 2018-09-26 15:59 | DIS ---
DATE OF ADMISSION: 09/23/2018 DATE OF DISCHARGE: 09/26/2018 DISCHARGE DISPOSITION: [facility]. PRIMARY DISCHARGE DIAGNOSIS: Acute cerebrovascular accident with left hemiparesis, resolving. SECONDARY DISCHARGE DIAGNOSES: Hypertension, coronary artery disease, chronic pain syndrome, diabetes mellitus type 2 with peripheral neuropathy, depression, hypertension, osteoarthritis, dyslipidemia, morbid obesity, anxiety disorder. PROCEDURES DONE DURING HOSPITALIZATION: The patient had CT angio of the neck and brain done on the day of admission, which showed no evidence of occlusion or severe stenosis. No hemodynamically significant stenosis based on NASCET criteria were seen in the common or internal carotid artery on either side. CT brain done showed no mass or bleed or acute process seen. Echo with 2D Doppler showed EF of 50% to 55%, [id number] aortic stenosis. H and H 11 and 33, platelet count 169. Troponin x3 negative. BUN 13, creatinine 0.8. LDL was 58, total cholesterol 115, triglycerides 101, HDL 37, TSH 1.29. DISCHARGE MEDICATION: 1. Aspirin 81 mg p.o. daily. 2. Alendronate 70 mg p.o. once weekly. 3. Symbicort inhaler two puffs twice daily. 4. Bupropion sustained release 300 mg p.o. daily. 5. Lasix 10 mg twice daily. 6. Gabapentin 300 mg p.o. twice daily. 7. Imdur 30 mg p.o. daily. 8. Metformin 500 mg p.o. daily. 9. Metoprolol 25 mg twice daily. 10. Nitroglycerin patch daily transdermal. 11. Protonix 40 mg daily. 12. Potassium chloride 8 mEq p.o. at bedtime. 13. Brilinta 90 mg p.o. twice daily. 14. Trazodone 50 mg p.o. at bedtime p.r.n. for insomnia. 15. Lipitor 80 mg p.o. at bedtime. 16. Ranexa 1000 mg p.o. twice daily. ALLERGIES: PROPRANOLOL. DISCHARGE PLAN: The patient to follow up with primary care physician in one week. INPATIENT CONSULTATION: Dr. Stuart from Neurology. BRIEF COURSE DURING HOSPITALIZATION: The patient initially came to ER with complaints of left-sided weakness. She also complained of numbness on the left half of her face and left upper extremity numbness. In view of this history and prior history of CVA, the patient was admitted to stroke unit. She has had complete stroke workup done. The patient has underlying pacemaker, which is not MRI compatible. In view of this, she had CT angio of the brain and CT without contrast of the brain done, both did not reveal any acute infarct. The patient has had two prior strokes and she has not had any residual paralysis. All of her strokes were on her left side. She continued to have difficulties with moving her left upper more than left lower extremity. She was evaluated by Dr. Stuart for Neurology. The patient has ambulated 50 feet with a rolling walker. She would like to go back to her assisted living facility with home health and physical therapy. This has been arranged. The patient also has caregivers who come and check on her 4 hours daily Monday to Monday. In view of this, she is being discharged back to her assisted living facility. She is otherwise neurologically and hemodynamically stable with no further deterioration during her stay here. Please see a [id number] documentation for the day of discharge on [facility]. Job ID: [id number]
--- NOTE | 2018-09-28 20:42 | EKG ---
Test Reason : Blood Pressure : / mmHG Vent. Rate : 059 BPM Atrial Rate : 059 BPM P-R Int : 176 ms QRS Dur : 088 ms QT Int : 440 ms P-R-T Axes : 036 020 057 degrees QTc Int : 435 ms Sinus bradycardia Otherwise normal ECG Confirmed by Edilia MA ([id number]) on 09/28/2018 8:42:12 PM Referred By: ELLIE Confirmed By:Edilia MA
--- NOTE | 2018-09-29 13:05 | EKG ---
Test Reason : [id number] Blood Pressure : / mmHG Vent. Rate : 060 BPM Atrial Rate : 060 BPM P-R Int : 168 ms QRS Dur : 086 ms QT Int : 446 ms P-R-T Axes : 044 029 061 degrees QTc Int : 446 ms Normal sinus rhythm Normal ECG Confirmed by DANNY RUCKER ([id number]), desk editor SANDHYA LOZANO ([id number]) on 09/29/2018 1:04:58 PM Referred By: Confirmed By:DANNY RUCKER
== END 2018-09-26 12:16 | disposition home health service (06) | DRG 65 ==
LOC: ERS 18:05 → ERHOLD 20:24 → 2SW 09-24 01:55
PROVIDERS: ADMIT Family Medicine; ATTEND Family Medicine
DX: I63.9 Cerebral infarction, unspecified (principal); Z68.41 Body mass index [BMI] 40.0-44.9, adult; G81.94 Hemiplegia, unspecified affecting left nondominant side; G25.81 Restless legs syndrome; I25.10 Atherosclerotic heart disease of native coronary artery without angina pectoris; I25.2 Old myocardial infarction; E78.5 Hyperlipidemia, unspecified; I10 Essential (primary) hypertension; F41.9 Anxiety disorder, unspecified; F32.9 Major depressive disorder, single episode, unspecified; G47.00 Insomnia, unspecified; R20.0 Anesthesia of skin; G89.4 Chronic pain syndrome; E66.01 Morbid (severe) obesity due to excess calories; E11.42 Type 2 diabetes mellitus with diabetic polyneuropathy; M19.90 Unspecified osteoarthritis, unspecified site; Z95.1 Presence of aortocoronary bypass graft; Z95.0 Presence of cardiac pacemaker; Z87.891 Personal history of nicotine dependence; Z90.49 Acquired absence of other specified parts of digestive tract; Z88.8 Allergy status to other drugs, medicaments and biological substances
CPT/HCPCS: 36415; 36416; 70450; 70496; 70498; 71045; 80048; 80053; 80061; 80307; 82550; 83690; 83735; 84443; 84484; 85025; 85610; 85730; 93005; 93010; 93306; 94760; 96374; J1650; J1885; J2270; J2997; Q0177; S0028

== ENCOUNTER 2018-12-14 13:35 | Observation (INO) | payer MEDICARE, MEDICAID ==
[2018-12-14] MEDS ORDERED: Aspirin Chewable 81 MG TAB ONE (14:10)
[2018-12-14] MEDS ORDERED: Nitroglycerin 2% Ointment 1 INCH/1 GM Packet ONE (14:10)
[2018-12-14 14:13] LABS: #Basophils 0.1 thou/uL (0.0-0.2); #Eosinphils 0.3 thou/uL (0.0-0.7); #Lymphocytes 2.3 thou/uL (1.20-3.40); #Monocytes 0.7 thou/uL (0.11-0.59); #Neutrophils 3.4 thou/uL (1.40-6.50); %Basophils 1.5 % (0.0-1.0); %Eosinophils 4.2 % (0.0-10.0); %Lymphocytes 33.8 % (21.0-51.0); %Monocytes 9.7 % (0.0-10.0); %Neutrophils 50.7 % (42.0-75.0); Hemoglobin 12.5 g/dL (12.0-16.0); Mean Corpuscular HGB CONC 32.2 g/dL (32.0-36.0); Mean Corpuscular Hemoglobin 28.3 pg (27.0-31.0); Mean Corpuscular Volume 87.9 fL (78.0-98.0); Mean Platelet Volume 10.8 fL (7.4-10.4); Platelet Count 194 thou/uL (130-400); Red Blood Cell (RBC) Count 4.43 mill/uL (4.20-5.40); White Blood Cell (WBC) Count 6.7 thou/uL (4.8-10.8)
[2018-12-14 14:28] LABS: ALT (SGPT) 20 U/L (8-55); AST (SGOT) 14 U/L (5-34); Albumin 3.9 g/dL (3.5-5.0); Alkaline Phosphatase 105 U/L (40-150); Anion Gap 14 mmol/L (10-20); BUN (Urea Nitrogen) 17 mg/dL (9.8-20.1); Bilirubin, Total 0.4 mg/dL (0.2-1.2); Calc. Creatinine Clearance 0 mL/min (70-130); Calcium 9.4 mg/dL (7.8-10.44); Carbon Dioxide 20 mmol/L (22-29); Chloride 110 mmol/L (98-107); Estimated GFR-MDRD 72; Globulin 2.9 g/dL (2.4-3.5); Glucose 108 mg/dL (70-105); Lipase 59 U/L (8-78); Potassium 4.1 mmol/L (3.5-5.1); Protein, Total 6.8 g/dL (6.0-8.3); Sodium 140 mmol/L (136-145)
--- NOTE | 2018-12-14 14:47 | RAD ---
FXR Chest 1 View Portable History:Chest pain Comparison: 09/23/2018 study Findings: Heart size appears slightly enlarged. A pacemaker is present. Postop sternotomy changes are noted. No infiltrative process or signs of failure. Impression: Stable exam
[2018-12-14] MEDS ORDERED: Lorazepam 2 MG/ML VIAL ONE (15:08)
--- NOTE | 2018-12-14 16:14 | CT ---
FExam: CT angiogram of the chest HISTORY: Chest pain COMPARISON: 05/31/2018; aorta dissection protocol 06/14/2018 TECHNIQUE: CT angiogram of the chest is performed in the axial plane. Three-dimensional reformatted i mages are submitted for interpretation FINDINGS: Mediastinum: No mass, lymphadenopathy or hematoma. HEART: Normal size. No significant pericardial fluid. Aorta: No aneurysm or dissection Upper solid abdominal viscera: Stable nodularity involving the left and right adrenal gland. Otherwis e, visualized solid organs are unremarkable. Gallbladder is surgically absent Trachea and central bronchi: Patent Pleural spaces: No effusion Lung parenchyma: Dependent atelectatic changes. No suspicious masses or consolidation Pneumothorax: None Osseous structures: No lytic or blastic lesions Pulmonary arteries:Limited evaluation of the pulmonary arterial system due to timing of contrast bolu s. No obvious pulmonary arterial embolism to the level of the proximal lobar arteries. Evaluation the mid to distal lobar arteries as well as the segmental and subsegmental arteries is limited. No filli ng defect to suggest a central pulmonary artery embolus. IMPRESSION: 1. Stable nodule in the left and right adrenal gland. 2. Dependent atelectatic changes in the lung bases. 3. Limited evaluation of the pulmonary arterial system due to timing of bolus. No evidence of a centr al pulmonary artery embolism.
[2018-12-14] MEDS ORDERED: Acetaminophen 325 MG TAB ONE (17:08)
[2018-12-14 17:23] LABS: Troponin I Less than 0.010 ng/mL (< 0.028)
[2018-12-14 19:09] VITALS: BMI 42.8
[2018-12-14 20:27] LABS: Troponin I Less than 0.010 ng/mL (< 0.028)
[2018-12-14] MEDS ORDERED: PROVENTIL INHALER 6.7 G (200 INHALATIONS) INH PRN (21:30)
[2018-12-14] MEDS ORDERED: Alendronate Sodium 70 mg Tablet PO SCH (21:30)
[2018-12-14] MEDS ORDERED: Nitroglycerin 0.4 MG TAB (25 Tab Bottle) SL PRN (21:30)
[2018-12-14] MEDS ORDERED: traMADol HCl 50 MG TAB PO PRN (21:42)
[2018-12-15] MEDS ORDERED: Morphine 4 MG/ML VIAL SLOW IVP SCH (00:30)
--- NOTE | 2018-12-15 02:11 | HP ---
CHIEF COMPLAINT: Chest pain. HISTORY OF PRESENT ILLNESS: Ms. Neves is a 58-year-old woman presenting today with complaint of left-sided chest pain that came on earlier today. She does not recall at what time, but states the pain was about a 6/10, described as a pressure. The patient states she experiences recurrent pain, which she described a 9/10 in severity, shortly after arriving to the ER. She states the pain was concentrated on the left side radiating to the left jaw and her left shoulder. She reports having some relief with nitroglycerin. She complains of mild nausea. Denies any trauma to her chest. Has not had any vomiting. Has not had any recent cough or hemoptysis. She has been afebrile and denies any chills or sweats. No diaphoresis. Denies any abdominal pain or cramping. Denies any associated breathlessness. She was seen at [facility] ER, where she underwent an EKG, which showed normal sinus rhythm without any ST or T-wave abnormalities. She had laboratory studies including cardiac enzymes, which were negative and a D-dimer, which was raised at 0.50. The patient had a chest x-ray done, which showed no acute changes. A CT angiogram of the chest was also done, which showed a stable nodule in the left and right adrenal gland and dependent atelectatic changes at the lung bases. There was limited evaluation of the pulmonary arterial system due to timing of the bolus. No evidence of a central pulmonary artery embolism. The patient denies noting any calf pain or lower leg swelling. She has been transferred for further workup, given the persistent pain and significant past medical history. She has known coronary artery disease, diabetes, hypertension, and is a previous smoker. She states she has had an WA in the past. She last underwent an echo in 09/2018, when she underwent workup for a CVA. The echo showed 50% to 55% estimated EF with somewhat thickened aortic valve leaflets, [id number] aortic stenosis, mild aortic regurgitation, as well as [id number] tricuspid regurgitation. The patient does have a permanent pacemaker. Her last stress test was done in 09/2017 and at that time, it was normal with an estimated EF of 66%. The patient has undergone catheterization in the past on 01/12/2017 and at that time had 80% ostial stenosis and 10% stenosis of the mid LAD. Both extending 2 mm in length. There is also 90% stenosis to the mid circumflex, 30% stenosis of the proximal RCA, and 30% stenosis to the mid subsection of the proximal RCA. The patient underwent conservative treatment only. She has a history of a previous bypass. Her grafts were deemed to be patent. Per previous note by Cardiology, the patient has had multiple hospitalizations for similar symptoms, and it was felt that she should not undergo angiography so frequently with every admission. PAST MEDICAL HISTORY: 1. Hypertension. 2. Coronary artery disease. 3. Chronic pain syndrome. 4. Type 2 diabetes mellitus with peripheral neuropathy. 5. Osteoarthritis. 6. Dyslipidemia. 7. Morbid obesity. 8. Anxiety disorder. 9. Depression. 10. Insomnia. PAST SURGICAL HISTORY: 1. Appendectomy. 2. Status post CABG x3 vessels. 3. Cholecystectomy. 4. Hysterectomy. 5. Pacemaker placement in 2014. SOCIAL HISTORY: The patient is a former smoker and states she quit several years ago. Denies any current tobacco use, alcohol use, or illicit drug use. ALLERGIES: PROPRANOLOL. CURRENT MEDICATIONS: 1. Ticagrelor. 2. Ranexa. 3. Potassium chloride. 4. Metformin. 5. Pantoprazole. 6. Nitroglycerin. 7. Metoprolol. 8. Isosorbide mononitrate. 9. Lasix. 10. Doxepin. 11. Symbicort. 12. Atorvastatin. 13. Aspirin. 14. Alendronate sodium. 15. Albuterol sulfate. 16. Gabapentin. 17. Bupropion. PHYSICAL EXAMINATION: GENERAL: The patient appears to be in discomfort and requesting analgesia. She is rocking back and forth and states she continues to feel the pain on the left side of her chest. Upon further assessment once obtaining history, the patient spontaneously settled and did not seem to be in as much discomfort. VITAL SIGNS: Temperature 97.6, pulse 60, respirations 19, O2 saturation 98% on room air, and blood pressure 142/88. HEENT: Normocephalic and atraumatic. Pupils are equal, round, and reactive to light. Sclerae are without icterus. Oropharynx is clear. NECK: Supple without lymphadenopathy. LUNGS: Clear to auscultation bilaterally without wheezes, rales, or rhonchi. CARDIAC: Regular rate and rhythm without audible murmurs, rubs, or gallops. ABDOMEN: Soft, nontender, and nondistended. Normoactive bowel sounds present. EXTREMITIES: No edema or calf tenderness. NEUROLOGIC: Alert and oriented x3. SKIN: Without rash or jaundice. LABORATORY DATA: Full blood count unremarkable. As mentioned above, D-dimer elevated at 0.50. Otherwise, CMP unremarkable. Troponin negative x3. Lipase 59. LFTs unremarkable. IMAGING DATA: As mentioned above in HPI. IMPRESSION AND PLAN: Ms. Neves is a frequent attender with chest pain, who is experiencing similar symptoms as prior admissions. She has a known history of coronary artery disease and other comorbidities. Therefore, admitted for chest pain rule out. 1. Rule out ACS. Troponins are negative x3. EKG unremarkable. She just got permanent pacemaker, which should be interrogated. The patient without any associated symptoms. At present, she seemed to be in distress, however, easily distracted and no longer fidgeting once in deep conversation. The patient states she has had minimal relief with nitroglycerin. We will give a dose of morphine. We will repeat troponin and continue to monitor. 2. Elevated D-dimer. The patient did undergo a CT angiogram that did not show any definite evidence of PE. This was a somewhat suboptimal study due to timing of the contrast. Day team to decide if CT angiogram needs to be repeated. At present, she denies any breathlessness, is not tachycardic, and saturations are normal on room air. No clinical evidence of DVT. 3. Hypertension. Resume home medications. Monitor blood pressure. 4. Diabetes mellitus. Resume home medications and initiate sliding scale. Hold metformin. Initiate sliding scale and monitor glucose. 5. Hyperlipidemia. Resume statin. 6. Coronary artery disease. Resume home medications. 7. Gastrointestinal prophylaxis. Resume pantoprazole. 8. The patient has advanced directives in place. Her medical aliho-uy-smwmnrct is her daughter, Shameka Flores. The patient's case was discussed with attending who agrees with the plan of care as described above. Job ID: [id number]
[2018-12-15] MEDS ORDERED: Mometasone/Formoterol 120 PUFF INHALER INH SCH (06:30)
[2018-12-15] MEDS ORDERED: Gabapentin 300 MG CAP PO SCH (09:00)
[2018-12-15] MEDS ORDERED: Bupropion 100 MG SR TAB PO SCH (09:00)
[2018-12-15] MEDS ORDERED: Aspirin 81 mg Enteric Coated Tablet PO SCH (09:00)
[2018-12-15] MEDS ORDERED: TICAGRELOR 90 MG TABLET PO SCH (09:00)
[2018-12-15] MEDS ORDERED: Metoprolol Tartrate 25 MG TAB PO SCH (09:00)
[2018-12-15] MEDS ORDERED: Doxepin HCl 10 MG CAP PO SCH (09:00)
[2018-12-15] MEDS ORDERED: Furosemide 20 MG TAB PO SCH (09:00)
[2018-12-15 11:36] VITALS: TEMP 97.4
[2018-12-15 12:09] VITALS: BP 95/55
[2018-12-15] MEDS ORDERED: Atorvastatin Calcium 40 MG TAB PO SCH (21:00)
== END 2018-12-15 13:30 | disposition home or self-care (01) ==
LOC: SCSER 13:35 → 2SW 18:27
PROVIDERS: ADMIT Internal Medicine; ATTEND Internal Medicine
DX: R07.9 Chest pain, unspecified (principal); I10 Essential (primary) hypertension; I25.10 Atherosclerotic heart disease of native coronary artery without angina pectoris; G89.4 Chronic pain syndrome; E11.42 Type 2 diabetes mellitus with diabetic polyneuropathy; M19.90 Unspecified osteoarthritis, unspecified site; E78.5 Hyperlipidemia, unspecified; F41.9 Anxiety disorder, unspecified; F32.9 Major depressive disorder, single episode, unspecified; G47.00 Insomnia, unspecified; E66.01 Morbid (severe) obesity due to excess calories; Z68.41 Body mass index [BMI] 40.0-44.9, adult; I25.2 Old myocardial infarction; I35.0 Nonrheumatic aortic (valve) stenosis; I35.1 Nonrheumatic aortic (valve) insufficiency; I36.1 Nonrheumatic tricuspid (valve) insufficiency; Z87.891 Personal history of nicotine dependence; Z95.0 Presence of cardiac pacemaker; Z95.1 Presence of aortocoronary bypass graft; Z90.49 Acquired absence of other specified parts of digestive tract; Z90.710 Acquired absence of both cervix and uterus; Z88.8 Allergy status to other drugs, medicaments and biological substances; Z79.84 Long term (current) use of oral hypoglycemic drugs; Z79.82 Long term (current) use of aspirin; Z79.02 Long term (current) use of antithrombotics/antiplatelets; Z79.899 Other long term (current) drug therapy
CPT/HCPCS: 71045; 71275; 80053; 82962; 83690; 83880; 84484 ×2; 85025; 85379; 93005; 94640; 94664; 96374; 96375; 99285; G0378 ×2; 36415; 36416; J2060; J2270

== ENCOUNTER 2018-12-27 21:50 | Observation (INO) | payer MEDICARE, MEDICAID ==
[2018-12-27 22:11] LABS: #Eosinphils 0.3 thou/uL (0.0-0.7); #Lymphocytes 3.9 thou/uL (1.20-3.40); #Monocytes 1.1 thou/uL (0.11-0.59); #Neutrophils 4.5 thou/uL (1.40-6.50); %Basophils 0.3 % (0.0-1.0); %Eosinophils 2.7 % (0.0-10.0); %Lymphocytes 40.1 % (21.0-51.0); %Monocytes 11.3 % (0.0-10.0); %Neutrophils 45.7 % (42.0-75.0); Hemoglobin 12.4 g/dL (12.0-16.0); Mean Corpuscular HGB CONC 33.2 g/dL (32.0-36.0); Mean Corpuscular Hemoglobin 29.8 pg (27.0-31.0); Mean Corpuscular Volume 89.5 fL (78.0-98.0); Mean Platelet Volume 9.6 fL (7.4-10.4); Platelet Count 220 thou/uL (130-400); Red Blood Cell (RBC) Count 4.18 mill/uL (4.20-5.40); White Blood Cell (WBC) Count 9.8 thou/uL (4.8-10.8)
[2018-12-27] MEDS ORDERED: Morphine 4 MG/ML VIAL ONE (22:13)
[2018-12-27 22:30] LABS: ALT (SGPT) 20 U/L (8-55); AST (SGOT) 13 U/L (5-34); Alkaline Phosphatase 113 U/L (40-150); Anion Gap 12 mmol/L (10-20); BUN (Urea Nitrogen) 17 mg/dL (9.8-20.1); Bilirubin, Total 0.3 mg/dL (0.2-1.2); CK (CPK) 45 U/L (29-168); Calc. Creatinine Clearance 0 mL/min (70-130); Calcium 9.1 mg/dL (7.8-10.44); Carbon Dioxide 22 mmol/L (22-29); Chloride 111 mmol/L (98-107); Estimated GFR-MDRD 67; Globulin 2.5 g/dL (2.4-3.5); Glucose 108 mg/dL (70-105); Potassium 3.8 mmol/L (3.5-5.1); Protein, Total 6.5 g/dL (6.0-8.3); Sodium 141 mmol/L (136-145)
--- NOTE | 2018-12-27 22:56 | RAD ---
CHEST ONE VIEW: History: Chest pain Comparison: 12-14-18 FINDINGS: Left ICD. Post underlying sternotomy. Heart size is within normal limits. Mild stable increased emely ngs bilaterally but no confluent pneumonia, overt edema, or pleural effusion. IMPRESSION: Minimal stable chronic changes. No acute intrathoracic disease. POS: [facility]
[2018-12-27] MEDS ORDERED: methylPREDNISolone Sod Succ/PF 125 MG/2 ML VIAL ONE (23:14)
[2018-12-28 00:34] VITALS: BP 115/75; TEMP 98
[2018-12-28] MEDS ORDERED: Ondansetron ODT 4 MG TAB SL PRN (00:38)
[2018-12-28] MEDS ORDERED: Ondansetron PF 4 MG/2 ML Vial IVP PRN (00:38)
[2018-12-28 01:18] VITALS: BMI 44.4
[2018-12-28] MEDS ORDERED: Nitroglycerin 0.4 MG TAB (25 Tab Bottle) SL PRN (02:08)
[2018-12-28] MEDS ORDERED: PROVENTIL INHALER 6.7 G (200 INHALATIONS) INH PRN (02:08)
[2018-12-28] MEDS ORDERED: Acetaminophen 325 MG TAB PO PRN (02:11)
[2018-12-28 02:53] LABS: Troponin I Less than 0.010 ng/mL (< 0.028)
[2018-12-28] MEDS ORDERED: Alendronate Sodium 70 mg Tablet PO SCH (06:00)
[2018-12-28] MEDS ORDERED: metFORMIN 500 MG TAB PO SCH (08:00)
[2018-12-28] MEDS ORDERED: hydrOXYzine Pamoate 25 mg Capsule PO SCH (09:00)
[2018-12-28] MEDS ORDERED: NIFEdipine XL 30 MG TAB PO SCH (09:00)
[2018-12-28] MEDS ORDERED: Metoprolol Tartrate 25 MG TAB PO SCH (09:00)
[2018-12-28] MEDS ORDERED: Bupropion 100 MG SR TAB PO SCH (09:00)
[2018-12-28] MEDS ORDERED: busPIRone HCl 5 MG TAB PO SCH (09:00)
[2018-12-28] MEDS ORDERED: Amitriptyline HCl 10 MG TAB PO SCH (09:00)
[2018-12-28] MEDS ORDERED: Aspirin 81 mg Enteric Coated Tablet PO SCH (09:00)
[2018-12-28] MEDS ORDERED: Gabapentin 300 MG CAP PO SCH (09:00)
[2018-12-28] MEDS ORDERED: TICAGRELOR 90 MG TABLET PO SCH (09:00)
[2018-12-28] MEDS ORDERED: Lisinopril 5 MG TAB PO SCH (09:00)
[2018-12-28] MEDS ORDERED: Furosemide 20 MG TAB PO SCH (09:00)
[2018-12-28] MEDS ORDERED: Doxepin HCl 10 MG CAP PO SCH (21:00)
[2018-12-28] MEDS ORDERED: Potassium Chloride 8 MEQ TAB PO SCH (21:00)
[2018-12-28] MEDS ORDERED: Atorvastatin Calcium 40 MG TAB PO SCH (21:00)
== END 2018-12-28 02:47 | disposition home or self-care (01) ==
LOC: ERS 21:50 → 2SW 12-28 00:31
PROVIDERS: ADMIT Internal Medicine; ATTEND Internal Medicine
DX: R07.9 Chest pain, unspecified (principal); I25.10 Atherosclerotic heart disease of native coronary artery without angina pectoris; I25.2 Old myocardial infarction; E78.5 Hyperlipidemia, unspecified; E78.00 Pure hypercholesterolemia, unspecified; J44.1 Chronic obstructive pulmonary disease with (acute) exacerbation; G47.30 Sleep apnea, unspecified; G25.81 Restless legs syndrome; E11.40 Type 2 diabetes mellitus with diabetic neuropathy, unspecified; Z79.02 Long term (current) use of antithrombotics/antiplatelets; Z79.82 Long term (current) use of aspirin; Z79.83 Long term (current) use of bisphosphonates; Z79.84 Long term (current) use of oral hypoglycemic drugs; Z79.899 Other long term (current) drug therapy; Z88.8 Allergy status to other drugs, medicaments and biological substances; Z86.73 Personal history of transient ischemic attack (TIA), and cerebral infarction without residual deficits; Z95.1 Presence of aortocoronary bypass graft; Z95.5 Presence of coronary angioplasty implant and graft; Z95.0 Presence of cardiac pacemaker; Z87.891 Personal history of nicotine dependence
CPT/HCPCS: 36415; 36416; 71045; 80053; 82550; 84484; 85025; 93005; 94640; 96374; 96375; J2270; J2930; J7620

== ENCOUNTER 2019-03-22 21:41 | Inpatient (IN) | payer MEDICARE, MEDICAID ==
--- NOTE | 2019-03-22 22:02 | CT ---
CT Brain WO Con: 03/22/2019 12:00 AM CLINICAL HISTORY: Stroke, weakness. COMPARISON: Numerous prior head CTs dating back to 2006 FINDINGS: Hemorrhage: None. Ventricular system: Normal in size and morphology for the patient's age. Cerebral parenchyma: Stable dilated perivascular space at the inferior right lentiform nucleus. Stabl e small hypodensity of the left lentiform nucleus also present. Midline shift: None. Mass: No mass effect. Calvarium: Normal. Visualized Paranasal sinuses: Clear. IMPRESSION: No acute intracranial hemorrhage or mass effect Telephone call of findings placed at 2150 hours.
[2019-03-22 22:04] LABS: #Eosinphils 0.2 thou/uL (0.0-0.7); #Lymphocytes 3.2 thou/uL (1.20-3.40); #Monocytes 0.8 thou/uL (0.11-0.59); #Neutrophils 3.7 thou/uL (1.40-6.50); %Basophils 0.1 % (0.0-1.0); %Eosinophils 2.5 % (0.0-10.0); %Lymphocytes 40.9 % (21.0-51.0); %Monocytes 10.1 % (0.0-10.0); %Neutrophils 46.4 % (42.0-75.0); Hemoglobin 13.6 g/dL (12.0-16.0); Mean Corpuscular HGB CONC 32.9 g/dL (32.0-36.0); Mean Corpuscular Hemoglobin 29.5 pg (27.0-31.0); Mean Corpuscular Volume 89.8 fL (78.0-98.0); Mean Platelet Volume 9.8 fL (7.4-10.4); Platelet Count 173 thou/uL (130-400); RBC Distribution Width 12.2 % (11.5-14.5); Red Blood Cell (RBC) Count 4.59 mill/uL (4.20-5.40); White Blood Cell (WBC) Count 7.9 thou/uL (4.8-10.8)
--- NOTE | 2019-03-22 22:16 | CT ---
CTA of the head with and without IV contrast and 3-D reformatted imaging. CTA of the neck with IV contrast and 3-D reformatted imaging 3 D Volume Rendering: DATE: 03/22/2019 12:00 AM HISTORY: New onset left-sided weakness, slurred speech COMPARISON: 09/23/2018 FINDINGS: Right: CCA:No significant stenosis. ICA:No significant stenosis. MCA:No significant stenosis. THEA:No significant stenosis. EPIC AMBULATORY ANALYSTS:No significant stenosis. LEFT: CCA:No significant stenosis. ICA:No significant stenosis. MCA:No significant stenosis. THEA:No significant stenosis. EPIC AMBULATORY ANALYSTS:No significant stenosis. Vertebrobasilar System: Left Vertebral:No significant stenosis. Right Vertebral:No significant stenosis. Basilar:No significant stenosis. There is mild scattered atherosclerotic vascular calcification involving each carotid artery. IMPRESSION: No hemodynamically significant stenosis, occlusion or aneurysmal dilation. Telephone call findings placed at 2210 hours.
[2019-03-22 22:28] LABS: ALT (SGPT) 18 U/L (8-55); AST (SGOT) 13 U/L (5-34); Albumin 4.1 g/dL (3.5-5.0); Alkaline Phosphatase 121 U/L (40-150); Anion Gap 12 mmol/L (10-20); BUN (Urea Nitrogen) 16 mg/dL (9.8-20.1); Bilirubin, Total 0.3 mg/dL (0.2-1.2); CK (CPK) 37 U/L (29-168); Calc. Creatinine Clearance 0 mL/min (70-130); Calcium 9.3 mg/dL (7.8-10.44); Carbon Dioxide 22 mmol/L (22-29); Chloride 108 mmol/L (98-107); Estimated GFR-MDRD 68; Globulin 2.8 g/dL (2.4-3.5); Glucose 99 mg/dL (70-105); Potassium 4.2 mmol/L (3.5-5.1); Protein, Total 6.9 g/dL (6.0-8.3); Sodium 138 mmol/L (136-145)
[2019-03-23] MEDS ORDERED: HumaLOG 300 UNITS/3 ML VIAL SC PRN (02:45)
[2019-03-23] MEDS ORDERED: Dextrose 5% in Water 1,000 ML IV PRN (02:45)
[2019-03-23] MEDS ORDERED: Dextrose 50% Abboject 50 ML SYRINGE SLOW IVP PRN (02:45)
--- NOTE | 2019-03-23 03:29 | HP ---
CHIEF COMPLAINT: Left-sided weakness. HISTORY OF PRESENT ILLNESS: The patient is a 59-year-old female who presents to the hospital with complaints of left-sided weakness which started later on today this evening. The patient stated that she had dinner. After dinner, she started noticing some left-sided facial droop and slurred speech and then weakness at the left side. The patient's roommate also heard thump in the room and at this time went to check on her where she found the patient was on the floor with significant weakness to her left side. EMS reported that she was found to be wheezing and was given neb treatments. However, later on, they discovered that the patient had significant left-sided facial droop and left-sided weakness at this time, she was brought in for stroke evaluation. The patient has had multiple CAT scans and CTAs. She did have a CT head, brain and a CTA which both were negative for any acute thrombus. Given her significant symptoms at this time, the risks and benefits of tPA were discussed with the patient and the patient went for tPA and she was given tPA. The patient denies any fevers or chills recently. She states that she has been coughing, but denies any sputum production. PAST MEDICAL HISTORY: The patient has a past medical history of 1. Hypertension. 2. Coronary artery disease. 3. Chronic pain syndrome. 4. Type 2 diabetes with peripheral neuropathy. 5. History of CVA. 6. Osteoarthritis. 7. Dyslipidemia. 8. Morbid obesity. 9. Anxiety. 10. Depression. 11. Insomnia. PAST SURGICAL HISTORY: 1. She has had an appendectomy. 2. Status post CABG x3 vessels. 3. Cholecystectomy. 4. Hysterectomy. 5. ICD placement in 2014. SOCIAL HISTORY: She is a former smoker. She says she does not smoke any more. Lives with a roommate. Denies any alcohol use or drug use. She is currently a full code. ALLERGIES: SHE IS ALLERGIC TO PROPRANOLOL. CURRENT MEDICATIONS: As of the following; 1. She is on Brilinta 90 mg b.i.d. 2. Atorvastatin 80 mg at bedtime. 3. Ranexa 1000 mg b.i.d. 4. Potassium 8 mEq p.o. daily. 5. Pantoprazole 40 mg daily. 6. Nitroglycerin 0.5 q.5 minutes p.r.n. for pain. 7. Nifedipine 30 mg daily. 8. Metoprolol 12.5 b.i.d. 9. Metformin 1000 mg b.i.d. 10. Lisinopril 5 mg daily. 11. Isosorbide 30 mg at bedtime. 12. Hydroxyzine 25 mg q.i.d. 13. Gabapentin 300 mg b.i.d. 14. Lasix 20 mg daily. 15. Doxepin 10 mg at bedtime. 16. Citalopram 10 mg daily. 17. Buspirone 7.5 b.i.d. 18. Budesonide/formoterol 2 puffs inhalation b.i.d. 19. Aspirin 81 mg daily. 20. Alendronate 40 mg q.7 days. REVIEW OF SYSTEMS: All negative except for the ones mentioned above in the HPI. PHYSICAL EXAMINATION: VITAL SIGNS: As the following; temperature of 98.8, heart rate 69, blood pressure 146/88, respiratory rate 15, O2 saturation 100% on room air. GENERAL: She is awake, alert, and oriented x3. Does not appear in any distress. HEENT: Normocephalic, atraumatic. No lymphadenopathy noted. Pupils are equal, reactive to light. She does have a left-sided facial droop. CV: S1 and S2 present. No murmurs, rubs, or gallops. LUNGS: Clear to auscultation. No rhonchi or wheezes noted. ABDOMEN: Soft and nontender. Bowel sounds are present x2. EXTREMITIES: Pedal pulses are present x2. NEUROVASCULAR: She does have significant weakness of her left upper extremity and left lower extremity. She is able to move her toes slightly on the left lower extremity. She does have a significant left-sided facial droop. Cranial nerves; she is able to raise her eyebrows up, however, upon puffing her cheeks, she is unable to do so on the left side. She has bxuvox-vj-qlgu intact on her right side, however, unable to perform from the left side. Unable to do a walk test due to the left-sided weakness. LABORATORY RESULTS: As of the following; WBC of 7.9, hemoglobin of 13.6, hematocrit of 41.3, platelets of 173. Chemistries; sodium of 138, potassium of 4.2, chloride of 108, BUN of 12, creatinine of 0.85. Troponin x1 was negative. She did have a CTA and CT brain. CTA indicated no acute significant stenosis. She also had a CT brain, did not indicate any acute abnormalities. ASSESSMENT AND PLAN: The patient is a 59-year-old female who presents to the hospital with left-sided weakness. 1. Left-sided weakness, most likely possible to stroke. The patient did receive status post tPA. CTA is negative. We will consult Neurology. She is currently on a tPA protocol. She has received tPA in the past. No acute infectious etiology noted. We will continue to monitor. Once the tPA protocol is over, we will start her on her Brilinta and aspirin and statin. 2. History of hypertension. We will continue to monitor for her blood pressure and also we will start some of her home medications once Speech has evaluated her. 3. Diabetes. Again, we will check Accu-Cheks before meals and at bedtime and we will start her on her diabetic medications. 4. History of prior cerebrovascular accidents. We will continue to monitor. The patient may require a loop monitor to evaluate if she has ever had any atrial fibrillation. 5. Coronary artery disease. Again, we will continue her aspirin and Brilinta when appropriate and also continue her statin. Her last EF was 50% to 55% and this was done on September 2018. Job ID: [id number]
[2019-03-23] MEDS ORDERED: Melatonin 3 MG TAB PO SCH (03:30)
[2019-03-23] MEDS: Famotidine/PF 20 mg/2ml Vial SLOW IVP SCH ×2 (08:44→21:02)
--- NOTE | 2019-03-23 10:33 | CON ---
DATE OF CONSULTATION: 03/23/2019 CONSULTING PHYSICIAN: Teresa Pedraza MD. REASON FOR CONSULTATION: ICU care. HISTORY OF PRESENT ILLNESS: The patient is a pleasant 59-year-old female, who presented to the emergency room yesterday with left-sided global weakness, which started after dinner. Initial symptoms were left-sided facial droop and slurred speech. She has now developed hemiplegia of the left side, which has not recovered even after tPA administration in the ER yesterday. She is basically in the ICU for the tPA protocol. Currently, she has no other complaints. PAST MEDICAL HISTORY: 1. Hypertension. 2. Coronary artery disease. 3. Diabetes mellitus type 2. 4. Previous strokes. 5. Osteoarthritis. 6. Hyperlipidemia. 7. Depression. 8. Insomnia. 9. Chronic obstructive pulmonary disease. PAST SURGICAL HISTORY: 1. Appendectomy. 2. Coronary artery bypass grafting surgery. 3. Cholecystectomy. 4. Hysterectomy. 5. ICD placement. SOCIAL HISTORY: Quit smoking many years ago. Currently lives in independent living at [facility]. Does not consume alcohol. ALLERGIES: PROPRANOLOL CAUSES RASH. MEDICATIONS: Prior to admission; 1. Brilinta 90 mg b.i.d. 2. Atorvastatin 80 mg daily. 3. Ranexa 1000 mg b.i.d. 4. Potassium 8 mEq daily. 5. Pantoprazole 40 mg daily. 6. Nitroglycerin sublingual p.r.n. 7. Nifedipine 30 mg daily. 8. Metoprolol 12.5 mg b.i.d. 9. Metformin 1000 mg b.i.d. 10. Lisinopril 5 mg daily. 11. Isosorbide 30 mg nightly. 12. Hydroxyzine 25 mg q.i.d. 13. Gabapentin 300 mg b.i.d. 14. Lasix 20 mg daily. 15. Doxepin 10 mg at night. 16. Citalopram 10 mg daily. 17. Buspirone 7.5 mg b.i.d. 18. Budesonide/formoterol two puffs b.i.d. 19. Aspirin 81 mg daily. 20. Alendronate 40 mg every 7 days. REVIEW OF SYSTEMS: She has had no fever, chills, nausea, vomiting, chest pain, hemoptysis, melena, hematochezia, hematuria, or dysuria. PHYSICAL EXAMINATION: VITAL SIGNS: Temperature 97.7, pulse 60, blood pressure 118/76, and O2 saturation 100%. GENERAL: She is lying in bed calmly, in no distress. NEUROLOGICAL: Pupils are reactive. She protrudes tongue in midline. She has appropriate movement on the right side. She has global hemiparesis on her left side and cannot move to any stimulation, cannot feel anything. HEENT: Otherwise unremarkable. NECK: Without adenopathy, JVD, or bruits. LUNGS: Clear to auscultation without wheezing or rhonchi. CARDIAC: S1-S2, regular with 3/6 systolic murmur at the left sternal border radiating to the right carotid area. ABDOMEN: Soft and nontender. EXTREMITIES: No clubbing, cyanosis, or edema. LABORATORY DATA: White cell count 7.9, hematocrit 41.3, and platelet count 173. Sodium 138, potassium 4.2, chloride 108, CO2 of 22, BUN 16, creatinine 0.8, and glucose 99. IMAGING STUDIES: A CT angio of the brain was basically negative. ASSESSMENT: 1. New stroke with left-sided hemiparesis. This suggest a right MCA distribution stroke. So far, she appears to have had no recovery even after the tPA. 2. Multiple medical problems including coronary artery disease and hypertension. 3. Moderate aortic stenosis by echo in September. RECOMMENDATION: She can be transferred out to the stroke unit when her 24 hours are up. I would suggest perhaps repeating her echocardiogram and do a Doppler of her carotids. Agree with other treatment. No further Pulmonary Critical Care recommendations. We will follow peripherally. Job ID: [id number]
[2019-03-23] MEDS: Acetaminophen 325 MG TAB PO PRN ×2 (14:24→18:25)
--- NOTE | 2019-03-23 15:59 | CON ---
DATE OF CONSULTATION: 03/23/2019 CONSULTING PHYSICIAN: Hospitalist Services. IMPRESSION: 1. Questionable lacunar stroke resulting in subjective left-sided weakness. 2. The patient is currently on aspirin and statin, therefore I would add Plavix when she has passed a 24-hour bella. HISTORY OF PRESENT ILLNESS: Ms. Neves is a 59-year-old white female, who was previously worked up in September for stroke symptoms. At that time, her findings were inconsistent and there was a question of malingering. She had an echocardiogram, which showed a normal ejection fraction of 50% to 55%. Her carotid exam did not show any significant areas of stenosis. She had a CT scan on admission as well as a CTA, which did not show any visible changes compared to her prior studies. She complains of continued left arm weakness more so than left leg. She does not report any difficulty speaking or swallowing. PAST MEDICAL HISTORY: TIA, hypertension, hyperlipidemia, and diabetes. ALLERGIES: PROPRANOLOL. SOCIAL HISTORY: Unremarkable. FAMILY HISTORY: Unremarkable. REVIEW OF SYSTEMS: Ten-system review of systems is otherwise negative. PHYSICAL EXAMINATION: GENERAL: She is a somewhat overweight middle-aged woman, in no acute distress. VITAL SIGNS: Blood pressure 117/57, pulse 60, respirations 15, and saturations 99%. HEENT: Pupils equal and reactive. Conjunctivae clear. Oropharynx clear. Cranium, normocephalic and atraumatic. NECK: Supple. No lymphadenopathy. EXTREMITIES: No cyanosis or edema. NEUROLOGIC: She is alert and cooperative. Her speech was fluent and clear. There was no facial asymmetry. Motor exam showed complete loss of movement of the left upper extremity. She had some partial movement in the left lower extremity on provocation. Sensation was intact to touch. Plantar responses were downgoing. Gait was not testable. IMAGING STUDIES: EKG shows a paced rhythm. SUMMARY: A middle-aged woman with recurrent stroke symptoms who received tPA. Her exam is a bit inconsistent. Follow her clinical course as not much more we can do other than continue antiplatelet therapy and statin. Job ID: [id number]
--- NOTE | 2019-03-23 17:05 | PDOC.PN ---
- Subjective Encounter Start Date: 03/23/19 Encounter Start Time: 16:15 Subjective: f/u for ischemic CVA with L hemiparesis s/p tPA. Some mild movement -: of L foot but limited in LUE. - Objective Resuscitation Status - Order Detail: 03/23/19 00:27 Resuscitation Status Routine Resuscitation Status: FULL: Full Resuscitation MAR Reviewed: Yes Vital Signs & Weight: Vital Signs (12 hours) Temp Pulse Pulse BP BP Pulse Ox Pulse Ox 03/23/19 16:53 98.3 F 03/23/19 15:52 62 60 119/54 L 108/54 L 100 03/23/19 14:00 98.1 F 03/23/19 08:00 98.7 F 99 Pulse Ox 03/23/19 16:53 03/23/19 15:52 100 03/23/19 14:00 03/23/19 08:00 Weight Weight 235 lb 7.259 oz Most Recent Monitor Data Heart Rate from ECG 61 NIBP 114/61 NIBP BP-Mean 78 Respiration from ECG 20 SpO2 100 I&O: 03/22/19 03/23/19 03/24/19 06:59 06:59 06:59 Intake Total 340 Output Total 130 870 Balance -130 -530 Result Diagrams: 03/22/19 Unknown 03/22/19 21:55 Additional Labs: Accuchecks 03/23/19 16:28 POC Glucose 120 H Radiology Reviewed by me: Yes (CT brain - no acute infarct, CTA head/neck - no focal stenosis) EKG Reviewed by me: Yes (Tele - SR) Phys Exam - Physical Examination Constitutional: NAD HEENT: PERRLA, sclera anicteric, oral pharynx no lesions Neck: no nodes, no JVD, supple, full ROM Respiratory: no wheezing, no rales, no rhonchi, clear to auscultation bilateral S1, S2 Cardiovascular: RRR, no significant murmur, no rub, gallop Gastrointestinal: soft, non-tender, no distention, positive bowel sounds Musculoskeletal: no edema, pulses present L hemiparesis, R hand dominant Psychiatric: A&O x 3 Skin: normal turgor, cap refill <2 seconds Dx/Plan (1) Acute CVA (cerebrovascular accident) Code(s): I63.9 - CEREBRAL INFARCTION, UNSPECIFIED Status: Acute Comment: left hemiparesis, s/p tPA without improvement, resume ASA after 24h post tPA, general stroke protocol (2) Left hemiparesis Code(s): G81.94 - HEMIPLEGIA, UNSPECIFIED AFFECTING LEFT NONDOMINANT SIDE Status: Acute Comment: See above (3) CAD (coronary artery disease) Code(s): I25.10 - ATHSCL HEART DISEASE OF [place] CORONARY ARTERY W/O ANG PCTRS Status: Chronic Qualifiers: Coronary Disease-Associated Artery/Lesion type: bypass graft [place] vs. transplanted heart: [place] heart Associated angina: with stable angina Qualified Code(s): I25.708 - Atherosclerosis of coronary artery bypass graft(s) , unspecified, with other forms of angina pectoris Comment: cabg in 2011, has total of 4 stents, last one in 12/2017 (4) Chronic pain Code(s): G89.29 - OTHER CHRONIC PAIN Status: Chronic Qualifiers: Chronic pain type: chronic pain syndrome Comment: Polypharmacy likely contributing to presentation (5) DM type 2 (diabetes mellitus, type 2) Status: Chronic Qualifiers: Diabetes mellitus exterminator termite insulin use: without prison use Diabetes mellitus complication status: with neurologic complications Diabetes mellitus complication detail: with polyneuropathy Qualified Code(s): E11.42 - Type 2 diabetes mellitus with diabetic polyneuropathy Comment: ISS, Metformin, ADA (6) Hypertension Code(s): I10 - ESSENTIAL (PRIMARY) HYPERTENSION Status: Chronic Qualifiers: Comment: Stable currently, resume home BP regimen and monitor clinical response - Plan PT/OT, renal social worker, DVT proph w/SCDs Continue supportive mgmt -: Stroke protocol -: Resume ASA post tPA per protocol -: Transfer to Stroke unit -: AM lab: BMP, CBC * .
[2019-03-23] MEDS: Atorvastatin Calcium 40 MG TAB PO SCH (21:01)
[2019-03-23 23:50] LABS: #Basophils 0.1 thou/uL (0.0-0.2); #Eosinphils 0.2 thou/uL (0.0-0.7); #Lymphocytes 2.4 thou/uL (1.20-3.40); #Monocytes 0.8 thou/uL (0.11-0.59); #Neutrophils 2.6 thou/uL (1.40-6.50); %Basophils 0.9 % (0.0-1.0); %Eosinophils 3.6 % (0.0-10.0); %Lymphocytes 40.2 % (21.0-51.0); %Monocytes 12.5 % (0.0-10.0); %Neutrophils 42.8 % (42.0-75.0); Hemoglobin 12.9 g/dL (12.0-16.0); Mean Corpuscular Hemoglobin 28.9 pg (27.0-31.0); Mean Corpuscular Volume 90.5 fL (78.0-98.0); Mean Platelet Volume 9.5 fL (7.4-10.4); Platelet Count 153 thou/uL (130-400); RBC Distribution Width 12.1 % (11.5-14.5); Red Blood Cell (RBC) Count 4.46 mill/uL (4.20-5.40)
[2019-03-24] MEDS: Doxepin HCl 10 MG CAP PO PRN ×2 (00:08→23:26)
[2019-03-24 00:09] LABS: Anion Gap 14 mmol/L (10-20); BUN (Urea Nitrogen) 11 mg/dL (9.8-20.1); Calc. Creatinine Clearance 134 mL/min (70-130); Calcium 8.6 mg/dL (7.8-10.44); Carbon Dioxide 21 mmol/L (22-29); Chloride 108 mmol/L (98-107); Estimated GFR-MDRD 79; Glucose 89 mg/dL (70-105); Potassium 3.7 mmol/L (3.5-5.1); Sodium 139 mmol/L (136-145)
[2019-03-24] MEDS: Famotidine/PF 20 mg/2ml Vial SLOW IVP SCH (08:38)
--- NOTE | 2019-03-24 09:20 | PRG ---
DATE OF SERVICE: 03/24/2019 SUBJECTIVE: The patient feels better. She is starting to move her left arm and left leg. She had no acute complaints. OBJECTIVE: VITAL SIGNS: Temperature 97.8, pulse 62, blood pressure 116/72. HEENT: Unremarkable. NECK: No adenopathy or JVD. LUNGS: Clear. CARDIAC: S1, S2. Regular. ABDOMEN: Soft. EXTREMITIES: No edema. NEUROLOGIC EXAM: Demonstrated 3/5 muscle strength in left leg and left arm, which is markedly better compared to my exam from yesterday. ASSESSMENT: 1. Cerebrovascular accident with left-sided hemiplegia, which is better. 2. Multiple medical problems. PLAN: Transfer to the Stroke Unit. No further Pulmonary/Critical Care recommendations. We will sign off. Job ID: [id number]
[2019-03-24] MEDS ORDERED: PROVENTIL INHALER 6.7 G (200 INHALATIONS) INH PRN (13:50)
--- NOTE | 2019-03-24 13:57 | PDOC.PN ---
- Subjective Encounter Start Date: 03/24/19 Encounter Start Time: 13:45 Subjective: f/u CVA s/p tPA with L hemiparesis. Feels better overall. More movement -: in JOSLYN/LLE. - Objective Resuscitation Status - Order Detail: 03/23/19 00:27 Resuscitation Status Routine Resuscitation Status: FULL: Full Resuscitation MAR Reviewed: Yes Vital Signs & Weight: Vital Signs (12 hours) Temp Pulse Ox 03/24/19 07:42 100 03/24/19 04:00 97.8 F Weight Weight 235 lb 7.259 oz Most Recent Monitor Data Heart Rate from ECG 70 NIBP 161/83 NIBP BP-Mean 109 Respiration from ECG 14 SpO2 100 I&O: 03/23/19 03/24/19 03/25/19 06:59 06:59 06:59 Intake Total 1140 360 Output Total 130 1470 900 Balance -130 -330 -540 Result Diagrams: 03/23/19 23:39 03/23/19 23:39 Additional Labs: Accuchecks 03/24/19 03/24/19 03/23/19 11:35 06:20 21:04 POC Glucose 94 98 117 H 03/23/19 16:28 POC Glucose 120 H Radiology Reviewed by me: Yes (CTA head/neck - no significant stenosis) EKG Reviewed by me: Yes (Tele - SR) Phys Exam - Physical Examination Constitutional: NAD HEENT: PERRLA, sclera anicteric, oral pharynx no lesions Neck: no nodes, no JVD, supple, full ROM Respiratory: no wheezing, no rales, no rhonchi, clear to auscultation bilateral S1, S2 Cardiovascular: RRR, no significant murmur, no rub, gallop Gastrointestinal: soft, non-tender, no distention, positive bowel sounds Musculoskeletal: no edema, pulses present L hemiparesis, increased movement of LLE Neurological: normal sensation Psychiatric: A&O x 3 Skin: normal turgor, cap refill <2 seconds Dx/Plan (1) Acute CVA (cerebrovascular accident) Code(s): I63.9 - CEREBRAL INFARCTION, UNSPECIFIED Status: Acute Comment: left hemiparesis improved, s/p tPA, resume ASA after 24h post tPA, general stroke protocol (2) Left hemiparesis Code(s): G81.94 - HEMIPLEGIA, UNSPECIFIED AFFECTING LEFT NONDOMINANT SIDE Status: Acute Comment: See above, improved (3) CAD (coronary artery disease) Code(s): I25.10 - ATHSCL HEART DISEASE OF [place] CORONARY ARTERY W/O ANG PCTRS Status: Chronic Qualifiers: Coronary Disease-Associated Artery/Lesion type: bypass graft [place] vs. transplanted heart: [place] heart Associated angina: with stable angina Qualified Code(s): I25.708 - Atherosclerosis of coronary artery bypass graft(s) , unspecified, with other forms of angina pectoris Comment: cabg in 2011, has total of 4 stents, last one in 12/2017 (4) Chronic pain Code(s): G89.29 - OTHER CHRONIC PAIN Status: Chronic Qualifiers: Chronic pain type: chronic pain syndrome Comment: Polypharmacy likely contributing to presentation (5) DM type 2 (diabetes mellitus, type 2) Status: Chronic Qualifiers: Diabetes mellitus shelter insulin use: without terminologist use Diabetes mellitus complication status: with neurologic complications Diabetes mellitus complication detail: with polyneuropathy Qualified Code(s): E11.42 - Type 2 diabetes mellitus with diabetic polyneuropathy Comment: ISS, Metformin, ADA (6) Hypertension Code(s): I10 - ESSENTIAL (PRIMARY) HYPERTENSION Status: Chronic Qualifiers: Comment: Stable currently, resume home BP regimen and monitor clinical response - Plan PT/OT, social professionals, out of bed/ambulate, DVT proph w/SCDs Stable currently -: Continue routine stroke protocol -: Resume ASA -: Resume home BP regimen -: Rehab screening * AM lab: Lipid profile * Transfer to stroke unit
[2019-03-24] MEDS: metFORMIN 500 MG TAB PO SCH (16:21)
[2019-03-24] MEDS: Mometasone/Formoterol 120 PUFF INHALER INH SCH (18:34)
[2019-03-24] MEDS ORDERED: Famotidine 20 MG TAB PO SCH (19:15)
[2019-03-24] MEDS: Atorvastatin Calcium 40 MG TAB PO SCH (20:00)
[2019-03-24] MEDS: busPIRone HCl 5 MG TAB PO SCH (20:01)
[2019-03-24] MEDS: Gabapentin 300 MG CAP PO SCH (20:02)
[2019-03-24] MEDS: Metoprolol Tartrate 25 MG TAB PO SCH (20:02)
[2019-03-25] MEDS: Acetaminophen 325 MG TAB PO PRN ×3 (02:17→21:22)
[2019-03-25 05:15] LABS: Cardiac Risk 3.4 (Less than 4.5)
[2019-03-25] MEDS: busPIRone HCl 5 MG TAB PO SCH ×2 (08:40→21:07)
[2019-03-25] MEDS: metFORMIN 500 MG TAB PO SCH ×2 (08:40→15:39)
[2019-03-25] MEDS: NIFEdipine XL 30 MG TAB PO SCH (08:41)
[2019-03-25] MEDS: Furosemide 20 MG TAB PO SCH (08:41)
[2019-03-25] MEDS: Gabapentin 300 MG CAP PO SCH ×2 (08:41→21:09)
[2019-03-25] MEDS: Aspirin 81 mg Enteric Coated Tablet PO SCH (08:41)
[2019-03-25] MEDS: Lisinopril 5 MG TAB PO SCH (08:41)
[2019-03-25] MEDS: Metoprolol Tartrate 25 MG TAB PO SCH ×2 (08:42→21:08)
[2019-03-25] MEDS: Bupropion 100 MG SR TAB PO SCH (08:42)
[2019-03-25] MEDS: Famotidine 20 MG TAB PO SCH ×2 (08:42→21:08)
[2019-03-25] MEDS: Citalopram 10 MG TAB PO SCH (08:43)
[2019-03-25] MEDS: Potassium Chloride 8 MEQ TAB PO SCH (08:59)
--- NOTE | 2019-03-25 10:13 | PDOC.PN ---
- Subjective Encounter Start Date: 03/25/19 Encounter Start Time: 10:11 Subjective: awake, alert - Objective Resuscitation Status - Order Detail: 03/23/19 00:27 Resuscitation Status Routine Resuscitation Status: FULL: Full Resuscitation MAR Reviewed: Yes Vital Signs & Weight: Vital Signs (12 hours) Temp Pulse Pulse Ox 03/25/19 09:00 97.7 F 03/25/19 08:41 62 03/25/19 08:00 98 Weight Weight 235 lb 14.314 oz Most Recent Monitor Data Heart Rate from ECG 66 NIBP 124/61 NIBP BP-Mean 82 Respiration from ECG 13 SpO2 96 I&O: 03/24/19 03/25/19 03/26/19 06:59 06:59 06:59 Intake Total 1140 920 480 Output Total 1470 1450 Balance -330 -530 480 Result Diagrams: 03/23/19 23:39 03/23/19 23:39 Additional Labs: Accuchecks 03/25/19 03/24/19 03/24/19 05:46 20:02 11:35 POC Glucose 108 95 94 Phys Exam - Physical Examination Neck: no JVD Respiratory: clear to auscultation bilateral Cardiovascular: RRR, no significant murmur Gastrointestinal: soft, positive bowel sounds Musculoskeletal: no edema dense left hemiplegia Dx/Plan (1) Left hemiparesis Code(s): G81.94 - HEMIPLEGIA, UNSPECIFIED AFFECTING LEFT NONDOMINANT SIDE Status: Acute Comment: See above, improved (2) Acute CVA (cerebrovascular accident) Code(s): I63.9 - CEREBRAL INFARCTION, UNSPECIFIED Status: Acute Comment: left hemiparesis improved, s/p tPA, resume ASA after 24h post tPA, general stroke protocol (3) Anxiety Code(s): F41.9 - ANXIETY DISORDER, UNSPECIFIED Status: Chronic (4) CAD (coronary artery disease) Code(s): I25.10 - ATHSCL HEART DISEASE OF [place] CORONARY ARTERY W/O ANG PCTRS Status: Chronic Qualifiers: Coronary Disease-Associated Artery/Lesion type: bypass graft [place] vs. transplanted heart: [place] heart Associated angina: with stable angina Qualified Code(s): I25.708 - Atherosclerosis of coronary artery bypass graft(s) , unspecified, with other forms of angina pectoris Comment: cabg in 2011, has total of 4 stents, last one in 12/2017 (5) Chronic pain Code(s): G89.29 - OTHER CHRONIC PAIN Status: Chronic Qualifiers: Chronic pain type: chronic pain syndrome Comment: Polypharmacy likely contributing to presentation (6) Dyslipidemia Code(s): E78.5 - HYPERLIPIDEMIA, UNSPECIFIED Status: Chronic (7) Hx of CABG Status: Chronic (8) Hypertension Code(s): I10 - ESSENTIAL (PRIMARY) HYPERTENSION Status: Chronic Qualifiers: Comment: Stable currently, resume home BP regimen and monitor clinical response (9) Osteoarthritis Code(s): M19.90 - UNSPECIFIED OSTEOARTHRITIS, UNSPECIFIED SITE Status: Chronic Qualifiers: Osteoarthritis location: unspecified site Osteoarthritis type: primary Qualified Code(s): M19.91 - Primary osteoarthritis, unspecified site Comment: stable - Plan PT/OT cont asa, statin -: rehab planned -: cont metformin, metoprolol, etc * .
[2019-03-25] MEDS: Mometasone/Formoterol 120 PUFF INHALER INH SCH ×2 (18:59→19:09)
[2019-03-25] MEDS: Atorvastatin Calcium 40 MG TAB PO SCH (21:09)
[2019-03-25] MEDS: Doxepin HCl 10 MG CAP PO PRN (21:22)
[2019-03-26] MEDS: Acetaminophen 325 MG TAB PO PRN (02:32)
[2019-03-26] MEDS: Mometasone/Formoterol 120 PUFF INHALER INH SCH ×2 (08:07→19:37)
--- NOTE | 2019-03-26 09:30 | PDOC.PN ---
- Subjective Encounter Start Date: 03/26/19 Encounter Start Time: 09:29 Subjective: alert, small incremental improvement in L side movement - Objective Resuscitation Status - Order Detail: 03/23/19 00:27 Resuscitation Status Routine Resuscitation Status: FULL: Full Resuscitation MAR Reviewed: Yes Vital Signs & Weight: Vital Signs (12 hours) Temp Pulse Resp BP BP Pulse Ox 03/26/19 07:56 98.1 F 60 18 112/74 95 03/26/19 04:00 97.7 F 62 19 104/57 L 95 03/26/19 00:00 97.7 F 65 19 106/58 L 97 Weight Weight 235 lb Most Recent Monitor Data Heart Rate from ECG 69 NIBP 113/75 NIBP BP-Mean 87 Respiration from ECG 13 SpO2 96 I&O: 03/25/19 03/26/19 03/27/19 06:59 06:59 06:59 Intake Total 920 1200 Output Total 1450 825 Balance -530 375 Result Diagrams: 03/23/19 23:39 03/23/19 23:39 Additional Labs: Accuchecks 03/26/19 03/25/19 03/25/19 06:31 21:29 16:24 POC Glucose 91 82 91 03/25/19 11:25 POC Glucose 95 Phys Exam - Physical Examination Neck: no JVD Respiratory: clear to auscultation bilateral Cardiovascular: RRR, no significant murmur Gastrointestinal: soft, positive bowel sounds Musculoskeletal: no edema L spastic hemiplegia, dense Dx/Plan (1) Left hemiparesis Code(s): G81.94 - HEMIPLEGIA, UNSPECIFIED AFFECTING LEFT NONDOMINANT SIDE Status: Acute Comment: See above, improved (2) Acute CVA (cerebrovascular accident) Code(s): I63.9 - CEREBRAL INFARCTION, UNSPECIFIED Status: Acute Comment: left hemiparesis improved, s/p tPA, resume ASA after 24h post tPA, general stroke protocol (3) Anxiety Code(s): F41.9 - ANXIETY DISORDER, UNSPECIFIED Status: Chronic (4) CAD (coronary artery disease) Code(s): I25.10 - ATHSCL HEART DISEASE OF [place] CORONARY ARTERY W/O ANG PCTRS Status: Chronic Qualifiers: Coronary Disease-Associated Artery/Lesion type: bypass graft [place] vs. transplanted heart: [place] heart Associated angina: with stable angina Qualified Code(s): I25.708 - Atherosclerosis of coronary artery bypass graft(s) , unspecified, with other forms of angina pectoris Comment: cabg in 2011, has total of 4 stents, last one in 12/2017 (5) Chronic pain Code(s): G89.29 - OTHER CHRONIC PAIN Status: Chronic Qualifiers: Chronic pain type: chronic pain syndrome Comment: Polypharmacy likely contributing to presentation (6) Dyslipidemia Code(s): E78.5 - HYPERLIPIDEMIA, UNSPECIFIED Status: Chronic (7) Hx of CABG Status: Chronic (8) Hypertension Code(s): I10 - ESSENTIAL (PRIMARY) HYPERTENSION Status: Chronic Qualifiers: Hypertension type: essential hypertension Comment: Stable currently, resume home BP regimen and monitor clinical response (9) Osteoarthritis Code(s): M19.90 - UNSPECIFIED OSTEOARTHRITIS, UNSPECIFIED SITE Status: Chronic Qualifiers: Osteoarthritis location: unspecified site Osteoarthritis type: primary Qualified Code(s): M19.91 - Primary osteoarthritis, unspecified site Comment: stable - Plan cont ASA/statin -: cont PT/OT -: CM for HH/ outpt PT, etc * .
[2019-03-26] MEDS: Potassium Chloride 8 MEQ TAB PO SCH (10:21)
[2019-03-26] MEDS: Bupropion 100 MG SR TAB PO SCH (10:22)
[2019-03-26] MEDS: Gabapentin 300 MG CAP PO SCH ×2 (10:22→21:48)
[2019-03-26] MEDS: Aspirin 81 mg Enteric Coated Tablet PO SCH (10:22)
[2019-03-26] MEDS: Famotidine 20 MG TAB PO SCH ×2 (10:22→21:53)
[2019-03-26] MEDS: Citalopram 10 MG TAB PO SCH (10:23)
[2019-03-26] MEDS: metFORMIN 500 MG TAB PO SCH ×2 (10:23→17:13)
[2019-03-26] MEDS: busPIRone HCl 5 MG TAB PO SCH ×2 (10:24→21:50)
[2019-03-26] MEDS: Metoprolol Tartrate 25 MG TAB PO SCH ×2 (10:46→21:49)
[2019-03-26] MEDS: Furosemide 20 MG TAB PO SCH (10:47)
[2019-03-26] MEDS: Lisinopril 5 MG TAB PO SCH (13:22)
[2019-03-26] MEDS: NIFEdipine XL 30 MG TAB PO SCH (13:22)
[2019-03-26] MEDS: Atorvastatin Calcium 40 MG TAB PO SCH (21:48)
[2019-03-26] MEDS: Doxepin HCl 10 MG CAP PO PRN (22:46)
[2019-03-27] MEDS ORDERED: Nitroglycerin 0.1mg/Hour PATCH TOP SCH (04:00)
[2019-03-27 05:48] VITALS: BMI 43.8
[2019-03-27] MEDS: Mometasone/Formoterol 120 PUFF INHALER INH SCH (06:31)
--- NOTE | 2019-03-27 09:53 | DIS ---
DATE OF ADMISSION: 03/22/2019 DATE OF DISCHARGE: 03/27/2019 PRIMARY CARE PROVIDER: Pia Sheldon MD. DISCHARGE DISPOSITION: Discharged home. FINAL DIAGNOSES: 1. Right middle cerebral artery infarction. 2. Hemiplegia affecting left nondominant side. 3. Coronary artery disease. 4. Diabetes mellitus, type 2. 5. Hypertension. DISCHARGE MEDICATIONS: 1. Celexa 10 mg a day. 2. Alendronate 40 mg every 7 days. 3. ProAir HFA 2 puffs q.6 hours p.r.n. 4. Doxepin 10 mg at bedtime. 5. BuSpar 7.5 mg twice a day. 6. Symbicort 160/4.5 two puffs b.i.d. 7. Aspirin 81 mg a day. 8. Nifedipine 30 mg a day. 9. Metoprolol 12.5 mg twice a day. 10. Lisinopril 5 mg a day. 11. Imdur 30 mg a day. 12. Gabapentin 300 mg twice a day. 13. Lasix 20 mg a day. 14. Metformin 1000 mg twice a day. 15. Brilinta 90 mg p.o. b.i.d. 16. Ranexa 1000 mg p.o. b.i.d. 17. Potassium chloride 8 mEq a day. 18. Protonix 40 mg a day. 19. Lipitor 80 mg a day. ALLERGIES: TO PROPRANOLOL. DIET: Heart healthy. CODE STATUS: Full. PENDING AT TIME OF DISCHARGE: Nothing. HOSPITAL COURSE: The patient was admitted to [facility] with acute left-sided weakness. The patient was given tPA in the emergency room. Her left-sided weakness persisted. She has a dense left hemiplegia. A CT of [place] of [place] was nonrevealing. CT scan of the brain revealed no acute hemorrhage, etc. Consultation was obtained with Dr. Smith Stuart. An MRI was not able to be done. On her initial laboratory, CBC was normal. Followup CBC was again normal. Comprehensive metabolic profile was unrevealing. Blood sugars were monitored and were unremarkable. She was treated with physical therapy and occupational therapy. She improved slightly during her hospital stay. DISCHARGE PLANNING: The patient desired to go home with home health, PT, and OT. This has been arranged. She is being discharged. She was advised to see her PCP for followup in 7 days. Job ID: [id number]
[2019-03-27] MEDS: metFORMIN 500 MG TAB PO SCH (10:16)
[2019-03-27] MEDS: Bupropion 100 MG SR TAB PO SCH (10:16)
[2019-03-27] MEDS: Famotidine 20 MG TAB PO SCH (10:17)
[2019-03-27] MEDS: NIFEdipine XL 30 MG TAB PO SCH (10:17)
[2019-03-27] MEDS: Citalopram 10 MG TAB PO SCH (10:18)
[2019-03-27] MEDS: busPIRone HCl 5 MG TAB PO SCH (10:19)
[2019-03-27] MEDS: Lisinopril 5 MG TAB PO SCH (10:19)
[2019-03-27] MEDS: Potassium Chloride 8 MEQ TAB PO SCH (10:20)
[2019-03-27] MEDS: Furosemide 20 MG TAB PO SCH (10:20)
[2019-03-27] MEDS: Metoprolol Tartrate 25 MG TAB PO SCH (10:21)
[2019-03-27] MEDS: Aspirin 81 mg Enteric Coated Tablet PO SCH (10:22)
[2019-03-27] MEDS: Gabapentin 300 MG CAP PO SCH (10:22)
[2019-03-27 11:55] VITALS: BP 104/60; TEMP 97.5
[2019-03-28] MEDS ORDERED: Nitroglycerin 0.1mg/Hour PATCH TOP SCH (06:00)
== END 2019-03-27 12:00 | disposition home or self-care (01) | DRG 62 ==
LOC: ERS 21:41 → CCU 22:20 → 2SE 03-25 16:57
PROVIDERS: ADMIT Internal Medicine; ATTEND Internal Medicine
DX: I63.411 Cerebral infarction due to embolism of right middle cerebral artery (principal); G81.94 Hemiplegia, unspecified affecting left nondominant side; Z68.41 Body mass index [BMI] 40.0-44.9, adult; I25.10 Atherosclerotic heart disease of native coronary artery without angina pectoris; R29.810 Facial weakness; R47.81 Slurred speech; G25.81 Restless legs syndrome; F41.9 Anxiety disorder, unspecified; F32.9 Major depressive disorder, single episode, unspecified; G47.00 Insomnia, unspecified; E11.40 Type 2 diabetes mellitus with diabetic neuropathy, unspecified; G89.4 Chronic pain syndrome; I10 Essential (primary) hypertension; D50.9 Iron deficiency anemia, unspecified; M19.90 Unspecified osteoarthritis, unspecified site; E66.01 Morbid (severe) obesity due to excess calories; Z95.1 Presence of aortocoronary bypass graft; Z88.8 Allergy status to other drugs, medicaments and biological substances; Z79.4 Long term (current) use of insulin; Z95.5 Presence of coronary angioplasty implant and graft; I25.2 Old myocardial infarction; Z95.0 Presence of cardiac pacemaker; Z90.49 Acquired absence of other specified parts of digestive tract; Z90.710 Acquired absence of both cervix and uterus
CPT/HCPCS: 36415; 36416; 70450; 70496; 70498; 80048; 80053; 80061; 82550; 84484; 85025; 93005; 94760; 96365; 96376; J2997; Q9966; S0028